=== PATIENT | female | born 1945 | race Caucasian/White ===

== ENCOUNTER → 2017-11-28 19:00 | Outpatient (CLI) | payer MEDICARE, OTHER, SELFPAY ==
--- NOTE | 2017-11-28 19:04 | DI.MRI.S_ITS ---
PROCEDURE: MR CERVICAL SPINE WO CON INDICATIONS: NECK PAIN TECHNIQUE: Noncontrast sagittal T1 spin echo and T2 fast spin echo, sagittal STIR, foraminal oblique sagittal T2 fast spin echo, and axial gradient echo or T2 fast spin echo through the cervical spine. COMPARISON: [facility], MR, C-SPINE WITHOUT CONTRAST, 10/11/2010, 15:04. [facility], MR, C-SPINE WITHOUT CONTRAST, 07/27/2014, 8:52. [facility], CT, C-SPINE WITHOUT CONTRAST, 11/02/2013, 23:19. FINDINGS: Image quality: Excellent. Alignment and Curvature: There is normal bony alignment. Bone Marrow: Marrow demonstrates normal overall signal. Spinal Cord: Visualized spinal cord has normal size and signal. No cerebellar tonsillar herniation. Paraspinous Soft Tissues: No paravertebral masses. Prevertebral soft tissues are normal in thickness. C2-C3: The disc height is relatively well-preserved. A mild degree of generalized disc osteophyte complex is seen. Mild bilateral neural foraminal narrowing is seen. No significant central canal narrowing is seen. When comparison is made with the prior examination, these findings are similar. C3-C4: The disc height is relatively well-preserved. A mild degree of generalized disc osteophyte complex is seen. There is at least moderate right-sided facet hypertrophy seen. Mild left-sided facet hypertrophy is seen. Mild bilateral neural foraminal narrowing is seen. When comparison is made with the prior examination, these findings are similar. C4-C5: Moderate loss of disc height is seen. Loss of disc signal is seen. Uncovertebral joint hypertrophy is seen at this level. Moderate disc osteophyte complex is seen, with a central disc osteophyte protrusion, as on series 3 image 15. Moderate facet joint hypertrophy is seen. Mkkk-sy-cgwdmdzi bilateral neural foraminal narrowing is seen, right worse than left. Moderate central canal narrowing is seen, with associated mass effect upon the ventral spinal cord. These degenerative changes have progressed compared to 2015. C5-C6: At least moderate loss of disc height and disc signal are seen at moderate disc bulge is seen, which is eccentric to the left side. Uncovertebral joint hypertrophy is seen at this level. Mekx-ky-dbbrfbry facet hypertrophy is seen. Moderate to severe bilateral neural foraminal narrowing is seen, left worse than right. At least moderate central canal narrowing seen. There is associated mass effect upon the ventral spinal cord. When comparison is made with the prior examination, these findings are similar. C6-C7: At least moderate loss of disc height and disc signal are seen. Moderate generalized disc osteophyte complex is seen. There is a superimposed central disc osteophyte protrusion seen. There is moderate right-sided and moderate to severe left-sided neural foraminal narrowing seen. Moderate central canal narrowing is seen, with associated mass effect upon the ventral spinal cord. These degenerative changes are worse than and 2015. C7-T1: Level within normal limits. IMPRESSION: Multiple levels of cervical spine degenerative change are seen, which are most prominent inferiorly. The degenerative changes are overall progressed compared to 2015. Dictated by: Sherman Alarcon M.D. on 12/01/2017 at 9:49 Approved by: Sherman Alarcon M.D. on 12/01/2017 at 9:56
== END ==
PROVIDERS: Family Provider Physical Medicine & Rehabilitation; PCP Family Medicine; Visit Provider Family Medicine
DX: M54.2 Cervicalgia (principal); M47.892 Other spondylosis, cervical region
CPT/HCPCS: 72141

== ENCOUNTER → 2017-12-18 13:34 | Outpatient (CLI) | payer MEDICARE, OTHER, SELFPAY | PROVIDERS: Family Provider Physical Medicine & Rehabilitation; PCP Family Medicine; Visit Provider Family Medicine | DX: M81.0 Age-related osteoporosis without current pathological fracture (principal); Z78.0 Asymptomatic menopausal state | CPT/HCPCS: 77080 ==

== ENCOUNTER → 2017-12-24 08:27 | Outpatient (CLI) | payer MEDICARE, OTHER, SELFPAY ==
--- NOTE | 2017-12-24 | DI.MG.S_ITS ---
BILATERAL DIGITAL SCREENING MAMMOGRAM 3D/2D WITH CAD: 12/24/2017 CLINICAL: Routine screening. Comparison is made to exams dated: 12/20/2016 mammogram, 11/30/2015 mammogram, and 11/15/2014 mammogram - [facility]. There are scattered fibroglandular elements in both breasts. Current study was also evaluated with a Computer Aided Detection (CAD) system. There are benign vascular calcifications in both breasts. No significant masses, calcifications, or other findings are seen in either breast. There has been no significant interval change. IMPRESSION: BENIGN There is no mammographic evidence of malignancy. A 1 year screening mammogram is recommended. This exam was interpreted at Station ID: [id number]. NOTE: For mammograms, a report in lay terms will be sent to the patient. Approximately 15% of breast malignancies will not be visualized mammographically. In the management of a palpable breast mass, a negative mammogram must not discourage biopsy of a clinically suspicious lesion. Electronically Signed By: Jamison davies/socrates:12/24/2017 20:06:49 letter sent: Normal Exam ACR BI-RADS Category 2: Benign Finding(s) 3342F
== END ==
PROVIDERS: PCP Family Medicine; Visit Provider Family Medicine
DX: Z12.31 Encounter for screening mammogram for malignant neoplasm of breast (principal)
CPT/HCPCS: 77063; 77067

== ENCOUNTER → 2018-02-20 14:50 | Outpatient (CLI) | payer MEDICARE, OTHER, SELFPAY ==
--- NOTE | 2018-02-20 | DI.RAD.S_ITS ---
PROCEDURE: XR ANKLE LT MIN 3V INDICATIONS: BILAT ANKLE PAIN TECHNIQUE: 3 views of the ankle were acquired. COMPARISON: [facility], CR, XR ANKLE RT MIN 3V, 02/20/2018, 14:54. FINDINGS: Bones: No fractures or dislocations. Ankle mortise is normally aligned. No suspicious bony lesions. Mild to moderate osteoarthritic changes are noted throughout ankle joints, mid foot and hindfoot joints. Small plantar calcaneal enthesophyte is seen. Soft tissues: No tibiotalar joint effusion. Achilles tendon appears normal. IMPRESSION: Mild to moderate osteoarthritic changes small ankle, midfoot and hindfoot joints. Dictated by: Shin Kapoor M.D. on 02/20/2018 at 15:36 Approved by: Shin Kapoor M.D. on 02/20/2018 at 15:37
--- NOTE | 2018-02-20 | DI.RAD.S_ITS ---
PROCEDURE: XR ANKLE RT MIN 3V INDICATIONS: BILAT ANKLE PAIN TECHNIQUE: 3 views of the ankle were acquired. COMPARISON: [facility], , ANKLE 3 VIEWS RIGHT, 12/26/2015, 17:28. FINDINGS: Bones: No fractures or dislocations. Ankle mortise is normally aligned. No suspicious bony lesions. Osteoarthritic changes in tibiotalar joint and subtalar joint are seen. Moderate osteoarthritic changes from midfoot joints are also noted. Well-defined a plantar calcaneal enthesophyte is seen. Soft tissues: No tibiotalar joint effusion. Achilles tendon appears normal. 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 Dictated by: Shin Kapoor M.D. on 02/20/2018 at 15:34 Approved by: Shin Kapoor M.D. on 02/20/2018 at 15:36
== END ==
PROVIDERS: Family Provider Physical Medicine & Rehabilitation; PCP Family Medicine; Visit Provider Family Medicine
DX: M25.571 Pain in right ankle and joints of right foot (principal); M25.572 Pain in left ankle and joints of left foot; M19.072 Primary osteoarthritis, left ankle and foot; M19.071 Primary osteoarthritis, right ankle and foot
CPT/HCPCS: 73610

== ENCOUNTER → 2018-08-07 10:41 | Outpatient (CLI) | payer MEDICARE, OTHER, SELFPAY ==
--- NOTE | 2018-08-07 | DI.RAD.S_ITS ---
PROCEDURE: XR SHOULDER LT MIN 2V INDICATIONS: LEFT SHOULDER PAIN TECHNIQUE: 3 views of the shoulder were acquired. COMPARISON: [facility], , SHOULDER MINIMUM 2VIEW RIGHT, 11/10/2015, 12:31. FINDINGS: Bones: No fractures or dislocations. No suspicious bony lesions. Visualized ribs appear intact. Moderate acromioclavicular and glenohumeral joint degeneration. Soft tissues: No suspicious soft tissue calcifications. IMPRESSION: No fracture. Moderate left shoulder joint degeneration. Dictated by: Wilman Salazar M.D. on 08/07/2018 at 12:06 Approved by: Wilman Salazar M.D. on 08/07/2018 at 12:07
== END ==
PROVIDERS: PCP Family Medicine; Visit Provider Family Medicine
DX: M25.512 Pain in left shoulder (principal); M19.012 Primary osteoarthritis, left shoulder
CPT/HCPCS: 73030

== ENCOUNTER 2018-08-10 16:14 | Emergency (ER) | payer MEDICARE, OTHER, SELFPAY ==
[2018-08-10 16:15] VITALS: BP 144/80; PULSE 89; RESP 12; TEMP 36.6; O2SAT 96
--- NOTE | 2018-08-10 20:11 | ED.FALL ---
HPI - Fall General Chief Complaint: Fall Stated Complaint: FALL LOWER BACK PAIN Time Seen by Provider: 08/10/18 20:11 Source: patient Mode of arrival: ambulatory Limitations: no limitations History of Present Illness HPI Narrative: Patient is a 73-year-old female here for evaluation of lower back pain. She stated that she was sweeping off a cement pad when she took a step back and then fell backwards. First landing on her buttocks and then falling back and hitting her head. Did not lose consciousness. Is not on anticoagulation. Since then has had lower back pain. Has had a history of unsteadiness and dizziness and vertigo in the past. This is not new. This is not from the fall for which she is here for today. Related Data Home Medications Medication Instructions Recorded Confirmed lisinopril 30 mg PO QAM #0 04/01/16 08/10/18 amitriptyline 10 mg tablet 10 mg PO QPM 02/26/18 08/10/18 atorvastatin 40 mg tablet 40 mg PO QPM 02/26/18 08/10/18 conjugated estrogens 0.625 mg 1.25 mg PO QAM 02/26/18 08/10/18 tablet escitalopram 20 mg tablet 20 mg PO QAM 02/26/18 08/10/18 folic acid 1 mg tablet 1 mg PO DAILY 02/26/18 08/10/18 hydrochlorothiazide 25 mg tablet 25 mg PO QAM 02/26/18 08/10/18 ann red joint care 1 cap PO QAM 02/26/18 08/10/18 Respirinics DreamStation Auto CPAP #1 ea 06/26/18 08/10/18 calcium polycarbophil [Fiber-Tabs] 1 tab PO BID 08/10/18 08/10/18 cholecalciferol (vitamin D3) 4,000 unit PO BID 08/10/18 08/10/18 [Vitamin D3] cyanocobalamin (vitamin B-12) 1,000 mcg PO DAILY 08/10/18 08/10/18 [Vitamin B-12] lpmjongf-zth-OL-lycopen-lutein 1 tab PO DAILY 08/10/18 08/10/18 [Centrum Silver] omeprazole 40 mg PO BID 08/10/18 08/10/18 solifenacin [Vesicare] 10 mg PO QPM 08/10/18 08/10/18 terbinafine HCl 250 mg PO DAILY 08/10/18 08/10/18 Previous Rx's Medication Instructions Recorded nabumetone 500 mg tablet 500 mg PO BID #60 tab 05/07/18 meloxicam [Mobic] 7.5 mg PO DAILY PRN #30 tab 08/10/18 Allergies Allergy/AdvReac Type Severity Reaction Status Date / Time shellfish derived Allergy Severe scallop Verified 08/10/18 16:30 [SHELLFISH DERIVED] ANAPHYLAXIS piroxicam [PIROXICAM] Allergy Intermediate RASH Verified 08/10/18 16:30 rofecoxib [ROFECOXIB] Allergy Intermediate RASH Verified 08/10/18 16:30 bacitracin Allergy Mild rash Verified 08/10/18 16:30 [From NEOSPORIN ([id number])] neomycin Allergy Mild rash Verified 08/10/18 16:30 [From NEOSPORIN ([id number])] polymyxin B Allergy Mild rash Verified 08/10/18 16:30 [From NEOSPORIN ([id number])] Review of Systems Constitutional Reports frequent falls ENT Ears, Nose, Mouth, and Throat: Reports disequilibrium Cardiovascular Denies chest pain, Denies palpitations and Denies dyspnea Respiratory Denies dyspnea Gastrointestinal Gastrointestinal: Denies abdominal pain Musculoskeletal Reports back pain, Reports myalgias, Reports arthralgias and Denies tingling Integumentary/Breasts Denies rash Neurologic Denies behavioral changes, Denies confusion, Reports frequent falls, Denies tingling, Denies paresthesias and Reports disequilibrium Psychiatric Denies behavioral changes and Denies confusion Endocrine Denies palpitations Hematologic/Lymphatic Denies easy bleeding and Denies easy bruising Exam Initial Vital Signs Initial Vital Signs: Vital Signs Temperature 97.8 F 08/10/18 16:15 Pulse Rate 89 08/10/18 16:15 Respiratory Rate 12 08/10/18 16:15 Blood Pressure 144/80 H 08/10/18 16:15 Pulse Oximetry 96 08/10/18 16:15 Const General: cooperative, healthy appearing, comfortable, well developed, well groomed and No acute distress Orientation: alert, awake and oriented x3 HENMT Head: normal to inspection, normocephalic, atraumatic, No abrasion, No contusion, No hematoma, No laceration and No scalp tenderness Resp Effort & Inspection: normal respiratory effort Auscultation: clear to auscultation bilaterally Cardio Rate: regular rate Rhythm: regular rhythm Back/Spine/Pelvis Back: No CVA tenderness Cervical Spine: No cervical spinal tenderness Thoracic/Lumbar Spine: paraspinal tenderness, No thoraco-lumbar spasm, No thoracic spinal tenderness and lumbar spinal tenderness Skin Lesions: no lesions Rashes: no rashes Neuro General: alert, awake and oriented x3 Cognition: normal cognition Speech: speech normal Extrem General: normal to inspection and capillary refill normal Psych Appearance: grossly normal and well kempt [facility] Social History marital status: details: to Bill, lives in [place] household members: spouse lives independently: Yes caregiver/support person: No housing: house Smoking Status: Never smoker Scores GCS Buster coma scale eye opening: Spontaneous Buster coma scale verbal response: Orientated [place] coma scale motor response: Obey commands Buster coma scale total score: 15 Nexus Score for C-Spine Focal Neurologic deficit present: No Midline spinal tenderness present: No Altered level of conciousness present: No Intoxication present: No Distracting Injury Present: No Nexus Criteria for C-spine: 0 Course Orders Ordered: ED Orders 08/10/18 20:28 XR lumbar spine 2-3V Stat Vital Signs - 8 hr 08/10/18 20:16 08/10/18 21:30 08/10/18 22:02 Pulse Rate 84 70 69 Respiratory Rate 18 18 Blood Pressure 118/53 L Blood Pressure [Right Arm] 135/73 118/53 L Pulse Oximetry 95 94 95 MDM - Fall Lab Data Urine Dip Bedside Urine Glucose Negative Bedside Urine Bilirubin - Negative Bedside Urine Ketone - Negative Urine Specific Hana 1.025 Bedside Urine Occult Blood - Negative Bedside Urine pH 6.0 Bedside Urine Protein - Negative Bedside Urine Urobilinogen - Negative Bedside Urine Nitrite - Negative Bedside Urine Leukocytes - Negative Esterase Imaging Data Lumbar spine x-ray: Radiologist's impression: [address] [address] XRay Report Signed Patient: Pat Jackson LMR#: [id number] : 7Acct:[id number] Age/Sex: 73 / FDate of Service: 08/10/18 Loc: ED Accession Number: [id number] Procedure: XR lumbar spine 2-3V Ordering Provider: Lyle Souza D.O. PROCEDURE: XR LUMBAR SPINE 2-3V INDICATIONS: fall with pain TECHNIQUE: 3 views of the lumbar spine were acquired. COMPARISON: [facility], , L-SPINE 2-3 VIEWS, 09/28/2015, 16:28. FINDINGS: Bones: 5 [id number]-rzv-mumlwxb vertebrae are present. Chronic grade 1 anterolisthesis L4 on 5. Chronic vertebral body compression fracture of L1, stable in extent. Bridging osteophytosis present. New vertebral body fracture. No suspicious bony lesions. Soft tissues: Overlying bowel gas pattern is normal. No suspicious soft tissue calcifications. IMPRESSION: 1. No visible acute fractures. 2. Chronic L1 compression fracture. 3.. Chronic grade 1 anterolisthesis of L4 on 5. No new malalignment. Dictated by: Paty Zambrano M.D. on 08/10/2018 at 20:58 Approved by: Paty Zambrano M.D. on 08/10/2018 at 21:00 MDM Narrative Medical decision making narrative: Patient with known old compression fracture. No new compression fractures were seen. She is tender on the right side paraspinal region of the lumbar spine. Will hold on a head CT for now. Patient is unknown left shoulder. She does have Flexeril that was prescribed to her by her primary doctor. She is never been told that she should not take anti-inflammatories. Will send home with a prescription for Mobic. Will hold on further workup for now. Patient was given return precautions. She expressed understanding and agreement plan. Discharge Plan Departure Patient Disposition: Home Clinical Impression: Back pain Qualifiers: Back pain location: low back pain Chronicity: acute Back pain laterality: bilateral Sciatica presence: without sciatica Qualified Code(s): M54.5 - Low back pain Fall Qualifiers: Encounter type: initial encounter Qualified Code(s): W19.XXXA - Unspecified fall, initial encounter Discharge Date/Time: 08/10/18 22:03 Interventions: ED Discharge Assessment Last Done: 08/10/18 22:02 Instructions: Back Pain (Alternative Therapy), DI for Low Back Pain, Activity May Be Better then Rest for Low Back Pain Recovery Activity Restrictions/Additional Instructions: You can continue to take the Flexeril that was given to you by your primary doctor. Take the Mobic that you were given a prescription for today as directed. Return to the emergency department for any new or worsening symptoms Prescriptions: New meloxicam [Mobic] 7.5 mg tablet 7.5 mg PO DAILY PRN (Reason: back pain) Qty: 30 RF: 0 No Action lisinopril 30 MG tablet 30 mg PO QAM Qty: 0 RF: 0 cyanocobalamin (vitamin B-12) [Vitamin B-12] 1,000 mcg Tablet 1,000 mcg PO DAILY RF: 0 omeprazole 40 mg capsule,delayed release(DR/EC) 40 mg PO BID RF: 0 terbinafine HCl 250 mg tablet 250 mg PO DAILY RF: 0 calcium polycarbophil [Fiber-Tabs] 625 mg Tablet 1 tab PO BID RF: 0 Vesicare 10 mg tablet 10 mg PO QPM RF: 0 Centrum Silver 0.4-300-250 mg-mcg-mcg Tablet 1 tab PO DAILY RF: 0 cholecalciferol (vitamin D3) [Vitamin D3] 2,000 unit Capsule 4,000 unit PO BID RF: 0 conjugated estrogens [Premarin] 0.625 mg tablet 1.25 mg PO QAM RF: 0 hydrochlorothiazide 25 mg tablet 25 mg PO QAM RF: 0 escitalopram oxalate [Lexapro] 20 mg tablet 20 mg PO QAM RF: 0 folic acid 1 mg tablet 1 mg PO DAILY RF: 0 atorvastatin [Lipitor] 40 mg tablet 40 mg PO QPM RF: 0 amitriptyline 10 mg tablet 10 mg PO QPM RF: 0 ann red joint care 1 cap PO QAM RF: 0 nabumetone 500 mg tablet 500 mg PO BID Qty: 60 RF: 2 Respirinics DreamStation Auto CPAP Qty: 1 RF: 0 Referrals: Ana Paula Jean Baptiste MD [Primary Care Provider] -
[2018-08-10 20:16] VITALS: BP 135/73; PULSE 84; RESP 18; O2SAT 95
--- NOTE | 2018-08-10 20:28 | DI.RAD.S_ITS ---
PROCEDURE: XR LUMBAR SPINE 2-3V INDICATIONS: fall with pain TECHNIQUE: 3 views of the lumbar spine were acquired. COMPARISON: [facility], , L-SPINE 2-3 VIEWS, 09/28/2015, 16:28. FINDINGS: Bones: 5 ats-bqi-medcclv vertebrae are present. Chronic grade 1 anterolisthesis L4 on 5. Chronic vertebral body compression fracture of L1, stable in extent. Bridging osteophytosis present. New vertebral body fracture. No suspicious bony lesions. Soft tissues: Overlying bowel gas pattern is normal. No suspicious soft tissue calcifications. IMPRESSION: 1. No visible acute fractures. 2. Chronic L1 compression fracture. 3.. Chronic grade 1 anterolisthesis of L4 on 5. No new malalignment. Dictated by: Paty Zambrano M.D. on 08/10/2018 at 20:58 Approved by: Paty Zambrano M.D. on 08/10/2018 at 21:00
[2018-08-10 21:30] VITALS: BP 118/53; PULSE 70; O2SAT 94
[2018-08-10 22:02] VITALS: BP 118/53; PULSE 69; RESP 18; O2SAT 95
== END 2018-08-10 22:03 | disposition home or self-care (01) ==
PROVIDERS: Emergency Provider Emergency Medicine; PCP Family Medicine
DX: M54.5 Low back pain (principal); W19.XXXA Unspecified fall, initial encounter
CPT/HCPCS: 72100; 81003; 99283; 99284

== ENCOUNTER 2018-10-27 17:32 | Observation (INO) | payer MEDICARE, OTHER, SELFPAY ==
[2018-10-27] VITALS (7 sets, daily range): BP systolic 124–166; BP diastolic 66–101; PULSE 72–90; RESP 17–18; TEMP 36.4–36.8; O2SAT 93–97; BMI 39.2
[2018-10-27] MEDS: PANTOPRAZOLE 40 MG VIAL 80 MG IV (19:00)
[2018-10-27 19:10] LABS: Add Manual Diff / Slide Review NO; Basophils Absolute Auto 0 /uL (0-100); Basophils Percent Auto 0.5 % (0-2); Eosinophils Absolute Auto 100 /uL (0-450); Eosinophils Percent Auto 1.1 % (2-4); Hematocrit 39.4 % (36-46); Hemoglobin 13.2 g/dL (12.0-16.0); Lymphocytes Absolute Auto 2700 /uL (1100-4500); Lymphocytes Percent Auto 33.4 % (25-40); Mean Corpuscular HGB Conc 33.4 % (30-36); Mean Corpuscular Hemoglobin 31.4 PG (26-34); Mean Corpuscular Volume 93.8 fL (80-100); Monocytes Absolute Auto 700 /uL (0-900); Monocytes Percent Auto 9.1 % (3-14); Neutrophils Absolute Auto 4600 /uL (1500-7000); Neutrophils Percent Auto 55.9 % (50-75); Platelet Count 223 X10^3/uL (150-400); Red Cell Distribution Width 13.1 % (11.6-14.8); White Blood Cell Count 8.2 X10^3/uL (4.5-11.0)
[2018-10-27 19:22] LABS: Alanine Aminotransferase 28 IU/L (9-52); Albumin Globulin Ratio 1.1 (1.0-2.8); Alkaline Phosphatase 124 U/L (38-126); Aspartate Aminotransferase 38 IU/L (14-36); BUN Creatinine Ratio 22.2 (6-22); Bilirubin Total 0.5 mg/dL (0.2-1.3); Blood Urea Nitrogen 20 mg/dL (7-17); Calcium 9.3 mg/dL (8.4-10.2); Carbon Dioxide 29 mmol/L (22-32); Chloride 102 mmol/L (98-107); Estimated Glomerular Filt Rate > 60.0 mL/min (>60); Globulin 3.5 g/dL (1.7-4.1); Glucose 101 mg/dL (80-110); HEMOLYSIS < 15 (0-50); INR 0.9 (0.9-1.3); Potassium 3.9 mmol/L (3.4-5.1); Prothrombin Time 10.8 SECONDS (10.1-12.7); Sodium 138 mmol/L (137-145); Total Protein 7.5 g/dL (6.3-8.2)
[2018-10-27 19:25] LABS: PTT Partial Thromboplastin Tim 26 SECONDS (26.4-36.2)
--- NOTE | 2018-10-27 19:25 | PC.NURSE ---
Pt reports waking at 0200 with severe abdominal cramping upon having a bowel movement the patient noticed dark bloody colored stool and when she wiped it was bright red, pt reports at that time feeling dizzy. This continued intermittently throughout the night. 192 patient denied dizziness and reports a pain of 5, pt resting in room with .
--- NOTE | 2018-10-27 19:44 | ED.GIBLEED ---
HPI - GI Bleed General Chief complaint: GI Bleed Stated complaint: RECTAL BLEEDING Time Seen by Provider: 10/27/18 17:59 Source: patient and family Mode of arrival: ambulatory Limitations: no limitations History of Present Illness HPI Narrative: 73-year-old female nonsmoker with history of hypertension and hyperlipidemia presents with a chief complaint lower abdominal cramping with radiation to her back and the passage of dark and tarry stool earlier. She states since then she has had some small dark clots. She denies any history of the same. She is not dizzy nor weak or lightheaded. She denies any history of significant NSAID use, bleeding ulcers or gastritis. She denies any history of alcohol or known esophageal varices. MD complaint: melena Onset (ago): hour(s) Pain Consistency: intermittent Severity: moderate Relieving factors: none Exacerbating factors: none Associated symptoms: abdominal pain Treatments Prior to Arrival: none Related Data Home Medications Medication Instructions Recorded Confirmed lisinopril 30 mg PO QAM #0 04/01/16 10/27/18 amitriptyline 10 mg tablet 10 mg PO QPM 02/26/18 10/27/18 atorvastatin 40 mg tablet 40 mg PO QPM 02/26/18 10/27/18 conjugated estrogens 0.625 mg 1.25 mg PO QAM 02/26/18 10/27/18 tablet escitalopram 20 mg tablet 20 mg PO QAM 02/26/18 10/27/18 folic acid 1 mg tablet 1 mg PO DAILY 02/26/18 10/27/18 hydrochlorothiazide 25 mg tablet 25 mg PO QAM 02/26/18 10/27/18 ann red joint care 1 cap PO QAM 02/26/18 10/27/18 Respirinics DreamStation Auto CPAP #1 ea 06/26/18 10/27/18 calcium polycarbophil [Fiber-Tabs] 1 tab PO BID 08/10/18 10/27/18 cholecalciferol (vitamin D3) 4,000 unit PO BID 08/10/18 10/27/18 [Vitamin D3] cyanocobalamin (vitamin B-12) 1,000 mcg PO DAILY 08/10/18 10/27/18 [Vitamin B-12] [id number]-[id number]-lycopen-lutein 1 tab PO DAILY 08/10/18 10/27/18 [Centrum Silver] omeprazole 40 mg PO BID 08/10/18 10/27/18 solifenacin [Vesicare] 10 mg PO QPM 08/10/18 10/27/18 terbinafine HCl 250 mg PO DAILY 08/10/18 10/27/18 Previous Rx's Medication Instructions Recorded nabumetone 500 mg tablet 500 mg PO BID #60 tab 05/07/18 Allergies Allergy/AdvReac Type Severity Reaction Status Date / Time shellfish derived Allergy Severe scallop Verified 10/27/18 18:28 [SHELLFISH DERIVED] ANAPHYLAXIS piroxicam [PIROXICAM] Allergy Intermediate RASH Verified 10/27/18 18:28 rofecoxib [ROFECOXIB] Allergy Intermediate RASH Verified 10/27/18 18:28 bacitracin Allergy Mild rash Verified 10/27/18 18:28 [From NEOSPORIN ([id number])] neomycin Allergy Mild rash Verified 10/27/18 18:28 [From NEOSPORIN ([id number])] polymyxin B Allergy Mild rash Verified 10/27/18 18:28 [From NEOSPORIN ([id number])] Review of Systems Constitutional Denies chills, Denies fever(s), Denies lethargy and Denies weakness Eyes Denies change in vision, Denies eye discharge, Denies irritation and Denies loss of vision ENT Ears, Nose, Mouth, and Throat: Denies change in voice, Denies neck pain and Denies sore throat Cardiovascular Denies chest pain, Denies irregular heart rhythm, Denies lightheadedness, Denies palpitations, Denies dyspnea, Denies dyspnea on exertion and Denies orthopnea Respiratory Denies cough, Denies dyspnea, Denies dyspnea on exertion and Denies wheezing Gastrointestinal Gastrointestinal: Denies abdominal pain, Reports melena, Reports hematochezia, Denies change in bowel habits, Denies diarrhea, Denies nausea and Denies vomiting Genitourinary Denies hematuria, Denies flank pain, Denies urinary incontinence and Denies urinary urgency Musculoskeletal Denies neck pain Integumentary/Breasts Denies pruritus, Denies erythema, Denies rash and Denies wounds Neurologic Denies confusion, Denies loss of vision and Denies weakness Psychiatric Denies anxiety, Denies confusion, Denies depression, Denies homicidal ideation and Denies suicidal ideation Endocrine Denies palpitations Hematologic/Lymphatic Denies easy bruising Allergic/Immunologic Denies wheezing [facility] Medical History Obstructive sleep apnea of adult (Chronic ~2006) Insomnia, unspecified (Chronic ~2006) Excessive daytime sleepiness (Inactive ~2006) Snoring (Inactive ~1984) History of hysterectomy (Acute) Allergic rhinitis (Chronic) Anxiety (Chronic) Chronic rhinosinusitis (Chronic) Depression (Chronic) GERD (gastroesophageal reflux disease) (Chronic) Hyperlipidemia (Chronic) Hypertension (Chronic) 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 sides of body (Chronic) Surgical History History of bladder suspension procedure (Acute) History of colonoscopy (Acute) History of hand surgery (Acute) History of surgery on left wrist (Acute) Social History marital status: details: julienne Mirza, lives in [place] household members: spouse lives independently: Yes caregiver/support person: No housing: house Smoking Status: Never smoker Social History marital status: details: julienne Mirza lives in [place] household members: spouse lives independently: Yes caregiver/support person: No housing: house Smoking Status: Never smoker Exam Narrative Exam Narrative: GENERAL: 73-year-old female appears stated age, obviously a bit uncomfortable HEAD: Atraumatic. Normocephalic. No temporal or scalp tenderness. EYES: Pupils equal round and reactive. Extraocular motions intact. No scleral icterus. No injection or drainage. ENT: Nose without bleeding, purulent drainage or septal hematoma. Throat without erythema, tonsillar hypertrophy or exudate. Uvula midline. Airway patent. NECK: Trachea midline. No JVD or lymphadenopathy. Supple, nontender, no meningeal signs. CARDIOVASCULAR: Regular rate and rhythm without murmurs, gallops, or rubs. RESPIRATORY: Clear to auscultation. Breath sounds equal bilaterally. No wheezes, rales, or rhonchi. GASTROINTESTINAL: Abdomen soft, non-tender, nondistended. RECTAL: few dark clots, not currently melena EXTREMITIES: No clubbing, cyanosis, or edema. No joint tenderness, effusion, or edema noted. BACK: Nontender without deformity or crepitance. No flank tenderness. NEURO: AOx3. SKIN: No rash or erythema. Initial Vital Signs Initial Vital Signs: Vital Signs Temperature 97.6 F 10/27/18 17:41 Pulse Rate 90 10/27/18 17:41 Respiratory Rate 18 10/27/18 17:41 Blood Pressure 155/95 H 10/27/18 17:41 Pulse Oximetry 96 10/27/18 17:41 Course Orders Ordered: ED Orders 10/27/18 18:30 Complete Blood Count AUTO DIFF Stat Comprehensive Metabolic Panel Stat Partial Thromboplastin Time Stat Prothrombin Time INR Stat Type and Screen Stat 10/27/18 21:50 Consult to Discharge Planning Routine 10/27/18 21:51 Consult to Physician Routine 10/27/18 21:53 Consult to Dietitian, Adult Routine 10/27/18 22:16 Education, smoking cessation ONGOING 10/27/18 22:17 Consult to Respiratory Therapy Evaluate & Treat 10/28/18 Basic Metabolic Panel Routine Complete Blood Count AUTO DIFF Routine Amitriptyline HCl (Elavil) 10 mg PO QPM [facility] Atorvastatin Calcium (Lipitor) 40 mg PO QPM [facility]1983 Escitalopram Oxalate (Lexapro) 20 mg PO DAILY [facility]1983 Pantoprazole Sodium 80 mg/ (Sodium Chloride) 100 mls @ 10 mls/hr IV NOW ONE Stop: 10/28/18 19:48 Sodium Chloride (Normal Saline 0.9%) 1,000 mls @ 100 mls/hr IV CONT CHE Last Admin: 10/27/18 23:02 Dose: 100 mls/hr Lisinopril (Zestril) 30 mg PO DAILY [facility]1983 Morphine Sulfate (Morphine) 2 mg IV Q4HR PRN PRN Reason: Pain, Moderate (4-6) Morphine Sulfate (Morphine) 4 mg IV Q4HR PRN PRN Reason: Pain, Severe (7-10) Naloxone HCl (Narcan) 0.2 mg IV Q2MIN PRN PRN Reason: Opiate Reversal Ondansetron HCl (Zofran) 4 mg IV Q8HR PRN PRN Reason: Nausea And Vomiting Solifenacin (Vesicare) 10 mg PO QPM [facility] Discontinued Medications Hydrochlorothiazide (Hydrochlorothiazide) 25 mg PO DAILY [facility] Ondansetron HCl (Zofran) 4 mg IV NOW ONE Stop: 10/27/18 18:09 Last Admin: 10/27/18 22:34 Dose: Not Given Pantoprazole Sodium (Protonix) 80 mg IV NOW ONE Stop: 10/27/18 18:09 Last Admin: 10/27/18 19:00 Dose: 80 mg Consultations Consultation #1: call to Dr. Schwartz to discuss admission. Happy to consult, requests admit to hospitalist with official consult as needed. Time: 19:44 Vital Signs - 8 hr 10/27/18 18:00 10/27/18 19:13 10/27/18 20:00 Temperature Pulse Rate 73 72 78 Respiratory Rate Blood Pressure Blood Pressure [Right Arm] 124/66 129/69 155/101 H Pulse Oximetry 97 96 96 10/27/18 20:34 10/27/18 21:00 10/27/18 23:25 Temperature 98.3 F 97.9 F Pulse Rate 73 73 Respiratory Rate 17 18 Blood Pressure 153/75 H 166/84 H 150/85 H Blood Pressure [Right Arm] Pulse Oximetry 95 93 10/28/18 00:21 Temperature Pulse Rate Respiratory Rate Blood Pressure Blood Pressure [Right Arm] Pulse Oximetry 93 MDM - GI Bleed Lab Data Result diagrams: 10/27/18 18:30 10/27/18 18:30 Lab Results 10/27/18 10/27/18 10/27/18 Range/Units 18:30 18:30 18:30 WBC 8.2 (4.5-11.0) X10^3/uL RBC 4.20 (4.0-5.2) X10^6/uL Hgb 13.2 (12.0-16.0) g/dL Hct 39.4 (36-46) % MCV 93.8 (80-100) fL MCH 31.4 (26-34) PG MCHC 33.4 (30-36) % RDW 13.1 (11.6-14.8) % Plt Count 223 (150-400) X10^3/uL Neut % (Auto) 55.9 (50-75) % Lymph % (Auto) 33.4 (25-40) % [place] % (Auto) 9.1 (3-14) % Eos % (Auto) 1.1 L (2-4) % Baso % (Auto) 0.5 (0-2) % Neut # (Auto) 4600 (9347-7884) /uL Lymph # (Auto) 2700 (3713-4622) /uL [place] # (Auto) 700 (0-900) /uL Eos # (Auto) 100 (0-450) /uL Baso # (Auto) 0 (0-100) /uL PT 10.8 (10.1-12.7) SECONDS INR 0.9 (0.9-1.3) APTT 26 L (26.4-36.2) SECONDS Sodium 138 (137-145) mmol/L Potassium 3.9 (3.4-5.1) mmol/L Chloride 102 (98-107) mmol/L Carbon Dioxide 29 (22-32) mmol/L BUN 20 H (7-17) mg/dL Creatinine 0.90 (0.52-1.04) mg/dL Estimated GFR > 60.0 (>60) mL/min BUN/Creatinine Ratio 22.2 H (6-22) Glucose 101 (80-110) mg/dL Calcium 9.3 (8.4-10.2) mg/dL Total Bilirubin 0.5 (0.2-1.3) mg/dL AST 38 H (14-36) IU/L ALT 28 (9-52) IU/L Alkaline Phosphatase 124 (38-126) U/L Total Protein 7.5 (6.3-8.2) g/dL Albumin 4.0 (3.5-5.0) g/dL Globulin 3.5 (1.7-4.1) g/dL Albumin/Globulin Ratio 1.1 (1.0-2.8) Blood Type Antibody Screen 10/27/18 Range/Units 18:30 WBC (4.5-11.0) X10^3/uL RBC (4.0-5.2) X10^6/uL Hgb (12.0-16.0) g/dL Hct (36-46) % MCV (80-100) fL MCH (26-34) PG MCHC (30-36) % RDW (11.6-14.8) % Plt Count (150-400) X10^3/uL Neut % (Auto) (50-75) % Lymph % (Auto) (25-40) % [place] % (Auto) (3-14) % Eos % (Auto) (2-4) % Baso % (Auto) (0-2) % Neut # (Auto) (3565-7397) /uL Lymph # (Auto) (1808-2389) /uL [place] # (Auto) (0-900) /uL Eos # (Auto) (0-450) /uL Baso # (Auto) (0-100) /uL PT (10.1-12.7) SECONDS INR (0.9-1.3) APTT (26.4-36.2) SECONDS Sodium (137-145) mmol/L Potassium (3.4-5.1) mmol/L Chloride (98-107) mmol/L Carbon Dioxide (22-32) mmol/L BUN (7-17) mg/dL Creatinine (0.52-1.04) mg/dL Estimated GFR (>60) mL/min BUN/Creatinine Ratio (6-22) Glucose (80-110) mg/dL Calcium (8.4-10.2) mg/dL Total Bilirubin (0.2-1.3) mg/dL AST (14-36) IU/L ALT (9-52) IU/L Alkaline Phosphatase (38-126) U/L Total Protein (6.3-8.2) g/dL Albumin (3.5-5.0) g/dL Globulin (1.7-4.1) g/dL Albumin/Globulin Ratio (1.0-2.8) Blood Type O Positive Antibody Screen Negative [facility] Narrative Medical decision making narrative: Patient with lower abdominal discomfort reports dark and tarry stools earlier in the day and now more dark red with clots. No melena on exam but report is certainly consistent with potential of upper GI bleed. Discharge Plan Departure Patient Disposition: Admitted As Inpatient Clinical Impression: GI bleed Discharge Date/Time: 10/27/18 20:35 Interventions: ED Discharge Assessment Last Done: 10/27/18 20:34 Admit Date/Time: 10/27/18 19:56 Admit Provider: Sami Crisostomo
--- NOTE | 2018-10-27 22:06 | P.HP_ITS ---
History of Present Illness Date Patient Seen: 10/27/18 Time Patient Seen: 21:16 Chief complaint: RECTAL BLEEDING Narrative: Ms. Pat Jackson is a 73-year-old female patient with history si gnificant for hypertension, hyperlipidemia, diverticulosis, GERD and osteoarthritis taking nabumetone who presents to the ER with complaints of abdominal pain and rectal bleeding. Patient states she woke last night with abdominal pain that she describes as a severe. Her pain has been constant prim kenneth located in the lower abdomen and crampy in character. She describes a passing dark color blood from the rectum with possibly small clots and when wiping will have bright red blood. She has had no associated nausea or vomiting but does report orthostatic dizziness that quickly resolves. She has had no prior history of bleeding but does have a history GERD treated with omeprazole and diverticulosis diagnosed approximately 10 years ago. Her last colonoscopy approximately 5 years ago. The patient does have a history of 3 herniated cervical discs and 3 herniated lumbar discs and reports bilateral lower extremity neuropathy. She has been taking nabumetone 500 mg twice daily. Patient otherwise has no complaints fevers or chills, nasal congestion or sore throat. She denies chest pain or palpitations has no shortness of breath cough or wheezing. She has generalized abdominal pain worse though in the lower abdomen. She has been plastic flatus and bloody stool. She has previously had issues of constipation or diarrhea. She has chronic bladder problems and has had 2 bladder suspensions and is currently taking VESIcare. She has bilateral hip bilateral knee osteoarthritis and describes frequent muscle cramping. She describes no history of hematological problems and no complaints of under lindo bleeding or bruising. Upon arrival in the ER the patient was found to be afebrile with a temperature 97.6?, blood pressure 155/95, heart rate of 90, respiratory rate of 18 and satur ation 96% on room air. Laboratory analysis was obtained which finds a white count 8.2, hemoglobin of 13.2 with hematocrit of 39.4 and platelets of 223. Her chemistries show normal electrolytes with a BUN of 20 and creatinine is 0.9 with an EGFR greater than 60 and a blood sugar of 101. Liver functions reveal a total bilirubin of 0.5, AST of 38, ALT 28 and alkaline phosphatase of 124. Coags are within normal range with a PT of 10.8 and an INR 0.9 and PTT of 26. Dr. Schwartz was contacted by the ER provider who discussed the case and he is happy to consult. The patient is admitted for GI bleeding. Patient History Medical History Obstructive sleep apnea of adult (Chronic ~2006) Insomnia, unspecified (Chronic ~2006) Excessive daytime sleepiness (Inactive ~2006) Snoring (Inactive ~1984) History of hysterectomy (Acute) Allergic rhinitis (Chronic) Anxiety (Chronic) Chronic rhinosinusitis (Chronic) Depression (Chronic) GERD (gastroesophageal reflux disease) (Chronic) Hyperlipidemia (Chronic) Hypertension (Chronic) 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 sides of body (Chronic) Surgical History History of bladder suspension procedure (Acute) History of colonoscopy (Acute) History of hand surgery (Acute) History of surgery on left wrist (Acute) Social History marital status: details: julienne Mirza, lives in [place] household members: spouse lives independently: Yes caregiver/support person: No housing: house Smoking Status: Never smoker Family & Social History Social History: household members spouse lives independently Yes caregiver/support person No Safety & Behavioral: Feels Safe in Current Yes Environment Been Physically Hurt or No Threatened By a Person Tobacco & Substance use: Smoking Status Never smoker alcohol intake frequency 0-2 drinks per day Substance Use Type does not use Comment: The patient lives in a single family home with her to whom she has been for 40 years. Her father at a young age of 57 related to [place] and stroke secondary receiving no medical care. Her mother in her 90s of old age. She has 3 brothers 1 of whom had brain aneurysm another with diabetes and developed blood clot and the 3rd had pancreatic cancer. She has 3 sisters whom she describes in good health. Smoking: The patient has never smoked however her whole family smoked and she had significant secondhand smoke exposure. Alcohol: Patient consumes alcohol rarely on special occasions. Substance use: Patient denies recreation for Mohs surgical site, herbal or cannabis products. Advanced directives: In direct discussion with the patient and her the patient wishes to be FULL CODE. She designates her Bill be her surrogate decision maker. Meds Home Medications Medication Instructions Recorded Confirmed Type lisinopril 30 mg PO QAM #0 04/01/16 10/27/18 History amitriptyline 10 mg tablet 10 mg PO QPM 02/26/18 10/27/18 History atorvastatin 40 mg tablet 40 mg PO QPM 02/26/18 10/27/18 History conjugated estrogens 0.625 mg 1.25 mg PO QAM 02/26/18 10/27/18 History tablet escitalopram 20 mg tablet 20 mg PO QAM 02/26/18 10/27/18 History folic acid 1 mg tablet 1 mg PO DAILY 02/26/18 10/27/18 History hydrochlorothiazide 25 mg tablet 25 mg PO QAM 02/26/18 10/27/18 History ann red joint care 1 cap PO QAM 02/26/18 10/27/18 History nabumetone 500 mg tablet 500 mg PO BID #60 tab 05/07/18 10/27/18 Rx Respirinics DreamStation Auto CPAP #1 ea 06/26/18 10/27/18 History calcium polycarbophil [Fiber-Tabs] 1 tab PO BID 08/10/18 10/27/18 History cholecalciferol (vitamin D3) 4,000 unit PO BID 08/10/18 10/27/18 History [Vitamin D3] cyanocobalamin (vitamin B-12) 1,000 mcg PO DAILY 08/10/18 10/27/18 History [Vitamin B-12] asfelbeh-sep-HC-lycopen-lutein 1 tab PO DAILY 08/10/18 10/27/18 History [Centrum Silver] omeprazole 40 mg PO BID 08/10/18 10/27/18 History solifenacin [Vesicare] 10 mg PO QPM 08/10/18 10/27/18 History terbinafine HCl 250 mg PO DAILY 08/10/18 10/27/18 History Allergies Allergy/AdvReac Type Severity Reaction Status Date / Time shellfish derived Allergy Severe scallop Verified 10/27/18 18:28 [SHELLFISH DERIVED] ANAPHYLAXIS piroxicam [PIROXICAM] Allergy Intermediate RASH Verified 10/27/18 18:28 rofecoxib [ROFECOXIB] Allergy Intermediate RASH Verified 10/27/18 18:28 bacitracin Allergy Mild rash Verified 06/04/19 18:28 [From NEOSPORIN ([id number])] neomycin Allergy Mild rash Verified 10/27/18 18:28 [From NEOSPORIN ([id number])] polymyxin B Allergy Mild rash Verified 10/27/18 18:28 [From NEOSPORIN ([id number])] Review of Systems Review of Systems All systems reviewed & are unremarkable except as noted in HPI and below Exam Vital Signs (past 8 hours): - 10/27/18 17:41 10/27/18 18:00 10/27/18 19:13 Temperature 97.6 F Pulse Rate 90 73 72 Respiratory Rate 18 Blood Pressure 155/95 H Blood Pressure [Right Arm] 124/66 129/69 Pulse Oximetry 96 97 96 10/27/18 20:00 10/27/18 20:34 10/27/18 21:00 Temperature 98.3 F Pulse Rate 78 73 Respiratory Rate 17 Blood Pressure 153/75 H 166/84 H Blood Pressure [Right Arm] 155/101 H Pulse Oximetry 96 95 Oxygen Delivery Method Room Air Narrative Exam Narrative: GENERAL APPEARANCE: well developed, obese female with a BMI of 39.2, In no acute distress. HEAD: Normocephalic, atraumatic, no scalp lesions. EYES: Glasses, pupils equal, round, reactive to light and accommodation, sclera non-icteric, extraocular movement intact without nystagmus. EARS: normal external structures, no ear pain NOSE: sinuses non tender to percussion, no rhinorrhea ORAL CAVITY: mucosa moist without lesions or exudate, full upper and lower dentures in place, tongue in midline. THROAT: normal, no erythema, no exudate, pharynx normal, uvula midline. NECK/THYROID: neck supple, no jugular venous distention, no carotid bruit, no thyromegaly, trachea midline. LYMPH NODES: no cervical or supraclavicular lymphadenopathy. SKIN: warm and dry, no suspicious lesions, no rashes, good turgor. HEART: regular rate and rhythm, S1-S2 without murmur, no rubs or gallops, brisk capillary refill, 1+ dorsalis pedis pulses, trace to 1+ bilateral pedal edema LUNGS: clear to auscultation bilaterally, no coarseness crackles or wheezing, no cough present CHEST: Symmetrical movement, no accessory muscle use, no pain to AP and lateral compression. ABDOMEN: Soft, distended, tympanic to percussion,, mild epigastric discomfort palpation, generalized abdominal tenderness greatest bilateral lower quadrants, negative Zhang sign, no peritoneal signs, no organomegaly, no flank tenderness, active bowel tones. BACK: No palpable deformities or muscle spasms, no pain on palpation. EXTREMITIES: moves all extremities, strength is 5/5 and symmetrical, muscle cramping with strength testing. NEUROLOGIC: AAO x4, no focal neurologic deficits, cranial nerves II-XII grossly intact , motor strength normal upper and lower extremities, patient reports decreased sensation bilateral feet, hearing grossly normal to speech. PSYCH: alert, cognitive function intact, stable mood with congruent affect Objective Labs Result Diagrams: 10/27/18 18:30 10/27/18 18:30 Labs: Laboratory Results - last 24 hr 10/27/18 10/27/18 10/27/18 18:30 18:30 18:30 WBC 8.2 RBC 4.20 Hgb 13.2 Hct 39.4 MCV 93.8 MCH 31.4 MCHC 33.4 RDW 13.1 Plt Count 223 Neut % (Auto) 55.9 Lymph % (Auto) 33.4 [place] % (Auto) 9.1 Eos % (Auto) 1.1 L Baso % (Auto) 0.5 Neut # (Auto) 4600 Lymph # (Auto) 2700 [place] # (Auto) 700 Eos # (Auto) 100 Baso # (Auto) 0 PT 10.8 INR 0.9 APTT 26 L Sodium 138 Potassium 3.9 Chloride 102 Carbon Dioxide 29 BUN 20 H Creatinine 0.90 Estimated GFR > 60.0 BUN/Creatinine Ratio 22.2 H Glucose 101 Calcium 9.3 Total Bilirubin 0.5 AST 38 H ALT 28 Alkaline Phosphatase 124 Total Protein 7.5 Albumin 4.0 Globulin 3.5 Albumin/Globulin Ratio 1.1 Blood Type Antibody Screen 10/27/18 18:30 WBC RBC Hgb Hct MCV MCH MCHC RDW Plt Count Neut % (Auto) Lymph % (Auto) [place] % (Auto) Eos % (Auto) Baso % (Auto) Neut # (Auto) Lymph # (Auto) [place] # (Auto) Eos # (Auto) Baso # (Auto) PT INR APTT Sodium Potassium Chloride Carbon Dioxide BUN Creatinine Estimated GFR BUN/Creatinine Ratio Glucose Calcium Total Bilirubin AST ALT Alkaline Phosphatase Total Protein Albumin Globulin Albumin/Globulin Ratio Blood Type O Positive Antibody Screen Negative Assessment & Plan Assessment & Plan narrative: Patient admitted to the hospital with acute abdominal pain secondary to GI bleeding and remains hemodynamically stable. 1. Acute abdominal pain, present on admission. -acute onset abdominal pain described as severe and crampy onset early this morning and has been constant and unrelenting. Worst over the lower abdomen. -patient with GI bleeding see problem 2. Prior history of diverticulosis without recent flare, last colonoscopy 5 years ago. -does not appear infective with patient afebrile and a normal white count, quality of pain crampy waxing and waning without radiation and no peritoneal signs. 2. Acute rectal bleeding, present on admission -patient with crampy abdominal pain and passing dark blood per rectum starting early this morning. -patient reports bright red blood when wiping, no complaints of nausea or hematemesis. History of taking the nabumetone for osteoarthritis. -no recent labs for comparison however H&H is 13.2 in 39.4 with adequate platelets of 223. No coagulopathy present. Total bilirubin is 0.5 slightly elevated AST at 38 normal ALT and alkaline phosphatase. -thank you to Dr. Schwartz for consulting. -Protonix 80 mg IV daily. -patient is NPO pending surgical evaluation and possible endoscopic procedure. -normal saline at 100 mL per hour -will monitor bleeding and recheck CBC. Type and screen drawn in the ER. 3. Chronic Hypertension, present on admission. -blood pressure on admission is 155/95, patient earlier complaining of orthostatic dizziness. -will continue patient's home medication of lisinopril 30 mg daily and hold her hydrochlorothiazide. 4. Hyperlipidemia, presumed stable. -continue patient's home medication of atorvastatin 40 mg 5. Osteoarthritis, stable -have discontinued nabumetone -morphine 2-4 mg as needed for pain, will evaluate response and adjust pain control as necessary. 6. Obstructive sleep apnea, presumed stable. -respiratory therapy to consult -patient uses home CPAP however question possible safety related to GI bleed potential for nausea and vomiting. Patient did received Zofran in the emergency department. -oxygen as needed to maintain saturation greater than 92%. 7. Contact depression with anxiety, stable -will continue patient's escitalopram 20 mg daily. The patient admitted to the hospital due to the severity of symptoms, risk of complications and adverse events. The patient is admitted observation status pending evaluation by surgery and monitoring of bleeding. Expected length of stay less than 2 midnights.
[2018-10-27] MEDS: SODIUM CHLORIDE 0.9% 1,000 ML 100 ML IV (23:02)
[2018-10-28] VITALS (19 sets, daily range): BP systolic 106–188; BP diastolic 54–101; PULSE 63–79; RESP 12–20; TEMP 36.4–36.8; O2SAT 92–98; BMI 39.1
--- NOTE | 2018-10-28 | PATH_ITS ---
[facility] Accession Number: [id number] . 01 Material submitted: . GASTRIC ANTRUM BIOPSY . 01 Clinical history: . RULE OUT H.PYLORI . 02 Diagnosis: Stomach, Antrum, Biopsy: Superficial fragments of gastric epithelium with no evidence of neoplasia, please see comment. No evidence of Helicobacter on H/E stain. Negative for intestinal metaplasia. Negative for dysplasia and maligancy. V/11/02/2018 . 02 Comment: Additional deeper levels were examined. Due to the small amount of material, it is possible the material present for examination is not entirely national sales representative. A Helicobacter immunostain was also attempted; however, there was insufficient material for the test. Endoscopic correlation is recommended. . 02 Electronically signed: . Eve Rothman MD, Pathologist NPI- [id number] . 01 Gross description: . GASTRIC ANTRUM BIOPSY: Received in formalin is 1 fragment(s) of yi, soft tissue measuring 0.3 x 0.3 x 0.1 cm submitted entirely in 1 cassette(s) /CKI /CKI . 02 Pathologist provided ICD-10: R10.9 . 02 CPT . 362901 Performed at: 01 [facility] [address], [place], [place] [id number] MD Des Walker MD Phone: [phone] Performed at: 02 [facility] [place] [address] [place], [place] [id number] MD Eve Rothman MD Phone: [phone]
--- NOTE | 2018-10-28 00:46 | PC.NURSE ---
Shift note: Received pt from evening shift. Assessment notable for abdominal cramping that comes and goes that feels like I need to go to the bathroom. Abdomen is soft and non-tender. Pt reports that she uses a cane and walker at home and has frequent falls as well. Educated pt on safety precautions and to use call light when she needs to get out of bed for any reason. Pt acknowledges understanding and demonstrated use of call light. Pt is a high fall risk d/t history of falls and bilateral lower extremity numbness and weakness. Safety checks performed, bed alarm is on.
[2018-10-28 05:40] LABS: Add Manual Diff / Slide Review NO; Basophils Absolute Auto 0 /uL (0-100); Basophils Percent Auto 0.8 % (0-2); Eosinophils Absolute Auto 100 /uL (0-450); Eosinophils Percent Auto 1.8 % (2-4); Hematocrit 36.1 % (36-46); Hemoglobin 12.2 g/dL (12.0-16.0); Lymphocytes Absolute Auto 2400 /uL (1100-4500); Lymphocytes Percent Auto 41.8 % (25-40); Mean Corpuscular HGB Conc 33.8 % (30-36); Mean Corpuscular Hemoglobin 31.5 PG (26-34); Mean Corpuscular Volume 93.4 fL (80-100); Monocytes Absolute Auto 600 /uL (0-900); Monocytes Percent Auto 9.5 % (3-14); Neutrophils Absolute Auto 2700 /uL (1500-7000); Neutrophils Percent Auto 46.1 % (50-75); Platelet Count 182 X10^3/uL (150-400); Red Blood Cell Count 3.86 X10^6/uL (4.0-5.2); White Blood Cell Count 5.8 X10^3/uL (4.5-11.0)
[2018-10-28 05:51] LABS: BUN Creatinine Ratio 22.9 (6-22); Blood Urea Nitrogen 16 mg/dL (7-17); Calcium 8.5 mg/dL (8.4-10.2); Carbon Dioxide 30 mmol/L (22-32); Chloride 104 mmol/L (98-107); Estimated Glomerular Filt Rate > 60.0 mL/min (>60); Glucose 97 mg/dL (80-110); HEMOLYSIS < 15 (0-50); Potassium 3.8 mmol/L (3.4-5.1); Sodium 138 mmol/L (137-145)
[2018-10-28] MEDS: MORPHINE 2 MG/ML INJ IV (06:26)
[2018-10-28] MEDS: SODIUM CHLORIDE 0.9% 1,000 ML 100 ML IV (08:06)
--- NOTE | 2018-10-28 09:40 | PM.CN ---
History of Present Illness Date Patient Seen: 10/28/18 Time Patient Seen: 09:40 Chief complaint: RECTAL BLEEDING Reason for consult: GI bleeding Narrative: Patient with no significant history of taking anticoagulants or nsaids. Had an onset 24 hours ago of melena and also some red rectal bleeding. She came to the emergency room with a hemoglobin of 13. Today it is dropped to 12. She has had no further bleeding since coming into the hospital. She denies abdominal pain. [facility] Medical History Obstructive sleep apnea of adult (Chronic ~2006) Insomnia, unspecified (Chronic ~2006) Excessive daytime sleepiness (Inactive ~2006) Snoring (Inactive ~1984) History of hysterectomy (Acute) Allergic rhinitis (Chronic) Anxiety (Chronic) Chronic rhinosinusitis (Chronic) Depression (Chronic) GERD (gastroesophageal reflux disease) (Chronic) Hyperlipidemia (Chronic) Hypertension (Chronic) 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 sides of body (Chronic) Surgical History History of bladder suspension procedure (Acute) History of colonoscopy (Acute) History of hand surgery (Acute) History of surgery on left wrist (Acute) Social History marital status: details: to Hermes, lives in [place] household members: spouse lives independently: Yes caregiver/support person: No housing: house Smoking Status: Never smoker Social History marital status: details: to Hermes, lives in [place] household members: spouse lives independently: Yes caregiver/support person: No housing: house Smoking Status: Never smoker Meds Home Medications Medication Instructions Recorded Confirmed Type lisinopril 30 mg PO QAM #0 04/01/16 10/27/18 History amitriptyline 10 mg tablet 10 mg PO QPM 02/26/18 10/27/18 History atorvastatin 40 mg tablet 40 mg PO QPM 02/26/18 10/27/18 History conjugated estrogens 0.625 mg 1.25 mg PO QAM 02/26/18 10/27/18 History tablet escitalopram 20 mg tablet 20 mg PO QAM 02/26/18 10/27/18 History folic acid 1 mg tablet 1 mg PO DAILY 02/26/18 10/27/18 History hydrochlorothiazide 25 mg tablet 25 mg PO QAM 02/26/18 10/27/18 History ann red joint care 1 cap PO QAM 02/26/18 10/27/18 History nabumetone 500 mg tablet 500 mg PO BID #60 tab 05/07/18 10/27/18 Rx Respirinics DreamStation Auto CPAP #1 ea 06/26/18 10/27/18 History calcium polycarbophil [Fiber-Tabs] 1 tab PO BID 08/10/18 10/27/18 History cholecalciferol (vitamin D3) 4,000 unit PO BID 08/10/18 10/27/18 History [Vitamin D3] cyanocobalamin (vitamin B-12) 1,000 mcg PO DAILY 08/10/18 10/27/18 History [Vitamin B-12] vevoekzg-iqo-DO-lycopen-lutein 1 tab PO DAILY 08/10/18 10/27/18 History [Centrum Silver] omeprazole 40 mg PO BID 08/10/18 10/27/18 History solifenacin [Vesicare] 10 mg PO QPM 08/10/18 10/27/18 History terbinafine HCl 250 mg PO DAILY 08/10/18 10/27/18 History Allergies Allergy/AdvReac Type Severity Reaction Status Date / Time shellfish derived Allergy Severe scallop Verified 10/27/18 18:28 [SHELLFISH DERIVED] ANAPHYLAXIS piroxicam [PIROXICAM] Allergy Intermediate RASH Verified 10/27/18 18:28 rofecoxib [ROFECOXIB] Allergy Intermediate RASH Verified 10/27/18 18:28 bacitracin Allergy Mild rash Verified 10/27/18 18:28 [From NEOSPORIN ([id number])] neomycin Allergy Mild rash Verified 10/27/18 18:28 [From NEOSPORIN ([id number])] polymyxin B Allergy Mild rash Verified 10/27/18 18:28 [From NEOSPORIN ([id number])] Exam Vital Signs (past 8 hours): - 10/28/18 05:00 10/28/18 08:18 Temperature 98.3 F 97.5 F L Pulse Rate 75 65 Respiratory Rate 18 16 Blood Pressure 138/54 L 139/87 Pulse Oximetry 94 94 Oxygen Delivery Method Room Air Narrative Exam Narrative: Abdomen is soft and nontender she is alert and oriented denying abdominal pain. Rectal exam will be done again at time of expected colonoscopy. Rectal exam done in the emergency department showed no tumor but did show guaiac-positive stool. Objective Labs Result Diagrams: 10/28/18 05:29 10/28/18 05:29 Labs: Laboratory Results - last 24 hr 10/27/18 10/27/18 10/27/18 18:30 18:30 18:30 WBC 8.2 RBC 4.20 Hgb 13.2 Hct 39.4 MCV 93.8 MCH 31.4 MCHC 33.4 RDW 13.1 Plt Count 223 Neut % (Auto) 55.9 Lymph % (Auto) 33.4 [place] % (Auto) 9.1 Eos % (Auto) 1.1 L Baso % (Auto) 0.5 Neut # (Auto) 4600 Lymph # (Auto) 2700 [place] # (Auto) 700 Eos # (Auto) 100 Baso # (Auto) 0 PT 10.8 INR 0.9 APTT 26 L Sodium 138 Potassium 3.9 Chloride 102 Carbon Dioxide 29 BUN 20 H Creatinine 0.90 Estimated GFR > 60.0 BUN/Creatinine Ratio 22.2 H Glucose 101 Calcium 9.3 Total Bilirubin 0.5 AST 38 H ALT 28 Alkaline Phosphatase 124 Total Protein 7.5 Albumin 4.0 Globulin 3.5 Albumin/Globulin Ratio 1.1 Blood Type Antibody Screen 10/27/18 10/28/18 10/28/18 18:30 05:29 05:29 WBC 5.8 RBC 3.86 L Hgb 12.2 Hct 36.1 MCV 93.4 MCH 31.5 MCHC 33.8 RDW 13.0 Plt Count 182 Neut % (Auto) 46.1 L Lymph % (Auto) 41.8 H [place] % (Auto) 9.5 Eos % (Auto) 1.8 L Baso % (Auto) 0.8 Neut # (Auto) 2700 Lymph # (Auto) 2400 [place] # (Auto) 600 Eos # (Auto) 100 Baso # (Auto) 0 PT INR APTT Sodium 138 Potassium 3.8 Chloride 104 Carbon Dioxide 30 BUN 16 Creatinine 0.70 Estimated GFR > 60.0 BUN/Creatinine Ratio 22.9 H Glucose 97 Calcium 8.5 Total Bilirubin AST ALT Alkaline Phosphatase Total Protein Albumin Globulin Albumin/Globulin Ratio Blood Type O Positive Antibody Screen Negative Assessment & Plan Assessment & Plan narrative: Patient with mild GI bleeding possibly colonic possibly upper GI bleeding has no risk factors. Last colonoscopy was 5 years ago. No polyps were reported but she did have a history of diverticulosis noted. Today we will do an EGD because she is not prepped and if those findings are negative I will order a bowel prep and do a colonoscopy tomorrow. Patient stable.
--- NOTE | 2018-10-28 09:44 | P.CONS_ITS ---
History of Present Illness Date Patient Seen: 10/28/18 Time Patient Seen: 09:40 Chief complaint: RECTAL BLEEDING Reason for consult: GI bleeding Narrative: Patient with no significant history of taking anticoagulants or nsaids. Had an onset 24 hours ago of melena and also some red rectal bleeding. She came to the emergency room with a hemoglobin of 13. Today it is dropped to 12. She has had no further bleeding since coming into the hospital. She denies abdominal pain. [facility] Medical History Obstructive sleep apnea of adult (Chronic ~2006) Insomnia, unspecified (Chronic ~2006) Excessive daytime sleepiness (Inactive ~2006) Snoring (Inactive ~1984) History of hysterectomy (Acute) Allergic rhinitis (Chronic) Anxiety (Chronic) Chronic rhinosinusitis (Chronic) Depression (Chronic) GERD (gastroesophageal reflux disease) (Chronic) Hyperlipidemia (Chronic) Hypertension (Chronic) 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 sides of body (Chronic) Surgical History History of bladder suspension procedure (Acute) History of colonoscopy (Acute) History of hand surgery (Acute) History of surgery on left wrist (Acute) Social History marital status: details: to Hermes, lives in [place] household members: spouse lives independently: Yes caregiver/support person: No housing: house Smoking Status: Never smoker Social History marital status: details: to [place]es, lives in [place] household members: spouse lives independently: Yes caregiver/support person: No housing: house Smoking Status: Never smoker Meds Home Medications Medication Instructions Recorded Confirmed Type lisinopril 30 mg PO QAM #0 04/01/16 10/27/18 History amitriptyline 10 mg tablet 10 mg PO QPM 02/26/18 10/27/18 History atorvastatin 40 mg tablet 40 mg PO QPM 02/26/18 10/27/18 History conjugated estrogens 0.625 mg 1.25 mg PO QAM 02/26/18 10/27/18 History tablet escitalopram 20 mg tablet 20 mg PO QAM 02/26/18 10/27/18 History folic acid 1 mg tablet 1 mg PO DAILY 02/26/18 10/27/18 History hydrochlorothiazide 25 mg tablet 25 mg PO QAM 02/26/18 10/27/18 History ann red joint care 1 cap PO QAM 02/26/18 10/27/18 History nabumetone 500 mg tablet 500 mg PO BID #60 tab 05/07/18 10/27/18 Rx Respirinics DreamStation Auto CPAP #1 ea 06/26/18 10/27/18 History calcium polycarbophil [Fiber-Tabs] 1 tab PO BID 08/10/18 10/27/18 History cholecalciferol (vitamin D3) 4,000 unit PO BID 08/10/18 10/27/18 History [Vitamin D3] cyanocobalamin (vitamin B-12) 1,000 mcg PO DAILY 08/10/18 10/27/18 History [Vitamin B-12] qituirxm-vvm-IG-lycopen-lutein 1 tab PO DAILY 08/10/18 10/27/18 History [Centrum Silver] omeprazole 40 mg PO BID 08/10/18 10/27/18 History solifenacin [Vesicare] 10 mg PO QPM 08/10/18 10/27/18 History terbinafine HCl 250 mg PO DAILY 08/10/18 10/27/18 History Allergies Allergy/AdvReac Type Severity Reaction Status Date / Time shellfish derived Allergy Severe scallop Verified 10/27/18 18:28 [SHELLFISH DERIVED] ANAPHYLAXIS piroxicam [PIROXICAM] Allergy Intermediate RASH Verified 10/27/18 18:28 rofecoxib [ROFECOXIB] Allergy Intermediate RASH Verified 10/27/18 18:28 bacitracin Allergy Mild rash Verified 10/27/18 18:28 [From NEOSPORIN ([id number])] neomycin Allergy Mild rash Verified 10/27/18 18:28 [From NEOSPORIN ([id number])] polymyxin B Allergy Mild rash Verified 10/27/18 18:28 [From NEOSPORIN ([id number])] Exam Vital Signs (past 8 hours): - 10/28/18 05:00 10/28/18 08:18 Temperature 98.3 F 97.5 F L Pulse Rate 75 65 Respiratory Rate 18 16 Blood Pressure 138/54 L 139/87 Pulse Oximetry 94 94 Oxygen Delivery Method Room Air Narrative Exam Narrative: Abdomen is soft and nontender she is alert and oriented denying abdominal pain. Rectal exam will be done again at time of expected colonoscopy. Rectal exam done in the emergency department showed no tumor but did show guaiac-positive stool. Objective Labs Result Diagrams: 10/28/18 05:29 10/28/18 05:29 Labs: Laboratory Results - last 24 hr 10/27/18 10/27/18 10/27/18 18:30 18:30 18:30 WBC 8.2 RBC 4.20 Hgb 13.2 Hct 39.4 MCV 93.8 MCH 31.4 MCHC 33.4 RDW 13.1 Plt Count 223 Neut % (Auto) 55.9 Lymph % (Auto) 33.4 [place] % (Auto) 9.1 Eos % (Auto) 1.1 L Baso % (Auto) 0.5 Neut # (Auto) 4600 Lymph # (Auto) 2700 [place] # (Auto) 700 Eos # (Auto) 100 Baso # (Auto) 0 PT 10.8 INR 0.9 APTT 26 L Sodium 138 Potassium 3.9 Chloride 102 Carbon Dioxide 29 BUN 20 H Creatinine 0.90 Estimated GFR > 60.0 BUN/Creatinine Ratio 22.2 H Glucose 101 Calcium 9.3 Total Bilirubin 0.5 AST 38 H ALT 28 Alkaline Phosphatase 124 Total Protein 7.5 Albumin 4.0 Globulin 3.5 Albumin/Globulin Ratio 1.1 Blood Type Antibody Screen 10/27/18 10/28/18 10/28/18 18:30 05:29 05:29 WBC 5.8 RBC 3.86 L Hgb 12.2 Hct 36.1 MCV 93.4 MCH 31.5 MCHC 33.8 RDW 13.0 Plt Count 182 Neut % (Auto) 46.1 L Lymph % (Auto) 41.8 H [place] % (Auto) 9.5 Eos % (Auto) 1.8 L Baso % (Auto) 0.8 Neut # (Auto) 2700 Lymph # (Auto) 2400 [place] # (Auto) 600 Eos # (Auto) 100 Baso # (Auto) 0 PT INR APTT Sodium 138 Potassium 3.8 Chloride 104 Carbon Dioxide 30 BUN 16 Creatinine 0.70 Estimated GFR > 60.0 BUN/Creatinine Ratio 22.9 H Glucose 97 Calcium 8.5 Total Bilirubin AST ALT Alkaline Phosphatase Total Protein Albumin Globulin Albumin/Globulin Ratio Blood Type O Positive Antibody Screen Negative Assessment & Plan Assessment & Plan narrative: Patient with mild GI bleeding possibly colonic possibly upper GI bleeding has no risk factors. Last colonoscopy was 5 years ago. No polyps were reported but she did have a history of diverticulosis not ed. Today we will do an EGD because she is not prepped and if those findings are negative I will order a bowel prep and do a colonoscopy tomorrow. Patient stable.
[2018-10-28] MEDS: PANTOPRAZOLE 80 MG in SODIUM CHLORIDE 0.9% 100 ML 10 ML IV (09:57)
[2018-10-28] MEDS: LISINOPRIL 10 MG TABLET 30 MG PO (10:16)
[2018-10-28] MEDS: SODIUM CHLORIDE 0.9% 1,000 ML 84 ML IV ×2 (15:28→22:56)
[2018-10-28] MEDS: MIDAZOLAM 5 MG/5 ML VIAL IV (15:50)
--- NOTE | 2018-10-28 15:53 | PM.OP.ENDO ---
Operative Date/Time/Diagnoses Date of procedure: 10/28/18 Time of procedure: 15:53 Pre-op diagnosis: GASTROINTESTINAL BLEEDING Post-op diagnosis: same Procedure & Clinicians Study performed: EGD WITH BIOPSY Same procedure as scheduled: Yes Indications: PATIENT WITH GASTROINTESTINAL BLEEDING Surgeon: Luis A Schwartz Procedure Notes SCOAP/Timeout: WAS DONE Procedure in detail: THE PATIENT WAS PROPERLY IDENTIFIED DURING SURGICAL PAUSE GIVEN TOPICAL PHARYNGEAL CETACAINE SPRAY GIVEN A TOTAL OF 3 MG OF VERSED THROUGHOUT THE PROCEDURE THE FLEXIBLE FIBEROPTIC GASTROSCOPE INSERTED TRANSORALLY FROM THE HYPOPHARYNX INTO THE 2ND PORTION DUODENUM THE ESOPHAGUS IS NORMAL IT WAS PHOTOGRAPHED THE STOMACH IS NORMAL AND WAS PHOTOGRAPHED 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 THE PYLORIC CHANNEL 1ST AND 2ND PORTION OF DUODENUM WERE NORMAL. ANTRAL BIOPSY WAS DONE FOR H PYLORI. RETROFLEX SING THE SCOPE PRIOR TO RETRIEVAL FROM THE STOMACH REVEALED HIGH-NORMAL GASTRIC SIDE OF THE EG JUNCTION WITH NO SIGN OF A AMBIKA-RODRIGUEZ TEAR. THERE WAS NO EVIDENCE OF ANY UPPER GI BLEEDING EITHER ACTIVE OR HISTORICALLY Scope withdrawal time: 3 Sedation minutes: 5 Findings: hiatal hernia Specimen(s): other (ANTRAL BIOPSY FOR H PYLORI) Complications: none Recommendations: Other recommendation (COLONOSCOPY TOMORROW) Disposition: PACU
[2018-10-28] MEDS: SOLIFENACIN 5 MG TABLET 10 MG PO (17:30)
[2018-10-28] MEDS: ATORVASTATIN 20 MG TABLET 40 MG PO (17:30)
[2018-10-28] MEDS: AMITRIPTYLINE 10 MG TABLET PO (17:30)
--- NOTE | 2018-10-28 17:35 | PC.NURSE ---
Addendum entered by Candace Spencer R.N. 10/28/18 20:38: Patient had formed bowel movement, attached to BM, a one inch maroon stringy clot. No active bleeding to rectal area. Original Note: Christel shift note: Patient return from EGD procedure, awake, alert, and pleasant. On clear liquid diet, resumed IVF and protonix upon arrival. VSS and afebrile. at bedside providing supportive care. Call light within reach.
--- NOTE | 2018-10-28 18:12 | PM.PN.1 ---
Subjective Date Patient Seen: 10/28/18 Time Patient Seen: 18:12 Interval history: Patient admitted last evening for bright red blood per rectum. She had lower abdominal cramping and pain as well. Hemoglobin hematocrit have been stable. She has not had a bowel movement since her last episode last night that prompted her to go to the emergency department. She has not had any further rectal bleeding. She is no longer having the abdominal pain or cramping. She has not had anything to eat. She had upper endoscopy this afternoon that was normal. She is scheduled for colonoscopy tomorrow. She had some coffee and we can have clear liquids before she begins her prep for the colonoscopy in a.m. Otherwise she is feeling well without any other complaints. She has not eaten any different food or excessive amounts of corn or popcorn etc. She has not been taking large doses of anti-inflammatory but she does take a daily Relafen. Twelve point review of systems is negative other than above. Exam Vital Signs (past 8 hours): - 10/28/18 10:16 10/28/18 12:00 10/28/18 15:59 Temperature 97.7 F 97.7 F Pulse Rate 63 64 76 Respiratory Rate 16 18 Blood Pressure 168/84 H 158/74 H 159/74 H Pulse Oximetry 95 94 10/28/18 16:04 10/28/18 16:09 10/28/18 16:14 Temperature Pulse Rate 77 71 73 Respiratory Rate 16 16 12 Blood Pressure 152/77 H 146/74 H 144/76 H Pulse Oximetry 94 95 95 10/28/18 16:23 10/28/18 16:45 10/28/18 17:15 Temperature 97.8 F 97.8 F 97.6 F Pulse Rate 79 74 78 Respiratory Rate 20 20 18 Blood Pressure 106/74 159/73 H 159/77 H Pulse Oximetry 92 96 94 10/28/18 17:45 10/28/18 17:54 Temperature Pulse Rate 69 Respiratory Rate Blood Pressure 178/78 H Pulse Oximetry 98 Oxygen Delivery Method Room Air Oxygen Flow Rate 0 Narrative Exam Narrative: Patient is alert and oriented x3. She is bright and smiling and interactive. HEENT is unremarkable, mucous membranes moist and pink Neck: Supple without adenopathy or thyromegaly Chest: Clear to auscultation without wheezes rhonchi or crackles Cor: Regular rate and rhythm with distant S1 and S2 Abdomen: Positive bowel sounds, soft, nontender, nondistended Extremities: No edema, pulses intact Objective Labs Result Diagrams: 10/28/18 05:29 10/28/18 05:29 Labs: Laboratory Results - last 24 hr 10/27/18 10/27/18 10/27/18 18:30 18:30 18:30 WBC 8.2 RBC 4.20 Hgb 13.2 Hct 39.4 MCV 93.8 MCH 31.4 MCHC 33.4 RDW 13.1 Plt Count 223 Neut % (Auto) 55.9 Lymph % (Auto) 33.4 [place] % (Auto) 9.1 Eos % (Auto) 1.1 L Baso % (Auto) 0.5 Neut # (Auto) 4600 Lymph # (Auto) 2700 [place] # (Auto) 700 Eos # (Auto) 100 Baso # (Auto) 0 PT 10.8 INR 0.9 APTT 26 L Sodium 138 Potassium 3.9 Chloride 102 Carbon Dioxide 29 BUN 20 H Creatinine 0.90 Estimated GFR > 60.0 BUN/Creatinine Ratio 22.2 H Glucose 101 Calcium 9.3 Total Bilirubin 0.5 AST 38 H ALT 28 Alkaline Phosphatase 124 Total Protein 7.5 Albumin 4.0 Globulin 3.5 Albumin/Globulin Ratio 1.1 Blood Type Antibody Screen 10/27/18 10/28/18 10/28/18 18:30 05:29 05:29 WBC 5.8 RBC 3.86 L Hgb 12.2 Hct 36.1 MCV 93.4 MCH 31.5 MCHC 33.8 RDW 13.0 Plt Count 182 Neut % (Auto) 46.1 L Lymph % (Auto) 41.8 H [place] % (Auto) 9.5 Eos % (Auto) 1.8 L Baso % (Auto) 0.8 Neut # (Auto) 2700 Lymph # (Auto) 2400 [place] # (Auto) 600 Eos # (Auto) 100 Baso # (Auto) 0 PT INR APTT Sodium 138 Potassium 3.8 Chloride 104 Carbon Dioxide 30 BUN 16 Creatinine 0.70 Estimated GFR > 60.0 BUN/Creatinine Ratio 22.9 H Glucose 97 Calcium 8.5 Total Bilirubin AST ALT Alkaline Phosphatase Total Protein Albumin Globulin Albumin/Globulin Ratio Blood Type O Positive Antibody Screen Negative Assessment & Plan Assessment & Plan narrative: 73-year-old female well known to me with a history of hypertension, hyperlipidemia, GERD and really her most significant medical problem is severe degenerative joint disease affecting almost her entire skeletal system. Admitted for bright red blood per rectum thought to be likely lower GI in nature. She is hemodynamically stable without anemia. Plan for colonoscopy tomorrow. Will recheck labs in a.m.. Will continue on omeprazole. Assessment 2. Hypertension with elevated blood pressure. Suspect because she did miss some of her medications. We will continue outpatient medications hydrochlorothiazide and lisinopril. We will continue to monitor. Assessment 3. Elevated liver function tests on abdomen. Unclear etiology Plan will reassess in a.m.. Assessment 4. History of depression stable Plan: Continue outpatient medications Assessment 5. DJD currently stable Plan: Hold Relafen Quality VTE Deep Vein Thrombosis/Pulmonary Embolism Present on Admission: No
[2018-10-28] MEDS: PEG3350/SOD SULF,BICARB,CL/KCL 4,000 ML SOLUTION 4000 ML PO (18:14)
[2018-10-29] VITALS (16 sets, daily range): BP systolic 117–154; BP diastolic 67–100; PULSE 66–82; RESP 12–20; TEMP 36.2–36.6; O2SAT 92–100
--- NOTE | 2018-10-29 | PATH_ITS ---
[facility] Accession Number: [id number] . 01 Material submitted: . PART A: colon - COLON POLYP AT 60CM PART B: colon - COLITIS BIOPSY AT 40CM PART C: colon - COLITIS BIOPSY AT 30CM . 02 Diagnosis: A. Colon, Polyp at 60 cm, Biopsy: Tubular adenoma. Additional levels were examined. . B. Colon, 40 cm, Biopsy: Colonic mucosa with ischemia-type changes. Please see comment. Negative for granulomas, dysplasia and malignancy. . C. Colon, 30 cm, Biopsy: Colonic mucosa with no significant diagnostic abnormality. Negative for active, chronic, and microscopic colitis. Negative for dysplasia and malignancy. . . [facility]/11/03/2018 . 02 Comment: Part B: The differential diagnosis of ischemia-type changes includes true vascular ischemia, infection (enterohemorrhagic E. coli, C. difficile, etc.), and ischemia due to trauma/prolapse. . 02 Electronically signed: . Eve Rothman MD, Pathologist NPI- [id number] . 01 Gross description: . Part A: COLON POLYP AT 60CM: Received in formalin is 1 fragment(s) of yi, soft tissue measuring 0.6 x 0.4 x 0.2 cm submitted entirely in 1 cassette(s) Part B: COLITIS BIOPSY AT 40CM: Received in formalin are multiple fragment(s) of yi, soft tissue measuring 0.9 x 0.5 x 0.2 cm in aggregate submitted entirely in 1 cassette(s) Part C: COLITIS BIOPSY AT 30CM: Received in formalin is 1 fragment(s) of yi, soft tissue measuring 0.9 x 0.4 x 0.1 cm submitted entirely in 1 cassette(s) /CKI /CKI . 02 Pathologist provided ICD-10: D12.6, K55.9 . 02 CPT . 966067, [id number], [id number] Performed at: 01 [facility] [address] [id number] MD Des Walker MD Phone: [phone] Performed at: 02 [facility] [address] [place] [id number] MD Eve Rothman MD Phone: [phone]
[2018-10-29 06:52] LABS: Add Manual Diff / Slide Review NO; Basophils Absolute Auto 0 /uL (0-100); Basophils Percent Auto 0.5 % (0-2); Eosinophils Absolute Auto 100 /uL (0-450); Eosinophils Percent Auto 1.8 % (2-4); Hematocrit 35.9 % (36-46); Lymphocytes Absolute Auto 1700 /uL (1100-4500); Lymphocytes Percent Auto 35.5 % (25-40); Mean Corpuscular HGB Conc 33.6 % (30-36); Mean Corpuscular Hemoglobin 31.5 PG (26-34); Mean Corpuscular Volume 93.8 fL (80-100); Monocytes Absolute Auto 400 /uL (0-900); Monocytes Percent Auto 9.1 % (3-14); Neutrophils Absolute Auto 2500 /uL (1500-7000); Neutrophils Percent Auto 53.1 % (50-75); Platelet Count 178 X10^3/uL (150-400); Red Blood Cell Count 3.82 X10^6/uL (4.0-5.2); Red Cell Distribution Width 13.1 % (11.6-14.8); White Blood Cell Count 4.8 X10^3/uL (4.5-11.0)
[2018-10-29 07:02] LABS: Alanine Aminotransferase 37 IU/L (9-52); Albumin 3.3 g/dL (3.5-5.0); Albumin Globulin Ratio 1.1 (1.0-2.8); Alkaline Phosphatase 97 U/L (38-126); Aspartate Aminotransferase 49 IU/L (14-36); BUN Creatinine Ratio 14.3 (6-22); Bilirubin Total 0.4 mg/dL (0.2-1.3); Blood Urea Nitrogen 10 mg/dL (7-17); Calcium 8.3 mg/dL (8.4-10.2); Carbon Dioxide 30 mmol/L (22-32); Chloride 105 mmol/L (98-107); Estimated Glomerular Filt Rate > 60.0 mL/min (>60); Globulin 2.9 g/dL (1.7-4.1); Glucose 86 mg/dL (80-110); HEMOLYSIS < 15 (0-50); Potassium 3.5 mmol/L (3.4-5.1); Sodium 139 mmol/L (137-145); Total Protein 6.2 g/dL (6.3-8.2)
[2018-10-29] MEDS: LISINOPRIL 10 MG TABLET 30 MG PO (09:12)
[2018-10-29] MEDS: PANTOPRAZOLE 40 MG TABLET PO ×2 (09:13→20:17)
--- NOTE | 2018-10-29 13:31 | PM.PN.1 ---
Subjective Date Patient Seen: 10/29/18 Time Patient Seen: 13:32 Interval history: Patient is doing well. No problems last night . No abdominal pain. No further bleeding. No other concerns cscope scheduled for 4pm today h/h stable Exam Vital Signs (past 8 hours): - 10/29/18 06:00 10/29/18 07:00 10/29/18 07:50 Temperature 97.4 F L 97.6 F Pulse Rate 66 77 Respiratory Rate 18 17 Blood Pressure 149/94 H 147/89 H Pulse Oximetry 94 97 92 10/29/18 09:12 10/29/18 11:00 Temperature 97.5 F L Pulse Rate 72 Respiratory Rate 16 Blood Pressure 147/83 H 154/89 H Pulse Oximetry 96 Oxygen Delivery Method Room Air Oxygen Flow Rate 0 Narrative Exam Narrative: Alert and oriented x3 Color is good Neck is supple without adenopathy or masses Chest: Clear to auscultation without wheezes rhonchi or crackles Cor: Regular rate and rhythm without murmur Abdomen: Positive bowel sounds x4. Some tenderness with deep palpation of the abdomen right lower quadrant but no guarding no rebound. Obese no hepatosplenomegaly Extremities: Trace edema, nonpitting, pulses intact, unchanged bony arthropathy Objective Labs Result Diagrams: 10/29/18 06:20 10/29/18 06:20 Labs: Laboratory Results - last 24 hr 10/29/18 10/29/18 06:20 06:20 WBC 4.8 RBC 3.82 L Hgb 12.0 Hct 35.9 L MCV 93.8 MCH 31.5 MCHC 33.6 RDW 13.1 Plt Count 178 Neut % (Auto) 53.1 Lymph % (Auto) 35.5 [place] % (Auto) 9.1 Eos % (Auto) 1.8 L Baso % (Auto) 0.5 Neut # (Auto) 2500 Lymph # (Auto) 1700 [place] # (Auto) 400 Eos # (Auto) 100 Baso # (Auto) 0 Sodium 139 Potassium 3.5 Chloride 105 Carbon Dioxide 30 BUN 10 Creatinine 0.70 Estimated GFR > 60.0 BUN/Creatinine Ratio 14.3 Glucose 86 Calcium 8.3 L Total Bilirubin 0.4 AST 49 H ALT 37 Alkaline Phosphatase 97 Total Protein 6.2 L Albumin 3.3 L Globulin 2.9 Albumin/Globulin Ratio 1.1 Assessment & Plan Assessment & Plan narrative: 73-year-old female with probable lower GI bleed. Stable hemodynamically and stable crit with scheduled colonoscopy later today. Most likely diagnosis would be diverticular bleed. We will see what the colonoscopy shows. Anticipate if no further bleeding or acute problems that she could go home after the colonoscopy and recovery from that and follow up with me on Friday. Appointment is made for 11:00 a.m.. She will go home on her outpatient medications except we will hold the Relafen. Assessment 2. Hypertension with slight elevation partially related to missed doses of her antihypertensives. Plan: Home on outpatient medications and monitor blood pressure. Will re-evaluate on Friday. Other chronic medical problems are stable. EGD was normal. Quality VTE Deep Vein Thrombosis/Pulmonary Embolism Present on Admission: No
--- NOTE | 2018-10-29 13:37 | DIET.PN ---
RD consult diverticulitis Assessment: pt diverticulitis c GIB, 06/ am stool contained blood clot. Pt tolerating clear liquid diet. Pt denies recent stress or offending food to cause inflammation, no n/v/d/b or wt loss prior to admit. Usual diet: b- pb and jelly on wonder bread c coffee; L- sandwiches, leftovers, occ skips; D- chicken, fresh fish (son is clark), meatloaf c pasta, rice, cooked veg, 4 [place]ark salad; Sn- banana, fruit, chips, lemonade. Diagnosis: Inadequate protein energy intake r/t diverticulitis aeb no food intake for past 2 d, clear liquid diet ordered until inflammation resolves. Intervention: RD encouraged slow intake of clear foods, recc Ensure Clear BID c breakfast/lunch to increase kcal, PRO, vits and minerals. Plan: Continue clear diet until blood and inflammation resolve, advance to low-residue diet as tolerated, further advancement to high fiber/high fluid diet once home. RD will educate pt on these diets c handouts prior to discharge.
--- NOTE | 2018-10-29 13:39 | P.PN_ITS ---
Subjective Date Patient Seen: 10/29/18 Time Patient Seen: 13:32 Interval history: Patient is doing well. No problems last night . No abdominal pain. No further bleeding. No other concerns cscope scheduled for 4pm today h/h stable Exam Vital Signs (past 8 hours): - 10/29/18 06:00 10/29/18 07:00 10/29/18 07:50 Temperature 97.4 F L 97.6 F Pulse Rate 66 77 Respiratory Rate 18 17 Blood Pressure 149/94 H 147/89 H Pulse Oximetry 94 97 92 10/29/18 09:12 10/29/18 11:00 Temperature 97.5 F L Pulse Rate 72 Respiratory Rate 16 Blood Pressure 147/83 H 154/89 H Pulse Oximetry 96 Oxygen Delivery Method Room Air Oxygen Flow Rate 0 Narrative Exam Narrative: Alert and oriented x3 Color is good Neck is supple without adenopathy or masses Chest: Clear to auscultation without wheezes rhonchi or crackles Cor: Regular rate and rhythm without murmur Abdomen: Positive bowel sounds x4. Some tenderness with deep palpation of the abdomen right lower quadrant but no guarding no rebound. Obese no hepatosplenomegaly Extremities: Trace edema, nonpitting, pulses intact, unchanged bony arthropathy Objective Labs Result Diagrams: 10/29/18 06:20 10/29/18 06:20 Labs: Laboratory Results - last 24 hr 10/29/18 10/29/18 06:20 06:20 WBC 4.8 RBC 3.82 L Hgb 12.0 Hct 35.9 L MCV 93.8 MCH 31.5 MCHC 33.6 RDW 13.1 Plt Count 178 Neut % (Auto) 53.1 Lymph % (Auto) 35.5 [place] % (Auto) 9.1 Eos % (Auto) 1.8 L Baso % (Auto) 0.5 Neut # (Auto) 2500 Lymph # (Auto) 1700 [place] # (Auto) 400 Eos # (Auto) 100 Baso # (Auto) 0 Sodium 139 Potassium 3.5 Chloride 105 Carbon Dioxide 30 BUN 10 Creatinine 0.70 Estimated GFR > 60.0 BUN/Creatinine Ratio 14.3 Glucose 86 Calcium 8.3 L Total Bilirubin 0.4 AST 49 H ALT 37 Alkaline Phosphatase 97 Total Protein 6.2 L Albumin 3.3 L Globulin 2.9 Albumin/Globulin Ratio 1.1 Assessment & Plan Assessment & Plan narrative: 73-year-old female with probable lower GI bleed. Stable hemodynamically and stable crit with scheduled colonoscopy later today. Most likely diagnosis would be diverticular bleed. We will see what the colonoscopy shows. Anticipate if no further bleeding or acute problems that she could go home after the colonoscopy and recovery from that and follow up with me on Friday. Appointment is made for 11:00 a.m.. She will go home on her outpatient medications except we will hold the Relafen. Assessment 2. Hypertension with slight elevation partially related to missed doses of her antihypertensives. Plan: Home on outpatient medications and monitor blood pressure. Will re- evaluate on Friday. Other chronic medical problems are stable. EGD was normal. Quality VTE Deep Vein Thrombosis/Pulmonary Embolism Present on Admission: No
[2018-10-29] MEDS: SODIUM CHLORIDE 0.9% 1,000 ML 84 ML IV (16:06)
--- NOTE | 2018-10-29 16:16 | SUR.HOLD ---
pt down to opd from floor at 1605, blood pressure cuff applied, iv patent , endo nurses ready to take patient to endo room
--- NOTE | 2018-10-29 16:24 | PC.NURSE ---
Christel shift note: Patient transferred to OR via gurney for Colonoscopy procedure, awake, alert, and pleasant.
--- NOTE | 2018-10-29 16:32 | CM.DANOTE ---
Discharge Planning/Care Management DCP: assessment: case received, EMR reviewed and discussed POC in Team Rounds yesterday and again today. Went to check in with pt now but she is in colonoscopy procedure. Pt is a 73 year old female who admitted night of 10/27 to care of hospitalist team. This was corrected on 10/28 as pt's PCP is Dr. Jean Baptiste and she took over the case yesterday. Surgeon Dr. Newman consulted. Pt had EGD yesterday and then colonoscopy was set up for [address] Jean Baptiste notes that if pt is no longer showing s/s GI bleed she may d/c after the colonoscopy recovery and follow up in clinic with her on Friday. CM Discharge Assessment Start: 10/29/18 16:31 Freq: Status: Active Protocol: Document 10/29/18 16:31 ITV (Rec: 10/29/18 16:32 ITV [id number]) Discharge Planning Assessment Advance Directives? No History Provided By Patient Medical Record Household Members spouse Is patient alert and oriented? Yes
[2018-10-29] MEDS: MIDAZOLAM 5 MG/5 ML VIAL IV (16:36)
[2018-10-29] MEDS: fentaNYL 250 MCG/5 ML INJ IV (16:37)
--- NOTE | 2018-10-29 16:49 | PM.OP.ENDO ---
Operative Date/Time/Diagnoses Date of procedure: 10/29/18 Time of procedure: 16:49 Pre-op diagnosis: Gastrointestinal bleeding Post-op diagnosis: other (Severe colitis descending colon from 30-40 cm, diverticulosis sigmoid colon, 5 mm polyp at 60 cm) Procedure & Clinicians Study performed: Total colonoscopy to the cecum polypectomy at 60 cm numerous biopsies between 30 and 40 cm Same procedure as scheduled: Yes Surgeon: Luis A Schwartz Procedure Notes SCOAP/Timeout: Was done Procedure in detail: Patient was properly identified during surgical pause given a total thigh of 5 mg of Versed and 200 mg of fentanyl throughout the procedure and was well tolerated. The flexible fiberoptic colonoscope inserted transanally to the cecum patient does have significant sigmoid diverticulosis making endoscopy difficult. From 30-40 cm there is severe colitis hemorrhagic in nature with very friable mucosa which even with the suction being applied started bleeding. Multiple biopsies were done between 30 and 40 cm to try to identify the histology of this colitis inflammatory bowel disease. At 60 cm there was a 5 mm polyp which was I believe of no consequence and I removed it with the cold forceps. No other pathology was encountered to the cecum. Procedure was well tolerated. Scope withdrawal time: 12 Sedation minutes: 30 Findings: colitis and polyp Specimen(s): other Impression: Severe colitis between 30 and 40 cm in the left colon small 5 mm polyp at 60 cm of no consequence diverticulosis sigmoid colon Plan for aftercare: Pending biopsies Disposition: PACU
[2018-10-29] MEDS: AMITRIPTYLINE 10 MG TABLET PO (17:42)
[2018-10-29] MEDS: ATORVASTATIN 20 MG TABLET 40 MG PO (17:42)
[2018-10-29] MEDS: SOLIFENACIN 5 MG TABLET 10 MG PO (17:42)
[2018-10-29] MEDS: MESALAMINE 800 MG TABLET.DR 1600 MG PO (20:17)
[2018-10-29] MEDS: CHOLECALCIFEROL (VITAMIN D3) 1,000 UNIT TABLET 4000 UNIT PO (20:17)
[2018-10-29] MEDS: CALCIUM POLYCARBOPHIL 625 MG TABLET PO (20:18)
--- NOTE | 2018-10-30 00:12 | PC.NURSE ---
Addendum entered by Lin Rebollar R.N. 10/30/18 06:29: Slept most of night. Continues to deny any pain. Original Note: 2330 Patient is alert and oriented. Breath sounds CTA with RA sat of 94%. HRR. BP elevated at 148/70 but patient states she trends higher. Denies nausea. BT present and abdomen is soft. Denies pain. Independent with mobility; denies use of assistive device in room. Has urinary urgency and dribbling so wearing a pull up. Refusing SCD's despite information re: DVT prevention; reminded to ankle was. Fall risk score is moderate; patient steady on feet. Spouse rooming in.
[2018-10-30] MEDS: SODIUM CHLORIDE 0.9% 1,000 ML 84 ML IV (01:16)
[2018-10-30 06:21] VITALS: BP 155/82; PULSE 78; RESP 19; TEMP 36.3; O2SAT 94
[2018-10-30 08:00] VITALS: BP 161/92; PULSE 72; RESP 16; TEMP 36.8; O2SAT 97; O2SAT 99
[2018-10-30] MEDS: LISINOPRIL 10 MG TABLET 30 MG PO (09:11)
[2018-10-30] MEDS: FOLIC ACID 1 MG TABLET PO (09:11)
[2018-10-30] MEDS: MESALAMINE 800 MG TABLET.DR 1600 MG PO (09:11)
[2018-10-30] MEDS: hydroCHLOROthiazide 25 MG TABLET PO (09:11)
[2018-10-30] MEDS: PANTOPRAZOLE 40 MG TABLET PO (09:11)
[2018-10-30] MEDS: TERBINAFINE HCL 250 MG TABLET PO (09:12)
[2018-10-30] MEDS: ESCITALOPRAM 10 MG TABLET 20 MG PO (09:12)
[2018-10-30] MEDS: ESTROGENS, CONJUGATED 0.625 MG TABLET 1.25 MG PO (09:12)
[2018-10-30] MEDS: CALCIUM POLYCARBOPHIL 625 MG TABLET PO (09:12)
[2018-10-30] MEDS: MULTIVITAMIN 1 TABLET 1 TAB PO (09:12)
[2018-10-30] MEDS: CYANOCOBALAMIN (VITAMIN B-12) 500 MCG TABLET 1000 MCG PO (09:12)
[2018-10-30] MEDS: CHOLECALCIFEROL (VITAMIN D3) 1,000 UNIT TABLET 4000 UNIT PO (09:13)
--- NOTE | 2018-10-30 10:20 | P.DS_ITS ---
History of Present Illness Date Patient Seen: 10/30/18 Time Patient Seen: 10:14 Chief complaint: RECTAL BLEEDING Narrative: 73-year-old white female patient admitted with melena and hematoche markos with fairly stable hemoglobin 13 dropped 12. No abdominal pain no history of similar events Discharge Providers Date of admission: 10/27/18 19:56 Discharge Date: 10/30/18 Primary care physician: Ana Paula Jean Baptiste MD Consults: 10/27/18 21:50 Consult to Discharge Planning Routine Comment: 10/27/18 21:51 Consult to Physician Routine Comment: Consulting Provider: Luis A Schwartz Reason for consultation: GIB Has provider been notified: Yes 10/27/18 21:53 Consult to Dietitian, Adult Routine Comment: Reason For Exam: GIB, diverticulosis 10/27/18 22:17 Consult to Respiratory Therapy Evaluate & Treat Comment: Patient with ELADIO and CPAP, GI bleed Physician Instructions: Evaluate and treat 10/28/18 15:26 Consult to Respiratory Therapy Evaluate & Treat Comment: Physician Instructions: Evaluate and treat Discharge provider: Luis A Schwartz MD Summary Discharge Diagnosis: unidentified colitis possibly ulcerative colitis possibly Crohn's of the left colon. Hospital Course: Patient is brought to the hospital on the Medical Service I was consulted to see the patient and with a history of melena did an EGD the day of admission. EGD was normal outside of a inconsequential hiatal hernia. She was then prepped and had a colonoscopy last evening. Findings there are consistent with a severe segmental colitis from 30-40 cm in the descending colon. This was biopsied extensively. Patient also has diverticulosis without signs of diverticulitis. Patient was started on Asacol last night and she has tolerated that well she has actually had a normal bowel movement which is heme-negative. Status at Discharge Cognitive/behavioral status at discharge: oriented Functional status at discharge: independent ambulation Overall status at discharge: patient is back to baseline Exam Vital Signs (past 8 hours): - 10/30/18 06:21 10/30/18 08:00 Temperature 97.4 F L 98.2 F Pulse Rate 78 72 Respiratory Rate 19 16 Blood Pressure 155/82 H 161/92 H Pulse Oximetry 94 99 Oxygen Delivery Method Room Air Oxygen Flow Rate 0 Narrative Exam Narrative: Patient is alert and oriented stable vital signs. Has no compl aints. Abdomen soft nontender. Remaining physicals unremarkable and unchanged. Objective Labs Result Diagrams: 10/29/18 06:20 10/29/18 06:20 Discharge Plan Discharge Plan Patient Disposition: Home Discharge Med Rec/Prescriptions Prescriptions: New mesalamine [Asacol HD] 800 mg Tablet,Delayed Release (Dr/Ec) 1,600 mg PO TID 30 Days Qty: 180 RF: 0 Continued lisinopril 30 MG tablet 30 mg PO QAM Qty: 0 RF: 0 cyanocobalamin (vitamin B-12) [Vitamin B-12] 1,000 mcg Tablet 1,000 mcg PO DAILY RF: 0 omeprazole 40 mg capsule,delayed release(DR/EC) 40 mg PO BID RF: 0 terbinafine HCl 250 mg tablet 250 mg PO DAILY RF: 0 calcium polycarbophil [Fiber-Tabs] 625 mg Tablet 1 tab PO BID RF: 0 solifenacin 10 mg tablet 10 mg PO QPM RF: 0 Centrum Silver 0.4-300-250 mg-mcg-mcg Tablet 1 tab PO DAILY RF: 0 cholecalciferol (vitamin D3) [Vitamin D3] 2,000 unit Capsule 4,000 unit PO BID RF: 0 conjugated estrogens [Premarin] 0.625 mg tablet 1.25 mg PO QAM RF: 0 hydrochlorothiazide 25 mg tablet 25 mg PO QAM RF: 0 escitalopram oxalate [Lexapro] 20 mg tablet 20 mg PO QAM RF: 0 folic acid 1 mg tablet 1 mg PO DAILY RF: 0 atorvastatin [Lipitor] 40 mg tablet 40 mg PO QPM RF: 0 amitriptyline 10 mg tablet 10 mg PO QPM RF: 0 ann red joint care 1 cap PO QAM RF: 0 nabumetone 500 mg tablet 500 mg PO BID Qty: 60 RF: 2 Respirinics DreamStation Auto CPAP Qty: 1 RF: 0 Follow up/Referrals: Ana Palua Jean Baptiste MD [Primary Care Provider] - (Please call to schedule a follow up appt with Dr Jean Baptiste) Provider Discharge Instructions Diet comment: low fiber Visit Report/Discharge Packet Instructions: Low-Fiber/Low-Residue Diet, DI for Ulcerative Colitis Visit Report Forms: Stroke Signs & Symptoms Discharge Data Primary Care Provider: Ana Paula Jean Baptiste Attending Provider: Ana Paula Jean Baptiste Admit Date/Time: 10/27/18 19:56 Discharges patient from system. Discharge Date/Time: 10/30/18 10:46 Quality VTE Deep Vein Thrombosis/Pulmonary Embolism Present on Admission: No
--- NOTE | 2018-10-30 10:43 | PC.NURSE ---
PATIENT DISCHARGED W/ ALL BELONGINGS AND PAPERWORK, INCLUDING HANDWRITTEN SCRIPT WITH SPOUSE TO DRIVE HER HOME. ESCORTED BY WC WITH BARIATRIC NURSE. PATIENT HAD SM LOOSE BROWNISH/ORANGE BM THIS AM, GUAIAC NEGATIVE. DENIES ABD PAIN, NAUSEA OR CRAMPING. SHE ALREADY HAS AN APPT SET UP WITH DR. CAMPOS FOR TU.
--- NOTE | 2018-11-13 11:13 | PC.NURSE ---
Late entry: Pantoprazole infusion stopped 10/28/18 at 1948 Sodium chloride infusion stopped 10/30/18 at 1025
== END 2018-10-30 10:46 | disposition home or self-care (01) ==
LOC: ED 19:51 → AC 20:01
PROVIDERS: Surgery; Admitting Provider Nurse Practitioner Adult Health; Emergency Provider Emergency Medicine; PCP Family Medicine; Visit Provider Family Medicine
PROC: 0DJ08ZZ Inspection of Upper Intestinal Tract, Via Natural or Artificial Opening Endoscopic (ICD-10-PCS; CPT 43235; principal; 2018-10-28 15:30)
PROC: 0DJD8ZZ Inspection of Lower Intestinal Tract, Via Natural or Artificial Opening Endoscopic (ICD-10-PCS; CPT 45378; principal; 2018-10-29 16:00)
DX: K52.9 Noninfective gastroenteritis and colitis, unspecified (principal); K62.5 Hemorrhage of anus and rectum; G47.33 Obstructive sleep apnea (adult) (pediatric); F41.9 Anxiety disorder, unspecified; K21.9 Gastro-esophageal reflux disease without esophagitis; E78.5 Hyperlipidemia, unspecified; I10 Essential (primary) hypertension; K44.9 Diaphragmatic hernia without obstruction or gangrene; K57.30 Diverticulosis of large intestine without perforation or abscess without bleeding; E66.9 Obesity, unspecified; Z68.39 Body mass index [BMI] 39.0-39.9, adult
CPT/HCPCS: 43239; 45380; 36415; 36591; 80048; 80053; 85025; 85610; 85730; 86850; 86900; 86901; 88305; 93041; 96361; 96365; 96366; 96375; 99152; 99153; 99284; G0378; C9113; J2250; J2270; J3010

== ENCOUNTER → 2019-01-27 09:23 | Outpatient (CLI) | payer MEDICARE, OTHER, SELFPAY ==
[2018-10-27 22:38] VITALS: BMI 39.2
--- NOTE | 2019-01-27 | DI.MG.S_ITS ---
BILATERAL DIGITAL SCREENING MAMMOGRAM 3D/2D WITH CAD: 01/27/2019 CLINICAL: Routine screening. Comparison is made to exams dated: 12/24/2017 mammogram, 12/20/2016 mammogram, 11/30/2015 mammogram, and 11/15/2014 mammogram - [facility]. There are scattered fibroglandular elements in both breasts. Current study was also evaluated with a Computer Aided Detection (CAD) system. There are benign vascular calcifications in both breasts. No significant masses, calcifications, or other findings are seen in either breast. There has been no significant interval change. IMPRESSION: There is no mammographic evidence of malignancy. A 1 year screening mammogram is recommended. This exam was interpreted at Station ID: [id number]. NOTE: For mammograms, a report in lay terms will be sent to the patient. Approximately 15% of breast malignancies will not be visualized mammographically. In the management of a palpable breast mass, a negative mammogram must not discourage biopsy of a clinically suspicious lesion. Electronically Signed By: Hector squires/socrates:01/27/2019 20:38:34 letter sent: Normal Exam ACR BI-RADS Category 2: Benign Finding(s) 3342F
== END ==
PROVIDERS: PCP Family Medicine; Visit Provider Family Medicine
DX: Z12.31 Encounter for screening mammogram for malignant neoplasm of breast (principal)
CPT/HCPCS: 77063; 77067

== ENCOUNTER 2019-04-14 17:13 | Emergency (ER) | payer MEDICARE, OTHER, SELFPAY ==
[2018-10-27 22:38] VITALS: BMI 39.2
[2019-04-14 17:31] VITALS: BP 153/87; PULSE 82; RESP 16; TEMP 36.4; O2SAT 94; BMI 38.0
--- NOTE | 2019-04-14 17:35 | DI.RAD.S_ITS ---
PROCEDURE: XR SHOULDER LT MIN 2V INDICATIONS: tripped and fell, landed on left shoulder TECHNIQUE: 3 views of the shoulder were acquired. COMPARISON: [facility], CR, XR SHOULDER LT MIN 2V, 08/07/2018, 10:51. FINDINGS: Bones: No fractures or dislocations. No suspicious bony lesions. Visualized ribs appear intact. Severe AC joint degeneration. There is also glenohumeral degenerative joint disease. Soft tissues: No suspicious soft tissue calcifications. IMPRESSION: No fracture Degenerative changes as above Dictated by: Wilman Salazar M.D. on 04/14/2019 at 18:06 Approved by: Wilman Salazar M.D. on 04/14/2019 at 18:07
--- NOTE | 2019-04-14 18:05 | ED.UPPEXIN ---
HPI - Extremity Injury (Upper) <Olive CondeQIAN - Last Filed: 04/14/19 19:16> General Chief Complaint: Extremity Injury, Upper Stated Complaint: fall, left arm is hard to move Time Seen by Provider: 04/14/19 17:44 Mode of arrival: Ambulatory History of Present Illness HPI narrative: 73-year-old female with a history of neuropathy presents emergency department today complaining of left shoulder pain after fall. She states she was pulling a waking in and tripped and fell on her left shoulder and left knee. She states she has a dull aching 8/10 pain in her left shoulder that is worse with movement and better with rest. She denies hitting her head. She denies any syncope, chest pain, shortness of breath, back pain, knee pain, hip pain, nausea, vomiting, diarrhea, or other concerns. Related Data Home Medications Medication Instructions Recorded Confirmed lisinopril 30 mg PO QAM #0 04/01/16 10/27/18 amitriptyline 10 mg tablet 10 mg PO QPM 02/26/18 10/27/18 atorvastatin 40 mg tablet 40 mg PO QPM 02/26/18 10/27/18 conjugated estrogens 0.625 mg 1.25 mg PO QAM 02/26/18 10/27/18 tablet escitalopram oxalate 20 mg tablet 20 mg PO QAM 02/26/18 10/27/18 folic acid 1 mg tablet 1 mg PO DAILY 02/26/18 10/27/18 hydrochlorothiazide 25 mg tablet 25 mg PO QAM 02/26/18 10/27/18 ann red joint care 1 cap PO QAM 02/26/18 10/27/18 Respirinics DreamStation Auto CPAP #1 ea 06/26/18 10/27/18 Centrum Silver 1 tab PO DAILY 08/10/18 10/27/18 calcium polycarbophil [Fiber-Tabs] 1 tab PO BID 08/10/18 10/27/18 cholecalciferol (vitamin D3) 4,000 unit PO BID 08/10/18 10/27/18 [Vitamin D3] cyanocobalamin (vitamin B-12) 1,000 mcg PO DAILY 08/10/18 10/27/18 [Vitamin B-12] omeprazole 40 mg PO BID 08/10/18 10/27/18 solifenacin 10 mg PO QPM 08/10/18 10/27/18 terbinafine HCl 250 mg PO DAILY 08/10/18 10/27/18 Previous Rx's Medication Instructions Recorded nabumetone 500 mg tablet 500 mg PO BID #60 tab 05/07/18 Allergies Allergy/AdvReac Type Severity Reaction Status Date / Time shellfish derived Allergy Severe scallop Verified 10/27/18 18:28 [SHELLFISH DERIVED] ANAPHYLAXIS piroxicam [PIROXICAM] Allergy Intermediate RASH Verified 10/27/18 18:28 rofecoxib [ROFECOXIB] Allergy Intermediate RASH Verified 10/27/18 18:28 bacitracin Allergy Mild rash Verified 10/27/18 18:28 [From NEOSPORIN ([id number])] neomycin Allergy Mild rash Verified 10/27/18 18:28 [From NEOSPORIN ([id number])] polymyxin B Allergy Mild rash Verified 10/27/18 18:28 [From NEOSPORIN ([id number])] Review of Systems <QIAN Rodrigues - Last Filed: 04/14/19 19:16> Review of Systems Narrative: REVIEW OF SYSTEMS: GENERAL: Denies fever or chills. HENT: No head trauma. EYES: No double vision or vision loss. CARDIOVASCULAR: No chest pain or syncope. RESPIRATORY: No shortness of breath or cough. GASTROINTESTINAL: No nausea, vomiting, diarrhea, or constipation. GENITOURINARY: No flank pain or dysuria. MUSCULOSKELETAL: Complains of left shoulder pain, see HPI. INTEGUMENTARY: No rash, lesions, or pruritus. NEURO: No numbness, tingling. No syncope. PSYCH: No behavior or mood changes. 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) Snoring (Inactive ~1984) Surgical History History of bladder suspension procedure (Acute) History of colonoscopy (Acute) History of hand surgery (Acute) History of hysterectomy (Acute) History of surgery on left wrist (Acute) Social History marital status: details: to Bill, lives in [place] household members: spouse lives independently: Yes caregiver/support person: No housing: house Smoking Status: Never smoker alcohol intake frequency: 0-2 drinks per day Substance Use Type: does not use Exam <QIAN Rodrigues - Last Filed: 04/14/19 19:16> Initial Vital Signs Initial Vital Signs: Vital Signs Temperature 97.5 F L 04/14/19 17:31 Pulse Rate 82 04/14/19 17:31 Respiratory Rate 16 04/14/19 17:31 Blood Pressure 153/87 H 04/14/19 17:31 Pulse Oximetry 94 04/14/19 17:31 PHYSICAL EXAMINATION: GENERAL: Well groomed, alert, and cooperative. Answers questions promptly and appropriately. Vital signs noted. HENT: Normocephalic, atraumatic. EYES: PERRLA, EOMIs, symmetrical, sclera white, no periorbital swelling. CARDIOVASCULAR: S1 and S2 sounds normal. Regular rate and rhythm, no murmurs, clicks, or bruits. No pedal edema. RESPIRATORY: Normal respiratory rate, trachea midline, airway patent. No stridor, nasal flaring or accessory muscle use. Lungs are clear in all ace. MUSCULOSKELETAL: Lateral left shoulder pain with palpation, decreased extension, abduction, and internal rotation due to pain. No erythema or ecchymosis. Normal gait and coordination. Equal tone and mass bilaterally. No spinal tenderness or deformities. EXTREMITIES: CMS intact. No pedal edema. SKIN: Warm, dry, soft, appropriate color for ethnicity. No lesions, rashes, or wounds. NEURO: Alert and Oriented X 3. No sensory deficits. PSYCH: Appropriate affect and mood. <Edgar Porras DO - Last Filed: 04/14/19 23:33> Initial Vital Signs Initial Vital Signs: Vital Signs Temperature 97.5 F L 04/14/19 17:31 Pulse Rate 82 04/14/19 17:31 Respiratory Rate 16 04/14/19 17:31 Blood Pressure 153/87 H 04/14/19 17:31 Pulse Oximetry 94 04/14/19 17:31 Course <OliveQIAN Michadu - Last Filed: 04/14/19 19:16> Orders Ordered: ED Orders 04/14/19 17:35 XR shoulder LT min 2V Stat Consultations Consultation #1: Patient staffed with Dr. Porras. Vital Signs Vital signs: Vital Signs - 8 hr 04/14/19 17:31 04/14/19 19:10 Temperature 97.5 F L Pulse Rate 82 75 Respiratory Rate 16 Blood Pressure 153/87 H 161/81 H Pulse Oximetry 94 98 <Edgar Porras DO - Last Filed: 04/14/19 23:33> Orders Ordered: ED Orders 04/14/19 17:35 XR shoulder LT min 2V Stat Vital Signs Vital signs: Vital Signs - 8 hr 04/14/19 17:31 04/14/19 19:10 Temperature 97.5 F L Pulse Rate 82 75 Respiratory Rate 16 Blood Pressure 153/87 H 161/81 H Pulse Oximetry 94 98 MDM - Extremity Injury (Upper) <QIAN Rodrigues - Last Filed: 04/14/19 19:16> Medical Records Attestation: I reviewed the patient's medical records. Lab Data Attestation: I reviewed the patient's lab results. Imaging Data Shoulder XR: Radiologist's impression: [address] [address] XRay Report Signed Patient: Pat Jackson LMR#: [id number] : 7Acct:[id number] Age/Sex: 73 / FDate of Service: 04/14/19 Loc: ED Accession Number: [id number] Procedure: XR shoulder LT min 2V Ordering Provider: Lyle Souza D.O. PROCEDURE: XR SHOULDER LT MIN 2V INDICATIONS: tripped and fell, landed on left shoulder TECHNIQUE: 3 views of the shoulder were acquired. COMPARISON: [facility], CR, XR SHOULDER LT MIN 2V, 08/07/2018, 10:51. FINDINGS: Bones: No fractures or dislocations. No suspicious bony lesions. Visualized ribs appear intact. Severe AC joint degeneration. There is also glenohumeral degenerative joint disease. Soft tissues: No suspicious soft tissue calcifications. IMPRESSION: No fracture Degenerative changes as above Dictated by: Wilman Salazar M.D. on 04/14/2019 at 18:06 Approved by: Wilman Salazar M.D. on 04/14/2019 at 18:07 [facility] Narrative Medical decision making narrative: This is a 73-year-old female presenting to the emergency department complaining of left shoulder pain after mechanical fall. X-rays negative for any fractures. However due to pain, mechanism of injury, and decreased range of motion differential includes shoulder sprain, rotator cuff care tear, and contusion. A high suspicion for rotator cuff tear due to exam and decreased range of motion. CMS intact, no concern for perfusion issues. Low suspicion for syncope, cardiac etiology, or other causes of fall as patient clearly describes a mechanical fall and she has a history of mechanical falls due to neuropathy. Patient was encouraged to follow up with primary care provider in the next few weeks for re-evaluation and further testing if needed. ED/Return precautions given for new or worsening symptoms. Discharge Plan Departure Patient Disposition: Home Clinical Impression: Acute shoulder pain Qualifiers: Laterality: left Qualified Code(s): M25.512 - Pain in left shoulder Discharge Date/Time: 04/14/19 19:11 Instructions: DI for Shoulder Sprain Activity Restrictions/Additional Instructions: Thank you for entrusting me with your care today. As discussed, your x-rays negative for any fractures. I suggest following up with your primary care provider in the next few weeks for re-evaluation if your shoulder continues to cause pain. You may take Tylenol as needed for pain. Return emergency department for new or worsening symptoms. Prescriptions: No Action lisinopril 30 MG tablet 30 mg PO QAM Qty: 0 RF: 0 cyanocobalamin (vitamin B-12) [Vitamin B-12] 1,000 mcg Tablet 1,000 mcg PO DAILY RF: 0 omeprazole 40 mg capsule,delayed release(DR/EC) 40 mg PO BID RF: 0 terbinafine HCl 250 mg tablet 250 mg PO DAILY RF: 0 calcium polycarbophil [Fiber-Tabs] 625 mg Tablet 1 tab PO BID RF: 0 solifenacin 10 mg tablet 10 mg PO QPM RF: 0 Centrum Silver 0.4-300-250 mg-mcg-mcg Tablet 1 tab PO DAILY RF: 0 cholecalciferol (vitamin D3) [Vitamin D3] 2,000 unit Capsule 4,000 unit PO BID RF: 0 conjugated estrogens [Premarin] 0.625 mg tablet 1.25 mg PO QAM RF: 0 hydrochlorothiazide 25 mg tablet 25 mg PO QAM RF: 0 escitalopram oxalate [Lexapro] 20 mg tablet 20 mg PO QAM RF: 0 folic acid 1 mg tablet 1 mg PO DAILY RF: 0 atorvastatin [Lipitor] 40 mg tablet 40 mg PO QPM RF: 0 amitriptyline 10 mg tablet 10 mg PO QPM RF: 0 ann red joint care 1 cap PO QAM RF: 0 nabumetone 500 mg tablet 500 mg PO BID Qty: 60 RF: 2 (DME) Respirinics DreamStation Auto CPAP Qty: 1 RF: 0 Referrals: Ana Paula Jean Baptiste MD [Primary Care Provider] -
[2019-04-14 19:10] VITALS: BP 161/81; PULSE 75; O2SAT 98
== END 2019-04-14 19:11 | disposition home or self-care (01) ==
PROVIDERS: Emergency Provider Nurse Practitioner; PCP Family Medicine
DX: M25.512 Pain in left shoulder (principal); M25.562 Pain in left knee; W01.0XXA Fall on same level from slipping, tripping and stumbling without subsequent striking against object, initial encounter
CPT/HCPCS: 73030; 99282; 99283

== ENCOUNTER → 2019-04-21 15:13 | Outpatient (CLI) | payer MEDICARE, OTHER, SELFPAY ==
[2018-10-27 22:38] VITALS: BMI 39.2
--- NOTE | 2019-04-21 | DI.RAD.S_ITS ---
PROCEDURE: XR SHOULDER LT MIN 2V INDICATIONS: LEFT SHOULDER PAIN TECHNIQUE: 3 views of the shoulder were acquired. COMPARISON: [facility], CR, XR SHOULDER LT MIN 2V, 04/14/2019, 17:34. [facility], CR, XR SHOULDER LT MIN 2V, 08/07/2018, 10:51. FINDINGS: Bones: No fractures or dislocations. No suspicious bony lesions. Visualized ribs appear intact. Soft tissues: No suspicious soft tissue calcifications. IMPRESSION: Moderate degenerative a.c. joint osteoarthritis, mild glenohumeral joint osteophytic change. There is relative superior subluxation of the humeral head near the undersurface of the acromion to the degree that a supraspinatus rotator cuff tear may be present in this patient. Dictated by: Kranthi Pollard M.D. on 04/21/2019 at 16:25 Approved by: Kranthi Pollard M.D. on 04/21/2019 at 16:25
== END ==
PROVIDERS: PCP Family Medicine; Visit Provider Family Medicine
DX: M25.512 Pain in left shoulder (principal); M19.012 Primary osteoarthritis, left shoulder
CPT/HCPCS: 73030

== ENCOUNTER → 2019-05-03 08:01 | Outpatient (CLI) | payer MEDICARE, OTHER, SELFPAY ==
[2018-10-27 22:38] VITALS: BMI 39.2
--- NOTE | 2019-05-03 | DI.MRI.S_ITS ---
PROCEDURE: MR SHOULDER LT WO CON INDICATIONS: Other synovitis and tenosynovitis TECHNIQUE: Noncontrast oblique coronal T2 fast spin echo with fat saturation, oblique sagittal T1 spin echo and T2 fast spin echo with fat saturation, axial T1 spin echo and T2 fast spin echo with fat saturation through the shoulder. COMPARISON: [facility], MR, SHOULDER WITHOUT CONTRAST, 06/07/2015, 10:33. FINDINGS: Image quality: Excellent. Rotator cuff: There is full-thickness rupture of the distal supraspinatus at its insertion on the humeral head with 3.2 cm medial retraction of torn tendon fibers to the level of the acromion. Tendinosis and moderate grade articular and bursal surface partial-thickness tear involving the distal infraspinatus is also seen. Tendinosis and low to moderate grade partial-thickness tear involving superior tendon fibers of the subscapularis is seen. Sagittal images demonstrate mild to moderate supraspinatus and infraspinatus muscle atrophy. Bones and bursae: No bone marrow contusions or fractures. Moderate acromioclavicular joint osteoarthritic changes are seen. Mild to moderate glenohumeral joint osteoarthritis is also seen. Capsule and soft tissues: In the absence of intra-articular contrast, there is suggestion of superior anterior labral tear at 12 to 1:00 position. The glenohumeral ligaments appear intact. Tendinosis and low to moderate grade partial-thickness tear involving proximal intra-articular portion of long head of biceps tendon is seen.. The rotator interval appears normal, without fibrosis. The coracohumeral ligament is normal in thickness. IMPRESSION: 1. Full-thickness rupture of distal supraspinatus at its insertion on humeral head with 2.2 cm medial retraction of torn tendon fibers to the level of acromion. Mild to moderate supraspinatus and infraspinatus muscle atrophy. 2. Tendinosis and moderate grade articular and bursal surface partial-thickness tear involving distal infraspinatus. Tendinosis and low to moderate grade partial-thickness tear involving superior to the fibers of distal subscapularis. 3. Tendinosis and low to moderate grade partial-thickness tear involving proximal intra-articular portion of long head of biceps tendon. 4. Moderate acromioclavicular joint and glenohumeral joint osteoarthritis. 5. Suggestion of focal superior anterior labral tear at 12 to 1:00 position. Dictated by: Shin Kapoor M.D. on 05/03/2019 at 10:08 Approved by: Shin Kapoor M.D. on 05/03/2019 at 10:12
== END ==
PROVIDERS: PCP Family Medicine; Visit Provider Family Medicine
DX: M65.812 Other synovitis and tenosynovitis, left shoulder (principal); M75.122 Complete rotator cuff tear or rupture of left shoulder, not specified as traumatic; S46.112A Strain of muscle, fascia and tendon of long head of biceps, left arm, initial encounter; M19.012 Primary osteoarthritis, left shoulder
CPT/HCPCS: 73221

== ENCOUNTER → 2019-05-12 10:53 | Outpatient (CLI) | payer MEDICARE, OTHER, SELFPAY ==
[2018-10-27 22:38] VITALS: BMI 39.2
--- NOTE | 2019-05-12 10:57 | DI.RAD.S_ITS ---
PROCEDURE: XR BONE SURVEY INDICATIONS: mgus TECHNIQUE: Multiple views obtained of various bony structures as described below. COMPARISON: [facility], CR, XR LUMBAR SPINE 2-3V, 08/10/2018, 20:29. FINDINGS: Skull (lateral): No suspicious bony lesions. No fractures. Thoracic spine (AP, lateral): No suspicious bony lesions. No acute vertebral body compression fractures. Lumbar spine (AP, lateral): Mild L1 compression fracture. Prominent Schmorl's node involving the inferior endplate of L1. Multilevel degenerative endplate sclerosis and spurring. Diffuse facet arthropathy. Grade 1 anterolisthesis of L4 on L5 and grade 1 retrolisthesis of L1 on L2. Mild levocurvature. Pelvis (AP): No suspicious bony lesions. No fractures. Overlying soft tissues appear unremarkable. Right and left humeri (AP): No suspicious bony lesions. No fractures. Overlying soft tissues appear unremarkable. Bilateral shoulder joint degeneration. Right and left femurs (AP): No suspicious bony lesions. No fractures. Overlying soft tissues appear unremarkable. IMPRESSION: No definite suspicious lytic lesion identified Degenerative changes as above Dictated by: Wilman Salazar M.D. on 05/12/2019 at 12:47 Approved by: Wilman Salazar M.D. on 05/12/2019 at 12:51
[2019-05-12 11:25] LABS: Add Manual Diff / Slide Review NO; Basophils Absolute Auto 0 /uL (0-100); Basophils Percent Auto 0.6 % (0-2); Eosinophils Absolute Auto 100 /uL (0-450); Lymphocytes Absolute Auto 2200 /uL (1100-4500); Lymphocytes Percent Auto 30.4 % (25-40); Mean Corpuscular HGB Conc 34.2 % (30-36); Mean Corpuscular Hemoglobin 32.2 PG (26-34); Mean Corpuscular Volume 94.2 fL (80-100); Monocytes Absolute Auto 700 /uL (0-900); Monocytes Percent Auto 9.7 % (3-14); Neutrophils Absolute Auto 4100 /uL (1500-7000); Neutrophils Percent Auto 57.3 % (50-75); Platelet Count 195 X10^3/uL (150-400); Red Blood Cell Count 4.03 X10^6/uL (4.0-5.2); Red Cell Distribution Width 13.1 % (11.6-14.8); White Blood Cell Count 7.1 X10^3/uL (4.5-11.0)
[2019-05-12 12:09] LABS: Alanine Aminotransferase 30 IU/L (<35); Albumin Globulin Ratio 1.2 (1.0-2.8); Alkaline Phosphatase 133 U/L (38-126); Aspartate Aminotransferase 43 IU/L (14-36); Bilirubin Total 0.5 mg/dL (0.2-1.3); Blood Urea Nitrogen 16 mg/dL (7-17); Carbon Dioxide 30 mmol/L (22-32); Chloride 102 mmol/L (98-107); Estimated Glomerular Filt Rate > 60.0 mL/min (>60); Globulin 3.4 g/dL (1.7-4.1); Glucose 112 mg/dL (80-110); HEMOLYSIS < 15 (0-50); Potassium 4.2 mmol/L (3.4-5.1); Sodium 139 mmol/L (137-145); Total Protein 7.4 g/dL (6.3-8.2)
[2019-05-14 14:20] LABS: Free Kappa/ Lambda Ratio 0.95 (0.26-1.65); Free Lambda 29.6 mg/L (5.7-26.3)
[2019-05-15 15:24] LABS: Albumin 3.6 g/dL (3.8-4.8); Alpha 1 Globulin 0.4 g/dL (0.2-0.3); Alpha 2 Globulin 0.8 g/dL (0.5-0.9); Beta 1 Globulin 0.5 g/dL (0.4-0.6); Gamma Globulin 1.1 g/dL (0.8-1.7)
[2019-05-16 01:04] LABS: Albumin 100 %; Protein/ Creatinine Ratio 87 mg/g creat (21-161); Total Urine Protein 7 mg/dL (5-24); Urine Creatinine, Random 81 mg/dL (20-275); Urine Protein Interpretation Normal pattern.
== END ==
PROVIDERS: PCP Family Medicine
DX: D47.2 Monoclonal gammopathy (principal); M48.56XA Collapsed vertebra, not elsewhere classified, lumbar region, initial encounter for fracture; M51.46 Schmorl's nodes, lumbar region; M47.816 Spondylosis without myelopathy or radiculopathy, lumbar region; M43.16 Spondylolisthesis, lumbar region; M19.011 Primary osteoarthritis, right shoulder; M19.012 Primary osteoarthritis, left shoulder
CPT/HCPCS: 36415; 77075; 80053; 82784; 83883; 84155; 84156; 84165; 84166; 85025; 86334

== ENCOUNTER 2019-10-10 19:26 | Emergency (ER) | payer MEDICARE, OTHER, SELFPAY ==
[2018-10-27 22:38] VITALS: BMI 39.2
[2019-10-10 19:36] VITALS: BP 166/94; PULSE 91; RESP 22; TEMP 37; O2SAT 96
--- NOTE | 2019-10-10 19:43 | DI.RAD.S_ITS ---
PROCEDURE: XR WRIST RT MIN 3V INDICATIONS: fell on side walk, c/o right hand/wrist pain TECHNIQUE: 4 views of the wrist were acquired. COMPARISON: [facility], , WRIST MINIMUM 3 VIEWS RIGHT, 08/27/2006, 16:21. FINDINGS: Bones: No acute fractures or dislocations. There is moderate degeneration of the interphalangeal joints as well as the 1st carpometacarpal and triscaphe articulations. There is also mild to moderate degeneration at the radiocarpal joint. Scaphoid view: The scaphoid appears intact. Soft tissues: There is a corticated ossicle consistent with an old ulnar styloid fracture redemonstrated. Adjacent coarse soft tissue calcifications are nonspecific and likely represent dystrophic calcifications. IMPRESSION: 1. No acute fracture or dislocation. 2. Extensive osteoarthritic changes of the wrist and hand as described. Dictated by: Des Rodríguez M.D. on 10/10/2019 at 20:19 Approved by: Des Rodríguez M.D. on 10/10/2019 at 20:24
--- NOTE | 2019-10-10 19:43 | DI.CT.S_ITS ---
PROCEDURE: CT CERVICAL SPINE WO CON INDICATIONS: fell on face, chest on side walk TECHNIQUE: Noncontrast 3 mm thick sections acquired from the skull base to the T4 level. Sagittal and coronal reformats were then constructed. For radiation dose reduction, the following was used: automated exposure control, adjustment of mA and/or kV according to patient size. COMPARISON: [facility], CT, C-SPINE WITHOUT CONTRAST, 11/02/2013, 23:19. FINDINGS: Image quality: Excellent. Bones: No fractures or subluxation. There is straightening of the cervical lordosis. Multilevel degenerative disc disease demonstrated throughout the cervical spine including moderate to severe degeneration at C5-C6 and C6-C7. Moderate multilevel facet arthropathy also demonstrated throughout the cervical spine. Visualized superior ribs are intact. There is mild mucosal thickening within the visualized left maxillary and sphenoid sinuses. There is also associated calcification within the left maxillary sinus suggesting sequelae of chronic sinusitis. Soft tissues: Prevertebral soft tissues are normal in thickness. No paravertebral hematomas. No apical pneumothoraces. IMPRESSION: 1. No acute fracture or subluxation. 2. Moderate multilevel degenerative changes demonstrated throughout the cervical spine as described. Dictated by: Des Rodríguez M.D. on 10/10/2019 at 20:14 Approved by: Des Rodríguez M.D. on 10/10/2019 at 20:18
--- NOTE | 2019-10-10 19:43 | DI.CT.S_ITS ---
PROCEDURE: CT HEAD/BRAIN WO CON INDICATIONS: fell on face, chest on side walk TECHNIQUE: Noncontrast 4.5 mm thick angled axial sections acquired from the foramen magnum to the vertex, with coronal and sagittal reformats. For radiation dose reduction, the following was used: automated exposure control, adjustment of mA and/or kV according to patient size. COMPARISON: None. FINDINGS: Image quality: Excellent. CSF spaces: Basal cisterns are patent. No extra-axial fluid collections. The ventricles are symmetric in size and shape. There is mild cerebral volume loss, with resultant ventricular and sulcal prominence. Brain: No intracranial hemorrhage, mass, or mass effect. There are subcortical, periventricular and deep white matter hypodensities consistent with mild chronic small vessel ischemic changes. There is intracranial internal carotid artery atherosclerosis. Skull and face: Calvarium and visualized facial bones appear intact, without suspicious lesions. Sinuses: Visualized sinuses and mastoids are clear. IMPRESSION: 1. No acute intracranial abnormality. 2. Mild chronic white matter small vessel ischemic changes and cerebral volume loss. Dictated by: Des Rodríguez M.D. on 10/10/2019 at 20:12 Approved by: Des Rodríguez M.D. on 10/10/2019 at 20:14
--- NOTE | 2019-10-10 19:43 | DI.RAD.S_ITS ---
PROCEDURE: XR SHOULDER LT MIN 2V INDICATIONS: fell on face, chest on side walk. c/o left shoulder pain TECHNIQUE: 3 views of the shoulder were acquired. COMPARISON: [facility], CR, XR SHOULDER LT MIN 2V, 04/21/2019, 15:25. FINDINGS: Bones: No fractures or dislocations. 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 No suspicious bony lesions. Visualized ribs appear intact. Soft tissues: No suspicious soft tissue calcifications. IMPRESSION: 1. No fracture or dislocation. 2. 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 Dictated by: Des Rodríguez M.D. on 10/10/2019 at 20:18 Approved by: Des Rodríguez M.D. on 10/10/2019 at 20:19
--- NOTE | 2019-10-10 20:16 | PC.NURSE ---
small abrasion to face, suspected from glasses. Glasses lenses scraped up from fall.
--- NOTE | 2019-10-10 20:32 | PC.NURSE ---
patient complains of left arm, hand and shoulder pain. ROM normal for patient, sensation normal for patient, radial pulse and cap refill normal for patinet. No visible deformities or abrasions noted.
[2019-10-10] MEDS: ACETAMINOPHEN 325 MG TABLET 650 MG PO (20:45)
[2019-10-10] MEDS: IBUPROFEN 400 MG TABLET PO (21:10)
[2019-10-10] MEDS: TET,DIPH,PERTUSS(ACELL),VAC/PF 0.5 ML SYRINGE IM (21:10)
[2019-10-10] MEDS: HYDROCODONE/ACET 5/325 PREPACK 1 BOTTLE MISC (21:10)
--- NOTE | 2019-10-10 21:10 | ED.FALL ---
HPI - Fall <Medhat QIAN Kauffman - Last Filed: 10/10/19 22:59> General Chief Complaint: Fall Stated Complaint: Fell on sidewalk, landed on face Time Seen by Provider: 10/10/19 19:33 Source: patient and family Mode of arrival: Ambulatory Limitations: no limitations History of Present Illness HPI Narrative: This is a pleasant 74-year-old female, nonsmoker, who has history of left shoulder rotator cough tear, osteoarthritis, and GERD presents to ED with her significant other with chief complain of injuries from fall. Patient currently takes 1 baby aspirin daily. Patient states after her foot foot slid out of a shoe and had a hard mechanical fall with face down on cement sidewalk before arriving to ED. patient reports most of impact was taken on her face while she was wearing glasses which has damage and small abrasion to nasal bridge. Patient denies losing consciousness, vomiting, vision change, weakness to extremities. Patient denies chest pain, breathing difficulty, dizziness prior to the fall. Patient reports it to cope breath away she landed on her chest which is improving at this time. Patient reports severe posterior left shoulder pain. She is currently waiting for surgery on left shoulder which has been rescheduled due to Covid 19 and rates her pain as 9/10. Patient also reports right hand and wrist pain and light abrasion on right knee. Related Data Home Medications Medication Instructions Recorded Confirmed lisinopril 30 mg PO QAM #0 04/01/16 05/12/19 amitriptyline 10 mg tablet 10 mg PO QPM 02/26/18 05/12/19 atorvastatin 40 mg tablet 40 mg PO QPM 02/26/18 05/12/19 conjugated estrogens 0.625 mg 0.625 mg PO QAM 02/26/18 05/12/19 tablet escitalopram oxalate 20 mg tablet 20 mg PO QAM 02/26/18 05/12/19 folic acid 1 mg tablet 1 mg PO DAILY 02/26/18 05/12/19 hydrochlorothiazide 25 mg tablet 25 mg PO QAM 02/26/18 05/12/19 ann red joint care 1 cap PO QAM 02/26/18 05/12/19 Respirinics DreamStation Auto CPAP #1 ea 06/26/18 10/27/18 Centrum Silver 1 tab PO DAILY 08/10/18 05/12/19 calcium polycarbophil [Fiber-Tabs] 1 tab PO BID 08/10/18 05/12/19 cholecalciferol (vitamin D3) 4,000 unit PO BID 08/10/18 05/12/19 [Vitamin D3] cyanocobalamin (vitamin B-12) 1,000 mcg PO DAILY 08/10/18 05/12/19 [Vitamin B-12] omeprazole 40 mg PO BID 08/10/18 05/12/19 solifenacin 10 mg PO QPM 08/10/18 05/12/19 aspirin 81 mg PO DAILY 05/12/19 05/12/19 biotin 1 mg DAILY 05/12/19 05/12/19 Previous Rx's Medication Instructions Recorded nabumetone 500 mg tablet 500 mg PO BID #60 tab 05/07/18 lidocaine 1 patch TOP DAILY #30 each 10/10/19 Allergies Allergy/AdvReac Type Severity Reaction Status Date / Time shellfish derived Allergy Severe scallop Verified 10/27/18 18:28 [SHELLFISH DERIVED] ANAPHYLAXIS piroxicam [PIROXICAM] Allergy Intermediate RASH Verified 10/27/18 18:28 rofecoxib [ROFECOXIB] Allergy Intermediate RASH Verified 10/27/18 18:28 bacitracin Allergy Mild rash Verified 10/27/18 18:28 [From NEOSPORIN ([id number])] neomycin Allergy Mild rash Verified 10/27/18 18:28 [From NEOSPORIN ([id number])] polymyxin B Allergy Mild rash Verified 10/27/18 18:28 [From NEOSPORIN ([id number])] Review of Systems <Medhat Kauffman [employer] - Last Filed: 10/10/19 22:59> Review of Systems Narrative: General: Denies fever, chills, fatigue, malaise, sweats. HEENT: Denies sinus pain, ear pain, sore throat, difficulty swallowing, dizziness. Respiratory: Denies dyspnea, cough, wheezing, hemoptysis, sputum. Cardiovascular: Denies chest pain, (+) resolving chest wall tenderness, palpitations, orthopnea, edema. Gastrointestinal: Denies nausea, vomiting, abdominal pain, diarrhea, constipation, melena. : Denies dysuria, frequency, incontinence, hematuria, urinary retention. Musculoskeletal: See HPI Skin: See HPI Neurologic: Denies weakness, headache, numbness, change in speech, confusion, seizures, incoordination. Psychiatric: No concerning psychosocial issues. 12-point review of systems is negative except for those stated above. Patient History <QIAN Biswas - Last Filed: 10/10/19 22:59> Medical History Allergic rhinitis (Chronic) Anxiety (Chronic) Chronic rhinosinusitis (Chronic) Depression (Chronic) Excessive daytime sleepiness (Inactive ~2006) GERD (gastroesophageal reflux disease) (Chronic) Hyperlipidemia (Chronic) Hypertension (Chronic) Insomnia, unspecified (Chronic ~2006) Obstructive sleep apnea of adult (Chronic ~2006) 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 sides of body (Chronic) Snoring (Inactive ~1984) Surgical History History of bladder suspension procedure (Acute) History of colonoscopy (Acute) History of hand surgery (Acute) History of hysterectomy (Acute) History of surgery on left wrist (Acute) Social History marital status: details: julienne Mirza, lives in [place] household members: spouse lives independently: Yes caregiver/support person: No housing: house Smoking Status: Never smoker Smoking Status: Never smoker alcohol intake frequency: 0-2 drinks per day Substance Use Type: does not use Exam <QIAN Biswas - Last Filed: 10/10/19 22:59> Narrative Exam Narrative: General appearance: well developed, well nourished, in no acute distress. Head: normocephalic, atraumatic, no scalp lesions, non-tender without step-offs. ENT: No otorrhea or rhinorrhea. Hearing grossly intact. Nose without bleeding, mild swelling to nasal bridge with small abrasion. No purulent discharge, septal hematoma or deviation. Mucous membrane moist, no mucosal lesion. Throat without erythema, tonsillar hypertrophy or exudate. Uvula in midline, airway patent. Neck/Thyroid: neck supple, full range of motion, no visible masses or meningeal signs or step-offs appreciated. No JVD, non-tender without lymphadenopathy. Skin: Light superficial abrasion and ecchymosis to right knee. No suspicious rashes, lesions over other visible areas. Warm and dry and appropriate color for ethnicity. Heart: no clubbing, no cyanosis, no edema. S1 and S2 normal. RRR w/o murmurs, clicks, or bruits. No significant tenderness to palpate on anterior chest. Lungs: Breathing even and unlabored. No stridor. No accessory muscles used. Able to speak in full sentences. Chest: normal shape and expansion. Abdomen: non-obese, non-distended. Neurologic: alert and oriented. Cognitive exam, TRANSCRIPTER and PNS grossly intact on informal exam. Psych: good eye contact, normal affect. Initial Vital Signs Initial Vital Signs: Vital Signs Temperature 98.6 F 10/10/19 19:36 Pulse Rate 91 H 10/10/19 19:36 Respiratory Rate 22 10/10/19 19:36 Blood Pressure 166/94 H 10/10/19 19:36 Pulse Oximetry 96 10/10/19 19:36 Extrem Right upper extremity: shoulder/upper arm Details: normal to inspection and normal ROM; no tenderness and no swelling, elbow/forearm Details: normal to inspection and normal ROM; no tenderness and no swelling, wrist Details: normal to inspection, tenderness, normal ROM, normal vascular exam and radial pulse present; no swelling, no lacerations, no ecchymosis and no crepitus and hand Details: normal to inspection, normal capillary refill, neuromotor exam normal, neurosensory exam normal, tendon exam normal, tenderness (Generalize proximal and meta carpal) and normal ROM of fingers; no abrasions and no lacerations Left upper extremity: shoulder/upper arm Details: inspection abnormal, tenderness Location: of the A-C joint and of the scapula, axillary nerve sensory function normal and abnormal ROM Details: pain with active ROM and pain with passive ROM; no swelling, no abrasions, no lacerations and no ecchymosis, elbow/forearm Details: normal to inspection and normal ROM; no tenderness and no swelling, wrist Details: normal to inspection, normal ROM, normal vascular exam and radial pulse present; no tenderness, no swelling, no lacerations and no ecchymosis and hand Details: normal to inspection, normal capillary refill, neuromotor exam normal, neurosensory exam normal and tendon exam normal; no tenderness Right lower extremity: knee Details: tenderness, normal ROM and abrasion (Superficial patellar region) Left lower extremity: knee Details: normal to inspection, tenderness, normal ROM and knee ligament exam normal <Edgar Porras DO - Last Filed: 10/11/19 00:10> Initial Vital Signs Initial Vital Signs: Vital Signs Temperature 98.6 F 10/10/19 19:36 Pulse Rate 91 H 10/10/19 19:36 Respiratory Rate 22 10/10/19 19:36 Blood Pressure 166/94 H 10/10/19 19:36 Pulse Oximetry 96 10/10/19 19:36 Scores <QIAN Biswas - Last Filed: 10/10/19 22:59> GCS [place] coma scale eye opening: Spontaneous [place] coma scale verbal response: Orientated [place] coma scale motor response: Obey commands [place] coma scale total score: 15 Course <QIAN Biswas - Last Filed: 10/10/19 22:59> Orders Ordered: ED Orders 10/10/19 19:43 CT cervical spine wo con Stat CT head/brain wo con Stat XR shoulder LT min 2V Stat XR wrist RT min 3V Stat Discontinued Medications Acetaminophen (Tylenol) 650 mg PO NOW ONE Stop: 10/10/19 19:46 Last Admin: 10/10/19 20:45 Dose: 650 mg Documented by: SAUL Hydrocodone Bitart/Acetaminophen (Vicodin 5/325 Prepack) 1 bottle MISC SEEINSTR ONE Stop: 10/10/19 20:52 Last Admin: 10/10/19 21:10 Dose: 1 bottle Documented by: SAUL Diphtheria/Tetanus/Acell Pertussis (Adacel) 0.5 ml IM .ONCE ONE Stop: 10/10/19 20:52 Last Admin: 10/10/19 21:10 Dose: 0.5 ml Documented by: SAUL Ibuprofen (Advil) 400 mg PO NOW ONE Stop: 10/10/19 20:52 Last Admin: 10/10/19 21:10 Dose: 400 mg Documented by: SAUL Lidocaine (Lidoderm) 1 each TOP DAILY CHE Last Admin: 10/10/19 21:23 Dose: 1 each Documented by: SAUL Lidocaine (Lidoderm) 1 each TOP NOW ONE Stop: 10/10/19 21:21 Vital Signs Vital signs: Vital Signs - 8 hr 10/10/19 19:36 10/10/19 21:31 Temperature 98.6 F Pulse Rate 91 H 91 H Respiratory Rate 22 16 Blood Pressure 166/94 H 142/82 H Pulse Oximetry 96 99 <Edgar Porras DO - Last Filed: 10/11/19 00:10> Orders Ordered: ED Orders 10/10/19 19:43 CT cervical spine wo con Stat CT head/brain wo con Stat XR shoulder LT min 2V Stat XR wrist RT min 3V Stat Discontinued Medications Acetaminophen (Tylenol) 650 mg PO NOW ONE Stop: 10/10/19 19:46 Last Admin: 10/10/19 20:45 Dose: 650 mg Documented by: SAUL Hydrocodone Bitart/Acetaminophen (Vicodin 5/325 Prepack) 1 bottle MISC SEEINSTR ONE Stop: 10/10/19 20:52 Last Admin: 10/10/19 21:10 Dose: 1 bottle Documented by: SAUL Diphtheria/Tetanus/Acell Pertussis (Adacel) 0.5 ml IM .ONCE ONE Stop: 10/10/19 20:52 Last Admin: 10/10/19 21:10 Dose: 0.5 ml Documented by: SAUL Ibuprofen (Advil) 400 mg PO NOW ONE Stop: 10/10/19 20:52 Last Admin: 10/10/19 21:10 Dose: 400 mg Documented by: SAUL Lidocaine (Lidoderm) 1 each TOP DAILY CHE Last Admin: 10/10/19 21:23 Dose: 1 each Documented by: SAUL Lidocaine (Lidoderm) 1 each TOP NOW ONE Stop: 10/10/19 21:21 Vital Signs Vital signs: Vital Signs - 8 hr 10/10/19 19:36 10/10/19 21:31 Temperature 98.6 F Pulse Rate 91 H 91 H Respiratory Rate 22 16 Blood Pressure 166/94 H 142/82 H Pulse Oximetry 96 99 MDM - Fall <QIAN Biswas - Last Filed: 10/10/19 22:59> Differential Diagnosis Differential diagnosis: Likely concussion without loss of consciousness and other (Nasal fracture, C-spine fracture, contusion, abrasion, shoulder strain, shoulder dislocation/fracture) Medical Records Attestation: I reviewed the patient's medical records. Imaging Data CT scan - head: Radiologist's Impression: [address] [address] [address] Scan Report Signed Patient: Pat Jackson LMR#: [id number] : 7Acct:[id number] Age/Sex: 74 / FDate of Service: 10/10/19 Loc: ED Accession Number: [id number] Procedure: CT head/brain wo con Ordering Provider: Medhat Kauffman PROCEDURE: CT HEAD/BRAIN WO CON INDICATIONS: fell on face, chest on side walk TECHNIQUE: Noncontrast 4.5 mm thick angled axial sections acquired from the foramen magnum to the vertex, with coronal and sagittal reformats. For radiation dose reduction, the following was used: automated exposure control, adjustment of mA and/or kV according to patient size. COMPARISON: None. FINDINGS: Image quality: Excellent. CSF spaces: Basal cisterns are patent. No extra-axial fluid collections. The ventricles are symmetric in size and shape. There is mild cerebral volume loss, with resultant ventricular and sulcal prominence. Brain: No intracranial hemorrhage, mass, or mass effect. There are subcortical, periventricular and deep white matter hypodensities consistent with mild chronic small vessel ischemic changes. There is intracranial internal carotid artery atherosclerosis. Skull and face: Calvarium and visualized facial bones appear intact, without suspicious lesions. Sinuses: Visualized sinuses and mastoids are clear. IMPRESSION: 1. No acute intracranial abnormality. 2. Mild chronic white matter small vessel ischemic changes and cerebral volume loss. Dictated by: Des Rodríguez M.D. on 10/10/2019 at 20:12 Approved by: Des Rodríguez M.D. on 10/10/2019 at 20:14 CT-C spine: Radiologist's Impression: [address] [address] [address] Scan Report Signed Patient: Pat Jackson LMR#: [id number] : 7Acct:[id number] Age/Sex: 74 / FDate of Service: 10/10/19 Loc: ED Accession Number: [id number] Procedure: CT cervical spine wo con Ordering Provider: Medhat Kauffman PROCEDURE: CT CERVICAL SPINE WO CON INDICATIONS: fell on face, chest on side walk TECHNIQUE: Noncontrast 3 mm thick sections acquired from the skull base to the T4 level. Sagittal and coronal reformats were then constructed. For radiation dose reduction, the following was used: automated exposure control, adjustment of mA and/or kV according to patient size. COMPARISON: [facility], CT, C-SPINE WITHOUT CONTRAST, 11/02/2013, 23:19. FINDINGS: Image quality: Excellent. Bones: No fractures or subluxation. There is straightening of the cervical lordosis. Multilevel degenerative disc disease demonstrated throughout the cervical spine including moderate to severe degeneration at C5-C6 and C6-C7. Moderate multilevel facet arthropathy also demonstrated throughout the cervical spine. Visualized superior ribs are intact. There is mild mucosal thickening within the visualized left maxillary and sphenoid sinuses. There is also associated calcification within the left maxillary sinus suggesting sequelae of chronic sinusitis. Soft tissues: Prevertebral soft tissues are normal in thickness. No paravertebral hematomas. No apical pneumothoraces. IMPRESSION: 1. No acute fracture or subluxation. 2. Moderate multilevel degenerative changes demonstrated throughout the cervical spine as described. Dictated by: Des Rodríguez M.D. on 10/10/2019 at 20:14 Approved by: Des Rodríguez M.D. on 10/10/2019 at 20:18 XR-Shoulder LT: Radiologist's Impression: [place] [address] XRay Report Signed Patient: Pat Jackson LMR#: [id number] : 7Acct:[id number] Age/Sex: 74 / FDate of Service: 10/10/19 Loc: ED Accession Number: [id number] Procedure: XR shoulder LT min 2V Ordering Provider: Medhat Kauffman PROCEDURE: XR SHOULDER LT MIN 2V INDICATIONS: fell on face, chest on side walk. c/o left shoulder pain TECHNIQUE: 3 views of the shoulder were acquired. COMPARISON: [facility], CR, XR SHOULDER LT MIN 2V, 04/21/2019, 15:25. FINDINGS: Bones: No fractures or dislocations. 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 No suspicious bony lesions. Visualized ribs appear intact. Soft tissues: No suspicious soft tissue calcifications. IMPRESSION: 1. No fracture or dislocation. 2. 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 Dictated by: Des Rodríguez M.D. on 10/10/2019 at 20:18 Approved by: Des Rodríguez M.D. on 10/10/2019 at 20:19 XR-Wrist LT: Radiologist's Impression: Pat Jackson 74 F [address] [address] XRay Report Signed Patient: Pat Jackson LMR#: [id number] : 7Acct:[id number] Age/Sex: 74 / FDate of Service: 10/10/19 Loc: ED Accession Number: [id number] Procedure: XR wrist RT min 3V Ordering Provider: Medhat Kauffman PROCEDURE: XR WRIST RT MIN 3V INDICATIONS: fell on side walk, c/o right hand/wrist pain TECHNIQUE: 4 views of the wrist were acquired. COMPARISON: [facility], WRIST MINIMUM 3 VIEWS RIGHT, 08/27/2006, 16:21. FINDINGS: Bones: No acute fractures or dislocations. There is moderate degeneration of the interphalangeal joints as well as the 1st carpometacarpal and triscaphe articulations. There is also mild to moderate degeneration at the radiocarpal joint. Scaphoid view: The scaphoid appears intact. Soft tissues: There is a corticated ossicle consistent with an old ulnar styloid fracture redemonstrated. Adjacent coarse soft tissue calcifications are nonspecific and likely represent dystrophic calcifications. IMPRESSION: 1. No acute fracture or dislocation. 2. Extensive osteoarthritic changes of the wrist and hand as described. Dictated by: Des Rodríguez M.D. on 10/10/2019 at 20:19 Approved by: Des Rodríguez M.D. on 10/10/2019 at 20:24 MDM Narrative Medical decision making narrative: This is 74-year-old female presents to ED with mechanical fall and landed on her face with glasses on with left shoulder pain and Right wrist and hand pain. She also reports bilateral knee mild pain. CT of head and C-spine was obtained with daily aspirin intake. This test were negative for acute findings this such as intracranial hemorrhage, with intact facial bones. No acute fractures or subluxation but moderate multilevel degenerative changes was seen in C spines. No acute findings in left shoulder x-ray but moderate to severe degeneration of the left AC joints was appreciated. No fractures or dislocation was visualized in x-ray of right hand and wrist. Tdap has been updated today. Patient's pain has been treated with Tylenol, [place], ibuprofen, lidocaine patch. Patient advised to use cool pack next 2-3 days on affected site for pain and swelling. When patient was reassessed on chest wall tenderness, patient states her pain has been resolved and deferred chest x-ray. Return precautions were discussed with the patient and spouse and they both verbalized understanding in agreement with the treatment plan. Discharge Plan Departure Patient Disposition: Home Clinical Impression: Abrasion Closed head injury Qualifiers: Encounter type: initial encounter Qualified Code(s): S09.90XA - Unspecified injury of head, initial encounter Contusion of face Qualifiers: Encounter type: initial encounter Qualified Code(s): S00.83XA - Contusion of other part of head, initial encounter Injury of shoulder, left Qualifiers: Encounter type: initial encounter Qualified Code(s): S49.92XA - Unspecified injury of left shoulder and upper arm, initial encounter Discharge Date/Time: 10/10/19 21:32 Instructions: Shoulder Sprain, DI for Contusion, DI for Closed Head Injury, DI for Abrasion Activity Restrictions/Additional Instructions: You have been diagnosed with [closed head injury, left shoulder injury, contusion and abrasion from falling. CT of your head and neck without acute findings. Facial bones appears to be intact. No dislocation or fracture on left shoulder, right wrist and hand. There is moderate to severe joint degeneration in left shoulder which sure waiting to have surgery soon. You have abrasion on your nasal bridge without fracture.]. What to do: *Take your medications as directed. Please take [id number] Tylenol and or Motrin as needed for discomfort. Tylenol up to 4000 mg in 24 hour. Ibuprofen 400-600 mg up to 3 times a day as needed for inflammation and pain. Please take it with food to decrease GI symptoms. You are going home with [place] prepack for severe pain. This is narcotic pain medications and it can cause drowsiness so please take precautions. Do not drive, drink alcohol, operate heavy equipments while your on this medication. Also can cause constipation. You have provided lidocaine patch for shoulder pain which stays on for 12 hours and off for 12 hours. Since you have allergies to bacitracin, your wound has been cleaned and antibiotic ointment has not been applied at this time. Please monitor for signs of infection such as increasing redness, swelling, warmth, purulent discharge. Please use cool pack for next 2-3 days for 4 times a day for 30 minutes for swelling inflammation. Lidocaine patch has been transmitted to [facility] in [place]. *Follow up with your primary care provider in 2-3 days, call for an appointment. Let them know you were seen in the ED and that we asked you to be seen in follow up. *Return to ED if you have any new, worsening, or concerning symptoms, such as [chest pain, breathing difficulty, unable to tolerate fluids, fever, or any acute concerns]. Prescriptions: New lidocaine 5 % adhesive patch,medicated 1 patch TOP DAILY Qty: 30 RF: 0 No Action lisinopril 30 MG tablet 30 mg PO QAM Qty: 0 RF: 0 cyanocobalamin (vitamin B-12) [Vitamin B-12] 1,000 mcg Tablet 1,000 mcg PO DAILY RF: 0 omeprazole 40 mg capsule,delayed release(DR/EC) 40 mg PO BID RF: 0 calcium polycarbophil [Fiber-Tabs] 625 mg Tablet 1 tab PO BID RF: 0 solifenacin 10 mg tablet 10 mg PO QPM RF: 0 Centrum Silver 0.4-300-250 mg-mcg-mcg Tablet 1 tab PO DAILY RF: 0 cholecalciferol (vitamin D3) [Vitamin D3] 2,000 unit Capsule 4,000 unit PO BID RF: 0 aspirin 81 mg Tablet,Delayed Release (Dr/Ec) 81 mg PO DAILY RF: 0 biotin 1 mg Tablet 1 mg DAILY RF: 0 conjugated estrogens [Premarin] 0.625 mg tablet 0.625 mg PO QAM RF: 0 hydrochlorothiazide 25 mg tablet 25 mg PO QAM RF: 0 escitalopram oxalate [Lexapro] 20 mg tablet 20 mg PO QAM RF: 0 folic acid 1 mg tablet 1 mg PO DAILY RF: 0 atorvastatin [Lipitor] 40 mg tablet 40 mg PO QPM RF: 0 amitriptyline 10 mg tablet 10 mg PO QPM RF: 0 ann red joint care 1 cap PO QAM RF: 0 nabumetone 500 mg tablet 500 mg PO BID Qty: 60 RF: 2 (DME) Respirinics DreamStation Auto CPAP Qty: 1 RF: 0 Referrals: Ana Paula Jean Baptiste MD [Primary Care Provider] - <Edgar Porras DO - Last Filed: 10/11/19 00:10> Cosign ED Attending Marileeature Attestation: I was immediately available in the department for consultation. This documentation has been reviewed and I agree with assessment and plan. Supervised by Edgar Porras DO
[2019-10-10] MEDS: LIDOCAINE PATCH 1 EACH ADH..PATCH TOP (21:23)
[2019-10-10 21:31] VITALS: BP 142/82; PULSE 91; RESP 16; O2SAT 99
== END 2019-10-10 21:32 | disposition home or self-care (01) ==
PROVIDERS: Emergency Provider Nurse Practitioner Family; PCP Family Medicine
DX: S09.90XA Unspecified injury of head, initial encounter (principal); S00.83XA Contusion of other part of head, initial encounter; S00.31XA Abrasion of nose, initial encounter; S49.92XA Unspecified injury of left shoulder and upper arm, initial encounter; M25.512 Pain in left shoulder; M79.641 Pain in right hand; M25.531 Pain in right wrist; M25.562 Pain in left knee; M25.561 Pain in right knee; Z23 Encounter for immunization; W18.30XA Fall on same level, unspecified, initial encounter
CPT/HCPCS: 70450; 72125; 73030; 73110; 90471; 99283; 99284; 90715

== ENCOUNTER → 2019-11-01 13:12 | Outpatient (CLI) | payer MEDICARE, OTHER, SELFPAY ==
[2018-10-27 22:38] VITALS: BMI 39.2
--- NOTE | 2019-11-01 | DI.RAD.S_ITS ---
PROCEDURE: XR WRIST RT MIN 3V INDICATIONS: RIGHT WRIST PAIN TECHNIQUE: 4 views of the wrist were acquired. COMPARISON: [facility], CR, XR WRIST RT MIN 3V, 10/10/2019, 20:00. FINDINGS: Bones: Chronic ulnar styloid process fracture. No acute fractures or dislocations. No suspicious bony lesions. Moderate first CMC and triscaphe joint arthritis. Scaphoid view: Scaphoid is intact. Soft tissues: No suspicious soft tissue calcifications. IMPRESSION: 1. No acute fracture. No acute osseous lesion. If symptoms and/or clinical suspicion for pathology persists, further assessment with repeat radiographs (7-10 days) or advanced imaging (e.g. CT, MRI or bone scan) may be helpful. 2. Chronic ulnar styloid process fracture. 3. Osteoarthritis. Dictated by: Clemencia Newell MD, PhD on 11/01/2019 at 16:52 Approved by: Clemencia Newell MD, PhD on 11/01/2019 at 16:54
== END ==
PROVIDERS: PCP Family Medicine; Referring Provider Family Medicine; Visit Provider Family Medicine
DX: M25.531 Pain in right wrist (principal); S52.611S Displaced fracture of right ulna styloid process, sequela; M18.11 Unilateral primary osteoarthritis of first carpometacarpal joint, right hand; M19.031 Primary osteoarthritis, right wrist
CPT/HCPCS: 73110

== ENCOUNTER → 2019-12-31 12:49 | Outpatient (CLI) | payer MEDICARE, OTHER, SELFPAY ==
[2018-10-27 22:38] VITALS: BMI 39.2
--- NOTE | 2019-12-31 12:50 | DI.MRI.S_ITS ---
PROCEDURE: MRFOOT LT WO CON INDICATIONS: PAIN IN LEFT FOOT TECHNIQUE: Noncontrast sagittal T1 spin echo and T2 fast spin echo with fat saturation, long-axis T1 spin echo and T2 fast spin echo with fat saturation, short-axis T1 spin echo and T2 fast spin echo with fat saturation through the forefoot. COMPARISON: [facility], CR, XR ANKLE LT MIN 3V, 02/20/2018, 14:55. FINDINGS: Image quality: Excellent. Bones and joints: Osteoarthritic changes are noted throughout visualized midfoot and forefoot joints with joint space narrowing, subchondral sclerosis and cyst formation and small marginal osteophyte formations more prominent involving 2nd through 4th TMT joints. Moderate to severe osteoarthritic changes involving talonavicular joint is also seen with joint space narrowing, dorsal margin osteophyte formation and marrow edema. No acute fracture or dislocation. No suspicious intraosseous lesion. No evidence of metatarsal bone stress fractures. Soft tissues: The visualized plantar foot muscles demonstrate normal signal and bulk. Visualized flexor and extensor tendons appear intact, without tenosynovitis. The distal insertions of the peroneus brevis and longus tendons appear intact. The principal Lisfranc ligament appears intact. No soft tissue ganglion cysts or bursal fluid collections. Sagittal images demonstrate no evidence for plantar plate tears. IMPRESSION: 1. 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 Mild to moderate osteoarthritic changes involving forefoot joints and tarsal metatarsal joints. No fracture or dislocation. No suspicious bony lesion. 2. Forefoot tendons and ligaments are grossly intact. No gross soft tissue abnormality. Dictated by: Shin Kapoor M.D. on 12/31/2019 at 15:06 Approved by: Shin Kapoor M.D. on 12/31/2019 at 16:29
== END ==
PROVIDERS: PCP Family Medicine; Referring Provider Family Medicine; Visit Provider Family Medicine
DX: M79.672 Pain in left foot (principal); M19.072 Primary osteoarthritis, left ankle and foot
CPT/HCPCS: 73718

== ENCOUNTER → 2020-01-12 11:58 | Outpatient (CLI) | payer MEDICARE, OTHER, SELFPAY ==
[2018-10-27 22:38] VITALS: BMI 39.2
[2020-01-12 12:54] LABS: Add Manual Diff / Slide Review NO; Basophils Absolute Auto 0 /uL (0-100); Basophils Percent Auto 0.6 % (0-2); Eosinophils Absolute Auto 100 /uL (0-450); Eosinophils Percent Auto 1.4 % (2-4); Hematocrit 39.6 % (36-46); Hemoglobin 13.1 g/dL (12.0-16.0); Lymphocytes Absolute Auto 2400 /uL (1100-4500); Lymphocytes Percent Auto 40.6 % (25-40); Mean Corpuscular HGB Conc 33.2 % (30-36); Mean Corpuscular Hemoglobin 31.2 PG (26-34); Monocytes Absolute Auto 500 /uL (0-900); Monocytes Percent Auto 8.5 % (3-14); Neutrophils Absolute Auto 2900 /uL (1500-7000); Neutrophils Percent Auto 48.9 % (50-75); Platelet Count 177 X10^3/uL (150-400); Red Blood Cell Count 4.21 X10^6/uL (4.0-5.2); Red Cell Distribution Width 13.1 % (11.6-14.8); White Blood Cell Count 5.9 X10^3/uL (4.5-11.0)
[2020-01-12 13:32] LABS: BUN Creatinine Ratio 24.7 (6-22); Blood Urea Nitrogen 18 mg/dL (7-17); Calcium 9.1 mg/dL (8.4-10.2); Carbon Dioxide 29 mmol/L (22-32); Chloride 102 mmol/L (98-107); Estimated Glomerular Filt Rate > 60.0 mL/min (>60); Glucose 139 mg/dL (80-110); HEMOLYSIS < 15 (0-50); Potassium 4.2 mmol/L (3.4-5.1); Sodium 136 mmol/L (137-145)
== END ==
PROVIDERS: PCP Family Medicine; Referring Provider Family Medicine; Visit Provider Orthopaedic Surgery
DX: Z01.818 Encounter for other preprocedural examination (principal); Z01.812 Encounter for preprocedural laboratory examination
CPT/HCPCS: 36415; 80048; 85025; 93005; 93010

== ENCOUNTER → 2020-01-22 11:43 | Outpatient (CLI) | payer MEDICARE, OTHER, SELFPAY ==
[2018-10-27 22:38] VITALS: BMI 39.2
[2020-01-23 09:19] LABS: COVID19 Sendout Not Detected (Not Detect)
== END ==
PROVIDERS: PCP Family Medicine; Visit Provider Physician Assistant
DX: Z11.59 Encounter for screening for other viral diseases (principal)
CPT/HCPCS: 87635

== ENCOUNTER 2020-01-25 06:56 | Inpatient (IN) | payer MEDICARE, OTHER, SELFPAY ==
[2018-10-27 22:38] VITALS: BMI 39.2
[2020-01-19 08:42] VITALS: BMI 39.2
[2020-01-25] VITALS (16 sets, daily range): BP systolic 98–162; BP diastolic 61–86; PULSE 71–108; RESP 12–20; TEMP 36.1–37.3; O2SAT 90–97; BMI 39.2
--- NOTE | 2020-01-25 07:58 | DI.RAD.S_ITS ---
PROCEDURE: XR SHOULDER LT 1V INDICATIONS: post op total shoulder TECHNIQUE: Single frontal view of the shoulder were acquired. COMPARISON: [facility], CR, XR SHOULDER LT MIN 2V, 10/10/2019, 19:56. [facility], CR, XR SHOULDER LT MIN 2V, 04/21/2019, 15:25. FINDINGS: Bones: No fractures or dislocations. No suspicious bony lesions. Visualized ribs appear intact. Soft tissues: No suspicious soft tissue calcifications. IMPRESSION: Left total shoulder arthroplasty with a surgical drain overlying the operative bed. Normal alignment established. Dictated by: Kranthi Pollard M.D. on 01/25/2020 at 13:19 Approved by: Kranthi Pollard M.D. on 01/25/2020 at 13:20
[2020-01-25] MEDS: ACETAMINOPHEN 325 MG TABLET 975 MG PO ×3 (08:05→20:57)
[2020-01-25] MEDS: PREGABALIN 75 MG CAPSULE PO (08:06)
--- NOTE | 2020-01-25 09:26 | PM.PREOP ---
Pre-operative Note COVID-19 COVID-19 status: Negative Result date/Date tested (Pos, Neg/Pending): 01/22/20 Interval Note History & Physical reviewed/Exam performed by Physician: Yes Changes to H&P: No
--- NOTE | 2020-01-25 09:28 | PM.OP.1 ---
Operative Date/Time/Diagnoses Date of procedure: 01/25/20 Time of procedure: 11:36 Pre-op diagnosis: Left shoulder rotator cuff tear arthropathy Post-op diagnosis: same Procedure & Clinicians Procedure: Left reverse total shoulder replacement Same procedure as scheduled: Yes Indications: The patient is had chronic left shoulder pain unresponsive to nonoperative therapies. Radiographic studies have revealed changes consistent with a massive rotator cuff tear and arthritis. They have elected to proceed with reverse total shoulder replacement after discussion of the risks benefits and alternatives. Risks discussed included but were not limited to: Failure to improve, instability, infection, nerve damage, deep venous thrombosis, pulmonary embolism, stroke, coma, myocardial infarction and . Surgeon: Daryn Sawyer Brood Hatchery Manager: Luz Marina Mcmahon'Brien Click Yes if Unassisted: No Anesthesia Type: General, Peripheral nerve block and Local Operative Notes Findings: Massive, irreparable rotator cuff tear including the upper 2/3 of the subscapularis, supraspinatus and infraspinatus. Closure Type: primary Specimen(s): none sent Prosthetic devices, grafts, tissues, transplants, or devices: Implants used in this procedure were manufactured by the [employer] and included an RSP prosthetic with a 30 mm glenoid baseplate with 4 locking bolts, a 32 mm neutral glenoid head with a locking screw, a 10 mm diameter standard humeral stem, and a 32 mm standard humeral socket. Applied: implant(s) Estimated Blood Loss (mL): 150 Blood products transfused: none Procedure in detail: The patient was seen in the preoperative area where they identified the left shoulder as the operative site and this was marked with my initials. They received preoperative antibiotics and underwent the induction of an interscalene block. They were taken to the operating room and placed on the operating room table in a supine position with the underwent the induction of a general anesthetic. There were then repositioned in the ?beach chair? position using a dedicated positioner. All pressure points were well padded. The knees were slightly bent to prevent tension on the sciatic nerves. The left arm was prepared from the fingertips to the base of the neck with ChloraPrep in the usual fashion and draped through sterile drapes. An approximately 15 cm incision was created starting at the clavicle just above the coracoid and going to the deltoid insertion. The deltopectoral interval was used to access the shoulder taking the vein to the medial side. The vein was protected throughout the case. The upper 1 cm of the pectoralis major was released. The biceps tendon was identified and used as a guide to releasing the remaining subscapularis. The biceps itself was tenodesed over the pectoralis tendon using a suture. The shoulder was dislocated and a proximal humeral osteotomy performed using an extramedullary guide. A proximal humeral protector was then placed. Retractors were placed access the glenoid. A 360 degree release was performed of the remaining subscapularis with care being taken to protect the axillary nerve. The soft tissues were removed circumferentially around the glenoid. The guide was used to drill the guide hole in the center of the inferior glenoid. The tap was placed and used as a guide for the reamer. The tap was then removed and the glenoid base plate inserted. The peripheral locking screws were then placed through the appropriate guide. A trial glenoid head was applied. We then turned our attention to the humerus. The proximal humeral protector was removed. Cylindrical reamers were used to size the canal. Broaching was then performed beginning with a small broach and working up until a line to line fit with the reamer was obtained. The guide for the proximal metaphyseal reamer was then applied and the metaphysis was reamed appropriately. The trial metaphyseal portion of the body was then applied to the broach. Trial reductions were performed and the size of the glenoid head and the cup were optimized. Stability was checked in maximal internal and external rotation and range of motion was checked to allow access to the top of the head, internal rotation to an excess of 50? in the ?scarecrow position? and the ability to reach the groin. The appropriate final prosthetic components were then opened. The glenoid head was impacted into position and checked for rotational and axial stability before placing the set screw. The humeral prosthetic was then impacted into position. The humeral cup was placed. The joint was relocated and irrigated. We again placed the arm through a range of motion. In abduction there was some impingement between a hypertrophied greater tuberosity and the lateral aspect of the acromion. The greater tuberosity was trimmed down with a rongeur to prevent this. A deep drain was placed. The deltopectoral interval was reapproximated with 0 Vicryl. Subcutaneous layer was closed with interrupted 3-0 Vicryl and skin with a running 3 0 V lock suture. Subcutaneous tissues were then infiltrated with 0.5% Marcaine for postoperative pain control. An Aquacel Ag dressing was applied and the patient's arm was placed in a sling. The patient was then transferred to the recovery room in good condition having tolerated the procedure well. Complications: none Post-operative Condition: stable Disposition: PACU Plan for aftercare: The patient will be allowed to do pendulum exercises for the next 6 weeks but otherwise will remain in a sling. They were then will be advanced through a strengthening protocol and allowed to resume activities as tolerated.
[2020-01-25] MEDS: CEFAZOLIN 2 GM/100 ML FROZ.PIGGY IV (09:44)
[2020-01-25] MEDS: TRANEXAMIC ACID 1,000 MG VIAL 1000 MG IV ×2 (10:16→11:16)
--- NOTE | 2020-01-25 10:29 | SUR.OPER ---
Beach chair with Ankurn/Belen shoulder positioner. Lower body on padded OR bed. Head in foam padded head cradle, secured with straps. Non-operative arm secured <90 degrees abduction. Pillow under knees. Safety belt at thigh. Cloth tape over blanket over lower legs. Gel pad under heels.
[2020-01-25] MEDS: BUPIVACAINE 0.25% W/ EPI 30 ML VIAL INJ (10:39)
--- NOTE | 2020-01-25 11:55 | SUR.PHASEI ---
Pt received to PACU at 1143. Airway patent, self maintained. Report received from circulating RN and Dr Flores. Pt denies pain, nausea, chest pain, or SOB.
--- NOTE | 2020-01-25 12:26 | SUR.PHASEI ---
Transferred to [facility]. Received in room by MAXINE Krause. Bedside hand off performed. All belongings with pt including dentures, glasses, CPAP, and clothing.
[2020-01-25] MEDS: LACTATED RINGERS 1,000 ML 125 ML IV (12:43)
--- NOTE | 2020-01-25 12:49 | PC.NURSE ---
Addendum entered by Nelida Spencer R.N. 01/25/20 14:51: UP OOB to BR with 1PA FWW, output 300 ml. 60 ml output, Hemovac. Weaned to RA, sat > 94%. Original Note: Day shift note: Patient admitted to room 207 S/P Left total shoulder arthroplasty, scheduled by Dr. CARDENAS. Received on O2 at 2L via NC, sats 95% awake. Alert, oriented, and pleasant. VSS and afebrile. SCDs and IVF initiated upon arrival. Oriented to room, environment, and plan of care. (Bill) at bedside providing supportive care. Call light within reach.
--- NOTE | 2020-01-25 14:42 | PT.IIE ---
Current Diagnoses Primary osteoarthritis, left shoulder (01/25/20) Complete rotator cuff tear or rupture of left shoulder, not specified as traumatic (01/25/20) Surgery Performed Operation Date: 01/25/20 09:15 Actual Procedures p Total Shoulder Arthroplasty - Reverse(Left) - Daryn Sawyer MD Surgical History (Last Updated 01/19/20 @ 09:17 by Sulema Chew RN) History of bladder suspension procedure (Acute) History of colonoscopy (Acute) History of hand surgery (Acute) History of hysterectomy (Acute) History of surgery on left wrist (Acute) Hx of repair of right rotator cuff (Acute) Medical History (Last Updated 01/19/20 @ 09:25 by Sulema Chew RN) Allergic rhinitis (Chronic) Anxiety (Chronic) Bilateral foot pain (Chronic) Chronic pain syndrome (Chronic) Chronic rhinosinusitis (Chronic) Closed L1 vertebral fracture (Inactive) Contusion of left hip (Inactive) Degenerative disc disease, cervical (Chronic) Degenerative disc disease, lumbar (Chronic) 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 joint disease, ankle, foot, toe (Chronic) Depression (Chronic) Diverticulosis (Acute) Excessive daytime sleepiness (Inactive ~2006) Flu (Inactive) GERD (gastroesophageal reflux disease) (Chronic) GI bleed (Inactive) Hyperlipidemia (Chronic) Hypertension (Chronic) Insomnia, unspecified (Chronic ~2006) MGUS (monoclonal gammopathy of unknown significance) (Chronic) Obesity (BMI 30-39.9) (Chronic) Obstructive sleep apnea of adult (Chronic ~2006) 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 sides of body (Chronic) Rectal bleeding (Inactive) Snoring (Inactive ~1984) Physical Therapy Inpatient Evaluation/Re-Eval M1 PT/OT-IP Prior Functional Status Start: 01/25/20 16:12 Freq: NEEDED Status: Active Protocol: Document 01/25/20 14:42 AB (Rec: 01/25/20 16:33 AB [id number]) Medical Review Prior Functional Status Medical History Reviewed Yes Communication able to make needs known Mobility and Gait pt stated that she is independent with all mobilities and ambulation without AD indoors but uses her hurrycane for outdoor mobility and also has an electric scooter that she uses for long distances; pt stated that she has h/o falls due to bilateral hips and back problems Social History Household Members spouse Living Arrangements House Number of Floors (Floors) One Floor Number of Stairs To Enter/Railing? ramp to enter Home Environment High Toilet,Tub/Shower,Ramp Home Equipment Straight Cane,Hand Held Shower ,Grab Bars In Shower Employment Status Retired M2 PT-IP Current Condition Start: 01/25/20 16:12 Freq: NEEDED Status: Active Protocol: Document 01/25/20 14:42 AB (Rec: 01/25/20 16:33 AB [id number]) Physical Therapy Current Condition Current Condition Evaluation Date 01/25/20 Treatment Diagnosis L reverse TSA; difficulty in walking Onset Date 01/25/20 Precautions Shoulder Precautions Sling,PROM,Internal Rotation to Body,No External Rotation, No Abduction,Forward Flexion to 90 degrees,Pendulums Weight Bearing Status Weight Bearing Status Non-Weight Bearing Allowed Weight Bearing Amount (enter % NWB LUE or #) (%) M3 PT-IP Subjective Start: 01/25/20 16:12 Freq: NEEDED Status: Active Protocol: Document 01/25/20 14:42 AB (Rec: 01/25/20 16:33 AB [id number]) Subjective Physical Therapy Visit Type Type Initial Evaluation Visit Start Time 14:42 Visit Stop Time 15:35 Total Visit Minutes 53 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 Physical Therapy Visit Comments Patient Comments pt is agreeable to do PT Therapy Pain Assessment Pain Present Pain Present Denied Pain M4 PT-IP Mobility and Gait Start: 01/25/20 16:12 Freq: NEEDED Status: Active Protocol: Document 01/25/20 14:42 AB (Rec: 01/25/20 16:33 [id number]) PT-Bed Mobility Assessment Supine to Sit Supine to Sit Maximum Assistance,1 Person Assistance PT-Transfer Assessment Sit to and From Stand Sit to and from Stand Minimal Assistance,1 Person Assistance,Use of Upper Extremities Equipment Transfer Assistive Device Gait Belt,Tripod Cane/Hurry Cane Orthotic/Prosthetic Devices or Brace: Yes Transfers Transfer Destination Chair Transfer Technique ambulated using cane Transfer Ability Level of Assist Minimal Assistance,1 Person Assistance,Use of Upper Extremities Comments Mobility Comments educated pt and spouse regarding shoulder precautions . pt still does not have sensation back on LUE. pendulum activity hold off for now due to pt not having any motor control and sensation back on LUE. pt completed supine to sit max A. spouse stated that he usually assists pt with getting out of the bed. spouse assisted pt with supine to sit. pt was able to sit on EOB SBA. assisted with sling adjustment and educated spouse on how to jazmín/doff sling. also educated pt on elbow/hand exercises. completed sit to stand and spouse assist pt again. spouse stated that she usually assists pt with sit to stand. instructed pt to sit back down. educated on sit to stand techniques and was able to complete CGA to min A. pt ambulated in room ~ 20 ft using hurrycane min A. sat back on bed. pt agreed to sit up on chair. and completed sit to stand again and using cane to get up and completed CGA. transferred to chair using cane CGA to min A and cues. pt presents with unsteady antalgic gait and pt stated that this if normal for her and has h/o falls due to back and hip pain. positioned pt on chair. call light and table placed within reach. Gait Assessment Gait Gait Assistance Required: Minimum Assistance Distance (Feet) 40 Able to Maintain Weight Bearing Status Yes During Gait Assistive Devices Assistive Device Gait Belt,Tripod Cane/Hurry Cane Orthotic/Prosthetic Devices or Brace: Yes Gait Deviations General Gait Pattern Antalgic,Decreased Stride Length,Decreased Feet Clearance,Step-to Gait Factors Limiting Gait Function Factors Limiting Gait Function Decreased Activity Tolerance, Decreased Sensation,Decreased Strength,Limited Range of Motion,Poor Balance,Poor Safety Awareness Comments Gait Comments pt presents with unsteady antalgic gait PT-Balance Assessment Sitting Balance and Reactions Static Sitting Balance Ability Good Dynamic Sitting Balance Ability Good Standing Balance and Reactions Static Standing Balance Ability Fair Dynamic Standing Balance Ability Fair Device Used cane M5 PT-IP Objective Assessments Start: 01/25/20 16:12 Freq: NEEDED Status: Active Protocol: Document 01/25/20 14:42 AB (Rec: 01/25/20 16:33 AB [id number]) Orientation Orientation/Cognition Level of Alertness Alert Orientation Name Language Function Ability No Deficits Noted Safety Awareness Decreased Safety Awareness Memory Description No Deficits Noted Gross Range of Motion Lower Extremity ROM Assessment Within Functional Limits Strength Lower Extremity Strength Assessment Within Functional Limits Coordination Assessment Gross Coordination Gross Coordination WNL Sensation Assessment Sensation Gross Sensation Left UE Impaired Light Touch Absent Proprioception (Position) Absent Sensation Description Numbness Comments Sensation Comments pt still does not have sensation and motor control on LUE M6 PT-IP Treatment Start: 01/25/20 16:12 Freq: NEEDED Status: Active Protocol: Document 01/25/20 14:42 AB (Rec: 01/25/20 16:33 AB [id number]) Physical Therapy Treatment Education Education Provided Precautions,Weight Bearing Status,Post-Op Packet,Safety Brace Education [place],Patient, Caregiver M7 PT-IP Assessment and Plan Start: 01/25/20 16:12 Freq: NEEDED Status: Active Protocol: Document 01/25/20 14:42 AB (Rec: 01/25/20 16:33 AB [id number]) PT Summary Assessment and Plan Potential Rehabilitation Potential Good Status of Condition at Evaluation Evolving Summary Impairments Pain,ROM,Strength,Balance, Coordination,Sensation,Tone, Cognition,Bed Mobility, Transfers,Gait,Activity Tolerance Assessment Summary pt requiring CGA to min A with mobility and plans to go home with spouse to assist her. will conduct caregiver training next tx session for sling management, bed mobility , transfers and ambulation. will continue to assess progress. Goals Bed Mobility Goal Minimal Assistance Transfer Goal Contact Guard Assistance,Cane Gait Goal Contact Guard Assistance,Cane Gait Distance 100 Days to Meet Goals 5 Frequency of Treatment Frequency Of Treatment Twice a Day Treatment Plan Physical Therapy Treatment Plan Bed Mobility Training,Transfer Training,Gait Training, Therapeutic Exercise,Balance Retraining,Post Op Education, Discharge Planning,Hot or Cold Pack,Neuromuscular Re-ed, Coordination Retraining,Manual Therapy Other Recommendations and Next Treatment caregiver training, pendulum Focus Recommendations To Nursing Amount of Assist Needed 1 Person Assist Discharge Recommendations PT Discharge Recommendations Home with Assistance, Outpatient PT Transportation Needs at Discharge Private Vehicle
[2020-01-25] MEDS: SOLIFENACIN 5 MG TABLET 10 MG PO (18:55)
[2020-01-25] MEDS: AMITRIPTYLINE 10 MG TABLET PO (18:57)
[2020-01-25] MEDS: ATORVASTATIN 20 MG TABLET 40 MG PO (19:30)
--- NOTE | 2020-01-25 19:32 | PC.NURSE ---
pt is alert and oriented x3- up to BR to void using cane and SBA. Left arm in sling with drsg cdi, HV in place. ice applied rad pulse + cont with tingling while wiggling fingers, denies pain, using IS. in rm.
[2020-01-25] MEDS: ASPIRIN EC 81 MG TABLET PO (20:58)
[2020-01-25] MEDS: PANTOPRAZOLE 40 MG TABLET PO (20:58)
[2020-01-25] MEDS: DOCUSATE 100 MG CAPSULE PO (20:58)
[2020-01-26 05:04] VITALS: BP 149/74; PULSE 91; RESP 15; TEMP 36.4; O2SAT 93
[2020-01-26 05:57] LABS: Hematocrit 33.6 % (36-46); Hemoglobin 11.3 g/dL (12.0-16.0); Mean Corpuscular HGB Conc 33.5 % (30-36); Mean Corpuscular Hemoglobin 31.3 PG (26-34); Mean Corpuscular Volume 93.5 fL (80-100); Platelet Count 159 X10^3/uL (150-400); White Blood Cell Count 10.1 X10^3/uL (4.5-11.0)
--- NOTE | 2020-01-26 06:36 | PM.DS.1 ---
History of Present Illness History of Present Illness Date Patient Seen: 01/26/20 Time Patient Seen: 06:36 Chief complaint: INPT Narrative: The history and physical are contained in the chart in a previously completed note. Please refer to that note for this information. Discharge Providers Provider Date of admission: 01/25/20 06:56 Discharge Date: 01/26/20 Primary care physician: Ana Paula Jean Baptiste MD Consults: 01/25/20 12:15 Consult to Discharge Planning Routine Comment: Consult to Physical Therapy Evaluate & Treat Comment: Pendulums only. Physician Instructions: Evaluate and Treat Discharge provider: Daryn Sawyer MD Summary Hospital Course Discharge Diagnosis: 1. Left shoulder rotator cuff tear arthropathy 2. Post hemorrhagic anemia Hospital Course: the patient was admitted to the hospital and taken directly to the operating room on January 25, 2020 where she underwent a left reverse total shoulder replacement without difficulty. On postoperative day 1 she was stable with satisfactory pain control. Her interscalene block appeared to be partially in place still. She had been able to get up and moved to the bathroom it was felt she would likely be ready for discharge later in the morning. Status at Discharge Cognitive/behavioral status at discharge: oriented Functional status at discharge: independent ambulation Overall status at discharge: patient is progressing back to baseline Time Spent with Patient Time spent: Less than 30 minutes Exam Vital Signs (past 8 hours): - 01/25/20 23:30 01/26/20 05:04 Temperature 99.1 F 97.5 F L Pulse Rate 103 H 91 H Respiratory Rate 14 15 Blood Pressure 116/86 149/74 H Pulse Oximetry 92 93 Oxygen Delivery Method Nasal Cannula,CPAP Oxygen Flow Rate 0 Narrative Exam Narrative: Left shoulder wound is dressed with no significant drainage on the bandage. Light touch is intact in the radial, ulnar and median nerve distributions but absent in the muscular cutaneous and axillary nerve distribution. She can abduct her thumb but cannot abduct her fingers or extend her thumb. She cannot fire her biceps and deltoid yet. Objective Labs Result Diagrams: 01/26/20 05:40 Labs: Laboratory Results - last 24 hr 01/26/20 05:40 WBC 10.1 RBC 3.60 L Hgb 11.3 L Hct 33.6 L MCV 93.5 MCH 31.3 MCHC 33.5 RDW 13.0 Plt Count 159 Discharge Assessment & Plan Assessment and Plan Assessment: The patient's is stable postoperative day 1 status post left total shoulder replacement although it is apparent her interscalene block is still partially in place. Pain control has been satisfactory. She has a mild, anticipated, post hemorrhagic anemia. Plan of Treatment: We will have her see physical therapy to learn pendulum exercises today. She will be discharged later in the day. She has been counseled that when the block wears off there may be an increase in discomfort and how to deal with that with oral pain medications. She has discharge follow up at my office in 2 weeks. Discharge prescription for oxycodone is on the chart. She has also been counseled on the use of low-dose aspirin for DVT prophylaxis. Discharge Plan Discharge Plan Patient Disposition: Home Discharge orders & Medications Prescriptions: New acetaminophen 325 mg Tablet 975 mg PO TID 30 Days Qty: 270 RF: 0 aspirin 81 mg Tablet,Delayed Release (Dr/Ec) 81 mg PO BID 42 Days Qty: 84 RF: 0 oxycodone 5 mg Tablet 5 mg PO Q4H PRN (Reason: Pain, Moderate (4-6)) Qty: 40 RF: 0 Continued lisinopril 30 MG tablet 30 mg PO QAM Qty: 0 RF: 0 lidocaine 5 % adhesive patch,medicated 1 patch TOP DAILY PRN (Reason: Pain) RF: 0 cyanocobalamin (vitamin B-12) [Vitamin B-12] 1,000 mcg Tablet 1,000 mcg PO DAILY RF: 0 omeprazole 40 mg capsule,delayed release(DR/EC) 40 mg PO BID RF: 0 calcium polycarbophil [Fiber-Tabs] 625 mg Tablet 1 tab PO BID RF: 0 solifenacin 10 mg tablet 10 mg PO QPM RF: 0 Centrum Silver 0.4-300-250 mg-mcg-mcg Tablet 1 tab PO DAILY RF: 0 cholecalciferol (vitamin D3) [Vitamin D3] 2,000 unit Capsule 4,000 unit PO BID RF: 0 biotin 1 mg Tablet 1 mg PO DAILY RF: 0 celecoxib [Celebrex] 200 mg Capsule 200 mg PO DAILY RF: 0 conjugated estrogens [Premarin] 0.625 mg tablet 0.625 mg PO QAM RF: 0 hydrochlorothiazide 25 mg tablet 25 mg PO QAM RF: 0 escitalopram oxalate [Lexapro] 20 mg tablet 20 mg PO QAM RF: 0 folic acid 1 mg tablet 1 mg PO DAILY RF: 0 atorvastatin [Lipitor] 40 mg tablet 40 mg PO QPM RF: 0 amitriptyline 10 mg tablet 10 mg PO QPM RF: 0 (DME) Respirinics [employer] CPAP kit Qty: 1 RF: 0 Discontinued aspirin 81 mg Tablet,Delayed Release (Dr/Ec) 81 mg PO DAILY RF: 0 Follow up/Referrals: Daryn Sawyer MD [Physician] - 2 Weeks Ana Paula Jean Baptiste MD [Primary Care Provider] - Discharge Health Status Multidrug resistant organism: No MDRO Diet/Activity/Treatments Diet: Diet as Tolerated and Regular Activity: Continue in your sling unless doing pendulum exercise. You may move your hand in front of your torso below shoulder level. Cold/Heat Therapy: Apply ice to the left shoulder for 15 minutes every hour as needed for pain control. Skin/Wound/Dressing Care Report to your healthcare provider any signs of infection, such as:: chills, fever, night sweats, increased pain, unusual drainage and unusual redness Dressing: Leave the dressing intact until follow-up. You may shower with the dressing in place. If the central strip of the dressing becomes saturated with either water or blood, please call the office to have it evaluated. Visit Report/Discharge Packet Instructions: DI for Prescription Opioid Use, DI for Shoulder Replacement Stand Alone Forms: Surgery Discharge Visit Report Forms: Patient Portal/API, Stroke Signs & Symptoms Discharge Data Primary Care Provider: Ana Paula Jean Baptiste
[2020-01-26 07:53] VITALS: BP 136/64; PULSE 95; RESP 15; TEMP 37.1; O2SAT 95
[2020-01-26] MEDS: CYANOCOBALAMIN (VITAMIN B-12) 500 MCG TABLET 1000 MCG PO (09:16)
[2020-01-26] MEDS: hydroCHLOROthiazide 25 MG TABLET PO (09:16)
[2020-01-26] MEDS: ASPIRIN EC 81 MG TABLET PO (09:16)
[2020-01-26] MEDS: ESCITALOPRAM 10 MG TABLET 20 MG PO (09:16)
[2020-01-26] MEDS: lisinopriL 10 MG TABLET 30 MG PO (09:16)
[2020-01-26] MEDS: ACETAMINOPHEN 325 MG TABLET 975 MG PO (09:16)
[2020-01-26] MEDS: CELECOXIB 200 MG CAPSULE PO (09:16)
[2020-01-26] MEDS: ESTROGENS, CONJUGATED 0.625 MG TABLET PO (09:16)
[2020-01-26] MEDS: DOCUSATE 100 MG CAPSULE PO (09:16)
[2020-01-26] MEDS: FOLIC ACID 1 MG TABLET PO (09:16)
[2020-01-26] MEDS: PANTOPRAZOLE 40 MG TABLET PO (09:17)
--- NOTE | 2020-01-26 09:43 | PT.IPTN ---
Current Diagnoses Primary osteoarthritis, left shoulder (01/25/20) Complete rotator cuff tear or rupture of left shoulder, not specified as traumatic (01/25/20) Surgery Performed Operation Date: 01/25/20 09:15 Actual Procedures p Total Shoulder Arthroplasty - Reverse(Left) - Daryn Sawyer MD Physical Therapy Treatment Note M2 PT-IP Current Condition Start: 01/25/20 16:12 Freq: NEEDED Status: Discharge Protocol: Document 01/25/20 14:42 AB (Rec: 01/25/20 16:33 AB [id number]) Physical Therapy Current Condition Current Condition Evaluation Date 01/25/20 Treatment Diagnosis L reverse TSA; difficulty in walking Onset Date 01/25/20 Precautions Shoulder Precautions Sling,PROM,Internal Rotation to Body,No External Rotation, No Abduction,Forward Flexion to 90 degrees,Pendulums Weight Bearing Status Weight Bearing Status Non-Weight Bearing Allowed Weight Bearing Amount (enter % NWB LUE or #) (%) M3 PT-IP Subjective Start: 01/25/20 16:12 Freq: NEEDED Status: Discharge Protocol: Document 01/26/20 09:09 SP (Rec: 01/26/20 13:50 SP [id number]) Subjective Physical Therapy Visit Type Type Treatment Note Visit Start Time 09:09 Visit Stop Time 09:43 Total Visit Minutes 34 Notes attended and provided physical assist during throughout tx. Number of LUMP INSPECTOR Visits 1 Physical Therapy Visit Comments Patient Comments pt agreeable to working with PT. Therapy Pain Assessment Pain When Pain Assessed At Rest Pain Present Pain Present Pain Reported Location L shoulder Intensity 1 Scale Used 1/10 at rest, 2/10 with mobility Description Aching Pain Behaviors Facial Grimacing Pain Management Techniques Re-positioning,Timing of Activity with Medications M4 PT-IP Mobility and Gait Start: 01/25/20 16:12 Freq: NEEDED Status: Discharge Protocol: Document 01/26/20 09:09 SP (Rec: 01/26/20 13:50 SP [id number]) PT-Bed Mobility Assessment Supine to Sit Supine to Sit Minimal Assistance,1 Person Assistance Sit to Supine Sit to Supine Standby Assistance Scooting Scooting to Edge of Bed Standby Assistance PT-Transfer Assessment Sit to and From Stand Sit to and from Stand Standby Assistance,1 Person Assistance,Use of Upper Extremities Equipment Transfer Assistive Device Gait Belt,Tripod Cane/Hurry Cane Orthotic/Prosthetic Devices or Brace: Yes Transfers Transfer Destination Bed,Chair Transfer Technique ambulated using hurry cane Transfer Ability Level of Assist Standby Assistance,Contact Guard Assistance,1 Person Assistance,Use of Upper Extremities Comments Mobility Comments Pt was seated in chair when arrived. in room and complete caregiver training with physical assist required for mobility. Instruction in doff/done LUE sling completed by and patient supporting LUE with RUE, good demonstration after shown. Instruction in self LUE hand/ finger/ wrist exercises AROM, AAROM elbow flex/ ext while positioned over laps elbow at side, seated and stand PROM pendulum LUE by with good cuing from for patient to relax to allow no active movement and very small passive flex/ext/ CW/CCW circles, patient unable to perform herself. Sit to stand CGA with RUE on chair arm, stable. Pt ambulated further distance in hallway approx 130 ft with no rest breaks using hurry cane and CGA- close sBA by with good cuing for slower pacing to allow for hurry cane fully placement on floor with LLE, deviation and LLE unsteady noted on L while turning corner to R with self recovery. Pt sat at EOB when returned to room close sBA with cuing for backing up fully with hurry cane then reaching back for slow descent sitting on EOB, not putting off to side then pivoting round with no UE support to sit, no LOB noted but education for decreased risk for falls with verbal agreement by patient and . Sitting>supine SBA and lateral scoot to center in bed, supine>sitting Min A using husbands hand to pull from using RUE, L side of bed w/ HOB flat to assimulate home side gets off of. LUMP INSPECTOR suggested switching sides for self RUE support with agreement but the plan will be sleeping in recliner for now. LUMP INSPECTOR discussed not using the lift chair has to allow for BLE strength sit <>stand important (find a good height level and perform using RUE) with agreement. Sit>stand SBA with cuing for pushing from bed then contact hurry cane, CGA around end of bed to chair , SPT SBA with good placment of cane and slow descent usign RUE on chair arm to sit. Pt was sitting up in chair with call light and all needs in reach with in room when left. LUMP INSPECTOR recommended being around when ever standing mobiltiy for safety and decreased risk for falls due to noted cuing for hand, hurry cane placement during transfers and gait safety stability with both in verbal agreement. Pt is ok to return home with to assist her when medically stable. Gait Assessment Gait Gait Assistance Required: Standby Assistance,Contact Guard Assist,1 Person Assist Distance (Feet) 130 Able to Maintain Weight Bearing Status Yes During Gait Assistive Devices Assistive Device Gait Belt,Tripod Cane/Hurry Cane Orthotic/Prosthetic Devices or Brace: Yes Gait Deviations General Gait Pattern Antalgic,Decreased Stride Length,Decreased Feet Clearance,Wide Based Gait Factors Limiting Gait Function Factors Limiting Gait Function Decreased Activity Tolerance, Decreased Sensation,Decreased Strength,Limited Range of Motion,Poor Balance,Poor Safety Awareness Comments Gait Comments pt presents with unsteady antalgic gait Stair Climbing Assessment Comments Stair Climbing Comments no stairs, has ramp at home, no need to assess. PT-Balance Assessment Sitting Balance and Reactions Static Sitting Balance Ability Good Dynamic Sitting Balance Ability Good Standing Balance and Reactions Static Standing Balance Ability Fair Dynamic Standing Balance Ability Fair Device Used hurry cane M5 PT-IP Objective Assessments Start: 01/25/20 16:12 Freq: NEEDED Status: Discharge Protocol: Document 01/25/20 14:42 AB (Rec: 01/25/20 16:33 AB [id number]) Orientation Orientation/Cognition Level of Alertness Alert Orientation Name Language Function Ability No Deficits Noted Safety Awareness Decreased Safety Awareness Memory Description No Deficits Noted Gross Range of Motion Lower Extremity ROM Assessment Within Functional Limits Strength Lower Extremity Strength Assessment Within Functional Limits Coordination Assessment Gross Coordination Gross Coordination WNL Sensation Assessment Sensation Gross Sensation Left UE Impaired Light Touch Absent Proprioception (Position) Absent Sensation Description Numbness Comments Sensation Comments pt still does not have sensation and motor control on LUE M6 PT-IP Treatment Start: 01/25/20 16:12 Freq: NEEDED Status: Discharge Protocol: Document 01/26/20 09:09 SP (Rec: 01/26/20 13:50 SP [id number]) Physical Therapy Treatment Exercises Exercises Shoulder Pendulums,Elbow Flexion/Extension,Wrist ROM, Hand ROM Education Education Provided Precautions,Weight Bearing Status,Post-Op Packet,Safety Brace Education Donning,[place] Border,Patient, Caregiver Other Treatments Other Treatment Performed L AROM MTP and wrist flex/ext, PROM LUE usign RUE elbow flex /ext, Pendulums seated/ standing by very small range while maintaining precautions. Good recall 3/3 precautions. M7 PT-IP Assessment and Plan Start: 01/25/20 16:12 Freq: NEEDED Status: Discharge Protocol: Document 01/26/20 09:09 SP (Rec: 01/26/20 13:50 SP [id number]) PT Summary Assessment and Plan Potential Rehabilitation Potential Good Status of Condition at Evaluation Evolving Summary Impairments Pain,ROM,Strength,Balance, Coordination,Sensation,Tone, Cognition,Bed Mobility, Transfers,Gait,Activity Tolerance Assessment Summary Pt has good sensation in L hand and forearm with ability to perform AROM today. pt requiring SBA-CGA with mobility and plans to go home with spouse to assist her. completed caregiver training with including sling management, bed mobility, transfers and ambulation using hurry cane with cuing from for consistant cane placement with LLE and safety hand and cane positioning during transfers to decrease risk of falls. Pt is ok to return home with to assist her. Goals Bed Mobility Goal Minimal Assistance Transfer Goal Contact Guard Assistance,Cane Gait Goal Contact Guard Assistance,Cane Gait Distance 100 Days to Meet Goals 5 Frequency of Treatment Frequency Of Treatment Twice a Day Treatment Plan Physical Therapy Treatment Plan Bed Mobility Training,Transfer Training,Gait Training, Therapeutic Exercise,Balance Retraining,Post Op Education, Discharge Planning,Hot or Cold Pack,Neuromuscular Re-ed, Coordination Retraining,Manual Therapy Other Recommendations and Next Treatment gait, safety techniques during Focus transfers, balance activities . Recommendations To Nursing Amount of Assist Needed 1 Person Assist Discharge Recommendations PT Discharge Recommendations Home with Assistance, Outpatient PT Transportation Needs at Discharge Private Vehicle
== END 2020-01-26 11:10 | disposition home or self-care (01) | DRG 483 ==
PROVIDERS: Admitting Provider Orthopaedic Surgery; PCP Family Medicine; Referring Provider Orthopaedic Surgery; Visit Provider Orthopaedic Surgery
PROC: 0RRK00Z Replacement of Left Shoulder Joint with Reverse Ball and Socket Synthetic Substitute, Open Approach (ICD-10-PCS; CPT 23472; principal; 2020-01-25 09:15)
DX: M75.122 Complete rotator cuff tear or rupture of left shoulder, not specified as traumatic (principal); M19.012 Primary osteoarthritis, left shoulder; G47.33 Obstructive sleep apnea (adult) (pediatric); I10 Essential (primary) hypertension; E78.5 Hyperlipidemia, unspecified; K21.9 Gastro-esophageal reflux disease without esophagitis; G62.9 Polyneuropathy, unspecified; F32.9 Major depressive disorder, single episode, unspecified; Z11.59 Encounter for screening for other viral diseases
CPT/HCPCS: 36415; 73020; 85027; 87635; 94760; 97116; 97162; 97530; C1776; J0330; J0690; J1100; J2405; J2704

== ENCOUNTER 2020-03-17 17:01 | Emergency (ER) | payer MEDICARE, OTHER, SELFPAY ==
[2020-01-25 12:35] VITALS: BMI 39.2
--- NOTE | 2020-03-17 17:11 | DI.RAD.S_ITS ---
PROCEDURE: XR SHOULDER LT MIN 2V INDICATIONS: recent shoulder surgery, felt a tear after putting on shirt TECHNIQUE: 2 views of the shoulder were acquired. COMPARISON: [facility], [facility], XR SHOULDER LT MIN 2V, 10/10/2019, 19:56. [facility], [facility], XR SHOULDER LT MIN 2V, 04/21/2019, 15:25. FINDINGS: Bones: Prior total left shoulder arthroplasty alignment is normal. Moderate AC joint osteoarthritis noted. Soft tissues: No suspicious soft tissue calcifications. IMPRESSION: No evidence of device loosening or disruption at the left total shoulder arthroplasty. Moderate chronic degenerative osteoarthritis at the AC joint. Dictated by: Kranthi Pollard M.D. on 03/17/2020 at 18:16 Approved by: Kranthi Pollard M.D. on 03/17/2020 at 18:17
[2020-03-17 17:13] VITALS: BP 155/85; PULSE 62; RESP 18; TEMP 36.6; O2SAT 95; BMI 41.1
--- NOTE | 2020-03-17 18:22 | ED.EXTPRO ---
HPI - Extremity Problem General Chief complaint: Extremity Problem,Nontraumatic Stated complaint: left shoulder pain after ripping sensation Time Seen by Provider: 03/17/20 18:13 Source: patient and family Mode of arrival: Family Vehicle Limitations: no limitations History of Present Illness HPI Narrative: Patient brought in by . Complains of left shoulder pain. Recent left shoulder surgery January 25, [address] Sawyer locally here. Has been doing well. Has felt some discomfort in the left shoulder in the past 4 days. Tonight she was getting her shirt on in her usual fashion, arm dangling down words to insert her left arm into the shoulder sleeve of the shirt. [place] a ripping sensation into the left anterior superior left shoulder. No numbness tingling or weakness. No numbness tingling or weakness of the hands. Keeps arm resting on the chest. Related Data Home Medications Medication Instructions Recorded Confirmed lisinopril 30 mg PO QAM #0 04/01/16 01/25/20 amitriptyline 10 mg tablet 10 mg PO QPM 02/26/18 01/25/20 atorvastatin 40 mg tablet 40 mg PO QPM 02/26/18 01/25/20 conjugated estrogens 0.625 mg 0.625 mg PO QAM 02/26/18 01/25/20 tablet escitalopram oxalate 20 mg tablet 20 mg PO QAM 02/26/18 01/25/20 folic acid 1 mg tablet 1 mg PO DAILY 02/26/18 01/25/20 hydrochlorothiazide 25 mg tablet 25 mg PO QAM 02/26/18 01/25/20 Respirinics DreamStation Auto CPAP #1 ea 06/26/18 01/25/20 Centrum Silver 1 tab PO DAILY 08/10/18 01/25/20 calcium polycarbophil [Fiber-Tabs] 1 tab PO BID 08/10/18 01/25/20 cholecalciferol (vitamin D3) 4,000 unit PO BID 08/10/18 01/25/20 [Vitamin D3] cyanocobalamin (vitamin B-12) 1,000 mcg PO DAILY 08/10/18 01/25/20 [Vitamin B-12] omeprazole 40 mg PO BID 08/10/18 01/25/20 solifenacin 10 mg PO QPM 08/10/18 01/25/20 biotin 1 mg PO DAILY 05/12/19 01/25/20 celecoxib [Celebrex] 200 mg PO DAILY 11/10/19 01/25/20 lidocaine 1 patch TOP DAILY PRN 01/19/20 01/25/20 Previous Rx's Medication Instructions Recorded oxycodone 5 mg PO Q4H PRN #40 tab 01/26/20 hydrocodone-acetaminophen [[place]] 1 tab PO Q8H PRN #14 tab 03/17/20 Allergies Allergy/AdvReac Type Severity Reaction Status Date / Time piroxicam [PIROXICAM] Allergy Severe RASH Verified 03/17/20 17:20 shellfish derived Allergy Severe scallops Verified 03/17/20 17:20 [SHELLFISH DERIVED] only ANAPHYLAXIS rofecoxib [ROFECOXIB] Allergy Intermediate RASH Verified 03/17/20 17:20 bacitracin Allergy Mild rash Verified 03/17/20 17:20 [From NEOSPORIN ([id number])] neomycin Allergy Mild rash Verified 03/17/20 17:20 [From NEOSPORIN ([id number])] polymyxin B Allergy Mild rash Verified 03/17/20 17:20 [From NEOSPORIN ([id number])] Review of Systems Review of Systems Narrative: GENERAL: Denies chills, fatigue, malaise, fever, sweats. HEENT: Denies sinus pain, ear pain, sore throat, difficulty swallowing RESPIRATORY: Denies dyspnea, cough CARDIOVASCULAR: Denies chest pain, palpitations, edema, GASTROINTESTINAL: Denies nausea, vomiting, abdominal pain, diarrhea, constipation, melena. : Denies dysuria, frequency, hematuria MUSCULOSKELETAL: Complains of left shoulder joint pain SKIN: Denies rash, skin lesions NEUROLOGIC: Denies weakness, headache, numbness, change in speech, confusion PSYCHIATRIC: No SI or HI or hallucinations ROS Unobtainable: All systems reviewed & are unremarkable except as noted in HPI and below Patient History Medical History Allergic rhinitis (Chronic) Anxiety (Chronic) Bilateral foot pain (Chronic) Chronic pain syndrome (Chronic) Chronic rhinosinusitis (Chronic) Closed L1 vertebral fracture (Inactive) Contusion of left hip (Inactive) Degenerative disc disease, cervical (Chronic) Degenerative disc disease, lumbar (Chronic) 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 joint disease, ankle, foot, toe (Chronic) Depression (Chronic) Diverticulosis (Acute) Excessive daytime sleepiness (Inactive ~2006) Flu (Inactive) GERD (gastroesophageal reflux disease) (Chronic) GI bleed (Inactive) Hyperlipidemia (Chronic) Hypertension (Chronic) Insomnia, unspecified (Chronic ~2006) MGUS (monoclonal gammopathy of unknown significance) (Chronic) Obesity (BMI 30-39.9) (Chronic) Obstructive sleep apnea of adult (Chronic ~2006) 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 sides of body (Chronic) Rectal bleeding (Inactive) Snoring (Inactive ~1984) Surgical History History of bladder suspension procedure (Acute) History of colonoscopy (Acute) History of hand surgery (Acute) History of hysterectomy (Acute) History of surgery on left wrist (Acute) Hx of repair of right rotator cuff (Acute) Social History marital status: details: julienne Mirza, lives in [place] household members: spouse lives independently: Yes caregiver/support person: No housing: house Smoking Status: Never smoker alcohol intake: current Smoking Status: Never smoker alcohol intake frequency: holidays/special occasions only Substance Use Type: does not use Exam Narrative Exam Narrative: GENERAL: patient appears stated age. Well-nourished, well-developed patient, in no distress, not toxic not dyspneic HEAD: Normocephalic. EYES: Pupils equal round and reactive. No scleral icterus. No injection no discharge ENT: Mucous membranes moist. No drooling no tongue elevation no trismus no malocclusion NECK: Trachea midline. Non tender CARDIOVASCULAR: Regular rate and rhythm without murmurs, gallops, or rubs. RESPIRATORY: Clear to auscultation. Breath sounds equal bilaterally. No wheezes, rales, or rhonchi. GASTROINTESTINAL: Abdomen soft, non-tender, nondistended. EXTREMITIES: Examination of left upper extremity. Keeps arm close to the chest. Nontender wrist elbow. Strong winding operator in radial pulse with light touch intact to fingers and thumb and deltoid area. No gross deformity of the left shoulder. Unable to do range of motion of left shoulder due to pain. No bruising seen. BACK: Nontender without deformity or crepitance. No flank tenderness. NEURO: AOx4. SKIN: Warm and dry PSYCH: Not anxious, is cooperative Initial Vital Signs Initial Vital Signs: Vital Signs Temperature 97.8 F 03/17/20 17:13 Pulse Rate 62 03/17/20 17:13 Respiratory Rate 18 03/17/20 17:13 Blood Pressure 155/85 H 03/17/20 17:13 Pulse Oximetry 95 03/17/20 17:13 Course Course Course Narrative: Pain controlled in the department. Patient has home sling with her. Orders Ordered: ED Orders 03/17/20 17:11 XR shoulder LT min 2V Stat Discontinued Medications Hydromorphone HCl (Dilaudid) 1 mg IM NOW ONE Stop: 03/17/20 18:22 Last Admin: 03/17/20 18:29 Dose: 1 mg Documented by: LEWIS Ondansetron HCl (Zofran Odt) 4 mg SL NOW ONE Stop: 03/17/20 18:22 Last Admin: 03/17/20 18:29 Dose: 4 mg Documented by: LEWIS Reevaluation(s) Reevaluation #1: Pain improving. Blood pressure noted. Likely related to pain level on arrival. Is improving. Consultations Consultation #1: Spoke with Orthopedics, Dr. Warren, placed in sling and follow up on Friday with Dr. Sawyer Time: 18:57 Vital Signs Vital signs: Vital Signs - 8 hr 03/17/20 17:13 03/17/20 19:15 Temperature 97.8 F Pulse Rate 62 70 Respiratory Rate 18 15 Blood Pressure 155/85 H 148/72 H Pulse Oximetry 95 99 MDM - Extremity (Nontraumatic) Imaging Data X-ray left shoulder: Radiologist's Impression: [address] [address] XRay Report Signed Patient: Pat Jackson LMR#: [id number] : 7Acct:[id number] Age/Sex: 74 / FDate of Service: 03/17/20 Loc: ED Accession Number: [id number] Procedure: XR shoulder LT min 2V Ordering Provider: Davida Pitt D.O. PROCEDURE: XR SHOULDER LT MIN 2V INDICATIONS: recent shoulder surgery, felt a tear after putting on shirt TECHNIQUE: 2 views of the shoulder were acquired. COMPARISON: [facility], CR, XR SHOULDER LT MIN 2V, 10/10/2019, 19:56. [facility], CR, XR SHOULDER LT MIN 2V, 04/21/2019, 15:25. FINDINGS: Bones: Prior total left shoulder arthroplasty alignment is normal. Moderate AC joint osteoarthritis noted. Soft tissues: No suspicious soft tissue calcifications. IMPRESSION: No evidence of device loosening or disruption at the left total shoulder arthroplasty. Moderate chronic degenerative osteoarthritis at the AC joint. Dictated by: Kranthi Pollrad M.D. on 03/17/2020 at 18:16 Approved by: Kranthi Pollard M.D. on 03/17/2020 at 18:17 MDM Narrative Medical decision making narrative: Appropriate for discharge home. Has follow-up on Friday. Pain is controlled. Discharge Plan Departure Patient Disposition: Home Clinical Impression: Left shoulder strain Qualifiers: Encounter type: initial encounter Qualified Code(s): S46.912A - Strain of unspecified muscle, fascia and tendon at shoulder and upper arm level, left arm, initial encounter Discharge Date/Time: 03/17/20 19:16 Instructions: DI for Shoulder Pain Activity Restrictions/Additional Instructions: No operating machinery or driving. Call Dr. Sawyer office on Friday morning for office recheck next week. Wear sling for comfort. Return if worsening questions concerns Prescriptions: New hydrocodone-acetaminophen [[place]] 7.5-325 mg tablet 1 tab PO Q8H PRN (Reason: pain) Qty: 14 RF: 0 No Action lisinopril 30 MG tablet 30 mg PO QAM Qty: 0 RF: 0 lidocaine 5 % adhesive patch,medicated 1 patch TOP DAILY PRN (Reason: Pain) RF: 0 oxycodone 5 mg Tablet 5 mg PO Q4H PRN (Reason: Pain, Moderate (4-6)) Qty: 40 RF: 0 cyanocobalamin (vitamin B-12) [Vitamin B-12] 1,000 mcg Tablet 1,000 mcg PO DAILY RF: 0 omeprazole 40 mg capsule,delayed release(DR/EC) 40 mg PO BID RF: 0 calcium polycarbophil [Fiber-Tabs] 625 mg Tablet 1 tab PO BID RF: 0 solifenacin 10 mg tablet 10 mg PO QPM RF: 0 Centrum Silver 0.4-300-250 mg-mcg-mcg Tablet 1 tab PO DAILY RF: 0 cholecalciferol (vitamin D3) [Vitamin D3] 2,000 unit Capsule 4,000 unit PO BID RF: 0 biotin 1 mg Tablet 1 mg PO DAILY RF: 0 celecoxib [Celebrex] 200 mg Capsule 200 mg PO DAILY RF: 0 conjugated estrogens [Premarin] 0.625 mg tablet 0.625 mg PO QAM RF: 0 hydrochlorothiazide 25 mg tablet 25 mg PO QAM RF: 0 escitalopram oxalate [Lexapro] 20 mg tablet 20 mg PO QAM RF: 0 folic acid 1 mg tablet 1 mg PO DAILY RF: 0 atorvastatin [Lipitor] 40 mg tablet 40 mg PO QPM RF: 0 amitriptyline 10 mg tablet 10 mg PO QPM RF: 0 (DME) Respirinics DreamStation Auto CPAP kit Qty: 1 RF: 0 Referrals: Daryn Sawyer MD [Physician] - Ana Paula Jean Baptiste MD [Primary Care Provider] -
[2020-03-17] MEDS: ONDANSETRON 4 MG ODT SL (18:29)
[2020-03-17] MEDS: HYDROMORPHONE 1 MG INJ IM (18:29)
[2020-03-17 19:15] VITALS: BP 148/72; PULSE 70; RESP 15; O2SAT 99
== END 2020-03-17 19:16 | disposition home or self-care (01) ==
PROVIDERS: Emergency Provider Emergency Medicine; PCP Family Medicine
DX: S46.912A Strain of unspecified muscle, fascia and tendon at shoulder and upper arm level, left arm, initial encounter (principal)
CPT/HCPCS: 73030; 96372; 99283; 99284; J1170

== ENCOUNTER → 2020-07-12 11:08 | Outpatient (CLI) | payer MEDICARE, OTHER, SELFPAY ==
[2020-01-25 12:35] VITALS: BMI 39.2
[2020-07-12 13:26] LABS: COVID19 -Nasal RAPID Negative (Negative)
== END ==
PROVIDERS: PCP Family Medicine; Referring Provider Physician Assistant; Visit Provider Physician Assistant
DX: Z20.822 Contact with and (suspected) exposure to COVID-19 (principal)
CPT/HCPCS: 87635; C9803

== ENCOUNTER → 2020-07-14 10:34 | Outpatient (CLI) | payer MEDICARE, OTHER, SELFPAY ==
[2020-01-25 12:35] VITALS: BMI 39.2
--- NOTE | 2020-07-17 13:48 | DI.NM.S_ITS ---
DATE OF SERVICE: PROCEDURE: Pharmacological perfusion study. DATE OF STUDY: 07/14/2020. INDICATIONS: Shortness of breath with underlying hypertension and hyperlipidemia. RADIOPHARMACEUTICAL: 27.4 millicurie technetium-99m Myoview IV was injected at stress and 25.1 millicurie technetium-99m Myoview IV was injected at rest. CARDIAC STRESS: The patient underwent IV Lexiscan perfusion study under the supervision of an attending staff as per standard protocol. She walked for 3 minutes at 1 mile/hour speed at 0 degree grade as well. Baseline rhythm was sinus. During stress, no convincing ischemic changes. There were some PVCs and PACs without any sustained ventricular tachycardia or AFib. No chest pain or dyspnea. The patient remained hemodynamically stable. RAW DATA: There was breast shadow seen. Prone images were obtained left arm at the side. GATED STUDY: Resting LV ejection fraction 73 and stress LV ejection fraction 82% without any obvious wall motion abnormalities. Resting end-diastolic volume 108 mL. TID ratio 0.73, which is within normal limits. Lung/heart ratio 0.39 which is within normal limits. MYOCARDIAL PERFUSION SCAN: Stress supine, resting supine and stress prone images were compared to each other. Stress supine images revealed a small size, minimally decreased perfusion of basal inferior lateral wall, which appears to be improved during prone images. During prone images, there was mildly decreased perfusion of distal inferior lateral and distal anteroseptal wall, which was normalized in stress supine and resting supine images. The patient's weight is 241 pounds. Overall, no convincing ischemia infarction pattern seen. CONCLUSION: I will call this study likely a normal myocardial perfusion study with evidence of tissue attenuation artifact and some shifting tissue attenuation artifact seen as stated above. Preserved left ventricular function. No obvious ischemic EKG changes. As far as perfusion scan is concerned, this is a low-risk myocardial perfusion scan. Pat Jackson - KIRAN/sayra/ethel doc#: [id number]/job#: [id number] dd: 07/17/2020 12:58:00 dt: 07/17/2020 13:09:00 DICTATING MD/COPIES TO: Carlos Ray MD COPIES MNE: DENNY;
== END ==
PROVIDERS: PCP Family Medicine; Referring Provider Family Medicine; Visit Provider Family Medicine
DX: R06.09 Other forms of dyspnea (principal); R06.02 Shortness of breath; I10 Essential (primary) hypertension; E78.5 Hyperlipidemia, unspecified
CPT/HCPCS: 78452; 93017; A9502; J2785

== ENCOUNTER → 2020-09-04 12:27 | Outpatient (CLI) | payer MEDICARE, OTHER, SELFPAY ==
[2020-01-25 12:35] VITALS: BMI 39.2
--- NOTE | 2020-09-04 | DI.RAD.S_ITS ---
PROCEDURE: XR LUMBAR SPINE 2-3V INDICATIONS: LOW BACK PAIN TECHNIQUE: 3 views of the lumbar spine were acquired. COMPARISON: [facility], CR, XR LUMBAR SPINE 2-3V, 08/10/2018, 20:29. FINDINGS: Bones: No fracture. Multilevel degenerative endplate sclerosis and spurring. Diffuse facet arthropathy. Grade 1 anterolisthesis of L4 on L5 which appears unchanged. Moderate narrowing of the lumbar disc spaces throughout, which is grossly unchanged. There is levocurvature as before. Soft tissues: Scattered vascular calcifications. IMPRESSION: Unchanged levocurvature and diffuse lumbar spondylosis as above since 08/10/18 Dictated by: Wilman Salazar M.D. on 09/04/2020 at 14:08 Approved by: Wilman Salazar M.D. on 09/04/2020 at 14:09
== END ==
PROVIDERS: PCP Family Medicine; Referring Provider Family Medicine; Visit Provider Family Medicine
DX: M54.5 Low back pain (principal); M47.816 Spondylosis without myelopathy or radiculopathy, lumbar region
CPT/HCPCS: 72100

== ENCOUNTER 2020-09-16 14:47 | Emergency (ER) | payer MEDICARE, OTHER, SELFPAY ==
[2020-01-25 12:35] VITALS: BMI 39.2
[2020-09-16] VITALS (10 sets, daily range): BP systolic 130–151; BP diastolic 63–90; PULSE 67–85; RESP 14–16; TEMP 36.4; O2SAT 92–94; BMI 39.4
--- NOTE | 2020-09-16 15:05 | DI.RAD.S_ITS ---
PROCEDURE: XR HIP W PEL IF DONE RT 2V INDICATIONS: right hip/groin pain TECHNIQUE: AP pelvis with lateral view(s) of the right hip(s). COMPARISON: [facility], , [id number] W PEL IF PERFORMED, 11/07/2015, 22:25. FINDINGS: Bones: No fractures or dislocations. Pelvic ring appears intact. No suspicious bony lesions. Moderately severe bilateral hip degenerative change. Soft tissues: The visualized bowel gas pattern is normal. No suspicious soft tissue calcifications. IMPRESSION: Moderately severe bilateral hip degenerative change. No evidence acute bony abnormality of the pelvis and right hip. If clinical suspicion and/or symptoms persist, further assessment with repeat plain films, or advanced imaging (e.g., CT, MRI, or bone scan) may be helpful for further assessment. Dictated by: Real Merchant M.D. on 09/16/2020 at 16:18 Approved by: Real Merchant M.D. on 09/16/2020 at 16:19
--- NOTE | 2020-09-16 17:58 | ED_ITS ---
HPI - Extremity Injury (Lower) General Chief Complaint: Extremity Injury, Lower Stated Complaint: right side hip and groin pain Time Seen by Provider: 09/16/20 17:29 Source: patient Mode of arrival: Ambulatory History of Present Illness HPI Narrative: 75-year-old woman with 3 weeks of increasing low back/right hip groin and buttock pain. Three weeks ago she stumbled with a step fell landing on her buttock and right hip. She has seen her primary care physician, Dr. Jean Baptiste and lumbar x-rays were done excluding a new compression fracture. She has known degenerative joint and degenerative disc disease in her back. She was initially treated with 5 days of steroids and 3 days of Vicodin and had some minor relief with that. Over the last 24 hours she has gotten significantly worse she is not using any analgesics at all including nonsteroidals or Tylenol. She did try Flexeril and found that that was not effective in controlling any of her pain. She does not complain of perineal numbness change to bowel or bladder habits, fevers, cough, chills, abdominal pain, flank pain. She does note that she had an extended period of numbness down the entire lateral aspect of the right foot thigh earlier today that has resolved but the decreased sensation in the L1 right side distribution continues and the sense that her legs simply is a going to hold her up also continues. Related Data Home Medications Medication Instructions Recorded Confirmed lisinopril 30 mg PO QAM #0 04/01/16 01/25/20 amitriptyline 10 mg tablet 10 mg PO QPM 02/26/18 01/25/20 atorvastatin 40 mg tablet 40 mg PO QPM 02/26/18 01/25/20 conjugated estrogens 0.625 mg 0.625 mg PO QAM 02/26/18 01/25/20 tablet escitalopram oxalate 20 mg tablet 20 mg PO QAM 02/26/18 01/25/20 folic acid 1 mg tablet 1 mg PO DAILY 02/26/18 01/25/20 hydrochlorothiazide 25 mg tablet 25 mg PO QAM 02/26/18 01/25/20 Respirinics DreamStation Auto CPAP #1 ea 06/26/18 01/25/20 Centrum Silver 1 tab PO DAILY 08/10/18 01/25/20 calcium polycarbophil [Fiber-Tabs] 1 tab PO BID 08/10/18 01/25/20 cholecalciferol (vitamin D3) 4,000 unit PO BID 08/10/18 01/25/20 [Vitamin D3] cyanocobalamin (vitamin B-12) 1,000 mcg PO DAILY 08/10/18 01/25/20 [Vitamin B-12] omeprazole 40 mg PO BID 08/10/18 01/25/20 solifenacin 10 mg PO QPM 08/10/18 01/25/20 biotin 1 mg PO DAILY 05/12/19 01/25/20 celecoxib [Celebrex] 200 mg PO DAILY 11/10/19 01/25/20 lidocaine 1 patch TOP DAILY PRN 01/19/20 01/25/20 Previous Rx's Medication Instructions Recorded oxycodone 5 mg PO Q4H PRN #40 tab 01/26/20 hydrocodone-acetaminophen [[place]] 1 tab PO Q8H PRN #14 tab 03/17/20 dexamethasone [Decadron] 10 mg PO DAILY #5 tab 09/16/20 hydrocodone-acetaminophen 1 tab PO Q6H PRN #14 tab 09/16/20 Allergies Allergy/AdvReac Type Severity Reaction Status Date / Time piroxicam [PIROXICAM] Allergy Severe RASH Verified 09/16/20 14:58 shellfish derived Allergy Severe scallops Verified 09/16/20 14:58 [SHELLFISH DERIVED] only ANAPHYLAXIS rofecoxib [ROFECOXIB] Allergy Intermediate RASH Verified 09/16/20 14:58 bacitracin Allergy Mild rash Verified 09/16/20 14:58 [From NEOSPORIN ([id number])] neomycin Allergy Mild rash Verified 09/16/20 14:58 [From NEOSPORIN ([id number])] polymyxin B Allergy Mild rash Verified 09/16/20 14:58 [From NEOSPORIN ([id number])] Review of Systems Review of Systems Narrative: Remainder of complete review of systems is otherwise unremarkable except for that included in the HPI. 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 joint disease, ankle, foot, toe Depression Diverticulosis Excessive daytime sleepiness (~2006) Flu GERD (gastroesophageal reflux disease) GI bleed Hyperlipidemia Hypertension Insomnia, psychophysiological (~2006) MGUS (monoclonal gammopathy of unknown significance) Obesity (BMI 30-39.9) Obstructive sleep apnea of adult (~2006) 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 sides of body Rectal bleeding Snoring (~1984) Surgical History History of bladder suspension procedure History of colonoscopy History of hand surgery History of hysterectomy History of surgery on left wrist Hx of repair of right rotator cuff Social History marital status: details: to [place]es, lives in [place] household members: spouse lives independently: Yes caregiver/support person: No housing: house Smoking Status: Never smoker alcohol intake: current Smoking Status: Never smoker alcohol intake frequency: holidays/special occasions only Substance Use Type: does not use Exam Narrative Exam Narrative: General: Alert appropriate in no acute distress Respiratory: Able to speak in full sentences, no obvious respiratory distress Skin: No obvious rashes, warm and dry. No rashes or changes to suggest an involving zoster to explain the change in pain Neurologic: Decreased sensation right L1 distribution. No other obvious asymmetries or abnormalities are appreciated. Spine: No tenderness along midline lumbar spine. She does have some paraspinous spasm on the right side. With passive range of motion she has some movement at the right hip she is unable to flex or externally rotate her right hip by herself, it is unclear if this is entirely Neurologic or pain related Psych: appropriate insight and affect, cooperative Initial Vital Signs Initial Vital Signs: Vital Signs Temperature 97.6 F 09/16/20 14:53 Pulse Rate 85 09/16/20 14:53 Respiratory Rate 16 09/16/20 14:53 Blood Pressure 151/90 H 09/16/20 14:53 Pulse Oximetry 94 09/16/20 14:53 Course Orders Ordered: ED Orders 09/16/20 15:05 XR hip w pel if done RT 2V Stat Discontinued Medications Hydrocodone Bitart/Acetaminophen (Hydrocodone/Acet 10/325 Tablet) 1 tab PO NOW ONE Stop: 09/16/20 18:15 Last Admin: 09/16/20 18:51 Dose: 1 tab Documented by: Dexamethasone (Dexamethasone 4 Mg Tablet) 8 mg PO NOW ONE Stop: 09/16/20 18:15 Last Admin: 09/16/20 18:36 Dose: 8 mg Documented by: Ketorolac Tromethamine (Ketorolac 60 Mg/2 Ml Vial) 30 mg IM NOW ONE Stop: 09/16/20 18:15 Last Admin: 09/16/20 18:36 Dose: 30 mg Documented by: Vital Signs Vital signs: Vital Signs - 8 hr 09/16/20 14:53 09/16/20 17:43 09/16/20 18:00 Temperature 97.6 F Pulse Rate 85 72 78 Respiratory Rate 16 Blood Pressure 151/90 H Pulse Oximetry 94 94 92 09/16/20 18:30 Temperature Pulse Rate 75 Respiratory Rate Blood Pressure Pulse Oximetry 94 MDM - Extremity Injury (Lower) Lab Data Labs: Urine Dip Bedside Urine Glucose Negative Bedside Urine Bilirubin - Negative Bedside Urine Ketone - Negative Urine Specific [place] 1.030 Bedside Urine Occult Blood +/- Bedside Urine pH 6 Bedside Urine Protein +/- 15 Bedside Urine Urobilinogen - Negative Bedside Urine Nitrite + Positive Bedside Urine Leukocytes + 70 Esterase Imaging Data XR hip: Radiologist's Impression: FINDINGS: Bones: No fractures or dislocations. Pelvic ring appears intact. No suspicious bony lesions. Moderately severe bilateral hip degenerative change. Soft tissues: The visualized bowel gas pattern is normal. No suspicious soft tissue calcifications. IMPRESSION: Moderately severe bilateral hip degenerative change. No evidence acute bony abnormality of the pelvis and right hip. If clinical suspicion and/or symptoms persist, further assessment with repeat plain films, or advanced imaging (e.g., CT, MRI, or bone scan) may be helpful for further assessment. Dictated by: Real Merchant M.D. on 09/16/2020 at 16:18 XR lumbar spine 09/04: Radiologist's Impression: FINDINGS: Bones: No fracture. Multilevel degenerative endplate sclerosis and spurring. Diffuse facet arthropathy. Grade 1 anterolisthesis of L4 on L5 which appears unchanged. Moderate narrowing of the lumbar disc spaces throughout, which is grossly unchanged. There is levocurvature as before. Soft tissues: Scattered vascular calcifications. IMPRESSION: Unchanged levocurvature and diffuse lumbar spondylosis as above since 08/10/18 Dictated by: Wilman Salazar M.D. on 09/04/2020 at 14:08 MDM Narrative Medical decision making narrative: 75-year-old woman with 3 weeks of right back and hip pain progressively worse in the last 24 hours now with new numbness and weakness in an L1 distribution without any evidence of new compression fracture or bony hip pathology. She has not been using any nonsteroidals or Tylenol and did find that she had some relief with a single Vicodin and IM Toradol here in the emergency department. She has no signs of cauda equina syndrome or epidural abscess. The progressive neurologic findings are concerning however MRI is absolutely not available until Friday a very earliest. As she has not tried any pain relief for steroids with this flare will try that over the weekend. She is instructed to return with worsening weakness or numbness. Brief call to Dr. Crabtree, on-call for Dr. Jean Baptiste. Asked him to follow-up with this lady on Friday morning if she still having the neurologic symptoms will need to expedite MRI of lumbar spine. She is safe for home discharge Discharge Plan Departure Patient Disposition: Home Clinical Impression: Acute low back pain with radicular symptoms, duration less than 6 weeks, Degenerative disc disease, lumbar Instructions: DI for Lumbar Radiculopathy Activity Restrictions/Additional Instructions: Thank you for coming in today With the progressive weakness and numbness in that right hip and thigh, you may need an MRI sooner rather than later. If you notice that your having difficulties with starting your urine stream or can not feel your perineum (all the skin around your urethra vagina and anus) or you find that you can not have a bowel movement you do need to return to the emergency department In the meantime, I have given you a shot of Toradol and Vicodin in the emergency department for pain control tonight . Using 400 mg of ibuprofen (2 [id number] pills) and 1 Tylenol every 6 hours can be very helpful in controlling pain. For severe pain using 2 ibuprofen and 1 Vicodin can be helpful. If you choose to use ice, it will likely be the most helpful if you put it on your low back. 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 Jean Baptiste on Friday to let her know that your symptoms are worse and now include numbness and weakness if those still persist by [place]. I wish you the best Prescriptions: New hydrocodone-acetaminophen 5-325 mg tablet 1 tab PO Q6H PRN (Reason: pain) Qty: 14 RF: 0 dexamethasone [Decadron] 4 mg tablet 10 mg PO DAILY Qty: 5 RF: 0 No Action lisinopril 30 MG tablet 30 mg PO QAM Qty: 0 RF: 0 lidocaine 5 % adhesive patch,medicated 1 patch TOP DAILY PRN (Reason: Pain) RF: 0 oxycodone 5 mg Tablet 5 mg PO Q4H PRN (Reason: Pain, Moderate (4-6)) Qty: 40 RF: 0 cyanocobalamin (vitamin B-12) [Vitamin B-12] 1,000 mcg Tablet 1,000 mcg PO DAILY RF: 0 omeprazole 40 mg capsule,delayed release(DR/EC) 40 mg PO BID RF: 0 calcium polycarbophil [Fiber-Tabs] 625 mg Tablet 1 tab PO BID RF: 0 solifenacin 10 mg tablet 10 mg PO QPM RF: 0 Centrum Silver 0.4-300-250 mg-mcg-mcg Tablet 1 tab PO DAILY RF: 0 cholecalciferol (vitamin D3) [Vitamin D3] 2,000 unit Capsule 4,000 unit PO BID RF: 0 biotin 1 mg Tablet 1 mg PO DAILY RF: 0 celecoxib [Celebrex] 200 mg Capsule 200 mg PO DAILY RF: 0 hydrocodone-acetaminophen [[place]] 7.5-325 mg tablet 1 tab PO Q8H PRN (Reason: pain) Qty: 14 RF: 0 conjugated estrogens [Premarin] 0.625 mg tablet 0.625 mg PO QAM RF: 0 hydrochlorothiazide 25 mg tablet 25 mg PO QAM RF: 0 escitalopram oxalate [Lexapro] 20 mg tablet 20 mg PO QAM RF: 0 folic acid 1 mg tablet 1 mg PO DAILY RF: 0 atorvastatin [Lipitor] 40 mg tablet 40 mg PO QPM RF: 0 amitriptyline 10 mg tablet 10 mg PO QPM RF: 0 (DME) Respirinics DreamStation Auto CPAP kit Qty: 1 RF: 0 Referrals: Ana Paula Jean Baptiste MD [Primary Care Provider] -
[2020-09-16] MEDS: dexAMETHasone 4 MG TABLET 8 MG PO (18:36)
[2020-09-16] MEDS: KETOROLAC 60 MG/2 ML VIAL 30 MG IM (18:36)
[2020-09-16] MEDS: HYDROCODONE/ACET 10/325 TABLET 1 TAB PO (18:51)
== END 2020-09-16 21:21 | disposition home or self-care (01) ==
PROVIDERS: Emergency Provider Emergency Medicine; PCP Family Medicine
DX: M54.16 Radiculopathy, lumbar region (principal); M51.36 Other intervertebral disc degeneration, lumbar region
CPT/HCPCS: 73502; 81003; 96372; 99283; 99284; J1885

== ENCOUNTER → 2020-09-21 19:25 | Outpatient (CLI) | payer MEDICARE, OTHER, SELFPAY ==
[2020-01-25 12:35] VITALS: BMI 39.2
--- NOTE | 2020-09-21 | DI.MRI.S_ITS ---
PROCEDURE: MR LUMBAR SPINE WO CON INDICATIONS: sacrococcygeal disorders, not elsewhere classified TECHNIQUE: Noncontrast sagittal T1 spin echo and T2 fast echo, sagittal STIR, axial T1 and T2 fast spin echo through the lumbar spine. In cases with scoliosis, additional coronal T2 fast spin echo may be performed. COMPARISON: [facility], , L-SPINE WITHOUT CONTRAST, 12/19/2016, 8:42. FINDINGS: Image quality: Excellent. Alignment and Curvature: Trace degenerative anterolisthesis of L4 on L5. There is otherwise normal bony alignment. Bone Marrow: Marrow is of normal overall signal. No acute vertebral body compression fractures. Old moderate L1 compression fracture. Spinal Cord: Conus medullaris terminates at the L1 level. Visualized cord demonstrates normal signal and size. Paraspinous Soft Tissues: No paravertebral masses. T12-L1: Unchanged. Disc bulge. Facet and ligament hypertrophy. No canal stenosis or foraminal stenosis. L1-L2: Unchanged. Disc bulge. Facet and ligament hypertrophy. Mild canal stenosis. Mild bilateral foraminal stenosis. L2-L3: Interval progression. Large diffuse disc bulge indenting on the thecal sac. Prominent bilateral facet and ligament hypertrophy. Moderate to severe canal stenosis. Progression of foraminal stenosis, mild to moderate bilaterally with mild flattening deformity on the exiting L2 nerve roots. L3-L4: Slight interval progression. Disc bulge. Facet and ligament hypertrophy. Moderate canal stenosis. Mild right foraminal narrowing. Mild to moderate left foraminal narrowing with flattening deformity on the exiting left L3 nerve root. L4-L5: Disc bulge. Facet hypertrophy. Mild canal stenosis. Unchanged left foraminal annulus tear. Mild right and moderate left foraminal stenosis. L5-S1: No canal stenosis or foraminal stenosis. IMPRESSION: 1. Interval progression at L2-L3 and L3-L4. At L2-L3, there is moderate to severe canal stenosis. At L3-L4, there is moderate canal stenosis. 2. Mild canal stenosis at L1-L2 and L4-L5. 3. Multilevel foraminal narrowing as described above. Dictated by: Real Merchant M.D. on 09/22/2020 at 8:05 Approved by: Real Merchant M.D. on 09/22/2020 at 8:14
== END ==
PROVIDERS: PCP Family Medicine; Referring Provider Family Medicine; Visit Provider Family Medicine
DX: M53.3 Sacrococcygeal disorders, not elsewhere classified (principal); M48.061 Spinal stenosis, lumbar region without neurogenic 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
CPT/HCPCS: 72148

== ENCOUNTER → 2020-10-06 13:42 | Outpatient (CLI) | payer MEDICARE, OTHER, SELFPAY ==
[2020-01-25 12:35] VITALS: BMI 39.2
--- NOTE | 2020-10-06 | DI.RAD.S_ITS ---
PROCEDURE: XR FOOT LT MIN 3V INDICATIONS: Crushing injury TECHNIQUE: 3 views of the foot were acquired. COMPARISON: [facility], , FOOT 3V LEFT, 12/26/2015, 17:28. [facility], , FOOT 3V LEFT, 11/02/2013, 23:34. FINDINGS: Bones: No acute fractures or dislocations. No suspicious bony lesions. Old trauma to the 5th proximal phalanx is again noted. Soft tissues: No tibiotalar joint effusion. Achilles tendon appears normal. IMPRESSION: No new trauma found. Old trauma to the 5th proximal phalanx with present in 2015. If unusual symptoms persist delayed follow-up imaging by plain film may be warranted to detect a previously in fracture if present. Dictated by: Kranthi Pollard M.D. on 10/06/2020 at 15:20 Approved by: Kranthi Pollard M.D. on 10/06/2020 at 15:24
== END ==
PROVIDERS: PCP Family Medicine; Referring Provider Family Medicine; Visit Provider Family Medicine
DX: S97.122A Crushing injury of left lesser toe(s), initial encounter (principal); W23.0XXA Caught, crushed, jammed, or pinched between moving objects, initial encounter
CPT/HCPCS: 73630

== ENCOUNTER 2020-12-14 13:03 | Observation (INO) | payer MEDICARE, OTHER, SELFPAY ==
[2020-01-25 12:35] VITALS: BMI 39.2
[2020-12-14] VITALS (15 sets, daily range): BP systolic 166–204; BP diastolic 77–92; PULSE 80–89; RESP 14–43; TEMP 36.4; O2SAT 94–98; BMI 39.9
[2020-12-14 14:03] LABS: Add Manual Diff / Slide Review NO; Basophils Absolute Auto 0 /uL (0-100); Basophils Percent Auto 0.4 % (0-2); Eosinophils Absolute Auto 100 /uL (0-450); Eosinophils Percent Auto 0.5 % (2-4); Hematocrit 40.8 % (36-46); Hemoglobin 13.6 g/dL (12.0-16.0); Lymphocytes Absolute Auto 2300 /uL (1100-4500); Mean Corpuscular HGB Conc 33.4 % (30-36); Mean Corpuscular Volume 92.8 fL (80-100); Monocytes Absolute Auto 700 /uL (0-900); Monocytes Percent Auto 7.4 % (3-14); Neutrophils Absolute Auto 6900 /uL (1500-7000); Neutrophils Percent Auto 68.7 % (50-75); Platelet Count 216 X10^3/uL (150-400); Red Cell Distribution Width 13.6 % (11.6-14.8)
[2020-12-14 14:13] LABS: Alanine Aminotransferase 34 IU/L (<35); Albumin 4.1 g/dL (3.5-5.0); Albumin Globulin Ratio 1.2 (1.0-2.8); Alkaline Phosphatase 141 U/L (38-126); Aspartate Aminotransferase 50 IU/L (14-36); BUN Creatinine Ratio 23.9 (6-22); Bilirubin Total 0.5 mg/dL (0.2-1.3); Blood Urea Nitrogen 16 mg/dL (7-17); Calcium 9.4 mg/dL (8.4-10.2); Carbon Dioxide 24 mmol/L (22-32); Chloride 105 mmol/L (98-107); Estimated Glomerular Filt Rate > 60.0 mL/min (>60); Globulin 3.3 g/dL (1.7-4.1); Glucose 106 mg/dL (80-110); HEMOLYSIS < 15 (0-50); Lipase 32 U/L (23-300); Potassium 4.5 mmol/L (3.4-5.1); Sodium 136 mmol/L (137-145); Total Protein 7.4 g/dL (6.3-8.2)
--- NOTE | 2020-12-14 16:02 | PC.NURSE ---
pt used restroom and had lizabeth blood in toilet and on brief.
--- NOTE | 2020-12-14 16:19 | ED_ITS ---
HPI - Abdominal Pain General Chief Complaint: Abdominal Pain Stated Complaint: Stomach Pain, Lower. Bloody Stool Time Seen by Provider: 12/14/20 16:19 Source: patient Mode of arrival: Ambulatory Limitations: no limitations History of Present Illness HPI narrative: 75-year-old woman with history of hypertension, hyperlipidemia presents with acute lower abdominal stomach pain radiating across the entire abdomen just below the umbilicus and radiating through to her back. Was so bad last night that she was unable to get to sleep and this morning she had a near syncopal episode secondary to pain. She noticed some loose stool this morning and then some lizabeth blood mixed in with the loose stool. She does not complain of any upper abdominal symptoms. She reports no fevers, cough, palpitations, headaches. Related Data Home Medications Medication Instructions Recorded Confirmed lisinopril 30 mg tablet 30 mg PO QAM #0 04/01/16 12/13/20 amitriptyline 10 mg tablet 10 mg PO QPM 02/26/18 12/13/20 atorvastatin 40 mg tablet (Lipitor) 40 mg PO QPM 02/26/18 12/13/20 conjugated estrogens 0.625 mg 0.625 mg PO QAM 02/26/18 12/13/20 tablet (Premarin) escitalopram oxalate 20 mg tablet 20 mg PO QAM 02/26/18 12/13/20 (Lexapro) folic acid 1 mg tablet 1 mg PO DAILY 02/26/18 12/13/20 hydrochlorothiazide 25 mg tablet 25 mg PO QAM 02/26/18 12/13/20 Respirinics [employer] Auto CPAP #1 ea 06/26/18 12/13/20 calcium polycarbophil 625 mg 1 tab PO BID 08/10/18 12/13/20 tablet (Fiber-Tabs) cholecalciferol (vitamin D3) 50 4,000 unit PO BID 08/10/18 12/13/20 mcg (2,000 unit) capsule (Vitamin D3) cyanocobalamin (vitamin B-12) 1,000 mcg PO DAILY 08/10/18 12/13/20 1,000 mcg tablet (Vitamin B-12) fauqrcyg-sdu-swbbf acid 0.4 1 tab PO DAILY 08/10/18 12/13/20 mg-lycopene 300 mcg-lutein 250 mcg tablet (Centrum Silver) omeprazole 40 mg capsule,delayed 40 mg PO BID 08/10/18 12/13/20 release solifenacin 10 mg tablet 10 mg PO QPM 08/10/18 12/13/20 biotin 1 mg tablet 1 mg PO DAILY 05/12/19 12/13/20 celecoxib 200 mg capsule (Celebrex) 200 mg PO DAILY 11/10/19 12/13/20 lidocaine 5 % topical patch 1 patch TOP DAILY PRN 01/19/20 12/13/20 Previous Rx's Medication Instructions Recorded oxycodone 5 mg tablet 5 mg PO Q4H PRN #40 tab 01/26/20 hydrocodone 7.5 mg-acetaminophen 1 tab PO Q8H PRN #14 tab 03/17/20 325 mg tablet ([place]) dexamethasone 4 mg tablet 10 mg PO DAILY #5 tab 09/16/20 (Decadron) hydrocodone 5 mg-acetaminophen 325 1 tab PO Q6H PRN #14 tab 09/16/20 mg tablet Allergies Allergy/AdvReac Type Severity Reaction Status Date / Time piroxicam [PIROXICAM] Allergy Severe RASH Verified 12/14/20 13:18 shellfish derived Allergy Severe scallops Verified 12/14/20 13:18 [SHELLFISH DERIVED] only ANAPHYLAXIS rofecoxib [ROFECOXIB] Allergy Intermediate RASH Verified 12/14/20 13:18 bacitracin Allergy Mild rash Verified 12/14/20 13:18 [From NEOSPORIN ([id number])] neomycin Allergy Mild rash Verified 12/14/20 13:18 [From NEOSPORIN ([id number])] polymyxin B Allergy Mild rash Verified 12/14/20 13:18 [From NEOSPORIN ([id number])] Review of Systems Review of Systems Narrative: Remainder of complete review of systems is otherwise unremarkable except for that included in the HPI. Patient History Medical History (Updated 12/14/20 @ 19:51 by Elissa Kulkarni MD) Allergic rhinitis Anxiety Bilateral foot pain Chronic pain syndrome Chronic rhinosinusitis Closed L1 vertebral fracture Contusion of left hip Degenerative disc disease, cervical Degenerative disc disease, lumbar Degenerative joint disease (DJD) of hip Degenerative joint disease, ankle, foot, toe Depression Diverticulosis Excessive daytime sleepiness (~2006) Facet arthropathy, lumbar Flu GERD (gastroesophageal reflux disease) GI bleed Hyperlipidemia Hypertension Insomnia, psychophysiological (~2006) Lumbar radiculopathy MGUS (monoclonal gammopathy of unknown significance) Obesity (BMI 30-39.9) Obstructive sleep apnea of adult (~2006) 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 sides of body Rectal bleeding Snoring (~1984) Surgical History History of bladder suspension procedure History of colonoscopy History of hand surgery History of hysterectomy History of surgery on left wrist Hx of repair of right rotator cuff Social History marital status: details: to [place], lives in [place] household members: spouse lives independently: Yes caregiver/support person: No housing: house Smoking Status: Never smoker alcohol intake: current Smoking Status: Never smoker alcohol intake frequency: holidays/special occasions only Substance Use Type: does not use Exam Narrative Exam Narrative: General: Healthy appearing, in moderate distress. Able to give a complete and coherent history. Well-nourished well-developed HEENT: Moist mucous membranes, normal sclera with reactive pupils, Neck: No JVD, supple Respiratory: Lungs are clear to auscultation, no wheezing no rales no rhonchi. Full and symmetrical air movement Cardiac: Regular rate and rhythm no murmurs no bruits Abdomen: Diffusely tender without rebound or guarding. No flank pain. Good bowel tones. Skin: Warm and dry, no rashes Neurologic: Grossly neurologically intact with no obvious asymmetries or abnormalities Extremities: No trauma, well perfused Psych: Cooperative, appropriate insight and affect Initial Vital Signs Initial Vital Signs: Vital Signs Temperature 97.5 F L 12/14/20 13:15 Pulse Rate 85 12/14/20 13:15 Respiratory Rate 15 12/14/20 13:15 Blood Pressure 198/89 H 12/14/20 13:15 Pulse Oximetry 98 12/14/20 13:15 Course Orders Ordered: ED Orders 12/14/20 13:20 EKG-12 Lead Stat 12/14/20 13:30 Complete Blood Count AUTO DIFF Stat Comprehensive Metabolic Panel Stat Lipase Stat 12/14/20 16:55 CT abdomen pelvis w con Stat GI Panel (Film Array) Stat 12/14/20 18:50 Urine Culture Stat Urine Microscopic Stat Hydromorphone HCl (Hydromorphone 0.5 Mg Inj) 0.5 mg IV Q15MIN PRN PRN Reason: Pain, Last Admin: 12/14/20 17:26 Dose: 0.5 mg Documented by: KEITH Discontinued Medications Sodium Chloride (Normal Saline 0.9%) 1,000 mls @ 1,000 mls/hr IV BOLUS ONE Stop: 12/14/20 17:59 Last Infusion: 12/14/20 18:35 Dose: 0 mls/hr Documented by: Admin: 12/14/20 17:25 Dose: 1,000 mls/hr Documented by: KEITH Ondansetron HCl (Ondansetron 4 Mg/2 Ml Inj) 4 mg IV NOW ONE Stop: 12/14/20 17:01 Last Admin: 12/14/20 17:26 Dose: 4 mg Documented by: KEITH Vital Signs Vital signs: Vital Signs - 8 hr 12/14/20 13:15 12/14/20 16:43 12/14/20 17:00 Temperature 97.5 F L Pulse Rate 85 89 84 Respiratory Rate 15 18 18 Blood Pressure 198/89 H Pulse Oximetry 98 96 95 12/14/20 17:01 12/14/20 17:29 12/14/20 17:30 Temperature Pulse Rate 82 86 84 Respiratory Rate 24 Blood Pressure 204/92 H 188/86 H 176/77 H Pulse Oximetry 95 97 97 12/14/20 18:00 12/14/20 18:30 12/14/20 18:31 Temperature Pulse Rate 80 84 84 Respiratory Rate 14 33 H 43 H Blood Pressure 191/88 H 183/81 H Pulse Oximetry 94 MDM - Abdominal Pain Lab Data Result diagrams: 12/14/20 13:30 12/14/20 13:30 Labs: Lab Results 12/14/20 12/14/20 12/14/20 Range/Units 13:30 13:30 18:50 WBC 10.0 (4.5-11.0) X10^3/uL RBC 4.40 (4.0-5.2) X10^6/uL Hgb 13.6 (12.0-16.0) g/dL Hct 40.8 (36-46) % MCV 92.8 (80-100) fL MCH 31.0 (26-34) PG MCHC 33.4 (30-36) % RDW 13.6 (11.6-14.8) % Plt Count 216 (150-400) X10^3/uL Neut % (Auto) 68.7 (50-75) % Lymph % (Auto) 23.0 L (25-40) % [place] % (Auto) 7.4 (3-14) % Eos % (Auto) 0.5 L (2-4) % Baso % (Auto) 0.4 (0-2) % Neut # (Auto) 6900 (0687-6672) /uL Lymph # (Auto) 2300 (7323-4473) /uL [place] # (Auto) 700 (0-900) /uL Eos # (Auto) 100 (0-450) /uL Baso # (Auto) 0 (0-100) /uL Sodium 136 L (137-145) mmol/L Potassium 4.5 (3.4-5.1) mmol/L Chloride 105 (98-107) mmol/L Carbon Dioxide 24 (22-32) mmol/L BUN 16 (7-17) mg/dL Creatinine 0.67 (0.52-1.04) mg/dL Estimated GFR > 60.0 (>60) mL/min BUN/Creatinine Ratio 23.9 H (6-22) Glucose 106 (80-110) mg/dL Calcium 9.4 (8.4-10.2) mg/dL Total Bilirubin 0.5 (0.2-1.3) mg/dL AST 50 H (14-36) IU/L ALT 34 (<35) IU/L Alkaline Phosphatase 141 H (38-126) U/L Total Protein 7.4 (6.3-8.2) g/dL Albumin 4.1 (3.5-5.0) g/dL Globulin 3.3 (1.7-4.1) g/dL Albumin/Globulin Ratio 1.2 (1.0-2.8) Lipase 32 (23-300) U/L Urine RBC None seen (0-5/HPF) Urine WBC 5-10/hpf H (0-5/HPF) Ur Squamous Epith Cells 5-10 /hpf H (0-5/HPF) Urine Bacteria None seen (None) Ur Culture Indicated? Culture not indicate Point of care testing: Urine Dip Bedside Urine Glucose Negative Bedside Urine Bilirubin - Negative Bedside Urine Ketone - Negative Urine Specific [place] 1.005 Bedside Urine Occult Blood ++ Bedside Urine pH 6.5 Bedside Urine Protein - Negative Bedside Urine Urobilinogen - Negative Bedside Urine Nitrite - Negative Bedside Urine Leukocytes - Negative Esterase Imaging Data CT scan - abdomen/pelvis: Radiologist's Impression: FINDINGS: Image quality: Excellent. Lung bases: Unremarkable. Heart: No significant findings. ABDOMEN: Liver: Diffuse hypoattenuation of the liver is most likely secondary to fatty infiltration. Gallbladder: A single calcified gallstone is seen. Biliary ducts: Unremarkable. Pancreas: Unremarkable. Spleen: Nonspecific coarse calcification is seen in the spleen. Adrenal Glands: Unremarkable. Kidneys and Ureters: Unremarkable. Stomach and Bowel: A long segment of bowel wall thickening is seen involving the descending and sigmoid colon with mild pericolonic fat stranding a probable fluid-filled diverticulum is seen at the sigmoid colon versus less likely contained perforation. No pneumoperitoneum. Peritoneum: Trace reactive fluid is seen adjacent to the colon. No significant pelvic ascites No free air. Ventral Wall: No hernias. Abdominal Nodes: No retroperitoneal or mesenteric adenopathy by size criteria. Vessels: Aorta and inferior vena cava are normal in size. Moderate aortic atherosclerotic calcifications. PELVIS: Pelvic Organs: Unremarkable. Bladder: Unremarkable. Pelvic Nodes: No enlarged lymph nodes. Miscellaneous: No hernias are seen. Bones: Degenerative changes are seen in the pubic symphysis, right hip, and throughout the spine. Chronic L1 compression fracture is seen. There is mild grade 1 anterolisthesis of L4 on L5. A chronic left lateral rib fracture is noted. IMPRESSION: 1. Long segment of moderate bowel wall thickening is seen involving the descending and sigmoid colon with mild pericolonic fat stranding, suspicious for a nonspecific colitis. No pneumoperitoneum or signs of bowel obstruction. 2. Cholelithiasis. 3. Diffuse hepatic steatosis. Dictated by: Edmundo Haskins M.D. on 12/14/2020 at 16:39 ECG Data Interpretation: Sinus rhythm rate of 74 Normal intervals, normal axis No acute ST-T wave changes MDM Narrative Medical decision making narrative: 75-year-old woman with acute onset abdominal pain. She was on antibiotics fairly recently for a bladder infection. She had significant very smelly diarrhea 3-4 days ago the pain has increased at this point she is having minimal diarrhea but is noticing lizabeth blood. She does have a history of diverticular bleeding as well as hemorrhoidal bleeding. At this point she is not orthostatic and the blood happens only with cramping and is minimal. She is not significantly anemic. Reviewed options with her and at this point will recommend hospitalization for observation with a diagnosis of colitis. Will obtain stool to see if this does glove turner and former automatic to be Clostridium difficile and will need to be watched over the course of the evening to make sure that there is no continued active GI bleeding. Primary care doctors Dr. Joe ibarra will contact Dr. villarreal for her this evening to arrange for observation admission Discharge Plan Departure Patient Disposition: Admitted as Observation Clinical Impression: Colitis
--- NOTE | 2020-12-14 16:55 | DI.CT.S_ITS ---
PROCEDURE: CT ABDOMEN PELVIS W CON INDICATIONS: abdominal pain, worsening with bloody diarrhea TECHNIQUE: After the administration of intravenous contrast, axial sections acquired from the lung bases to the pubic symphysis. Coronal and sagittal reformats were performed. For radiation dose reduction, the following was used: automated exposure control, adjustment of mA and/or kV according to patient size. COMPARISON: [facility], CR, XR LUMBAR SPINE 2-3V, 08/10/2018, 20:29. FINDINGS: Image quality: Excellent. Lung bases: Unremarkable. Heart: No significant findings. ABDOMEN: Liver: Diffuse hypoattenuation of the liver is most likely secondary to fatty infiltration. Gallbladder: A single calcified gallstone is seen. Biliary ducts: Unremarkable. Pancreas: Unremarkable. Spleen: Nonspecific coarse calcification is seen in the spleen. Adrenal Glands: Unremarkable. Kidneys and Ureters: Unremarkable. Stomach and Bowel: A long segment of bowel wall thickening is seen involving the descending and sigmoid colon with mild pericolonic fat stranding a probable fluid-filled diverticulum is seen at the sigmoid colon versus less likely contained perforation. No pneumoperitoneum. Peritoneum: Trace reactive fluid is seen adjacent to the colon. No significant pelvic ascites No free air. Ventral Wall: No hernias. Abdominal Nodes: No retroperitoneal or mesenteric adenopathy by size criteria. Vessels: Aorta and inferior vena cava are normal in size. Moderate aortic atherosclerotic calcifications. PELVIS: Pelvic Organs: Unremarkable. Bladder: Unremarkable. Pelvic Nodes: No enlarged lymph nodes. Miscellaneous: No hernias are seen. Bones: Degenerative changes are seen in the pubic symphysis, right hip, and throughout the spine. Chronic L1 compression fracture is seen. There is mild grade 1 anterolisthesis of L4 on L5. A chronic left lateral rib fracture is noted. IMPRESSION: 1. Long segment of moderate bowel wall thickening is seen involving the descending and sigmoid colon with mild pericolonic fat stranding, suspicious for a nonspecific colitis. No pneumoperitoneum or signs of bowel obstruction. 2. Cholelithiasis. 3. Diffuse hepatic steatosis. Dictated by: Edmundo Haskins M.D. on 12/14/2020 at 16:39 Approved by: Edmundo Haskins M.D. on 12/14/2020 at 16:49
[2020-12-14] MEDS: SODIUM CHLORIDE 0.9% 1,000 ML 1000 ML IV (17:25)
[2020-12-14] MEDS: ONDANSETRON 4 MG/2 ML INJ IV (17:26)
[2020-12-14] MEDS: HYDROMORPHONE 0.5 MG INJ IV ×2 (17:26→21:08)
[2020-12-14 19:11] LABS: Bacteria Urine None Seen; RBC Urine None Seen (0-5/HPF); Squamous Epithelial Cell Urine 5-10 /HPF (0-5/HPF); WBC Urine 5-10/HPF (0-5/HPF)
[2020-12-14] MEDS: SODIUM CHLORIDE 0.9% 1,000 ML 125 ML IV (21:10)
[2020-12-14 21:28] LABS: COVID19 - ADMIT (NP swab/PCR) Negative (Negative)
--- NOTE | 2020-12-14 23:45 | PC.NURSE ---
Report received from ED. Care assumed 2054. Pt to from gurney to bed with 1 person assist. A&Ox4. C/o LLQ pain 11/02, received IVP Dilaudid, reports pain much improved. VSS.
[2020-12-15] VITALS (7 sets, daily range): BP systolic 110–149; BP diastolic 60–77; PULSE 72–87; RESP 16–19; TEMP 36.2–36.9; O2SAT 93–96
[2020-12-15] MEDS: ONDANSETRON 4 MG/2 ML INJ IV (01:23)
[2020-12-15] MEDS: HYDROMORPHONE 0.5 MG INJ IV ×2 (01:24→05:25)
[2020-12-15 02:41] LABS: Campylobacter Not Detected (Not Detect); Clostridium difficile toxin AB Not Detected (Not Detect); Enteroaggregative E.coli Not Detected (Not Detect); Enteropathogenic E.coli Detected (Not Detect); Enterotoxigenic E.coli It/st Not Detected (Not Detect); Plesiomonsa shigelloides Not Detected (Not Detect); Salmonella Not Detected (Not Detect); Shiga-like toxin-prod E.coli Not Detected (Not Detect); Vibrio Not Detected (Not Detect); Vibrio cholerae Not Detected (Not Detect); Yersinia enterocolitica Not Detected (Not Detect)
[2020-12-15 02:42] LABS: Adenovirus F 40/41 Not Detected (Not Detect); Astrovirus Not Detected (Not Detect); Cryptosporidium Not Detected (Not Detect); Cyclospora cayetanensis Not Detected (Not Detect); Entamoeba histolytica Not Detected (Not Detect); Giardia lamblia Not Detected (Not Detect); Norovirus GI/GII Not Detected (Not Detect); Rotavirus A Not Detected (Not Detect); Sapovirus Not Detected (Not Detect); Shigella/Enteroinvasive E.coli Not Detected (Not Detect)
--- NOTE | 2020-12-15 03:06 | PC.NURSE ---
At approx 0100, patient voided in BR w/ aide assisting and put out approx 50 mL stool that was mostly [id number]-[id number]-lizabeth blood with mucus. Sample collected and sent to lab. Pt reported feeling as if she just farted it all out as opposed to feeling a bowel movement. Pt reported associated abdominal cramping radiating to lower back. Denied dizziness or nausea, cap refill >2, AOx4, in no apparent cardiovascular or respiratory distress. Will continue to monitor. Pain controlled with IV dilaudid 0.5 mg, remains on IVF.
[2020-12-15] MEDS: SODIUM CHLORIDE 0.9% 1,000 ML 125 ML IV (05:30)
--- NOTE | 2020-12-15 07:33 | PM.HP.1 ---
History of Present Illness History of Present Illness Date Patient Seen: 12/15/20 Time Patient Seen: 07:33 Chief complaint: Stomach Pain, Lower. Bloody Stool Narrative: 75-year-old female patient of Dr. Gabriel presents with acute lower abdominal pain radiating across the entire abdomen x3 days. Unable to sleep last night secondary to pain, near syncopal episode. Pain is sharp and stabbing. Stools have turned from diarrhea to lizabeth blood during that time. No nausea or vomiting. No reflux or cough. Afebrile. Recent E coli UTI diagnosed 10 days prior to presentation, treated with Bactrim DS x7 days, completed course 3 days prior to admission. History of pancolonic diverticulosis noted on last colonoscopy in 2012 as well as external hemorrhoids. Vital signs upon admission to the ED included a temperature of 97.5?, pulse 85, respirations 15, blood pressure 198/89, O2 saturation 98% on room air. Workup significant for an elevated BUN at 23.9, alk-phos 141, and hematuria. CT abdomen significant for nonspecific colitis, left-sided. Stool culture showed enteropathogenic E coli. Received IV Dilaudid and Zofran as well as a 1 L fluid bolus prior to beiung transferred to the floor. Has had an uneventful night. Tolerating general diet this morning for breakfast and denies nausea or vomiting. Has not yet had a bowel movement. Abdominal pain much better. Patient History Medical History (Updated 12/14/20 @ 19:51 by Elissa Kulkarni MD) Allergic rhinitis Anxiety Bilateral foot pain Chronic pain syndrome Chronic rhinosinusitis Closed L1 vertebral fracture Contusion of left hip Degenerative disc disease, cervical Degenerative disc disease, lumbar Degenerative joint disease (DJD) of hip Degenerative joint disease, ankle, foot, toe Depression Diverticulosis Excessive daytime sleepiness (~2006) Facet arthropathy, lumbar Flu GERD (gastroesophageal reflux disease) GI bleed Hyperlipidemia Hypertension Insomnia, psychophysiological (~2006) Lumbar radiculopathy MGUS (monoclonal gammopathy of unknown significance) Obesity (BMI 30-39.9) Obstructive sleep apnea of adult (~2006) 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 sides of body Rectal bleeding Snoring (~1984) Surgical History History of bladder suspension procedure History of colonoscopy History of hand surgery History of hysterectomy History of surgery on left wrist Hx of repair of right rotator cuff Family & Social History Social History: household members spouse Prior Living Arrangements House lives independently Yes caregiver/support person No Safety & Behavioral: Feels Safe in Current Yes Environment Been Physically Hurt or No Threatened By a Person Suicidal Ideation Description None Suicide Plan Description No Plan Tobacco & Substance use: Smoking Status Never smoker alcohol intake current alcohol intake frequency holiday/special occasion Substance Use Type does not use Meds Home Medications and Allergies Home Medications Medication Instructions Recorded Confirmed Type lisinopril 30 mg tablet 30 mg PO QAM #0 04/01/16 12/14/20 History amitriptyline 10 mg tablet 10 mg PO QPM 02/26/18 12/14/20 History atorvastatin 40 mg tablet (Lipitor) 40 mg PO QPM 02/26/18 12/14/20 History conjugated estrogens 0.625 mg 0.625 mg PO QAM 02/26/18 12/14/20 History tablet (Premarin) escitalopram oxalate 20 mg tablet 20 mg PO QAM 02/26/18 12/14/20 History (Lexapro) folic acid 1 mg tablet 1 mg PO DAILY 02/26/18 12/14/20 History hydrochlorothiazide 25 mg tablet 25 mg PO QAM 02/26/18 12/14/20 History Respirinics [employer] Auto CPAP #1 ea 06/26/18 12/14/20 History calcium polycarbophil 625 mg 1 tab PO BID 08/10/18 12/14/20 History tablet (Fiber-Tabs) cholecalciferol (vitamin D3) 50 4,000 unit PO BID 08/10/18 12/14/20 History mcg (2,000 unit) capsule (Vitamin D3) cyanocobalamin (vitamin B-12) 1,000 mcg PO DAILY 08/10/18 12/14/20 History 1,000 mcg tablet (Vitamin B-12) ibeheylo-dmk-cyklz acid 0.4 1 tab PO DAILY 08/10/18 12/14/20 History mg-lycopene 300 mcg-lutein 250 mcg tablet (Centrum Silver) omeprazole 40 mg capsule,delayed 40 mg PO BID 08/10/18 12/14/20 History release solifenacin 10 mg tablet 10 mg PO QPM 08/10/18 12/14/20 History biotin 1 mg tablet 1 mg PO DAILY 05/12/19 12/14/20 History celecoxib 200 mg capsule (Celebrex) 200 mg PO DAILY 11/10/19 12/14/20 History hydrocodone 5 mg-acetaminophen 325 1 tab PO Q6H PRN #14 tab 09/16/20 12/14/20 Rx mg tablet Allergies Allergy/AdvReac Type Severity Reaction Status Date / Time piroxicam [PIROXICAM] Allergy Severe RASH Verified 12/14/20 13:18 shellfish derived Allergy Severe scallops Verified 12/14/20 13:18 [SHELLFISH DERIVED] only ANAPHYLAXIS rofecoxib [ROFECOXIB] Allergy Intermediate RASH Verified 12/14/20 13:18 bacitracin Allergy Mild rash Verified 12/14/20 13:18 [From NEOSPORIN ([id number])] neomycin Allergy Mild rash Verified 12/14/20 13:18 [From NEOSPORIN ([id number])] polymyxin B Allergy Mild rash Verified 12/14/20 13:18 [From NEOSPORIN ([id number])] Review of Systems Review of Systems Narrative: See HPI. Exam Vital Signs (past 8 hours): - 12/15/20 00:00 12/15/20 05:34 Temperature 97.9 F 97.2 F L Pulse Rate 85 83 Respiratory Rate 18 18 Blood Pressure 146/76 H 115/77 Pulse Oximetry 93 96 Oxygen Delivery Method CPAP Oxygen Flow Rate 0 Narrative Exam Narrative: GENERAL: Alert and oriented, appearing stated age and in no acute distress. HEENT: Head normocephalic/atraumatic. Oal mucosa moist, no lesions. Neck soft and supple, no lymphadenopathy. LUNGS: Clear to ausculation bilaterally, no wheezes, rhonchi or rales. CV: Normal S1 and S2 with regular rate and rhythm, no audible murmurs, rubs or gallops. ABDOMEN: Soft, mildly-tender in bilateral lower quadrants, non-distended, no organomegaly. Positive bowel sounds. EXTREMITIES: No clubbing, cyanosis, or edema. NEURO: Cranial nerves II through XII grossly intact, no focal deficits. PSYCH: Alert and oriented x 3. SKIN: No concerning lesions. Objective Labs Result Diagrams: 12/15/20 08:23 12/15/20 08:23 Labs: Laboratory Results - last 24 hr 07/12/14/20 12/14/20 13:30 13:30 18:50 WBC 10.0 RBC 4.40 Hgb 13.6 Hct 40.8 MCV 92.8 MCH 31.0 MCHC 33.4 RDW 13.6 Plt Count 216 Neut % (Auto) 68.7 Lymph % (Auto) 23.0 L [place] % (Auto) 7.4 Eos % (Auto) 0.5 L Baso % (Auto) 0.4 Neut # (Auto) 6900 Lymph # (Auto) 2300 [place] # (Auto) 700 Eos # (Auto) 100 Baso # (Auto) 0 Sodium 136 L Potassium 4.5 Chloride 105 Carbon Dioxide 24 BUN 16 Creatinine 0.67 Estimated GFR > 60.0 BUN/Creatinine Ratio 23.9 H Glucose 106 Calcium 9.4 Total Bilirubin 0.5 AST 50 H ALT 34 Alkaline Phosphatase 141 H Total Protein 7.4 Albumin 4.1 Globulin 3.3 Albumin/Globulin Ratio 1.2 Lipase 32 Urine RBC None seen Urine WBC 5-10/hpf H Ur Squamous Epith Cells 5-10 /hpf H Urine Bacteria None seen Ur Culture Indicated? Culture not indicate Stl C. cayetanensis PCR Stool Rotavirus (PCR) Stool Adenovirus (PCR) Stool Astrovirus (PCR) Stool Cryptosporidium PCR Stl E.coli Shiga Tox PCR St Sh/Enteroin Ecoli PCR Stool E coli O157 PCR Stl Enterotoxigenic E PCR Stool EPEC (PCR) Stl E. histolytica PCR Stool Giardia Lamblia PCR Stool Sapovirus (PCR) Stl P. shigelloides PCR St Y.enterocolitica PCR Stool Vibrio (PCR) Stl Vibrio cholerae PCR Stl Enteroaggr Ecoli PCR Stl Norovirus GI/GII PCR Campylobacter (PCR) C. difficile Tox (PCR) SARS-CoV-2 (PCR) Salmonella (PCR) 12/14/20 12/15/20 20:25 01:02 WBC RBC Hgb Hct MCV MCH MCHC RDW Plt Count Neut % (Auto) Lymph % (Auto) [place] % (Auto) Eos % (Auto) Baso % (Auto) Neut # (Auto) Lymph # (Auto) [place] # (Auto) Eos # (Auto) Baso # (Auto) Sodium Potassium Chloride Carbon Dioxide BUN Creatinine Estimated GFR BUN/Creatinine Ratio Glucose Calcium Total Bilirubin AST ALT Alkaline Phosphatase Total Protein Albumin Globulin Albumin/Globulin Ratio Lipase Urine RBC Urine WBC Ur Squamous Epith Cells Urine Bacteria Ur Culture Indicated? Stl C. cayetanensis PCR Not detected Stool Rotavirus (PCR) Not detected Stool Adenovirus (PCR) Not detected Stool Astrovirus (PCR) Not detected Stool Cryptosporidium PCR Not detected Stl E.coli Shiga Tox PCR Not detected St Sh/Enteroin Ecoli PCR Not detected Stool E coli O157 PCR Not Reportable Stl Enterotoxigenic E PCR Not detected Stool EPEC (PCR) Detected H Stl E. histolytica PCR Not detected Stool Giardia Lamblia PCR Not detected Stool Sapovirus (PCR) Not detected Stl P. shigelloides PCR Not detected St Y.enterocolitica PCR Not detected Stool Vibrio (PCR) Not detected Stl Vibrio cholerae PCR Not detected Stl Enteroaggr Ecoli PCR Not detected Stl Norovirus GI/GII PCR Not detected Campylobacter (PCR) Not detected C. difficile Tox (PCR) Not detected SARS-CoV-2 (PCR) Negative Salmonella (PCR) Not detected Assessment & Plan Assessment & Plan narrative: 1. Enteropathogenic E coli colitis Plan: Azithromycin 1 gm p.o. x1. Will support with IV fluids while advancing diet. Will follow stools closely to ensure that her bleeding starts to slow down. Will trend CBC and BUN. CT scan did not show diverticulitis but patient does have pancolonic diverticulosis and with her bleeding and colitis, she is at risk for having a diverticular bleed. No current blood loss anemia, will watch closely. If her bleeding does not slow down, will switch to clear liquids and Cipro/ Flagyl prophylactically. 2. Weakness, acute , secondary to colitis Plan: PT. 3. Hyperlipidemia, chronic Plan: Continue atorvastatin 40 mg p.o. q.h.s. 4. GERD, chronic Plan: Continue omeprazole 40 mg p.o. b.i.d. 5. Hypertension chronic Plan: Continue home lisinopril 30 mg p.o. q.a.m. and hydrochlorothiazide 25 mg PO qam. 6. Chronic pain syndrome Plan: Continue home hydrocodone and Celebrex. 7. Lumbosacral radiculopathy, chronic Plan: Continue home Amitriptyline. 8. Depression / anxiety, chronic Plan: Continue home escitalopram 9. Overactive bladder, chronic Plan: Continue solifenacin 10 mg p.o. q.p.m. Code: Full DVT prophylaxis: SCDs COVID: Negative Disposition: Anticipate discharge to home tomorrow.
[2020-12-15] MEDS: DEXTROSE 5%-0.45% NS 1,000 ML 150 ML IV (08:06)
[2020-12-15 08:36] LABS: Add Manual Diff / Slide Review NO; Basophils Absolute Auto 100 /uL (0-100); Basophils Percent Auto 0.8 % (0-2); Eosinophils Absolute Auto 100 /uL (0-450); Eosinophils Percent Auto 1.1 % (2-4); Hematocrit 36.3 % (36-46); Hemoglobin 12.1 g/dL (12.0-16.0); Lymphocytes Absolute Auto 2100 /uL (1100-4500); Lymphocytes Percent Auto 25.5 % (25-40); Mean Corpuscular HGB Conc 33.3 % (30-36); Mean Corpuscular Volume 93.1 fL (80-100); Monocytes Absolute Auto 800 /uL (0-900); Neutrophils Absolute Auto 5400 /uL (1500-7000); Neutrophils Percent Auto 63.6 % (50-75); Platelet Count 186 X10^3/uL (150-400); Red Cell Distribution Width 13.6 % (11.6-14.8); White Blood Cell Count 8.4 X10^3/uL (4.5-11.0)
[2020-12-15] MEDS: MULTIVITAMIN 1 TABLET 1 TAB PO (08:52)
[2020-12-15] MEDS: CELECOXIB 200 MG CAPSULE PO (08:53)
[2020-12-15] MEDS: ESCITALOPRAM 10 MG TABLET 20 MG PO (08:53)
[2020-12-15] MEDS: CYANOCOBALAMIN (VITAMIN B-12) 500 MCG TABLET 1000 MCG PO (08:53)
[2020-12-15] MEDS: FOLIC ACID 1 MG TABLET PO (08:53)
[2020-12-15] MEDS: hydroCHLOROthiazide 25 MG TABLET PO (08:53)
[2020-12-15] MEDS: CHOLECALCIFEROL (VITAMIN D3) 1,000 UNIT TABLET 4000 UNIT PO ×2 (08:53→20:21)
[2020-12-15] MEDS: PANTOPRAZOLE DR 40 MG TABLET PO ×2 (08:53→21:30)
[2020-12-15] MEDS: lisinopriL 10 MG TABLET 30 MG PO (08:54)
[2020-12-15 08:57] LABS: Alanine Aminotransferase 25 IU/L (<35); Albumin 3.3 g/dL (3.5-5.0); Albumin Globulin Ratio 1.1 (1.0-2.8); Alkaline Phosphatase 102 U/L (38-126); Aspartate Aminotransferase 38 IU/L (14-36); Bilirubin Total 0.5 mg/dL (0.2-1.3); Blood Urea Nitrogen 11 mg/dL (7-17); Calcium 8.3 mg/dL (8.4-10.2); Carbon Dioxide 25 mmol/L (22-32); Chloride 106 mmol/L (98-107); Estimated Glomerular Filt Rate > 60.0 mL/min (>60); Globulin 2.9 g/dL (1.7-4.1); Glucose 110 mg/dL (80-110); HEMOLYSIS < 15 (0-50); Potassium 4.1 mmol/L (3.4-5.1); Sodium 135 mmol/L (137-145); Total Protein 6.2 g/dL (6.3-8.2)
[2020-12-15] MEDS: AZITHROMYCIN 250 MG TABLET 1000 MG PO (09:00)
--- NOTE | 2020-12-15 14:20 | PT.IIE ---
Medical History (Last Updated 12/13/20 @ 12:04 by David Flores DO) Allergic rhinitis Anxiety Bilateral foot pain Chronic pain syndrome Chronic rhinosinusitis Closed L1 vertebral fracture Contusion of left hip Degenerative disc disease, cervical Degenerative disc disease, lumbar Degenerative joint disease (DJD) of hip Degenerative joint disease, ankle, foot, toe Depression Diverticulosis Excessive daytime sleepiness (~2006) Facet arthropathy, lumbar Flu GERD (gastroesophageal reflux disease) GI bleed Hyperlipidemia Hypertension Insomnia, psychophysiological (~2006) Lumbar radiculopathy MGUS (monoclonal gammopathy of unknown significance) Obesity (BMI 30-39.9) Obstructive sleep apnea of adult (~2006) 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 sides of body Rectal bleeding Snoring (~1984) Physical Therapy Inpatient Evaluation/Re-Eval M1 PT/OT-IP Prior Functional Status Start: 12/15/20 14:51 Freq: NEEDED Status: Active Protocol: Document 12/15/20 14:20 AB (Rec: 12/15/20 15:03 AB [id number]) Medical Review Prior Functional Status Medical History Reviewed Yes Communication able to make needs known Mobility and Gait pt stated that she is independent with all mobilities and ambulation using her hurrycane indoors, uses a 4WW outdoor short distances but uses an electric scooter for long distance outdoor mobility; pt stated that he has had falls at home Social History Household Members spouse Living Arrangements House Number of Floors (Floors) One Floor Number of Stairs To Enter/Railing? ramp to enter Home Environment High Toilet,Tub/Shower Doors Home Equipment Four Wheel Walker,Power Wheelchair/Scooter,Tub Transfer Bench,Hand Held Shower,Grab Bars In Shower Additional Social History Comment has a hurrycane M2 PT-IP Current Condition Start: 12/15/20 14:51 Freq: NEEDED Status: Active Protocol: Document 12/15/20 14:20 AB (Rec: 12/15/20 15:03 AB [id number]) Physical Therapy Current Condition Current Condition Evaluation Date 12/15/20 Treatment Diagnosis colitis; difficulty in walking Onset Date 12/14/20 Precautions Other Precautions falls M3 PT-IP Subjective Start: 12/15/20 14:51 Freq: NEEDED Status: Active Protocol: Document 12/15/20 14:20 AB (Rec: 12/15/20 15:03 AB [id number]) Subjective Physical Therapy Visit Type Type Initial Evaluation Visit Start Time 14:20 Visit Stop Time 14:40 Total Visit Minutes 20 Number of DEPARTMENT OPERATIONS MANAGER Visits 0 Physical Therapy Visit Comments Patient Comments pt is agreeable to do PT Therapy Pain Assessment Pain When Pain Assessed At Rest Pain Present Pain Present Pain Reported Location Abdomen Intensity 2 Scale Used Numeric (0 - 10) M4 PT-IP Mobility and Gait Start: 12/15/20 14:51 Freq: NEEDED Status: Active Protocol: Document 12/15/20 14:20 AB (Rec: 12/15/20 15:03 AB [id number]) PT-Bed Mobility Assessment Supine to Sit Supine to Sit Standby Assistance Sit to Supine Sit to Supine Standby Assistance PT-Transfer Assessment Sit to and From Stand Sit to and from Stand Standby Assistance Equipment Transfer Assistive Device Gait Belt,Tripod Cane/Hurry Cane Orthotic/Prosthetic Devices or Brace: No Transfers Transfer Destination Toilet Transfer Technique ambulated Transfer Ability Level of Assist Contact Guard Assistance,1 Person Assistance,Use of Upper Extremities Comments Mobility Comments pt sitting on chair and agreed to do PT. completed sit to stand SBA and step transfer to bed using hurrycane SBA. completed bed mobility sit<> supine SBA. pt ambulated using hurrycane ~250 ft CGA (+ ) LOB x 2 CGA to min for recovery. pt presents with unsteady antalgic gait with wide CLAU and LLE increase external rotation. pt ambulated back to her room. requested to use the toilet and ambulated to the toilet CGA using hurrycane. call light positioned next to pt and instructed to call for assistance and agreed. informed NAC and is aware. Gait Assessment Gait Gait Assistance Required: Contact Guard Assist Distance (Feet) 250 Able to Maintain Weight Bearing Status Yes During Gait Assistive Devices Assistive Device Gait Belt,Tripod Cane/Hurry Cane Orthotic/Prosthetic Devices or Brace: No Gait Deviations General Gait Pattern Antalgic,Decreased Feet Clearance,Step-to Gait,Wide Based Gait Factors Limiting Gait Function Factors Limiting Gait Function Decreased Activity Tolerance, Decreased Strength,Pain,Poor Balance,Poor Safety Awareness Comments Gait Comments pls refer to mobility section for details PT-Balance Assessment Sitting Balance and Reactions Static Sitting Balance Ability Good Dynamic Sitting Balance Ability Good Standing Balance and Reactions Static Standing Balance Ability Fair Dynamic Standing Balance Ability Fair Device Used hurrycane M5 PT-IP Objective Assessments Start: 12/15/20 14:51 Freq: NEEDED Status: Active Protocol: Document 12/15/20 14:20 AB (Rec: 12/15/20 15:03 AB [id number]) Orientation Orientation/Cognition Level of Alertness Alert Orientation Name,Age,Birthday,Month,Date, Year,Day of Week,Place, Situation Language Function Ability No Deficits Noted Safety Awareness Understands Safety Issues Memory Description No Deficits Noted Gross Range of Motion Lower Extremity ROM Assessment Within Functional Limits Strength Lower Extremity Strength Assessment Within Functional Limits Muscle Tone Muscle Tone WNL Yes M6 PT-IP Treatment Start: 12/15/20 14:51 Freq: NEEDED Status: Active Protocol: Document 12/15/20 14:20 AB (Rec: 12/15/20 15:03 AB [id number]) Physical Therapy Treatment Education Education Provided Safety M7 PT-IP Assessment and Plan Start: 12/15/20 14:51 Freq: NEEDED Status: Active Protocol: Document 12/15/20 14:20 AB (Rec: 12/15/20 15:03 AB [id number]) PT Summary Assessment and Plan Potential Rehabilitation Potential Good Status of Condition at Evaluation Stable Summary Impairments Pain,ROM,Strength,Balance, Coordination,Sensation,Bed Mobility,Transfers,Gait, Activity Tolerance Assessment Summary pt requiring CGA with ambulation using a hurrycane. pt has her spouse to assist her at home. will continue PT to improve mobility, standing balance and tolerance. Goals Bed Mobility Goal Independent Transfer Goal Independent,Cane Gait Goal Independent,Cane Gait Distance 150 Days to Meet Goals 5 Frequency of Treatment Frequency Of Treatment Once a Day Treatment Plan Physical Therapy Treatment Plan Bed Mobility Training,Transfer Training,Gait Training, Therapeutic Exercise,Balance Retraining,Discharge Planning, Hot or Cold Pack,Neuromuscular Re-ed,Coordination Retraining Precautions Other Precautions falls Recommendations To Nursing Amount of Assist Needed 1 Person Assist Discharge Recommendations PT Discharge Recommendations Home with Assistance Transportation Needs at Discharge Private Vehicle
--- NOTE | 2020-12-15 15:07 | CM.DANOTE ---
Addendum entered by Edel Bueno LPN 12/15/20 15:17: PT eval by Rina is noted now. She confirms pt's overall living situation and DME (motorized scooter and hurrycane) and notes that she is well supported by her . Original Note: Discharge Planning/Care Management DCP: assessment: case received and discussed in Team Rounds. EMR reviewed but H&P still in draft. Care team members report that Dr. Iverson saw pt earlier today and will be returning later this afternoon to see pt and with expectation of a d/c home. Pt resides with her spouse in [place]. Pt is a 75 year old female who admitted last night to care of Dr. Crabtree Pcp: Ana Paula Jean Baptiste. Payer: Medicare and [facility] Admissions status: OBS: confirmed by UR MAXINE Nunes. P: will check in with pt tomorrow morning if still here to see about any d/c needs but at this point the documentation available thus far does not indicate needs. CM Discharge Assessment Start: 12/15/20 15:06 Freq: Status: Active Protocol: Document 12/15/20 15:06 ITV (Rec: 12/15/20 15:07 ITV [id number]) Discharge Planning Assessment Advance Directives? No History Provided By Patient,Medical Record Prior Living Arrangements House Household Members spouse Is patient alert and oriented? Yes Discharge Plan Home
[2020-12-15] MEDS: OXYBUTYNIN 5 MG ER TAB 10 MG PO (20:23)
[2020-12-15] MEDS: AMITRIPTYLINE 10 MG TABLET PO (20:23)
[2020-12-15] MEDS: ATORVASTATIN 20 MG TABLET 40 MG PO (20:24)
--- NOTE | 2020-12-15 22:45 | PC.NURSE ---
A&OX4 able to make needs known. calls appropruiately for assistance. SBA with FWW to BR, voids adequate amounts of clear urine, LBM 12/15/20 formed stool with maroon slough secondary to colitis EPEC + per PCR. pt c/o abdominal cramping and bloating early in the shift however that was resolved after the last BM. Pt will need PT evaluation prior to discharge tomorrow.
[2020-12-16 01:30] VITALS: BP 145/70; PULSE 76; RESP 20; TEMP 35.8; O2SAT 95
[2020-12-16 03:25] VITALS: O2SAT 95
[2020-12-16 05:45] VITALS: BP 151/83; PULSE 82; RESP 18; TEMP 36.4; O2SAT 94
[2020-12-16 06:35] LABS: Add Manual Diff / Slide Review NO; Basophils Absolute Auto 0 /uL (0-100); Basophils Percent Auto 0.3 % (0-2); Eosinophils Absolute Auto 100 /uL (0-450); Eosinophils Percent Auto 0.9 % (2-4); Hematocrit 36.2 % (36-46); Hemoglobin 12.1 g/dL (12.0-16.0); Lymphocytes Absolute Auto 2500 /uL (1100-4500); Lymphocytes Percent Auto 25.3 % (25-40); Mean Corpuscular HGB Conc 33.4 % (30-36); Mean Corpuscular Volume 92.9 fL (80-100); Monocytes Absolute Auto 900 /uL (0-900); Monocytes Percent Auto 8.9 % (3-14); Neutrophils Absolute Auto 6500 /uL (1500-7000); Neutrophils Percent Auto 64.6 % (50-75); Platelet Count 185 X10^3/uL (150-400); Red Cell Distribution Width 13.5 % (11.6-14.8); White Blood Cell Count 10.1 X10^3/uL (4.5-11.0)
[2020-12-16 06:47] LABS: Alanine Aminotransferase 24 IU/L (<35); Albumin 3.3 g/dL (3.5-5.0); Albumin Globulin Ratio 1.1 (1.0-2.8); Alkaline Phosphatase 106 U/L (38-126); Aspartate Aminotransferase 33 IU/L (14-36); BUN Creatinine Ratio 17.2 (6-22); Bilirubin Total 0.4 mg/dL (0.2-1.3); Blood Urea Nitrogen 10 mg/dL (7-17); Calcium 8.9 mg/dL (8.4-10.2); Carbon Dioxide 29 mmol/L (22-32); Chloride 105 mmol/L (98-107); Estimated Glomerular Filt Rate > 60.0 mL/min (>60); Globulin 3.1 g/dL (1.7-4.1); Glucose 108 mg/dL (80-110); HEMOLYSIS < 15 (0-50); Potassium 4.1 mmol/L (3.4-5.1); Sodium 137 mmol/L (137-145); Total Protein 6.4 g/dL (6.3-8.2)
[2020-12-16 07:38] VITALS: BP 151/81; PULSE 79; RESP 16; TEMP 36.1; O2SAT 94
[2020-12-16] MEDS: ESCITALOPRAM 10 MG TABLET 20 MG PO (08:36)
[2020-12-16] MEDS: PANTOPRAZOLE DR 40 MG TABLET PO (08:36)
[2020-12-16] MEDS: CHOLECALCIFEROL (VITAMIN D3) 1,000 UNIT TABLET 4000 UNIT PO (08:36)
[2020-12-16] MEDS: hydroCHLOROthiazide 25 MG TABLET PO (08:36)
[2020-12-16] MEDS: FOLIC ACID 1 MG TABLET PO (08:36)
[2020-12-16] MEDS: CELECOXIB 200 MG CAPSULE PO (08:36)
[2020-12-16] MEDS: lisinopriL 10 MG TABLET 30 MG PO (08:36)
[2020-12-16] MEDS: MULTIVITAMIN 1 TABLET 1 TAB PO (08:36)
[2020-12-16] MEDS: ESTROGENS, CONJUGATED 0.625 MG TABLET PO (08:36)
[2020-12-16] MEDS: CYANOCOBALAMIN (VITAMIN B-12) 500 MCG TABLET 1000 MCG PO (08:36)
--- NOTE | 2020-12-16 08:53 | CM.DPC ---
Addendum entered by Edel Bueno LPN 12/16/20 13:24: Spoke now with Dr. Iverson. She reports she just met with pt and her and pt is ready for d/c home today. Followup with PCP: Dr. Jean Baptiste. Pt waiting now for final d/c information from RN caring today for pt and then will head for home in company of . Addendum entered by Edel Bueno LPN 12/16/20 08:56: Admission status remains OBS: per UR RN team. Original Note: DCP: continued: Dr. Iverson's H&P completed last night 2200 and is reviewed and POC now is clear. DC home is anticipated today if pt seems stable for same, per Dr. Iverson. She was cleared yesterday by PT for home setting with continued spouse support. Will follow prn.
[2020-12-16 11:20] VITALS: BP 147/72; PULSE 102; RESP 18; TEMP 36.7; O2SAT 93
--- NOTE | 2020-12-16 11:32 | PC.NURSE ---
Patients bowel tones are hypoactive, she is eating regular food without any nausea. Up with min assist, is in the room visiting. Abdomen is soft and non tender. Sitting up in chair.
--- NOTE | 2020-12-16 12:41 | P.DS_ITS ---
History of Present Illness History of Present Illness Date Patient Seen: 12/16/20 Time Patient Seen: 12:41 Chief complaint: Stomach Pain, Lower. Bloody Stool Narrative: 75-year-old female patient of Dr. Jean Baptiste'manuel presents with acute lower abdominal pain radiating across the entire abdomen x3 days. Unable to sleep last night secondary to pain, near syncopal episode. Pain is sharp and stabbing. Stools have turned from diarrhea to lizabeth blood during that time. No nausea or vomiting. No reflux or cough. Afebrile. Recent E coli UTI diagnosed 10 days prior to presentation, treated with Bactrim DS x7 days, completed course 3 days prior to admission. History of pancolonic diverticulosis noted on last colonoscopy in 2012 as well as external hemorrhoi ds. Vital signs upon admission to the ED included a temperature of 97.5?, pulse 85, respirations 15, blood pressure 198/89, O2 saturation 98% on room air. Workup significant for an elevated BUN at 23.9, alk-phos 141, and hematuria. CT abdomen significant for nonspecific colitis, left-sided. Stool culture showed enteropathogenic E coli. Received IV Dilaudid and Zofran as well as a 1 L fluid bolus prior to beiung transferred to the floor. Has had an uneventful night. Tolerating general diet this morning for breakfast and denies nausea or vomiting. Has not yet had a bowel movement. Abdominal pain much better. Discharge Providers Provider Date of admission: 12/14/20 20:05 Discharge Date: 12/16/20 Primary care physician: Ana Paula Jean Baptiste MD Consults: 12/15/20 07:43 Consult to Discharge Planning Routine Comment: 12/15/20 13:50 Consult to Physical Therapy Evaluate & Treat Comment: Physician Instructions: Evaluate and Treat Discharge provider: Honey Iverson MD Summary Hospital Course Discharge Diagnosis: 1. Enteropathogenic E coli colitis 2. Weakness, acute, secondary to colitis 3. Hyperlipidemia, chronic 4. GERD, chronic 5. Hypertension chronic 6. Chronic pain syndrome 7. Lumbosacral radiculopathy, chronic 8. Depression / anxiety, chronic 9. Overactive bladder, chronic Hospital Course: Patient had uneventful hospital course. On her 1st day, she did have some blood clots per rectum but nothing in the last 24 hours. She received azithromycin 1 g p.o. x1 upon admission. She has had no further bowel movements during the second half of her hospital stay. Abdominal pain has improved, now just in the left lower quadrant, mild. She has been tolerating full diet with no nausea or vomiting. Good appetite. Ambulating independently with walker. On day of discharge, she is afebrile with stable vital signs t hroughout. Plan will be to follow-up with Dr. Jean Baptiste in 1 week. She was advised to proceed cautiously with diet and if bloody stools recur, to immediately switch to a clear liquid diet and report symptoms to the call service. If she continues to have problems that do not resolve, she may need repeat surveillance CT Abd/pelvis with contrast to evaluate for acute diverticulitis and treatment with Cipro/ Flagyl if indicated. May need EGD/colonoscopy as well if symptoms do not resolve to evaluate for non-infection forms of colitis. At this point, workup is consistent with an infectious colitis and should self resolve. Time spent on Discharge and Coordination of post-hospital care: 35 minutes Exam Vital Signs (past 8 hours): - 12/16/20 05:45 12/16/20 07:38 Temperature 97.5 F L 97.0 F L Pulse Rate 82 79 Respiratory Rate 18 16 Blood Pressure 151/83 H 151/81 H Pulse Oximetry 94 94 Oxygen Delivery Method Room Air Oxygen Flow Rate 0 Narrative Exam Narrative: GENERAL: Alert and oriented, appearing stated age and in no acute distress. HEENT: Head normocephalic/atraumatic. LUNGS: Clear to ausculation bilaterally, no wheezes, rhonchi or rales. CV: Normal S1 and S2 with regular rate and rhythm, no audible murmurs, rubs or gallops. ABDOMEN: Soft, mildly tender in LLQ, non-distended, no organomegaly. Positive bowel sounds in all 4 quadrants. EXTREMITIES: No clubbing, cyanosis, or edema. NEURO: Cranial nerves II through XII grossly intact, no focal deficits. PSYCH: Alert and oriented x 3. SKIN: No concerning lesions. Objective Labs Result Diagrams: 12/16/20 05:50 12/16/20 05:50 Labs: Laboratory Results - last 24 hr 12/16/20 12/16/20 05:50 05:50 WBC 10.1 RBC 3.90 L Hgb 12.1 Hct 36.2 MCV 92.9 MCH 31.0 MCHC 33.4 RDW 13.5 Plt Count 185 Neut % (Auto) 64.6 Lymph % (Auto) 25.3 Swain % (Auto) 8.9 Eos % (Auto) 0.9 L Baso % (Auto) 0.3 Neut # (Auto) 6500 Lymph # (Auto) 2500 Swain # (Auto) 900 Eos # (Auto) 100 Baso # (Auto) 0 Sodium 137 Potassium 4.1 Chloride 105 Carbon Dioxide 29 BUN 10 Creatinine 0.58 Estimated GFR > 60.0 BUN/Creatinine Ratio 17.2 Glucose 108 Calcium 8.9 Total Bilirubin 0.4 AST 33 ALT 24 Alkaline Phosphatase 106 Total Protein 6.4 Albumin 3.3 L Globulin 3.1 Albumin/Globulin Ratio 1.1 [facility] Medical History (Updated 12/14/20 @ 19:51 by Elissa Kulkarni MD) Allergic rhinitis Anxiety Bilateral foot pain Chronic pain syndrome Chronic rhinosinusitis Closed L1 vertebral fracture Contusion of left hip Degenerative disc disease, cervical Degenerative disc disease, lumbar Degenerative joint disease (DJD) of hip Degenerative joint disease, ankle, foot, toe Depression Diverticulosis Excessive daytime sleepiness (~2006) Facet arthropathy, lumbar Flu GERD (gastroesophageal reflux disease) GI bleed Hyperlipidemia Hypertension Insomnia, psychophysiological (~2006) Lumbar radiculopathy MGUS (monoclonal gammopathy of unknown significance) Obesity (BMI 30-39.9) Obstructive sleep apnea of adult (~2006) 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 sides of body Rectal bleeding Snoring (~1984) Surgical History History of bladder suspension procedure History of colonoscopy History of hand surgery History of hysterectomy History of surgery on left wrist Hx of repair of right rotator cuff Social History marital status: details: to [place], lives in [place] household members: spouse lives independently: Yes caregiver/support person: No housing: house Smoking Status: Never smoker alcohol intake: current Discharge Plan Discharge Plan Patient Disposition: Home Discharge orders & Medications Prescriptions: Continued lisinopril 30 MG tablet 30 mg PO QAM Qty: 0 RF: 0 cyanocobalamin (vitamin B-12) [Vitamin B-12] 1,000 mcg Tablet 1,000 mcg PO DAILY RF: 0 omeprazole 40 mg capsule,delayed release(DR/EC) 40 mg PO BID RF: 0 calcium polycarbophil [Fiber-Tabs] 625 mg Tablet 1 tab PO BID RF: 0 solifenacin 10 mg tablet 10 mg PO QPM RF: 0 Centrum Silver 0.4-300-250 mg-mcg-mcg Tablet 1 tab PO DAILY RF: 0 cholecalciferol (vitamin D3) [Vitamin D3] 2,000 unit Capsule 4,000 unit PO BID RF: 0 biotin 1 mg Tablet 1 mg PO DAILY RF: 0 celecoxib [Celebrex] 200 mg Capsule 200 mg PO DAILY RF: 0 hydrocodone-acetaminophen 5-325 mg tablet 1 tab PO Q6H PRN (Reason: pain) Qty: 14 RF: 0 conjugated estrogens [Premarin] 0.625 mg tablet 0.625 mg PO QAM RF: 0 hydrochlorothiazide 25 mg tablet 25 mg PO QAM RF: 0 escitalopram oxalate [Lexapro] 20 mg tablet 20 mg PO QAM RF: 0 folic acid 1 mg tablet 1 mg PO DAILY RF: 0 atorvastatin [Lipitor] 40 mg tablet 40 mg PO QPM RF: 0 amitriptyline 10 mg tablet 10 mg PO QPM RF: 0 (DME) Respirinics [employer] Auto CPAP kit Qty: 1 RF: 0 Follow up/Referrals: Ana Paula Jean Baptiste MD [Primary Care Provider] - Diet/Activity/Treatments Diet: Diet as Tolerated Activity: As tolerated with walker. Skin/Wound/Dressing Care Report to your healthcare provider any signs of infection, such as:: chills, fev er, increased pain and unusual drainage Visit Report/Discharge Packet Instructions: Diverticulitis, DI for Colitis Discharge Data Primary Care Provider: Ana Paula Jean Baptiste Attending Provider: Salvador Crabtree
--- NOTE | 2020-12-16 16:19 | PT-IP ANOTE ---
pt d/c before able to see for PT tx
--- NOTE | 2020-12-29 16:57 | PC.NURSE ---
Late Entry; Dextrose infusion initiated 12/15 at 08:06 stopped by MD order at 13:50.
== END 2020-12-16 14:00 | disposition home or self-care (01) ==
LOC: ED 19:51 → AC 20:07
PROVIDERS: Student in an Organized Health Care Education/Training Program; Admitting Provider Family Medicine; Emergency Provider Emergency Medicine; PCP Family Medicine; Referring Provider Emergency Medicine; Visit Provider Family Medicine
DX: K52.89 Other specified noninfective gastroenteritis and colitis (principal); I10 Essential (primary) hypertension; E78.5 Hyperlipidemia, unspecified; R55 Syncope and collapse; B96.20 Unspecified Escherichia coli [E. coli] as the cause of diseases classified elsewhere; R53.1 Weakness; N32.81 Overactive bladder; K21.9 Gastro-esophageal reflux disease without esophagitis; G89.4 Chronic pain syndrome; M54.16 Radiculopathy, lumbar region; F32.9 Major depressive disorder, single episode, unspecified; F41.9 Anxiety disorder, unspecified; Z20.822 Contact with and (suspected) exposure to COVID-19
CPT/HCPCS: 36415; 36592; 74177; 80053; 81003; 81015; 83690; 85025; 87086; 87507; 87635; 93005; 93010; 96361; 96374; 96375; 96376; 97161; 99284; C9803; G0378; J1170; J2405; Q9967

== ENCOUNTER → 2021-01-01 08:11 | Outpatient (CLI) | payer MEDICARE, OTHER, SELFPAY ==
[2020-12-14 21:02] VITALS: BMI 39.9
[2021-01-01 12:13] LABS: COVID19 -Nasal RAPID Negative (Negative)
== END ==
PROVIDERS: PCP Family Medicine; Visit Provider Physical Medicine & Rehabilitation
DX: Z20.822 Contact with and (suspected) exposure to COVID-19 (principal)
CPT/HCPCS: 87635; C9803

== ENCOUNTER 2021-01-02 14:54 | Outpatient (CLI) | payer MEDICARE, OTHER, SELFPAY ==
[2020-12-14 21:02] VITALS: BMI 39.9
[2021-01-02] VITALS (8 sets, daily range): BP systolic 122–170; BP diastolic 56–81; PULSE 77–86; RESP 15–24; TEMP 36.2; O2SAT 93–98
--- NOTE | 2021-01-02 14:58 | DI.RAD.S_ITS ---
PROCEDURE: PAIN L/S FACET INJ/BLK 1ST PIPPA COMPARISON: None. INDICATIONS: SPONDYLOSIS FINDINGS: Fluoroscopic spot filming was performed to verify placement of spinal needles on both sides at the L3-L4 level and the L4-L5 level, as labeled on the films. Appropriate location of the needle tips was confirmed by injection of iodinated contrast. IMPRESSION: Intraprocedural examination within normal limits. Dictated by: Sherman Alarcon M.D. on 01/02/2021 at 15:29 Approved by: Sherman Alarcon M.D. on 01/02/2021 at 15:29
[2021-01-02] MEDS: MIDAZOLAM 5 MG/5 ML VIAL IV (15:40)
[2021-01-02] MEDS: fentaNYL 100 MCG/2 ML INJ 50 MCG IV (15:40)
[2021-01-02] MEDS: LIDOCAINE 1% 20 ML 10 ML INJ (15:44)
[2021-01-02] MEDS: IOPAMIDOL 15 ML VIAL 3 ML INJ (15:44)
[2021-01-02] MEDS: BETAMETHASONE 30 MG/5 ML MDV 6 MG INJ (15:45)
[2021-01-02] MEDS: BUPIVACAINE 0.5% (PF) VIAL 5 ML INJ (15:45)
--- NOTE | 2021-01-02 16:00 | P.PCN_ITS ---
Date/Time/Diagnoses Date of procedure: 01/02/21 Time of procedure: 16:00 Pre-procedure diagnosis: 1. FACET ARTHROPATHY 2. AXIAL LBP 3. MULTILEVEL DDD Post-procedure diagnosis: same Procedure Notes Procedure: 1. FLUORSCOPICALLY GUIDED CONTRAST CONTROLLED FACET JOINT INJECTIONS BILATERAL L3/4, L4/5 Indications: Pat is referred by Dr. Jean Baptiste for treatment of Axial LBP Physician: David Flores Total Fluoroscopy time (seconds): 11 Total sedation minutes: 14 Complications: none Procedure in detail & Post-procedure care: FINDINGS Multilevel Facet Arthropathy with Clinically significant axial LBP DESCRIPTION OF PROCEDURE Fluoroscopically guided, contrast-controlled bilateral L3/4, L4/5 facet joint injections. Following review of allergy and review of potential side effects and complications, including, but not necessarily limited to, infection, allergic reaction, local tissue breakdown, stroke, temporary or permanent nerve injury, paralysis, and possible , the patient indicated that the patient understood and agreed to proceed. An informed consent document was signed by the patient, witnessed by a nurse, and placed in the patient's chart. Additionally, other treatment options including medications, modalities, and physical therapy were reviewed with the patient. After review of previous anaesthesic history and IV conscious sedation the patient was deemed safe to proceed with today's procedure with IV conscious sedation as ASA class II designation. Safety time-out was performed to confirm patient ID, procedure to be performed and site of procedure. IV sedation was accomplished with a combination of 3mg of Versed and 50mcg of Fentanyl was administered by the RN after DO order, titrated to patient comfort during the course of the procedure while the patient remained responsive to all verbal commands. In the prone position, following sterile prep and drape of the lumbar region, the posterior aspect of the L3/4, L4/5 facet joints were identified fluoroscopically. The skin was anesthetized via a 25-gauge 1.5-inch needle with 1% lidocaine solution into the corresponding facet joints. At this point, a 22- gauge 3.5-inch spinal needle was atraumatically introduced and advanced under fluoroscopic guidance into the corresponding facet joints. Following negative aspiration, injections of approximately 0.2cc of Isovue 200 confirmed interart icular placement without vascular uptake. The identical procedure was then performed at the L3/4, L4/5 facet joints on the left. Radiological data, including multiple fluoroscopic views of the lumbosacral spine, reveal a spinal needle at the L3/4, L4/5 facet joints bilaterally. Subsequent views show flow of contrast material both superiorly and inferiorly within the joint space without vascular or intrathecal uptake. At this point, a total of 0.5cc including a mixture of 0.25cc Marcaine and 0.25cc betamethasone was injected without complication into each of the corresponding facet joints. The patient tolerated the procedure well without signs or symptoms of complications prior to transfer to the recovery area continued monitoring without incident. The patient was then transferred to the recovery area where they were observed for an appropriate period of time after the injection. The patient reported a VAS score of 7 prior to the procedure and a post-procedure VAS of 0. POST OP INSTRUCTIONS The patient was provided a Pain Log to continue to record their response to the target-specific procedure prior to follow-up visit with their referring p hysician. Additionally, specific post-injection care instructions and a contact number to our office were provided if concerns arise regarding possible complications associated with the procedure are suspected.
== END 2021-01-02 16:15 | disposition home or self-care (01) ==
LOC: RAD 14:58
PROVIDERS: PCP Family Medicine; Referring Provider Physical Medicine & Rehabilitation; Visit Provider Physical Medicine & Rehabilitation
DX: M47.816 Spondylosis without myelopathy or radiculopathy, lumbar region (principal); M51.36 Other intervertebral disc degeneration, lumbar region; M54.5 Low back pain
CPT/HCPCS: 64493; 64494; 99152; J0702; J2250; J3010

== ENCOUNTER → 2021-02-17 13:56 | Outpatient (CLI) | payer MEDICARE, OTHER, SELFPAY ==
[2020-12-14 21:02] VITALS: BMI 39.9
--- NOTE | 2021-02-17 | DI.MG.S_ITS ---
BILATERAL DIGITAL SCREENING MAMMOGRAM 3D/2D WITH CAD: 02/17/2021 CLINICAL: Routine screening. Comparison is made to exams dated: 01/27/2019 mammogram, 12/24/2017 mammogram, and 12/20/2016 mammogram - [facility]. There are scattered fibroglandular elements in both breasts. Current study was also evaluated with a Computer Aided Detection (CAD) system. There are benign vascular calcifications in both breasts. There is an oval low density focal asymmetry with an indistinct and circumscribed margin in the left breast at 6 o'clock posterior depth. No other significant masses, calcifications, or other findings are seen in either breast. IMPRESSION: INCOMPLETE: NEEDS ADDITIONAL IMAGING EVALUATION The oval low density focal asymmetry in the left breast is indeterminate. Mediolateral and spot compression views as well as additional views with possible ultrasound are recommended. This exam was interpreted at Station ID: [id number]. NOTE: For mammograms, a report in lay terms will be sent to the patient. Approximately 15% of breast malignancies will not be visualized mammographically. In the management of a palpable breast mass, a negative mammogram must not discourage biopsy of a clinically suspicious lesion. Electronically Signed By: Des jsoue/socrates:02/19/2021 07:48:23 letter sent: Additional Imaging Needed ACR BI-RADS Category 0: Incomplete [id number]
== END ==
PROVIDERS: PCP Family Medicine; Referring Provider Family Medicine; Visit Provider Family Medicine
DX: Z12.31 Encounter for screening mammogram for malignant neoplasm of breast (principal); N64.89 Other specified disorders of breast
CPT/HCPCS: 77063; 77067

== ENCOUNTER → 2021-03-07 09:21 | Outpatient (CLI) | payer MEDICARE, OTHER, SELFPAY ==
[2020-12-14 21:02] VITALS: BMI 39.9
--- NOTE | 2021-03-07 09:24 | DI.MG.S_ITS ---
UNILATERAL LEFT DIGITAL DIAGNOSTIC MAMMOGRAM 3D/2D WITH ADDITIONAL VIEWS: 03/07/2021 CLINICAL: Additional evaluation requested from prior study. Comparison is made to exams dated: 02/17/2021 mammogram, 01/27/2019 mammogram, and 12/24/2017 mammogram - [facility]. There are scattered fibroglandular elements in left breast. There is an oval equal density focal asymmetry with a circumscribed margin in the left breast at 6 o'clock posterior depth. No other significant masses or calcifications are seen in the breast. IMPRESSION: INCOMPLETE: NEEDS ADDITIONAL IMAGING EVALUATION The oval equal density focal asymmetry in the left breast most likely is a cyst and is indeterminate. An ultrasound is recommended. This exam was interpreted at Station ID: [id number]. NOTE: For mammograms, a report in lay terms will be sent to the patient. Approximately 15% of breast malignancies will not be visualized mammographically. In the management of a palpable breast mass, a negative mammogram must not discourage biopsy of a clinically suspicious lesion. Electronically Signed By: Ben Mahan M.D., jr/socrates:03/07/2021 10:14:39 ACR BI-RADS Category 0: Incomplete [id number]
--- NOTE | 2021-03-07 09:24 | DI.US.S_ITS ---
LIMITED ULTRASOUND OF LEFT BREAST: 03/07/2021 CLINICAL: Patient returns today to evaluate a focal asymmetry in the left breast. Comparison is made to exams dated: 03/07/2021 mammogram, 02/17/2021 mammogram, 01/27/2019 mammogram, and 12/24/2017 mammogram - [facility]. Color flow and real-time ultrasound of the left breast 5-6 o'clock region were performed. Camp scale images of the real-time examination were reviewed. There is a benign complicated cyst in the left breast at 6 o'clock posterior depth. IMPRESSION: BENIGN There is no sonographic evidence of malignancy. The complicated cyst in the left breast is benign. Return to annual mammogram screening schedule is recommended. This exam was interpreted at Station ID: [id number]. Electronically Signed By: Ben Mahan M.D., jr/socrates:03/07/2021 10:15:22 letter sent: Normal Exam Ultrasound BI-RADS: 2 Benign
== END ==
PROVIDERS: PCP Family Medicine; Referring Provider Family Medicine; Visit Provider Family Medicine
DX: R92.8 Other abnormal and inconclusive findings on diagnostic imaging of breast (principal); N64.89 Other specified disorders of breast
CPT/HCPCS: 76642; 77065; G0279

== ENCOUNTER → 2021-07-10 10:42 | Outpatient (CLI) | payer MEDICARE, OTHER, SELFPAY ==
[2021-07-04 11:37] VITALS: BMI 39.9
[2021-07-10 14:17] LABS: COVID19 -Nasal RAPID Negative (Negative)
== END ==
PROVIDERS: PCP Family Medicine; Visit Provider Physical Medicine & Rehabilitation
DX: Z20.822 Contact with and (suspected) exposure to COVID-19 (principal)
CPT/HCPCS: 87635; C9803

== ENCOUNTER 2021-07-12 10:05 | Outpatient (CLI) | payer MEDICARE, OTHER, SELFPAY ==
[2021-07-04 11:37] VITALS: BMI 39.9
[2021-07-12] VITALS (9 sets, daily range): BP systolic 129–182; BP diastolic 65–83; PULSE 75–87; RESP 12–23; TEMP 36.2; O2SAT 92–97
--- NOTE | 2021-07-12 10:08 | DI.RAD.S_ITS ---
PROCEDURE: PAIN L INTERLAMINAR/CAUDAL INJ INDICATIONS: SPONDYLOSIS COMPARISON: [facility], XA, PAIN L/S FACET INJ/BLK 1ST PIPPA, 01/02/2021, 15:46. FINDINGS: Fluoroscopic spot filming was performed to verify placement of a spinal needle at the L2-L3 level, as labeled on the films. Appropriate location of the needle tip was confirmed by injection of iodinated contrast. IMPRESSION: Intraprocedural examination within normal limits. Dictated by: Sherman Alarcon M.D. on 07/12/2021 at 11:05 Approved by: Sherman Alarcon M.D. on 07/12/2021 at 11:06
[2021-07-12] MEDS: fentaNYL 100 MCG/2 ML INJ 50 MCG IV (11:15)
[2021-07-12] MEDS: MIDAZOLAM 5 MG/5 ML VIAL IV (11:15)
[2021-07-12] MEDS: BETAMETHASONE 30 MG/5 ML MDV 6 MG INJ (11:19)
[2021-07-12] MEDS: BUPIVACAINE 0.25% (PF) VIAL 2 ML INJ (11:19)
[2021-07-12] MEDS: IOPAMIDOL 15 ML VIAL 3 ML INJ (11:19)
[2021-07-12] MEDS: DEXAMETHASONE 10 MG/ML VIAL 20 MG INJ (11:20)
--- NOTE | 2021-07-12 11:31 | P.PCN_ITS ---
Date/Time/Diagnoses Date of procedure: 07/12/21 Time of procedure: 11:31 Pre-procedure diagnosis: 1. HNP WITH RADICULAR FEATURES, 2. MULTILEVEL CENTRAL STENOSIS This procedure is found to meet the Governor's proclamation 20-24.2 regarding non urgent procedures. This patient meets multiple criteria for the procedure including continuing or worsening of significant or severe pain, combined with further deterioration of the patient's condition or overall health as well as delay in treatment would be expected to result in less positive ultimate medical outcome. Therefore the decision to perform the procedure in an outpatient hospital setting is found to be in accordance with guidelines of the proclamation. Post-procedure diagnosis: same Procedure Notes Procedure: 1. FLUOROSCOPICALLY GUIDED CONTRAST CONTROLLED INTERLAMINAR EPIDURAL STEROID INJECTION - L2/3 Indications: Pat is referred by Dr. Jean Baptiste for treatment of Bilateral Foraminal Stenosis L>R LE symptoms. Physician: David Flores Total Fluoroscopy time (seconds): 7 Total sedation minutes: 11 Complications: none Procedure in detail & Post-procedure care: FINDINGS Multilevel Central Spinal Stenosis with Nerve Root Compression DESCRIPTION OF PROCEDURE Fluoroscopically guided, contrast-controlled L2/3 translaminar epidural steroid injection. Following review of allergy and review of potential side effects and complications, including, but not necessarily limited to, infection, allergic reaction, local tissue breakdown, temporary as well as permanent nerve injury, paralysis, stroke and possible , the patient indicated that the patient understood and agreed to proceed. An informed consent document was signed by the patient, witnessed by a nurse, and placed in the patient's chart. Additionally, other treatment options including modalities, medications, and physical therapy were reviewed with the patient. After review of previous anaesthesic history and IV conscious sedation the patie nt was deemed safe to proceed with today?s procedure with IV conscious sedation as ASA class II designation. Safety time-out was performed to confirm patient ID, procedure to be performed and site of procedure. IV sedation was accomplished with a combination of 2mg Versed and 50mcg of Fentanyl administered by the RN after DO order, titrated to patient comfort during the course of the procedure while the patient remained responsive to all verbal commands. In the prone position, following sterile prep and drape of the lumbar region,the L2/3 translaminar space was identified fluoroscopically. The skin was anesthetized via a 25-gauge, 1.5-inch needle with 1% lidocaine solution. At this point, a 22-gauge short bevel spinal needle was atraumatically introduced and advanced under fluoroscopic guidance into the region of the L2/3 translaminar space. Depth was confirmed on lateral view. Radiological data, including multiple fluoroscopic views of the lumbar spine, reveal a spinal needle at the L2/3 translaminar space. Lateral views then show placement of the needle in the epidural space. Subsequent views show contrast material flowing superiorly and inferiorly in the epidural space. No vascular or intrathecal uptake is observed. At this point, using loss of resistance technique with saline and air, the epidural space was entered. This was confirmed following negative aspiration with injection of approximately 1.5 cc of Isovue 200, showing excellent epidural flow without vascular or intrathecal uptake. At this point, 1 cc of 1% lidocaine solution combined with 3cc or 20mg of dexamethasone and 6mg of betamethasone was injected without incident. The patient tolerated the procedure well without signs or symptoms of complications prior to transfer to the recovery area continued monitoring without incident. The patient was then transferred to the recovery area where they were observed for an appropriate period of time after the injection. The patient reported a VAS score of 6 prior to the procedure and a post-procedure VAS of 0. POST OP INSTRUCTIONS The patient was provided a Pain Log to continue to record their response to the target-specific procedure prior to follow-up visit with their referring physician. Additionally, specific post-injection care instructions and a contact number to our office were provided if concerns arise regarding possible complications associated with the procedure are suspected.
== END 2021-07-12 11:55 | disposition home or self-care (01) ==
PROVIDERS: PCP Family Medicine; Referring Provider Physical Medicine & Rehabilitation; Visit Provider Physical Medicine & Rehabilitation
DX: M51.16 Intervertebral disc disorders with radiculopathy, lumbar region (principal); M48.061 Spinal stenosis, lumbar region without neurogenic 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
CPT/HCPCS: 62323; 99152; J0702; J1100; J2250; J3010

== ENCOUNTER → 2021-07-16 10:22 | Outpatient (CLI) | payer MEDICARE, OTHER, SELFPAY ==
[2021-07-04 11:37] VITALS: BMI 39.9
--- NOTE | 2021-07-16 | DI.RAD.S_ITS ---
PROCEDURE: XR DEXA AXIAL SKELETON INDICATIONS: Age-related osteoporosis COMPARISON: None. FINDINGS: This blank DEXA report has been sent in error by the PACS system. The correct and complete report will be forthcoming in 1-2 days. Thank you for your patience and understanding. Dictated by: Clemencia Newell MD, PhD on 07/16/2021 at 15:38 Approved by: Clemencia Newell MD, PhD on 07/16/2021 at 15:38
== END ==
PROVIDERS: PCP Family Medicine; Referring Provider Family Medicine; Visit Provider Family Medicine
DX: M85.852 Other specified disorders of bone density and structure, left thigh (principal); Z78.0 Asymptomatic menopausal state
CPT/HCPCS: 77080

== ENCOUNTER 2021-08-25 15:25 | Emergency (ER) | payer MEDICARE, OTHER, SELFPAY ==
[2021-07-04 11:37] VITALS: BMI 39.9
[2021-08-25 15:34] VITALS: BP 166/82; PULSE 70; RESP 22; TEMP 37; O2SAT 95; BMI 39.5
--- NOTE | 2021-08-25 15:51 | DI.RAD.S_ITS ---
PROCEDURE: XR HIP W PEL IF DONE LT 2V INDICATIONS: anterior left hip pain, low back pain w/sciatica TECHNIQUE: Left views of the hip were acquired. COMPARISON: [facility], CR, XR HIP W PEL IF DONE RT 2V, 09/16/2020, 15:08. FINDINGS: Bones: No fractures or dislocations. No suspicious bony lesions. The visualized pelvic ring appears intact. Severe bilateral joint space narrowing and small marginal osteophytes present. Femoral head contour within normal limits. Degenerative changes noted lower lumbar spine. Soft tissues: No suspicious soft tissue calcifications or masses. IMPRESSION: 1. No fracture or dislocation. 2. Bilateral hip osteoarthritis Approved by: Rinku Tamez M.D. on 08/25/2021 at 15:55
--- NOTE | 2021-08-25 15:56 | ED.LOWEXIN ---
HPI - Extremity Injury (Lower) <Eve Boles, [facility] - Last Filed: 08/25/21 17:26> General Chief Complaint: Extremity Injury, Lower Stated Complaint: GLF left thigh injury Time Seen by Provider: 08/25/21 15:37 Source: patient and family Mode of arrival: Ambulatory History of Present Illness HPI Narrative: In his 76-year-old female with history of low back pain with sciatica who presents to the emergency department complaining of low bit pain with sciatica as well as new anterior left hip pain and pain with her left hip after slipping approximately 1 week ago and almost falling. Patient states that this flared up her low back pain and sciatica, and today she was attempting to stand from a sitting position and felt sciatica symptoms down her left leg, complains of the pain in her left hip. Worse with movement, denies any wound, or range of motion deficit. States it is painful in her back when she lifts her leg. She denies any weakness, new sensation changes, she states that her pain is just worse now than usual. She takes Celebrex, amitriptyline, and Lexapro. She states that she had lumbar injections from Dr. Duarte of a steroid approximately 1 month ago. She states she takes a baby aspirin daily. She denies any allergy to Toradol, tramadol, or Robaxin. She denies being in any physical therapy right now, states that she has not had any weakness in her legs or extremities, she denies any new sensation changes. She endorses that she sometimes has shooting pain from her left lateral hip down to her left knee. Related Data Home Medications Medication Instructions Recorded Confirmed lisinopril 30 mg tablet 30 mg PO QAM #0 04/01/16 06/28/21 amitriptyline 10 mg tablet 10 mg PO QPM 02/26/18 06/28/21 atorvastatin 40 mg tablet (Lipitor) 40 mg PO QPM 02/26/18 06/28/21 conjugated estrogens 0.625 mg 0.625 mg PO QAM 02/26/18 06/28/21 tablet (Premarin) escitalopram oxalate 20 mg tablet 20 mg PO QAM 02/26/18 06/28/21 (Lexapro) folic acid 1 mg tablet 1 mg PO DAILY 02/26/18 06/28/21 hydrochlorothiazide 25 mg tablet 25 mg PO QAM 02/26/18 06/28/21 calcium polycarbophil 625 mg 1 tab PO BID 08/10/18 06/28/21 tablet (Fiber-Tabs) cholecalciferol (vitamin D3) 50 4,000 unit PO BID 08/10/18 06/28/21 mcg (2,000 unit) capsule (Vitamin D3) cyanocobalamin (vitamin B-12) 1,000 mcg PO DAILY 08/10/18 06/28/21 1,000 mcg tablet (Vitamin B-12) [id number] acid 0.4 1 tab PO DAILY 08/10/18 06/28/21 mg-lycopene 300 mcg-lutein 250 mcg tablet (Centrum Silver) omeprazole 40 mg capsule,delayed 40 mg PO BID 08/10/18 06/28/21 release solifenacin 10 mg tablet 10 mg PO QPM 08/10/18 06/28/21 celecoxib 200 mg capsule (Celebrex) 200 mg PO DAILY 11/10/19 06/28/21 Respirinics DreamStation 2 Auto #1 ea 06/28/21 CPAP Previous Rx's Medication Instructions Recorded diclofenac sodium 1 % topical gel 4 g TOPICAL QID PRN #100 g 08/25/21 (Voltaren Arthritis Pain) lidocaine 5 % topical patch 2 patch TOPICAL DAILY PRN #15 ea 08/25/21 meloxicam 7.5 mg tablet (Mobic) 7.5 mg PO DAILY PRN #14 tab 08/25/21 methocarbamol 500 mg tablet 500 mg PO TID PRN #14 tab 08/25/21 tramadol 50 mg tablet 50 mg PO BID PRN #10 tab 08/25/21 Allergies Allergy/AdvReac Type Severity Reaction Status Date / Time piroxicam [PIROXICAM] Allergy Severe RASH Verified 08/25/21 15:37 shellfish derived Allergy Severe scallops Verified 08/25/21 15:37 [SHELLFISH DERIVED] only ANAPHYLAXIS rofecoxib [ROFECOXIB] Allergy Intermediate RASH Verified 08/25/21 15:37 bacitracin Allergy Mild rash Verified 08/25/21 15:37 [From NEOSPORIN ([id number])] neomycin Allergy Mild rash Verified 08/25/21 15:37 [From NEOSPORIN ([id number])] polymyxin B Allergy Mild rash Verified 08/25/21 15:37 [From NEOSPORIN ([id number])] Review of Systems <QIAN Willingham - Last Filed: 08/25/21 17:26> Review of Systems Narrative: General: denies fever, chills Head/Neck: denies headache, neck pain Eyes: denies visual changes, eye pain Cardio: denies chest pain, palpitations Respiratory: denies shortness of breath, cough GI: denies abdominal pain, nausea, vomiting, or diarrhea : denies dysuria, hematuria MSK: denies joint pain, muscle weakness, endorses low back pain, left hip pain, radiculopathy down her left leg occasionally, not currently Skin: denies rash, itching Neuro: denies numbness, tingling Patient History <QIAN Willingham - Last Filed: 08/25/21 17:26> Medical History Allergic rhinitis Anxiety Bilateral foot pain Chronic pain syndrome Chronic rhinosinusitis Closed L1 vertebral fracture Contusion of left hip Degenerative disc disease, cervical Degenerative disc disease, lumbar Degenerative joint disease (DJD) of hip Degenerative joint disease, ankle, foot, toe Depression Diverticulosis Excessive daytime sleepiness (~2006) Facet arthropathy, lumbar Flu GERD (gastroesophageal reflux disease) GI bleed 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 bursitis Hyperlipidemia Hypertension Insomnia, psychophysiological (~2006) Lumbar radiculopathy 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 writing associated with 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 MGUS (monoclonal gammopathy of unknown significance) Obesity (BMI 30-39.9) Obstructive sleep apnea of adult (~2006) 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 sides of body Rectal bleeding Snoring (~1984) Surgical History History of bladder suspension procedure History of colonoscopy History of hand surgery History of hysterectomy History of surgery on left wrist Hx of repair of right rotator cuff Social History marital status: details: to Bill, lives in [place] household members: spouse lives independently: Yes caregiver/support person: No housing: house Smoking Status: Never smoker alcohol intake: current Smoking Status: Never smoker alcohol intake frequency: holidays/special occasions only Substance Use Type: does not use Exam <QIAN Willingham - Last Filed: 08/25/21 17:26> Narrative Exam Narrative: Independently reviewed vitals signs and nursing notes. General: Awake, alert, nontoxic, no cardiorespiratory distress Head/Neck: Atraumatic, neck full range of motion Eyes: EOMI, conjunctiva normal Nose: nares patent, no rhinorrhea Mouth/Throat: moist mucus membranes, posterior pharynx normal, no oral lesions Cardio: Regular rate and rhythm, no peripheral edema Respiratory: respirations unlabored without wheezing, stridor, or rales. No retractions. GI: Abdomen soft, nontender MSK: Moves all extremities, neurovascularly intact, low back pain elicited with left leg raise, full range of motion intact left hip, no changes to gait or any new weakness, strength equal bilaterally upper and lower extremities, no sensation changes on my exam, cap refill less than 2 seconds left lower extremity, PT and DP pulses are 2+ without any discoloration, edema, or signs of trauma. Skin: Normal capillary refill, no rash Neuro: Normal speech and cognition, normal gait Initial Vital Signs Initial Vital Signs: Vital Signs Temperature 98.6 F 08/25/21 15:34 Pulse Rate 70 08/25/21 15:34 Respiratory Rate 22 08/25/21 15:34 Blood Pressure 166/82 H 08/25/21 15:34 Pulse Oximetry 95 08/25/21 15:34 <Breanne Burleson DO - Last Filed: 08/25/21 18:00> Initial Vital Signs Initial Vital Signs: Vital Signs Temperature 98.6 F 08/25/21 15:34 Pulse Rate 70 08/25/21 15:34 Respiratory Rate 22 08/25/21 15:34 Blood Pressure 166/82 H 08/25/21 15:34 Pulse Oximetry 95 08/25/21 15:34 Course <QIAN Willingham - Last Filed: 08/25/21 17:26> Orders Ordered: ED Orders 08/25/21 15:51 XR hip w pel if done LT 2V Stat Discontinued Medications Ketorolac Tromethamine (Ketorolac 30 Mg/Ml Vial) 15 mg IM NOW ONE Stop: 08/25/21 15:52 Last Admin: 08/25/21 16:11 Dose: 15 mg Documented by: JACKSON Lidocaine (Lidocaine Patch 1 Each Adh..Patch) 1 each TOP NOW ONE Stop: 08/25/21 15:49 Last Admin: 08/25/21 16:12 Dose: 1 each Documented by: JACKSON Methocarbamol (Methocarbamol 500 Mg Tablet) 500 mg PO NOW ONE Stop: 08/25/21 15:49 Last Admin: 08/25/21 16:12 Dose: 500 mg Documented by: JACKSON Tramadol HCl (Tramadol 50 Mg Tablet) 50 mg PO NOW ONE Stop: 08/25/21 15:49 Last Admin: 08/25/21 16:12 Dose: 50 mg Documented by: JACKSON Vital Signs Vital signs: Vital Signs - 8 hr 08/25/21 15:34 08/25/21 17:34 Temperature 98.6 F Pulse Rate 70 78 Respiratory Rate 22 18 Blood Pressure 166/82 H 170/76 H Pulse Oximetry 95 93 <Breanne Burleson DO - Last Filed: 08/25/21 18:00> Orders Ordered: ED Orders 08/25/21 15:51 XR hip w pel if done LT 2V Stat Discontinued Medications Ketorolac Tromethamine (Ketorolac 30 Mg/Ml Vial) 15 mg IM NOW ONE Stop: 08/25/21 15:52 Last Admin: 08/25/21 16:11 Dose: 15 mg Documented by: JACKSON Lidocaine (Lidocaine Patch 1 Each Adh..Patch) 1 each TOP NOW ONE Stop: 08/25/21 15:49 Last Admin: 08/25/21 16:12 Dose: 1 each Documented by: JACKSON Methocarbamol (Methocarbamol 500 Mg Tablet) 500 mg PO NOW ONE Stop: 08/25/21 15:49 Last Admin: 08/25/21 16:12 Dose: 500 mg Documented by: JACKSON Tramadol HCl (Tramadol 50 Mg Tablet) 50 mg PO NOW ONE Stop: 08/25/21 15:49 Last Admin: 08/25/21 16:12 Dose: 50 mg Documented by: JACKSON Vital Signs Vital signs: Vital Signs - 8 hr 08/25/21 15:34 08/25/21 17:34 Temperature 98.6 F Pulse Rate 70 78 Respiratory Rate 22 18 Blood Pressure 166/82 H 170/76 H Pulse Oximetry 95 93 MDM - Extremity Injury (Lower) <Eve Grzegorz Boles, [facility] - Last Filed: 08/25/21 17:26> Imaging Data hip xray w/pelvis: Radiologist's Impression: PROCEDURE:? XR HIP W PEL IF DONE LT 2V ? INDICATIONS:? anterior left hip pain, low back pain w/sciatica ? TECHNIQUE:? Left views of the hip were acquired.? ? COMPARISON:? [facility], CR, XR HIP W PEL IF DONE RT 2V, 09/16/2020, 15:08. ? FINDINGS:? ? Bones:? No fractures or dislocations.? No suspicious bony lesions.? The visualized pelvic ring appears intact.? Severe bilateral joint space narrowing and small marginal osteophytes present.? Femoral head contour within normal limits.? Degenerative changes noted lower lumbar spine. ? Soft tissues:? No suspicious soft tissue calcifications or masses.? ? IMPRESSION:? ? 1. No fracture or dislocation. ? 2. Bilateral hip osteoarthritis ? ? ? Approved by: Rinku Tamez M.D. on 08/25/2021 at 15:55? [facility] Narrative Medical decision making narrative: This is a 76-year-old female with history of lumbar radiculopathy, osteoarthritis of multiple sites, chronic pain syndrome, degenerative joint disease of hip, obesity who presents to the emergency department complaining of exacerbation of her low back pain with sciatica and now new anterior left hip pain which started today when she was standing from a sit position. Patient had steroid injection of her lumbar spine approximately [address] Flores. She states that she was just starting to get better but a week ago she almost fell causing a flare of her low back pain. She states that she was almost improved today when she went to stand up, and had acute spasm of her low back with radiculopathy down her left leg, and new anterior hip pain. X-ray today completed as her last hip x-ray was before her fall, x-ray today shows no fracture dislocation, it does show bilateral hip osteoarthritis with severe bilateral joint space narrowing and small marginal osteophytes present. Patient was given Toradol, methocarbamol, lidocaine patch, and tramadol in the emergency department, she states that she feels much better at this time. She was given a prescription for tramadol, methocarbamol, lidocaine patches, Voltaren gel, and Mobic. She takes Prilosec daily, she was encouraged to continue taking this while on these medications and to take them with food and water. She will follow-up with Dr. Jean Baptiste. A referral to physical therapy was attempted, unable to order a referralfrom the emergency department platform but information about [facility] physical therapy was attached to her discharge paperwork. Patient was encouraged to follow-up with Dr. Jean Baptiste, and to return to the emergency department for any new onset weakness, uncontrolled pain, sensation changes, or any other concern. Patient is appropriate and amenable to discharge home. Vital signs are stable on repeat examination is unremarkable. Patient has been informed of results. Patient has been given strict return to ER precautions for any new or worsening symptoms. Patient understands to follow up closely with outpatient providers as instructed. Patient understands plan and agrees to discharge home. All questions and concerns answered at this time. Discharge Plan Departure Patient Disposition: Home Clinical Impression: Low back pain radiating to left lower extremity Osteoarthritis of both hips Qualifiers: Osteoarthritis type: unspecified Qualified Code(s): M16.0 - Bilateral primary osteoarthritis of hip Instructions: Sciatica, Osteoarthritis, DI for Back Pain With Sciatica Activity Restrictions/Additional Instructions: *You have been diagnosed with osteoarthritis in both of your hips, low back pain with sciatica symptoms on your left leg. Please see Dr. Jean Baptiste for a referral to physical therapy as I am unable to do that from the emergency department unfortunately. You may call [facility] physical therapy in [facility] and make an appointment and see if that works for you however I think you might need a referral. I have attached their contact information below. Please use these medications I have prescribed for you to help you deal with this flare of your symptoms. Please follow-up with Dr. Jean Baptiste about what to do about this in the fpc. Please follow-up with Dr. Duarte as well. I have sent your medications to [email or web address] in [place]. Please take your other medications as prescribed, use heat, ice, light activity to help yourself at home. Thank you for trusting us with your care, I hope you start feeling better soon. *What to do: *Please continue to take your regular medications as directed. [x ] New medication prescriptions sent to your pharmacy: [Lynnette Pratt ] [ ] New medication written as a paper prescription [ ] No new medications given *Please follow up with your primary care provider in 2-3 days, call for an appointment. Let them know you were seen in the Emergency Department and that we asked that you be seen for follow-up. We will electronically transmit a record of today's note if your PCP is in our system *If you do not have a primary care provider please contact [phone] to establish care with one of the [facility] primary care providers. *Return to Emergency Department if you should have any new, worsening or concerning symptoms, such as [fever greater than 101F, chills, worsening pain, persistent vomiting or other bothersome symptoms] Prescriptions: New diclofenac sodium [Voltaren Arthritis Pain] 1 % gel 4 g topical QID PRN (Reason: pain) Qty: 100 0RF Rx Instructions: apply to single knee, ankle, foot; for foot includes sole/toes/top of foot lidocaine 5 % adhesive patch,medicated 2 patch topical DAILY PRN (Reason: pain) Qty: 15 0RF Rx Instructions: leave on most painful area for up to 12 hrs tramadol 50 mg tablet 50 mg PO BID PRN (Reason: pain) Qty: 10 0RF methocarbamol 500 mg tablet 500 mg PO TID PRN (Reason: muscle spasms) Qty: 14 0RF meloxicam [Mobic] 7.5 mg tablet 7.5 mg PO DAILY PRN (Reason: pain) Qty: 14 0RF No Action lisinopril 30 MG tablet 30 mg PO QAM Qty: 0 0RF cyanocobalamin (vitamin B-12) [Vitamin B-12] 1,000 mcg Tablet 1,000 mcg PO DAILY 0RF omeprazole 40 mg capsule,delayed release(DR/EC) 40 mg PO BID 0RF calcium polycarbophil [Fiber-Tabs] 625 mg Tablet 1 tab PO BID 0RF solifenacin 10 mg tablet 10 mg PO QPM 0RF Centrum Silver 0.4-300-250 mg-mcg-mcg Tablet 1 tab PO DAILY 0RF cholecalciferol (vitamin D3) [Vitamin D3] 2,000 unit Capsule 4,000 unit PO BID 0RF celecoxib [Celebrex] 200 mg Capsule 200 mg PO DAILY 0RF conjugated estrogens [Premarin] 0.625 mg tablet 0.625 mg PO QAM 0RF hydrochlorothiazide 25 mg tablet 25 mg PO QAM 0RF escitalopram oxalate [Lexapro] 20 mg tablet 20 mg PO QAM 0RF folic acid 1 mg tablet 1 mg PO DAILY 0RF atorvastatin [Lipitor] 40 mg tablet 40 mg PO QPM 0RF amitriptyline 10 mg tablet 10 mg PO QPM 0RF (DME) Respirinics DreamStation 2 Auto CPAP kit Qty: 1 0RF Dose Instruction: As directed Label Comments: Pressure: 7-14 cmH2O DME: [employer] Rx Instructions: As directed Referrals: [facility] [Outside] David Flores DO [Physician] - As soon as possible Ana Paula Jean Baptiste MD [Primary Care Provider] - <Breanne Burleson DO - Last Filed: 08/25/21 18:00> Cosign ED Attending Cosignature Attestation: I was immediately available in the department for consultation. Documentation has been reviewed.
[2021-08-25] MEDS: KETOROLAC 30 MG/ML VIAL 15 MG IM (16:11)
[2021-08-25] MEDS: TRAMADOL 50 MG TABLET PO (16:12)
[2021-08-25] MEDS: LIDOCAINE PATCH 1 EACH ADH..PATCH TOP (16:12)
[2021-08-25] MEDS: methocarbamoL 500 MG TABLET PO (16:12)
[2021-08-25 17:34] VITALS: BP 170/76; PULSE 78; RESP 18; O2SAT 93
== END 2021-08-25 17:35 | disposition home or self-care (01) ==
PROVIDERS: Emergency Provider Nurse Practitioner Critical Care Medicine; PCP Family Medicine
DX: M54.42 Lumbago with sciatica, left side (principal); M16.0 Bilateral primary osteoarthritis of hip
CPT/HCPCS: 73502; 96372; 99283; J1885

== ENCOUNTER → 2021-09-03 16:31 | Outpatient (CLI) | payer MEDICARE, OTHER, SELFPAY ==
[2021-07-04 11:37] VITALS: BMI 39.9
--- NOTE | 2021-09-03 16:32 | DI.MRI.S_ITS ---
PROCEDURE: MR FEMUR LT WO CON INDICATIONS: left distal hamstring tear TECHNIQUE: Noncontrast coronal and sagittal T1 spin echo and STIR; axial T1 spin echo and T2 fast spin echo with fat saturation through the left thigh. COMPARISON: [facility], CR, XR HIP W PEL IF DONE LT 2V, 08/25/2021, 15:52. FINDINGS: Image quality: Excellent. Bones: The visualized bone marrow demonstrates normal signal on all sequences. The overlying cortex appears intact. No fractures lines or intra-osseous lesions. Soft tissues: There is partial tear of the conjoint hamstring tendon near its insertion to ischial tuberosity with edema and fluid signal along the hamstring tendon extending to the musculotendinous junction. There is a small intramuscular hematoma adjacent to the conjoint tendon. There is mild edema in the gluteus maximum muscle, consistent with mild muscle strain. There is also edema at the musculotendinous junctions of the distal biceps femoris tendon and semitendinous tendon, compatible with strain. Mild subcutaneous edema in the posterior thigh. No subcutaneous soft tissue masses or hematomas are present. IMPRESSION: 1. Partial tear (grade 2) of the proximal conjoint hamstring tendon. 2. Strain of the distal biceps femoris and semitendinosus muscle-tendon junctions. 3. Mild strain of gluteus maximum muscle. Dictated by: Tom Sena M.D. on 09/04/2021 at 8:06 Approved by: Tom Sena M.D. on 09/04/2021 at 11:04
== END ==
PROVIDERS: PCP Family Medicine; Referring Provider Physical Medicine & Rehabilitation; Visit Provider Physical Medicine & Rehabilitation
DX: S76.312A Strain of muscle, fascia and tendon of the posterior muscle group at thigh level, left thigh, initial encounter (principal); M47.26 Other spondylosis with radiculopathy, lumbar region; D47.2 Monoclonal gammopathy; R26.81 Unsteadiness on feet; X58.XXXA Exposure to other specified factors, initial encounter
CPT/HCPCS: 73718; 99215

== ENCOUNTER → 2021-10-08 10:31 | Outpatient (CLI) | payer MEDICARE, OTHER, SELFPAY ==
[2021-07-04 11:37] VITALS: BMI 39.9
[2021-10-08 11:30] LABS: COVID19 -Nasal RAPID Negative (Negative)
== END ==
PROVIDERS: PCP Family Medicine; Visit Provider Physical Medicine & Rehabilitation
DX: Z20.822 Contact with and (suspected) exposure to COVID-19 (principal)
CPT/HCPCS: 87635; C9803

== ENCOUNTER 2021-10-09 14:50 | Outpatient (CLI) | payer MEDICARE, OTHER, SELFPAY ==
[2021-07-04 11:37] VITALS: BMI 39.9
[2021-10-09] VITALS (8 sets, daily range): BP systolic 147–192; BP diastolic 74–94; PULSE 67–84; RESP 13–23; O2SAT 93–97
--- NOTE | 2021-10-09 14:51 | DI.RAD.S_ITS ---
PROCEDURE: PAIN L/S TRANSFORAMINAL INJECT INDICATIONS: SPONDYLOSIS COMPARISON: [facility], XA, PAIN L INTERLAMINAR/CAUDAL INJ, 07/12/2021, 12:20. FINDINGS: Fluoroscopic spot filming was performed to verify placement of a spinal needle at the L2-L3 level, as labeled on the films. Appropriate location of the needle tip was confirmed by injection of iodinated contrast. IMPRESSION: Intraprocedural examination within normal limits. Dictated by: Sherman Alarcon M.D. on 10/09/2021 at 15:23 Approved by: Sherman Alarcon M.D. on 10/09/2021 at 15:23
[2021-10-09] MEDS: MIDAZOLAM 2 MG/2 ML VIAL IV (15:25)
[2021-10-09] MEDS: IOPAMIDOL 15 ML VIAL 3 ML INJ (15:28)
[2021-10-09] MEDS: BUPIVACAINE 0.25% (PF) VIAL 2 ML INJ (15:29)
[2021-10-09] MEDS: DEXAMETHASONE 10 MG/ML VIAL 20 MG INJ (15:29)
[2021-10-09] MEDS: BETAMETHASONE 30 MG/5 ML MDV 6 MG INJ (15:29)
--- NOTE | 2021-10-09 15:42 | P.PCN_ITS ---
Date/Time/Diagnoses Date of procedure: 10/09/21 Time of procedure: 15:43 Pre-procedure diagnosis: 1. FORAMINAL STENOSIS WITH LE SYMPTOMS Post-procedure diagnosis: same Procedure Notes Procedure: 1. FLUOROSCOPICALLY GUIDED CONTRAST CONTROLLED TRANSFORAMINAL EPIDURAL STEROID INJECTION - RIGHT L2/3 TFESI Indications: Pat is referred by Dr. Jean Baptiste for treatment of Foraminal Stenosis with right LE Symptoms Physician: David Flores Total Fluoroscopy time (seconds): 11 Total sedation minutes: 13 Complications: none Procedure in detail & Post-procedure care: FINDINGS Foraminal Nerve Root Compression secondary to disc disease and facet hypertrophy DESCRIPTION OF PROCEDURE Following review of allergy and review of potential side effects and complications, including, but not necessarily limited to, infection, allergic reaction, local tissue breakdown, stroke, temporary or permanent nerve injury, paralysis, and possible , the patient indicated that the patient understood and agreed to proceed. An informed consent document was signed by the patient, witnessed by a nurse, and placed in the patient's chart. Additionally, other treatment options including medications, modalities, and physical therapy were reviewed with the patient. After review of previous anaesthesic history and IV conscious sedation the patient was deemed safe to proceed with today?s procedure with IV conscious sedation as ASA class II designation. Safety time-out was performed to confirm patient ID, procedure to be performed and site of procedure. IV sedation was accomplished with a combination of 2mg of Versed was administered by the RN after DO order, titrated to patient comfort during the course of the procedure while the patient remained responsive to all verbal commands In the prone position following sterile prep and drape of the lumbar region, the right L2/3 posterior neuroforamen was identified fluoroscopically. The skin was anesthetized via a 25-gauge 1.5-inch needle with 1% lidocaine solution. At this point, a 25-gauge 3.5-inch spinal needle was atraumatically introduced and advanced under fluoroscopic guidance through the posterior right L2/3 neuroforamen to approximately the anterior aspect of the canal. Depth was confirmed on lateral view. Following negative aspiration, injection of approximately 1.5 cc of Isovue 200 under live fluoroscopy in the AP view c onfirmed excellent flow along the nerve root, into the epidural space without vascular or intrathecal uptake observed Radiological data, including multiple fluoroscopic views of the lumbosacral spi ne, reveal a spinal needle at the right L2/3 posterior neuroforamen. Subsequent views show flow of contrast material flowing superiorly and inferiorly along the nerve root confirming epidural flow. Subsequently, a test dose of 1.5 cc of 1% lidocaine solution was administered and patient was observed for two minutes for signs or symptoms of complications, including abdominal pain, shortness of breath, bilateral upper or lower extremity weakness, nausea and vomiting, prior to steroid injection. At this point, a total of 3cc or 20mg of dexamethasone and 6mg of betamethasone was injected without incident. The patient tolerated the procedure well without signs or symptoms of complications prior to transfer to the recovery area continued monitoring without incident. The patient was then transferred to the recovery area where they were observed for an appropriate time after the injection. The patient reported a VAS score of 7 prior to the procedure and a post-procedure VAS of 0. POST OP INSTRUCTIONS The patient was provided a Pain Log to continue to record their response to the target-specific procedure prior to follow-up visit with their referring physician. Additionally, specific post-injection care instructions and a contact number to our office were provided if concerns arise regarding possible complications associated with the procedure are suspected.
== END 2021-10-09 16:05 | disposition home or self-care (01) ==
LOC: RAD 14:51
PROVIDERS: PCP Family Medicine; Referring Provider Physical Medicine & Rehabilitation; Visit Provider Physical Medicine & Rehabilitation
DX: M48.061 Spinal stenosis, lumbar region without neurogenic 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 (principal); M51.16 Intervertebral disc disorders with radiculopathy, lumbar region
CPT/HCPCS: 64483; 99152; J0702; J1100; J2250

== ENCOUNTER 2021-12-09 07:59 | Emergency (ER) | payer MEDICARE, OTHER, SELFPAY ==
[2021-07-04 11:37] VITALS: BMI 39.9
--- NOTE | 2021-12-09 08:21 | DI.RAD.S_ITS ---
PROCEDURE: XR CHEST 1V INDICATIONS: Cough TECHNIQUE: One view of the chest was acquired. COMPARISON: [facility], , CHEST 2 VIEW, 07/02/2017, 9:25. FINDINGS: Surgical changes and devices: Left shoulder arthroplasty, partially imaged Lungs and pleura: Lungs are clear. No pleural effusions or pneumothorax. Mediastinum: Mediastinal contours appear normal. Heart size is normal. Atherosclerotic vascular calcification noted in the aortic arch. Bones and chest wall: No suspicious bony lesions. Overlying soft tissues appear unremarkable. IMPRESSION: No acute cardiopulmonary findings Approved by: Rinku Tamez M.D. on 12/09/2021 at 9:14
--- NOTE | 2021-12-09 08:23 | ED_ITS ---
HPI - URI/Sore Throat General Chief Complaint: Upper Respiratory Symptoms Stated Complaint: States viral infection- 2 wks Time Seen by Provider: 12/09/21 08:14 History of Present Illness HPI Narrative: Patient here with daughter. Patient has history of seasonal allergies. Did have a drive-through car visit with primary care this past , no tests or medications prescribed. Patient complains 2 weeks of cough runny nose sore throat fullness in the ears. Patient states current seasonal changes has made her allergies worse. Is on Fannie. Patient is supposed to be on nasal spray but is not taking it. Patient COVID vaccinated. Denies any sick contacts. Has been taking [id number] Robitussin. No dyspnea. Related Data Home Medications Medication Instructions Recorded Confirmed lisinopril 30 mg tablet 30 mg PO QAM ##0 04/01/16 06/28/21 amitriptyline 10 mg tablet 10 mg PO QPM 02/26/18 06/28/21 atorvastatin 40 mg tablet (Lipitor) 40 mg PO QPM 02/26/18 06/28/21 conjugated estrogens 0.625 mg 0.625 mg PO QAM 02/26/18 06/28/21 tablet (Premarin) escitalopram oxalate 20 mg tablet 20 mg PO QAM 02/26/18 06/28/21 (Lexapro) folic acid 1 mg tablet 1 mg PO DAILY 02/26/18 06/28/21 hydrochlorothiazide 25 mg tablet 25 mg PO QAM 02/26/18 06/28/21 calcium polycarbophil 625 mg 1 tab PO BID 08/10/18 06/28/21 tablet (Fiber-Tabs) cholecalciferol (vitamin D3) 50 4,000 unit PO BID 08/10/18 06/28/21 mcg (2,000 unit) capsule (Vitamin D3) cyanocobalamin (vitamin B-12) 1,000 mcg PO DAILY 08/10/18 06/28/21 1,000 mcg tablet (Vitamin B-12) gnshtlyf-lci-bxecu acid 0.4 1 tab PO DAILY 08/10/18 06/28/21 mg-lycopene 300 mcg-lutein 250 mcg tablet (Centrum Silver) omeprazole 40 mg capsule,delayed 40 mg PO BID 08/10/18 06/28/21 release solifenacin 10 mg tablet 10 mg PO QPM 08/10/18 06/28/21 celecoxib 200 mg capsule (Celebrex) 200 mg PO DAILY 11/10/19 06/28/21 Respirinics DreamStation 2 Auto #1 ea 06/28/21 CPAP clobetasol 0.05 % topical ointment g topical 09/03/21 Previous Rx's Medication Instructions Recorded diclofenac sodium 1 % topical gel 4 g topical QID PRN pain #100 grams 08/25/21 (Voltaren Arthritis Pain) lidocaine 5 % topical patch 2 patch topical DAILY PRN pain #15 08/25/21 ea tramadol 50 mg tablet 50 mg PO BID PRN pain #10 tabs 08/25/21 cyclobenzaprine 10 mg tablet 10 mg PO BID PRN muscle spasm #60 09/03/21 tabs diazepam 10 mg tablet (Valium) 10 mg PO .COMPLEX PRN 1-2 prior to 09/03/21 MRI and for possible steroid flare #10 tabs benzonatate 100 mg capsule 100 mg PO TID PRN cough #20 caps 12/09/21 fluticasone propionate 50 1 spray intranasal BID #16 grams 12/09/21 mcg/actuation nasal spray,suspension (Flonase Allergy Relief) amoxicillin 875 mg-potassium 1 tab PO BID 7 days #14 tabs 12/16/21 clavulanate 125 mg tablet cetirizine 10 mg tablet 10 mg PO DAILY allergy symptoms 12/16/21 #20 tabs codeine 10 mg-guaifenesin 100 mg/5 5 ml PO Q6H PRN cough #50 mL 12/16/21 mL oral liquid doxycycline hyclate 100 mg tablet 100 mg PO BID 7 days #14 tabs 12/16/21 oxycodone-acetaminophen 5 mg-325 1 tab PO Q8H PRN pain #14 tabs 12/16/21 mg tablet (Percocet) Allergies Allergy/AdvReac Type Severity Reaction Status Date / Time piroxicam [PIROXICAM] Allergy Severe RASH Verified 12/09/21 08:40 shellfish derived Allergy Severe scallops Verified 12/09/21 08:40 [SHELLFISH DERIVED] only ANAPHYLAXIS rofecoxib [ROFECOXIB] Allergy Intermediate RASH Verified 12/09/21 08:40 bacitracin Allergy Mild rash Verified 12/09/21 08:40 [From NEOSPORIN ([id number])] neomycin Allergy Mild rash Verified 12/09/21 08:40 [From NEOSPORIN ([id number])] polymyxin B Allergy Mild rash Verified 12/09/21 08:40 [From NEOSPORIN ([id number])] Review of Systems Review of Systems Narrative: GENERAL: Denies chills, fatigue, malaise, fever, sweats. HEENT: Positive for rhinorrhea and sinus pain, ear pain, sore throat RESPIRATORY: Denies dyspnea, positive for cough CARDIOVASCULAR: Denies chest pain, palpitations GASTROINTESTINAL: Denies nausea, vomiting, abdominal pain : Denies dysuria, frequency, hematuria MUSCULOSKELETAL: denies muscle or bony pain SKIN: Denies rash, skin lesions NEUROLOGIC: Denies weakness, numbness ROS Unobtainable: All systems reviewed & are unremarkable except as noted in HPI and below 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 joint disease, ankle, foot, toe Depression Diverticulosis Excessive daytime sleepiness (~2006) Facet arthropathy, lumbar Flu Gait instability GERD (gastroesophageal reflux disease) GI bleed 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 bursitis Hyperlipidemia Hypertension Insomnia, psychophysiological (~2006) Lumbar radiculopathy 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 MGUS (monoclonal gammopathy of unknown significance) Obesity (BMI 30-39.9) Obstructive sleep apnea of adult (~2006) 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 sides of body Rectal bleeding Snoring (~1984) Tear of left hamstring Surgical History History of bladder suspension procedure History of colonoscopy History of hand surgery History of hysterectomy History of surgery on left wrist Hx of repair of right rotator cuff Social History marital status: details: to Bill, lives in [place] household members: spouse lives independently: Yes caregiver/support person: No housing: house Smoking Status: Never smoker alcohol intake: current Smoking Status: Never smoker alcohol intake frequency: holidays/special occasions only Substance Use Type: does not use Exam Narrative Exam Narrative: GENERAL: in no distress, not toxic not dyspneic, has hoarse voice HEAD: Normocephalic. EYES: Pupils equal round No scleral icterus. ENT: Mucous membranes moist. Bilateral nasal mucosa edematous and erythematous with clear discharge. No pharyngeal erythema edema or exudates. No tongue elevation or drooling. Clear bilateral TM. No effusion. Canals are clear. NECK: Trachea midline. CARDIOVASCULAR: Regular rate and rhythm without murmurs RESPIRATORY: Clear to auscultation. Breath sounds equal bilaterally. No wheezes, rales, or rhonchi. Patient in no respiratory distress. Speaking full sentences GASTROINTESTINAL: Abdomen soft, non-tender EXTREMITIES: No gross deformities. BACK: No flank tenderness. NEURO: AOx4. SKIN: Warm and dry PSYCH: Not anxious, is cooperative Initial Vital Signs Initial Vital Signs: Vital Signs Temperature 98.6 F 12/09/21 08:24 Pulse Rate 87 12/09/21 08:24 Respiratory Rate 20 12/09/21 08:24 Blood Pressure 164/77 H 12/09/21 08:24 Pulse Oximetry 97 12/09/21 08:24 Oxygen Delivery Method 12/09/21 08:24 Course Course Course Narrative: No new issues during course of stay Orders Ordered: Discontinued Medications Benzonatate (Benzonatate 100 Mg Capsule) 100 mg PO NOW ONE Stop: 12/09/21 08:23 Last Admin: 12/09/21 08:45 Dose: 100 mg Documented By: VAL Oxymetazoline HCl (Oxymetazoline Nasal [place] 15 Ml) 2 sprays NASAL NOW ONE Stop: 12/09/21 08:23 Last Admin: 12/09/21 08:45 Dose: 2 sprays Documented By: VAL Reevaluation(s) Reevaluation #1: Patient feeling much better after Tessalon Perles as well as Afrin nasal spray. Nose and cough improved. They do not want wait for results of the viral swab. They will call for the results. X-ray imaging results are being read right now. They desired discharge home after results of x-ray Time: 09:34 Reevaluation #2: Patient and daughter desires discharge home. Viral swab has returned. It is negative for viral infection. X-ray however still not resulted. They desire discharge home Time: 10:12 Reevaluation #3: X-ray did results. I did review with patient before discharge Time: 10:20 Vital Signs Vital signs: Vital Signs - 8 hr 12/09/21 08:24 Temperature 98.6 F Pulse Rate 87 Respiratory Rate 20 Blood Pressure 164/77 H Pulse Oximetry 97 Oxygen Delivery Method Room Air MDM - URI/Sore Throat Differential Diagnosis Differential diagnosis: Likely upper respiratory infection, viral infection, bronchitis, influenza and other (Allergic rhinitis) Lab Data Labs: Lab Results 12/09/21 Range/Units 08:31 Chlamy pneumoniae PCR Not detected (Not Detect) Adenovirus (PCR) Not detected (Not Detect) B. pertussis DNA (PCR) Not detected (Not Detecte) B.parapertussis DNA PCR Not detected (Not Detecte) Coronavirus OC43 (PCR) Not detected (Not Detect) Coronavirus HKU1 (PCR) Not detected (Not Detect) Coronavirus 229E (PCR) Not detected (Not Detect) SARS-CoV-2 (PCR) Not detected (Not Detecte) Coronavirus NL63 (PCR) Not detected (Not Detect) Human Metapneumovir PCR Not detected (Not Detect) Influenza Type A (PCR) Not detected (Not Detect) Influenza Type B (PCR) Not detected (Not Detect) M. pneumoniae (PCR) Not detected (Not Detect) Parainfluenza 1 (PCR) Not detected (Not Detect) Parainfluenza 2 (PCR) Not detected (Not Detect) Parainfluenza 3 (PCR) Not detected (Not Detect) Parainfluenza 4 (PCR) Not detected (Not Detect) RSV (PCR) Not detected (Not Detect) Entero/Rhino (PCR) Not detected (Not Detect) Imaging Data Chest x-ray: Radiologist's Impression: [address] [address] XRay Report Signed Patient: Pat Jackson MR#: [id number] : 1945 Acct:[id number] Age/Sex: 76 / F Date of Service: 12/09/21 Loc: ED Accession Number: [id number] ?? Procedure: XR chest 1V Ordering Provider: Qamar George MD PROCEDURE:? XR CHEST 1V ? INDICATIONS:? Cough ? TECHNIQUE:? One view of the chest was acquired.? ? COMPARISON:? [facility], CR, CHEST 2 VIEW, 07/02/2017, 9:25. ? FINDINGS:? ? Surgical changes and devices:? Left shoulder arthroplasty, partially imaged ? Lungs and pleura:? Lungs are clear.? No pleural effusions or pneumothorax.? ? Mediastinum:? Mediastinal contours appear normal.? Heart size is normal.? Atherosclerotic vascular calcification noted in the aortic arch. ? Bones and chest wall:? No suspicious bony lesions.? Overlying soft tissues appear unremarkable.? ? IMPRESSION:? No acute cardiopulmonary findings ? ? ? Approved by: Rinku Tamez M.D. on 12/09/2021 at 9:14? MDM Narrative Medical decision making narrative: Appropriate for discharge home. Labs and imaging are reassuring as well as exam. Likely allergic rhinitis. Patient provided new medications to help with symptoms. Medications here has helped her cough and runny nose already. Return precautions reviewed with her. They desired discharge home. Discharge Plan Departure Patient Disposition: Home Clinical Impression: Allergic rhinitis, Acute upper respiratory infection Instructions: DI for Viral Upper Respiratory Infection -- Adult, DI for Allergic Rhinitis Activity Restrictions/Additional Instructions: Be sure to continue your allergy medications. Prescription for cough medication as well as Flonase has been provided for you. See family doctor in a week for re-evaluation. Return if worsening questions concerns or if any trouble breathing. Use Afrin spray once a day for total of 3 days. Prescriptions: New benzonatate 100 mg capsule 100 mg PO TID PRN (Reason: cough) Qty: 20 0RF fluticasone propionate [Flonase Allergy Relief] 50 mcg/actuation spray,suspension 1 spray intranasal BID Qty: 16 0RF Rx Instructions: administer into each nostril No Action lisinopril 30 MG tablet 30 mg PO QAM Qty: 0 diclofenac sodium [Voltaren Arthritis Pain] 1 % gel 4 g topical QID PRN (Reason: pain) Qty: 100 0RF Rx Instructions: apply to single knee, ankle, foot; for foot includes sole/toes/top of foot lidocaine 5 % adhesive patch,medicated 2 patch topical DAILY PRN (Reason: pain) Qty: 15 0RF Rx Instructions: leave on most painful area for up to 12 hrs tramadol 50 mg tablet 50 mg PO BID PRN (Reason: pain) Qty: 10 0RF codeine-guaifenesin 10-100 mg/5 mL liquid 5 ml PO Q6H PRN (Reason: cough) Qty: 50 0RF oxycodone-acetaminophen [Percocet] 5-325 mg tablet 1 tab PO Q8H PRN (Reason: pain) Qty: 14 0RF doxycycline hyclate 100 mg tablet 100 mg PO BID 7 Days Qty: 14 0RF cetirizine 10 mg tablet 10 mg PO DAILY Qty: 20 0RF amoxicillin-pot clavulanate 875-125 mg tablet 1 tab PO BID 7 Days Qty: 14 0RF cyanocobalamin (vitamin B-12) [Vitamin B-12] 1,000 mcg Tablet 1,000 mcg PO DAILY omeprazole 40 mg capsule,delayed release(DR/EC) 40 mg PO BID calcium polycarbophil [Fiber-Tabs] 625 mg Tablet 1 tab PO BID solifenacin 10 mg tablet 10 mg PO QPM Centrum Silver 0.4-300-250 mg-mcg-mcg Tablet 1 tab PO DAILY cholecalciferol (vitamin D3) [Vitamin D3] 2,000 unit Capsule 4,000 unit PO BID celecoxib [Celebrex] 200 mg Capsule 200 mg PO DAILY conjugated estrogens [Premarin] 0.625 mg tablet 0.625 mg PO QAM hydrochlorothiazide 25 mg tablet 25 mg PO QAM escitalopram oxalate [Lexapro] 20 mg tablet 20 mg PO QAM folic acid 1 mg tablet 1 mg PO DAILY atorvastatin [Lipitor] 40 mg tablet 40 mg PO QPM amitriptyline 10 mg tablet 10 mg PO QPM clobetasol 0.05 % ointment topical cyclobenzaprine 10 mg tablet 10 mg PO BID PRN (Reason: muscle spasm) Qty: 60 1RF diazepam [Valium] 10 mg tablet 10 mg PO .COMPLEX MDD 3 tabs PRN (Reason: 1-2 prior to MRI and for possible steroid flare) Qty: 10 0RF Rx Instructions: 10 mg PO PRN; (DME) Respirinics DreamStation 2 Auto CPAP kit Qty: 1 Dose Instruction: As directed Label Comments: Pressure: 7-14 cmH2O DME: [employer] Rx Instructions: As directed Referrals: Ana Paula Jean Baptiste MD [Primary Care Provider] - Visit Report Forms: Patient Portal/API
[2021-12-09 08:24] VITALS: BP 164/77; PULSE 87; RESP 20; TEMP 37; O2SAT 97
[2021-12-09 08:37] VITALS: BMI 38.9
[2021-12-09] MEDS: BENZONATATE 100 MG CAPSULE PO (08:45)
[2021-12-09] MEDS: OXYMETAZOLINE NASAL SPRAY 15 ML 2 SPRAYS NASAL (08:45)
[2021-12-09 10:09] LABS: Adenovirus Not Detected (Not Detect); B. parapertussis Not Detected (Not Detecte); Bordetella pertussis Not Detected (Not Detecte); Chlamydophila pneumoniae Not Detected (Not Detect); Coronavirus 229E Not Detected (Not Detect); Coronavirus HKU1 Not Detected (Not Detect); Coronavirus NL 63 Not Detected (Not Detect); Coronavirus OC43 Not Detected (Not Detect); Human Metapneumovirus Not Detected (Not Detect); Human Rhinovirus/Enterovirus Not Detected (Not Detect); Influenza A Not Detected (Not Detect); Influenza B Not Detected (Not Detect); Mycoplasma pneumoniae Not Detected (Not Detect); Parainfluenza Virus 1 Not Detected (Not Detect); Parainfluenza Virus 2 Not Detected (Not Detect); Parainfluenza Virus 3 Not Detected (Not Detect); Parainfluenza Virus 4 Not Detected (Not Detect); Respiratory Syncytial Virus Not Detected (Not Detect); SARS- CoV-2 Not Detected (Not Detecte)
== END 2021-12-09 10:28 | disposition home or self-care (01) ==
PROVIDERS: Emergency Provider Emergency Medicine; PCP Family Medicine
DX: J06.9 Acute upper respiratory infection, unspecified (principal); J30.9 Allergic rhinitis, unspecified; Z20.822 Contact with and (suspected) exposure to COVID-19
CPT/HCPCS: 71045; 87633; 99283; 99284; A9270

== ENCOUNTER 2021-12-16 11:36 | Emergency (ER) | payer MEDICARE, OTHER, SELFPAY ==
[2021-07-04 11:37] VITALS: BMI 39.9
[2021-12-16] VITALS (9 sets, daily range): BP systolic 116–165; BP diastolic 57–95; PULSE 83–91; RESP 18–36; TEMP 37.1; O2SAT 89–98; BMI 39.5
--- NOTE | 2021-12-16 12:54 | DI.RAD.S_ITS ---
PROCEDURE: XR SHOULDER LT MIN 2V INDICATIONS: Pain post mechanical fall TECHNIQUE: 3 views of the shoulder were acquired. COMPARISON: [facility], CR, XR HAND LT MIN 3V, 12/16/2021, 13:48. [facility], CR, XR HIP W PEL IF DONE RT 2V, 12/16/2021, 13:48. [facility], CR, XR SHOULDER LT MIN 2V, 03/17/2020, 17:39. FINDINGS: Bones: No fractures or dislocations. No suspicious bony lesions. Visualized ribs appear intact. Left shoulder arthroplasty hardware is seen. No findings of hardware failure or hardware loosening are seen. Age-appropriate bony degenerative changes are seen. Soft tissues: No suspicious soft tissue calcifications. The visualized lung demonstrates an unremarkable appearance. IMPRESSION: Unremarkable left shoulder arthroplasty hardware, without acute abnormality seen. Dictated by: Sherman Alarcon M.D. on 12/16/2021 at 12:32 Approved by: Sherman Alarcon M.D. on 12/16/2021 at 12:33
--- NOTE | 2021-12-16 12:55 | DI.RAD.S_ITS ---
PROCEDURE: XR HAND LT MIN 3V INDICATIONS: Pain post mechanical fall TECHNIQUE: Three views of the hand(s) acquired. COMPARISON: None. FINDINGS: Bones: Mild periarticular demineralization. There is extensive joint space loss and osseous remodeling involving the interphalangeal joints diffusely, 1st, and 5th metacarpal phalangeal joints, and irregularity and osseous hypertrophy at the 1st carpometacarpal joint. There is severe marginal spurring at the 2nd through 4th interphalangeal joints. No visible fractures. Soft tissues: Linear, likely periarticular soft tissue calcifications adjacent to the 3rd MCP joint. There is a radiodense foreign body in the thenar soft tissues. IMPRESSION: 1. No visible acute fracture. 2. Severe arthritic changes. 3. Soft tissue foreign body in the thenar eminence. Correlate with soft tissue injury or laceration. Dictated by: Paty Zambrano M.D. on 12/16/2021 at 13:37 Approved by: Paty Zambrano M.D. on 12/16/2021 at 13:40
--- NOTE | 2021-12-16 12:57 | DI.RAD.S_ITS ---
PROCEDURE: XR HIP W PEL IF DONE RT 2V INDICATIONS: Pain post mechanical fall TECHNIQUE: AP pelvis with lateral view(s) of the right hip(s). COMPARISON: [facility], CR, XR HAND LT MIN 3V, 12/16/2021, 13:48. [facility], CR, XR HIP W PEL IF DONE LT 2V, 08/25/2021, 15:52. FINDINGS: Bones: No fractures or dislocations. Pelvic ring appears intact. No suspicious bony lesions. Note is made of osteitis pubis, which is not considered to be frankly abnormal in a woman of this age. Age-appropriate lower lumbar spine degenerative changes are noted. There is moderate to severe superior joint space narrowing seen of both hips, with associated remodeling changes with subchondral sclerosis and osteophyte formation. Soft tissues: The visualized bowel gas pattern is normal. No suspicious soft tissue calcifications. IMPRESSION: No displaced fractures are seen on these plain films. If there is point tenderness (or other clinical suspicion for a fracture not seen on these images) then a dedicated CT could be considered for further evaluation, if clinically appropriate. Moderate to severe bilateral hip degenerative change can be seen. Dictated by: Sherman Alarcon M.D. on 12/16/2021 at 12:30 Approved by: Sherman Alarcon M.D. on 12/16/2021 at 12:31
--- NOTE | 2021-12-16 13:53 | DI.RAD.S_ITS ---
PROCEDURE: XR CHEST 2V INDICATIONS: wheezing TECHNIQUE: 2 views of the chest were acquired. COMPARISON: [facility], CR, XR CHEST 1V, 12/09/2021, 8:41. FINDINGS: Surgical changes and devices: Left shoulder reverse arthroplasty. Lungs and pleura: Slight coarsening of the interstitial markings. No dense consolidations or visible pleural effusions. Mediastinum: Mediastinal contours are normal. Heart size is normal. Bones and chest wall: No suspicious bony abnormalities. Soft tissues appear unremarkable. IMPRESSION: 1. Mild interstitial thickening may indicate edema or emphysema. Correlate clinically. 2. No consolidation or pleural effusion. Dictated by: Paty Zambrano M.D. on 12/16/2021 at 15:05 Approved by: Paty Zambrano M.D. on 12/16/2021 at 15:06
--- NOTE | 2021-12-16 13:59 | ED_ITS ---
HPI - Fall <Eve Boles [facility] - Last Filed: 12/16/21 17:52> General Chief Complaint: Fall Stated Complaint: fell hurt rt hip lt fingers Time Seen by Provider: 12/16/21 13:27 Source: patient Mode of arrival: Ambulatory History of Present Illness HPI Narrative: This is a 76-year-old female who presents to the emergency department after a mechanical fall at home after she tripped over her dog. 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 Patient reports that she did not hit her head, does not have any new weakness, balance issues, but does endorse having three weeks of allergy symptoms, a cough wheezing fatigue, states that she was prescribed allergy medicine by her primary care provider and Bactrim for URI five days ago on December 11, 2021. She reports that she has not gotten any better on this medication. States that she is having wheezing daily, denies any fever but states that she is hot and cold, de nies any chest pain, difficulty breathing, difficulty swallowing, or being on a steroid. Denies history of diabetes. Has a history of chronic pain, degenerative joint disease, osteoarthritis and back pain. Related Data Home Medications Medication Instructions Recorded Confirmed lisinopril 30 mg tablet 30 mg PO QAM ##0 04/01/16 06/28/21 amitriptyline 10 mg tablet 10 mg PO QPM 02/26/18 06/28/21 atorvastatin 40 mg tablet (Lipitor) 40 mg PO QPM 02/26/18 06/28/21 conjugated estrogens 0.625 mg 0.625 mg PO QAM 02/26/18 06/28/21 tablet (Premarin) escitalopram oxalate 20 mg tablet 20 mg PO QAM 02/26/18 06/28/21 (Lexapro) folic acid 1 mg tablet 1 mg PO DAILY 02/26/18 06/28/21 hydrochlorothiazide 25 mg tablet 25 mg PO QAM 02/26/18 06/28/21 calcium polycarbophil 625 mg 1 tab PO BID 08/10/18 06/28/21 tablet (Fiber-Tabs) cholecalciferol (vitamin D3) 50 4,000 unit PO BID 08/10/18 06/28/21 mcg (2,000 unit) capsule (Vitamin D3) cyanocobalamin (vitamin B-12) 1,000 mcg PO DAILY 08/10/18 06/28/21 1,000 mcg tablet (Vitamin B-12) sfhgccim-ebr-arlvh acid 0.4 1 tab PO DAILY 08/10/18 06/28/21 mg-lycopene 300 mcg-lutein 250 mcg tablet (Centrum Silver) omeprazole 40 mg capsule,delayed 40 mg PO BID 08/10/18 06/28/21 release solifenacin 10 mg tablet 10 mg PO QPM 08/10/18 06/28/21 celecoxib 200 mg capsule (Celebrex) 200 mg PO DAILY 11/10/19 06/28/21 Respirinics DreamStation 2 Auto #1 ea 06/28/21 CPAP clobetasol 0.05 % topical ointment g topical 09/03/21 Previous Rx's Medication Instructions Recorded diclofenac sodium 1 % topical gel 4 g topical QID PRN pain #100 grams 08/25/21 (Voltaren Arthritis Pain) lidocaine 5 % topical patch 2 patch topical DAILY PRN pain #15 08/25/21 ea tramadol 50 mg tablet 50 mg PO BID PRN pain #10 tabs 08/25/21 cyclobenzaprine 10 mg tablet 10 mg PO BID PRN muscle spasm #60 09/03/21 tabs diazepam 10 mg tablet (Valium) 10 mg PO .COMPLEX PRN 1-2 prior to 09/03/21 MRI and for possible steroid flare #10 tabs benzonatate 100 mg capsule 100 mg PO TID PRN cough #20 caps 12/09/21 fluticasone propionate 50 1 spray intranasal BID #16 grams 12/09/21 mcg/actuation nasal spray,suspension (Flonase Allergy Relief) amoxicillin 875 mg-potassium 1 tab PO BID 7 days #14 tabs 12/16/21 clavulanate 125 mg tablet cetirizine 10 mg tablet 10 mg PO DAILY allergy symptoms 12/16/21 #20 tabs codeine 10 mg-guaifenesin 100 mg/5 5 ml PO Q6H PRN cough #50 mL 12/16/21 mL oral liquid doxycycline hyclate 100 mg tablet 100 mg PO BID 7 days #14 tabs 07/24/22 oxycodone-acetaminophen 5 mg-325 1 tab PO Q8H PRN pain #14 tabs 12/16/21 mg tablet (Percocet) prednisone 20 mg tablet 40 mg PO DAILY 5 days #10 tabs 12/16/21 Allergies Allergy/AdvReac Type Severity Reaction Status Date / Time piroxicam [PIROXICAM] Allergy Severe RASH Verified 12/09/21 08:40 shellfish derived Allergy Severe scallops Verified 12/09/21 08:40 [SHELLFISH DERIVED] only ANAPHYLAXIS rofecoxib [ROFECOXIB] Allergy Intermediate RASH Verified 12/09/21 08:40 bacitracin Allergy Mild rash Verified 12/09/21 08:40 [From NEOSPORIN ([id number])] neomycin Allergy Mild rash Verified 12/09/21 08:40 [From NEOSPORIN ([id number])] polymyxin B Allergy Mild rash Verified 12/09/21 08:40 [From NEOSPORIN ([id number])] Review of Systems <QIAN Willingham - Last Filed: 12/16/21 17:52> Review of Systems Narrative: General: denies fever, chills, malaise, sweats, endorses feeling hot and cold and having fatigue Head/Neck: denies headache, neck pain, dizziness Eyes: denies visual changes, eye pain Cardio: denies chest pain, palpitations, edema Respiratory: Endorses having a cough, wheezing, shortness of breath, denies orthopnea GI: Denies abdominal pain, vomiting, blood in stool, changes to bowel : denies dysuria, hematuria, urinary retention, frequency or incontinence MSK: denies joint pain, muscle weakness Skin: denies rash, itching, skin lesions or other Neuro: denies numbness, tingling Patient History <QIAN Willingham - Last Filed: 12/16/21 17:52> Medical History Allergic rhinitis Anxiety Bilateral foot pain Chronic pain syndrome Chronic rhinosinusitis Closed L1 vertebral fracture Contusion of left hip Degenerative disc disease, cervical Degenerative disc disease, lumbar Degenerative joint disease (DJD) of hip Degenerative joint disease, ankle, foot, toe Depression Diverticulosis Excessive daytime sleepiness (~2006) Facet arthropathy, lumbar Flu Gait instability GERD (gastroesophageal reflux disease) GI bleed 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 bursitis Hyperlipidemia Hypertension Insomnia, psychophysiological (~2006) Lumbar radiculopathy director 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 associated with 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 MGUS (monoclonal gammopathy of unknown significance) Obesity (BMI 30-39.9) Obstructive sleep apnea of adult (~2006) 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 sides of body Rectal bleeding Snoring (~1984) Tear of left hamstring Surgical History History of bladder suspension procedure History of colonoscopy History of hand surgery History of hysterectomy History of surgery on left wrist Hx of repair of right rotator cuff Social History marital status: details: julienne Mirza, lives in [place] household members: spouse lives independently: Yes caregiver/support person: No housing: house Smoking Status: Never smoker alcohol intake: current Smoking Status: Never smoker alcohol intake frequency: holidays/special occasions only Substance Use Type: does not use Exam <QIAN Willingham - Last Filed: 12/16/21 17:52> Narrative Exam Narrative: Independently reviewed vitals signs and nursing notes. General: cooperative, comfortable, in no acute distress, well groomed Head: atraumatic, symmetrical facial expressions Neck: supple Eyes: equal round and reactive, EOMI, conjunctiva normal Nose: nares patent, +congestion Mouth/Throat: moist mucus membranes Cardiovascular: regular rate and rhythm, no peripheral edema, warm extremities, S1-S2 without murmur Respiratory: normal effort, able to speak in complete sentences, no audible wheezing, stridor, or rales. Course breath sounds throughout ace, generally diminished, No retractions or tachypnea. GI: abdomen soft, nontender to palpation, nondistended, no masses, no exquisite tenderness with exam, without guarding or rebound. MSK: moves all extremities, neurovascularly intact, no weakness, normal tone Skin: brisk capillary refill, no rash, no erythema Neuro: normal speech and cognition, A&O x3 Psych: mental status is grossly normal, congruent mood, normal affect, pleasant and cooperative Initial Vital Signs Initial Vital Signs: Vital Signs Temperature 98.7 F 12/16/21 11:51 Pulse Rate 88 12/16/21 11:51 Respiratory Rate 18 12/16/21 11:51 Blood Pressure 165/95 H 12/16/21 11:51 Pulse Oximetry 95 12/16/21 11:51 Oxygen Delivery Method 12/16/21 11:51 <Davida Pitt DO - Last Filed: 12/17/21 08:44> Initial Vital Signs Initial Vital Signs: Vital Signs Temperature 98.7 F 12/16/21 11:51 Pulse Rate 88 12/16/21 11:51 Respiratory Rate 18 12/16/21 11:51 Blood Pressure 165/95 H 12/16/21 11:51 Pulse Oximetry 95 12/16/21 11:51 Oxygen Delivery Method 12/16/21 11:51 Scores <QIAN Willingham - Last Filed: 12/16/21 17:52> CURB-65 Confusion: Yes Respiratory rate greater or equal to 30: No SBP <90mmHg or DBP less or equal to 60mmHg: No Age 65 or Older: Yes Score 0-1 Outpatient care, Score 2 Inpt vs. Obs, Score 3 or over Inpt admit with ICU for score of 4-5 SOFA Platelets: >= 150 Buster Coma Scale: 15 Course <QIAN Willingham - Last Filed: 12/16/21 17:52> Orders Ordered: Discontinued Medications Albuterol (Albuterol 2.5 Mg/3 Ml Neb (Adult)) 2.5 mg INH NOW ONE Stop: 12/16/21 15:27 Last Admin: 12/16/21 15:47 Dose: 2.5 mg Documented By: RUDDY Amoxicillin/Clavulanate Potassium (Amoxicillin/Clav 875/125 Mg) 1 tab PO NOW ONE Stop: 12/16/21 16:07 Last Admin: 12/16/21 16:14 Dose: 1 tab Documented By: NR Doxycycline Hyclate (Doxycycline Hyclate 100 Mg Tablet) 100 mg PO NOW ONE Stop: 12/16/21 16:06 Last Admin: 12/16/21 16:16 Dose: 100 mg Documented By: NR Azithromycin 500 mg/ Dextrose 250 mls @ 250 mls/hr IV NOW ONE Stop: 12/16/21 16:04 Last Admin: 12/16/21 16:13 Dose: Not Given Documented By: NR Ipratropium Boswell (Ipratropium 0.5 Mg/2.5 Ml Neb) 1.5 mg INH NOW ONE Stop: 12/16/21 13:54 Last Admin: 12/16/21 16:03 Dose: Not Given Documented By: NR Methylprednisolone (Methylprednisolone 125 Mg/2 Ml Vial) 125 mg IV NOW ONE Stop: 12/16/21 17:13 Last Admin: 12/16/21 17:15 Dose: 125 mg Documented By: GABRIELLA Oxycodone/Acetaminophen (Oxycodone/Acetaminophen 5/325 Tablet) 1 tab PO NOW ONE Stop: 12/16/21 13:54 Last Admin: 12/16/21 14:45 Dose: 1 tab Documented By: KRIS Oxycodone/Acetaminophen (Oxycodone/Apap 5/325 Prepack) 1 bottle MISC SEEINSTR ONE Stop: 12/16/21 17:44 Last Admin: 12/16/21 18:04 Dose: 1 bottle Documented By: NR Vital Signs Vital signs: Vital Signs - 8 hr 12/16/21 11:51 12/16/21 14:38 12/16/21 15:31 Temperature 98.7 F Pulse Rate 88 83 84 Respiratory Rate 18 26 H 36 H Blood Pressure 165/95 H 153/69 H 133/62 Pulse Oximetry 95 93 89 L Oxygen Delivery Method Room Air Room Air Room Air 12/16/21 16:01 12/16/21 16:58 12/16/21 17:00 Temperature Pulse Rate 85 88 85 Respiratory Rate 26 H 18 24 Blood Pressure 116/57 L 129/60 129/60 Pulse Oximetry 93 98 93 Oxygen Delivery Method Room Air Room Air Room Air 12/16/21 17:23 Temperature Pulse Rate Respiratory Rate Blood Pressure Pulse Oximetry 93 Oxygen Delivery Method Room Air <Davida Pitt DO - Last Filed: 12/17/21 08:44> Orders Ordered: Discontinued Medications Albuterol (Albuterol 2.5 Mg/3 Ml Neb (Adult)) 2.5 mg INH NOW ONE Stop: 12/16/21 15:27 Last Admin: 12/16/21 15:47 Dose: 2.5 mg Documented By: RUDDY Amoxicillin/Clavulanate Potassium (Amoxicillin/Clav 875/125 Mg) 1 tab PO NOW ONE Stop: 12/16/21 16:07 Last Admin: 12/16/21 16:14 Dose: 1 tab Documented By: NR Doxycycline Hyclate (Doxycycline Hyclate 100 Mg Tablet) 100 mg PO NOW ONE Stop: 12/16/21 16:06 Last Admin: 12/16/21 16:16 Dose: 100 mg Documented By: NR Azithromycin 500 mg/ Dextrose 250 mls @ 250 mls/hr IV NOW ONE Stop: 12/16/21 16:04 Last Admin: 12/16/21 16:13 Dose: Not Given Documented By: NR Ipratropium Boswell (Ipratropium 0.5 Mg/2.5 Ml Neb) 1.5 mg INH NOW ONE Stop: 12/16/21 13:54 Last Admin: 12/16/21 16:03 Dose: Not Given Documented By: NR Methylprednisolone (Methylprednisolone 125 Mg/2 Ml Vial) 125 mg IV NOW ONE Stop: 12/16/21 17:13 Last Admin: 12/16/21 17:15 Dose: 125 mg Documented By: NR Oxycodone/Acetaminophen (Oxycodone/Acetaminophen 5/325 Tablet) 1 tab PO NOW ONE Stop: 12/16/21 13:54 Last Admin: 12/16/21 14:45 Dose: 1 tab Documented By: KRIS Oxycodone/Acetaminophen (Oxycodone/Apap 5/325 Prepack) 1 bottle MISC SEEINSTR ONE Stop: 12/16/21 17:44 Last Admin: 12/16/21 18:04 Dose: 1 bottle Documented By: NR Vital Signs Vital signs: Vital Signs - 8 hr 12/16/21 11:51 12/16/21 14:38 12/16/21 15:31 Temperature 98.7 F Pulse Rate 88 83 84 Respiratory Rate 18 26 H 36 H Blood Pressure 165/95 H 153/69 H 133/62 Pulse Oximetry 95 93 89 L Oxygen Delivery Method Room Air Room Air Room Air 12/16/21 16:01 12/16/21 16:58 12/16/21 17:00 Temperature Pulse Rate 85 88 85 Respiratory Rate 26 H 18 24 Blood Pressure 116/57 L 129/60 129/60 Pulse Oximetry 93 98 93 Oxygen Delivery Method Room Air Room Air Room Air 12/16/21 17:23 Temperature Pulse Rate Respiratory Rate Blood Pressure Pulse Oximetry 93 Oxygen Delivery Method Room Air MDM - Fall <QIAN Willingham - Last Filed: 12/16/21 17:52> Lab Data Result diagrams: 12/16/21 14:40 12/16/21 14:46 Labs: Lab Results 12/16/21 12/16/21 12/16/21 Range/Units 14:40 14:40 14:40 WBC (4.5-11.0) X10^3/uL RBC (4.0-5.2) X10^6/uL Hgb (12.0-16.0) g/dL Hct (36-46) % MCV (80-100) fL MCH (26-34) PG MCHC (30-36) % RDW (11.6-14.8) % Plt Count (150-400) X10^3/uL Neut % (Auto) (50-75) % Lymph % (Auto) (25-40) % Dickson % (Auto) (3-14) % Eos % (Auto) (2-4) % Baso % (Auto) (0-2) % Neut # (Auto) (6620-1898) /uL Lymph # (Auto) (7283-6321) /uL Dickson # (Auto) (0-900) /uL Eos # (Auto) (0-450) /uL Baso # (Auto) (0-100) /uL D-Dimer 836 H (<230) ng/mL ABG pH (7.35-7.45) ABG pCO2 (35-45) mmHg ABG pO2 (80-100) mmHg ABG HCO3 (22-26) mmol/L ABG Total CO2 (21-31) mmol/L ABG O2 Saturation (95-100) % ABG Base Excess (-2-2) mmol/L FiO2 Sodium (137-145) mmol/L Potassium (3.4-5.1) mmol/L Chloride (98-107) mmol/L Carbon Dioxide (22-32) mmol/L BUN (7-17) mg/dL Creatinine (0.52-1.04) mg/dL Estimated GFR (>60) mL/min BUN/Creatinine Ratio (6-22) Glucose (80-110) mg/dL Lactate (0.7-2.1) mmol/L Calcium (8.4-10.2) mg/dL Total Bilirubin (0.2-1.3) mg/dL AST (14-36) IU/L ALT (<35) IU/L Alkaline Phosphatase (38-126) U/L Total Creatine Kinase 184 H (30-135) U/L CK-MB (CK-2) 1.25 (<2.37) ng/mL CK-MB (CK-2) Rel Index 0.7 L (1.5-5.0) % Troponin I < 0.012 (0.01-0.034) ng/mL NT-Pro-B Natriuret Pep 41 (<450) pg/mL Total Protein (6.3-8.2) g/dL Albumin (3.5-5.0) g/dL Globulin (1.7-4.1) g/dL Albumin/Globulin Ratio (1.0-2.8) Lipase (23-300) U/L Procalcitonin (<0.5) ng/mL Chlamy pneumoniae PCR (Not Detect) Adenovirus (PCR) (Not Detect) B. pertussis DNA (PCR) (Not Detecte) B.parapertussis DNA PCR (Not Detecte) Coronavirus OC43 (PCR) (Not Detect) Coronavirus HKU1 (PCR) (Not Detect) Coronavirus 229E (PCR) (Not Detect) SARS-CoV-2 (PCR) (Not Detecte) Coronavirus NL63 (PCR) (Not Detect) Human Metapneumovir PCR (Not Detect) Influenza Type A (PCR) (Not Detect) Influenza Type B (PCR) (Not Detect) M. pneumoniae (PCR) (Not Detect) Parainfluenza 1 (PCR) (Not Detect) Parainfluenza 2 (PCR) (Not Detect) Parainfluenza 3 (PCR) (Not Detect) Parainfluenza 4 (PCR) (Not Detect) RSV (PCR) (Not Detect) Entero/Rhino (PCR) (Not Detect) 12/16/21 12/16/21 12/16/21 Range/Units 14:40 14:40 14:40 WBC 9.0 (4.5-11.0) X10^3/uL RBC 3.93 L (4.0-5.2) X10^6/uL Hgb 12.3 (12.0-16.0) g/dL Hct 35.7 L (36-46) % MCV 90.8 (80-100) fL MCH 31.2 (26-34) PG MCHC 34.4 (30-36) % RDW 13.2 (11.6-14.8) % Plt Count 233 (150-400) X10^3/uL Neut % (Auto) 61.5 (50-75) % Lymph % (Auto) 26.9 (25-40) % Dickson % (Auto) 9.0 (3-14) % Eos % (Auto) 1.8 L (2-4) % Baso % (Auto) 0.8 (0-2) % Neut # (Auto) 5500 (2829-6621) /uL Lymph # (Auto) 2400 (9351-0104) /uL Dickson # (Auto) 800 (0-900) /uL Eos # (Auto) 200 (0-450) /uL Baso # (Auto) 100 (0-100) /uL D-Dimer (<230) ng/mL ABG pH (7.35-7.45) ABG pCO2 (35-45) mmHg ABG pO2 (80-100) mmHg ABG HCO3 (22-26) mmol/L ABG Total CO2 (21-31) mmol/L ABG O2 Saturation (95-100) % ABG Base Excess (-2-2) mmol/L FiO2 Sodium (137-145) mmol/L Potassium (3.4-5.1) mmol/L Chloride (98-107) mmol/L Carbon Dioxide (22-32) mmol/L BUN (7-17) mg/dL Creatinine (0.52-1.04) mg/dL Estimated GFR (>60) mL/min BUN/Creatinine Ratio (6-22) Glucose (80-110) mg/dL Lactate 1.0 (0.7-2.1) mmol/L Calcium (8.4-10.2) mg/dL Total Bilirubin (0.2-1.3) mg/dL AST (14-36) IU/L ALT (<35) IU/L Alkaline Phosphatase (38-126) U/L Total Creatine Kinase (30-135) U/L CK-MB (CK-2) (<2.37) ng/mL CK-MB (CK-2) Rel Index (1.5-5.0) % Troponin I (0.01-0.034) ng/mL NT-Pro-B Natriuret Pep (<450) pg/mL Total Protein (6.3-8.2) g/dL Albumin (3.5-5.0) g/dL Globulin (1.7-4.1) g/dL Albumin/Globulin Ratio (1.0-2.8) Lipase (23-300) U/L Procalcitonin (<0.5) ng/mL Chlamy pneumoniae PCR Not detected (Not Detect) Adenovirus (PCR) Not detected (Not Detect) B. pertussis DNA (PCR) Not detected (Not Detecte) B.parapertussis DNA PCR Not detected (Not Detecte) Coronavirus OC43 (PCR) Not detected (Not Detect) Coronavirus HKU1 (PCR) Not detected (Not Detect) Coronavirus 229E (PCR) Not detected (Not Detect) SARS-CoV-2 (PCR) Not detected (Not Detecte) Coronavirus NL63 (PCR) Not detected (Not Detect) Human Metapneumovir PCR Not detected (Not Detect) Influenza Type A (PCR) Not detected (Not Detect) Influenza Type B (PCR) Not detected (Not Detect) M. pneumoniae (PCR) Not detected (Not Detect) Parainfluenza 1 (PCR) Not detected (Not Detect) Parainfluenza 2 (PCR) Not detected (Not Detect) Parainfluenza 3 (PCR) Not detected (Not Detect) Parainfluenza 4 (PCR) Not detected (Not Detect) RSV (PCR) Not detected (Not Detect) Entero/Rhino (PCR) Not detected (Not Detect) 12/16/21 12/16/21 12/16/21 Range/Units 14:46 14:46 15:43 WBC (4.5-11.0) X10^3/uL RBC (4.0-5.2) X10^6/uL Hgb (12.0-16.0) g/dL Hct (36-46) % MCV (80-100) fL MCH (26-34) PG MCHC (30-36) % RDW (11.6-14.8) % Plt Count (150-400) X10^3/uL Neut % (Auto) (50-75) % Lymph % (Auto) (25-40) % Dickson % (Auto) (3-14) % Eos % (Auto) (2-4) % Baso % (Auto) (0-2) % Neut # (Auto) (8840-4675) /uL Lymph # (Auto) (3982-3041) /uL Dickson # (Auto) (0-900) /uL Eos # (Auto) (0-450) /uL Baso # (Auto) (0-100) /uL D-Dimer (<230) ng/mL ABG pH 7.38 (7.35-7.45) ABG pCO2 46.8 H (35-45) mmHg ABG pO2 76 L (80-100) mmHg ABG HCO3 27 H (22-26) mmol/L ABG Total CO2 29 (21-31) mmol/L ABG O2 Saturation 95 (95-100) % ABG Base Excess 2.0 (-2-2) mmol/L FiO2 21 Sodium 133 L (137-145) mmol/L Potassium 4.5 (3.4-5.1) mmol/L Chloride 100 (98-107) mmol/L Carbon Dioxide 25 (22-32) mmol/L BUN 16 (7-17) mg/dL Creatinine 0.86 (0.52-1.04) mg/dL Estimated GFR > 60 (>60) mL/min BUN/Creatinine Ratio 18.6 (6-22) Glucose 87 (80-110) mg/dL Lactate (0.7-2.1) mmol/L Calcium 8.7 (8.4-10.2) mg/dL Total Bilirubin 0.3 (0.2-1.3) mg/dL AST 38 H (14-36) IU/L ALT 21 (<35) IU/L Alkaline Phosphatase 128 H (38-126) U/L Total Creatine Kinase (30-135) U/L CK-MB (CK-2) (<2.37) ng/mL CK-MB (CK-2) Rel Index (1.5-5.0) % Troponin I (0.01-0.034) ng/mL NT-Pro-B Natriuret Pep (<450) pg/mL Total Protein 6.9 (6.3-8.2) g/dL Albumin 3.8 (3.5-5.0) g/dL Globulin 3.1 (1.7-4.1) g/dL Albumin/Globulin Ratio 1.2 (1.0-2.8) Lipase 34 (23-300) U/L Procalcitonin 0.08 (<0.5) ng/mL Chlamy pneumoniae PCR (Not Detect) Adenovirus (PCR) (Not Detect) B. pertussis DNA (PCR) (Not Detecte) B.parapertussis DNA PCR (Not Detecte) Coronavirus OC43 (PCR) (Not Detect) Coronavirus HKU1 (PCR) (Not Detect) Coronavirus 229E (PCR) (Not Detect) SARS-CoV-2 (PCR) (Not Detecte) Coronavirus NL63 (PCR) (Not Detect) Human Metapneumovir PCR (Not Detect) Influenza Type A (PCR) (Not Detect) Influenza Type B (PCR) (Not Detect) M. pneumoniae (PCR) (Not Detect) Parainfluenza 1 (PCR) (Not Detect) Parainfluenza 2 (PCR) (Not Detect) Parainfluenza 3 (PCR) (Not Detect) Parainfluenza 4 (PCR) (Not Detect) RSV (PCR) (Not Detect) Entero/Rhino (PCR) (Not Detect) Urine Dip Bedside Urine Glucose Negative Bedside Urine Bilirubin - Negative Bedside Urine Ketone - Negative Urine Specific [place] 1.015 Bedside Urine Occult Blood - Negative Bedside Urine pH 6 Bedside Urine Protein - Negative Bedside Urine Urobilinogen - Negative Bedside Urine Nitrite - Negative Bedside Urine Leukocytes - Negative Esterase Age-Adjusted D-dimer for Venous Thromboembolism (VTE) from [employer] on 12/16/2021 All calculations should be rechecked by clinician prior to use RESULT SUMMARY: 750 ?g/L Age-adjusted D-dimer cutoff, FEU VTE possible Reported D-dimer is greater than cutoff; consider confirmatory testing with CTA or V/Q scan INPUTS: Age ?> 76 years D-dimer level reported by lab ?> 836 ?g/L D-dimer unit type ?> 1 = FEU (unadjusted cutoff typically ~500 or 0.50) Imaging Data Chest x-ray: Radiologist's Impression: PROCEDURE:? XR CHEST 2V ? INDICATIONS:? wheezing ? TECHNIQUE:? 2 views of the chest were acquired.? ? COMPARISON:? [facility], , XR CHEST 1V, 12/09/2021, 8:41. ? FINDINGS:? ? Surgical changes and devices:? Left shoulder reverse arthroplasty. ? Lungs and pleura:? Slight coarsening of the interstitial markings.? No dense consolidations or visible pleural effusions. ? Mediastinum:? Mediastinal contours are normal.? Heart size is normal.? ? Bones and chest wall:? No suspicious bony abnormalities.? Soft tissues appear unremarkable.? ? IMPRESSION:? ? 1. Mild interstitial thickening may indicate edema or emphysema.? Correlate clinically. ? 2. No consolidation or pleural effusion.? ? ? Dictated by: Paty Zambrano M.D. on 12/16/2021 at 15:05 ? ? Approved by: Paty Zambrano M.D. on 12/16/2021 at 15:06 ? Extremity x-ray #1: Radiologist's Impression: PROCEDURE:? XR HIP W PEL IF DONE RT 2V ? INDICATIONS:? Pain post mechanical fall ? TECHNIQUE:? AP pelvis with lateral view(s) of the right hip(s).? ? COMPARISON:? [facility], CR, XR HAND LT MIN 3V, 12/16/2021, 13:48.? [facility], CR, XR HIP W PEL IF DONE LT 2V, 08/25/2021, 15:52. ? FINDINGS:? ? Bones:? No fractures or dislocations.? Pelvic ring appears intact.? No suspicious bony lesions.? Note is made of osteitis pubis, which is not considered to be frankly abnormal in a woman of this age.? Age-appropriate lower lumbar spine degenerative changes are noted. ? There is moderate to severe superior joint space narrowing seen of both hips, with associated remodeling changes with subchondral sclerosis and osteophyte formation.? ? Soft tissues:? The visualized bowel gas pattern is normal.? No suspicious soft tissue calcifications.? ? ? IMPRESSION:? ? No displaced fractures are seen on these plain films. ? If there is point tenderness (or other clinical suspicion for a fracture not seen on these images) then a dedicated CT could be considered for further evaluation, if clinically appropriate. ? Moderate to severe bilateral hip degenerative change can be seen. ? Dictated by: Sherman Alarcon M.D. on 12/16/2021 at 12:30 ? ? Approved by: Sherman Alarcon M.D. on 12/16/2021 at 12:31 ? Extremity x-ray #2: Radiologist's Impression: PROCEDURE:? XR HAND LT MIN 3V ? INDICATIONS:? Pain post mechanical fall ? TECHNIQUE:? Three views of the hand(s) acquired.? ? COMPARISON:? None. ? FINDINGS:? ? Bones:? Mild periarticular demineralization.? There is extensive joint space loss and osseous remodeling involving the interphalangeal joints diffusely, 1st, and 5th metacarpal phalangeal joints, and irregularity and osseous hypertrophy at the 1st carpometacarpal joint.? There is severe marginal spurring at the 2nd through 4th interphalangeal joints.? No visible fractures. ? Soft tissues:? Linear, likely periarticular soft tissue calcifications adjacent to the 3rd MCP joint.? There is a radiodense foreign body in the thenar soft tissues.? ? ? IMPRESSION:? ? 1. No visible acute fracture. ? 2. Severe arthritic changes. ? 3. Soft tissue foreign body in the thenar eminence.? Correlate with soft tissue injury or laceration.? ? ? Dictated by: Paty Zambrano M.D. on 12/16/2021 at 13:37 ? ? Approved by: Paty Zambrano M.D. on 12/16/2021 at 13:40 ? Extremity x-ray #3: Radiologist's Impression: PROCEDURE:? XR SHOULDER LT MIN 2V ? INDICATIONS:? Pain post mechanical fall ? TECHNIQUE:? 3 views of the shoulder were acquired.? ? COMPARISON:? [facility], CR, XR HAND LT MIN 3V, 12/16/2021, 13:48.? [facility], CR, XR HIP W PEL IF DONE RT 2V, 12/16/2021, 13:48.? [facility], CR, XR SHOULDER LT MIN 2V, 03/17/2020, 17:39. ? FINDINGS:? ? Bones:? No fractures or dislocations.? No suspicious bony lesions.? Visualized ribs appear intact.? ? Left shoulder arthroplasty hardware is seen.? No findings of hardware failure or hardware loosening are seen. ? Age-appropriate bony degenerative changes are seen.? ? ? Soft tissues:? No suspicious soft tissue calcifications.? The visualized lung demonstrates an unremarkable appearance. ? ? IMPRESSION:? Unremarkable left shoulder arthroplasty hardware, without acute abnormality seen. ? ? Dictated by: Sherman Alarcon M.D. on 12/16/2021 at 12:32 ? ? Approved by: Sherman Alarcon M.D. on 12/16/2021 at 12:33 ? ECG Data Interpretation: EKG independently reviewed by Dr. Pitt and reveals normal sinus rhythm at 79 bpm with regular axis and intervals. No STEMI, ST segment changes, arrhythmia, or acute ischemic changes. MDM Narrative Medical decision making narrative: This is a 76 old female presents to the department complaining of a ground level fall which happened early this morning when she tripped over her dog. Patient endorses left-sided aches and pains, denies any mobility deficit, new weakness, sensation changes, or severe pain. Patient endorses three weeks of seasonal allergy symptoms, shortness of breath, subjective wheezing without history of this in the past. Patient saw her primary care provider and had a chest x-ray completed on 12/09/21 which showed no acute cardiopulmonary findings, her chest x-ray today shows mild interstitial thickening may indicate edema or emphysema, correlate clinically with no consolidation or pleural effusion. Heart size appeared normal with slight coarsening of interstitial markings. On exam, patient was mildly tachypneic, pulse oximetry on room air 91-92%, breath sounds are coarse, diminished throughout, no tachycardia or murmur. EKG shows normal sinus rhythm without ectopy, arrhythmia, or ST changes. Patient is afebrile, lab work does not reveal any leukocytosis, and, her D-dimer is elevated and age adjusted above her baseline. Age-Adjusted D-dimer for Venous Thromboembolism (VTE) from [employer] on 12/16/2021 All calculations should be rechecked by clinician prior to use RESULT SUMMARY: 750 ?g/L Age-adjusted D-dimer cutoff, FEU VTE possible Reported D-dimer is greater than cutoff; consider confirmatory testing with CTA or V/Q scan INPUTS: Age ?> 76 years D-dimer level reported by lab ?> 836 ?g/L D-dimer unit type ?> 1 = FEU (unadjusted cutoff typically ~500 or 0.50) Patient's respiratory panel PCR is negative for all tested viruses. Sputum culture obtained and is pending. Albuterol neb was given, without any improved aeration or significant change in breathing, patient reports that she feels relatively the same afterwards. ABG shows pH of 7.375, pCO2 of 46.8, PO2 of 76, base excess of two, bicarb of 27.4, CO2 of 29 with S O2 of 95% Patient is not in distress, on multiple rechecks, she is comfortable, mildly tachypneic, afebrile, without wheezes and decreased breath sounds bilaterally. RT evaluated patient and gave patient an incentive spirometer and flutter valve to use at home. CT PE shows no large or central pulmonary embolism, clear lungs, incidental note of left shoulder arthroplasty, prior granulomatous exposure, small hiatal hernia. Patient wears CPAP at home for ELADIO and reports that she is not been wearing her for at least two weeks. She was given methylprednisolone 125 mg, Percocet for pain and she reports tolerating this, also states that the cough syrup her primary care provider prescribed her was helpful. Patient reports that she has been hot and cold and is concerned about not being on any antibiotic. Discussed treating with doxycycline and having her follow-up with Dr. Jean Baptiste in the next 3-5 days, sputum culture is pending. Patient reports that her pain in her hip, hand and left shoulder are improved after pain medication, she is ambulatory without new weakness or sensation changes. Patient started moving her secretions after incentive spirometer and flutter valve, states that she is starting feel better. Prescribe patient codeine cough syrup, one week of b.i.d. Augmentin and doxycycline for upper bronchitis with treatment failure on Bactrim. Albuterol did not make any improvement for patient's symptoms, she is given methylprednisolone, a prescription for prednisone for the next five days, the pharmacist at [facility] refused to feel patient Percocet and codeine cough syrup at the same time even with documented history of hydrocodone and codeine together on December 07 and respectively. She was given a prepack of Percocet and has hydrocodone at home to take as needed for her musculoskeletal pain. Patient understands to follow-up with Dr. Jean Baptiste in the next five days and to return to the emergency department for any worsening of her symptoms. She is going to start using her CPAP at home. Will follow-up on sputum sample. Ambulatory trial on pulse oximeter did not have any hypoxia, patient's pulse oximetry was 93% and she did not have any worsening of her breathing. Patient is appropriate and amenable to discharge home. Vital signs are stable on repeat examination is unremarkable. Patient has been informed of results. Patient has been given strict return to ER precautions for any new or worsening symptoms. Patient understands to follow up closely with outpatient providers as instructed. Patient understands plan and agrees to discharge home. All q uestions and concerns answered at this time. Avoidance of Antibiotic Treatment for Acute Bronchitis/Bronchiolitis [] The patient has acute bronchitis/bronchiolitis and antibiotics were not prescribed or dispensed today. [SATISFIES MIPS PERFORMANCE] [] The patient has acute bronchitis/ bronchiolitis. Antibiotics were prescribed or dispensed because the patient meets one of the following: [MIPS PERFORMANCE EXCEPTION/EXCLUSION] [x] Patient has a medical reason for prescribing or dispensing an antibiotic. That reason is ELADIO< prediabetes, 3 weeks of cough (ex. COPD, bacterial infection, acute sinusitis, etc.). [x] Patient is currently on antibiotics or has been in the last 30 days. [] Patient?s visit resulted in an inpatient admission. [] The patient has acute bronchitis/ bronchiolitis and antibiotics were prescribed or dispensed today. [DOES NOT SATISFY MIPS PERFORMANCE] <Davida Pitt, - Last Filed: 12/17/21 08:44> Lab Data Labs: Lab Results 12/16/21 12/16/21 12/16/21 Range/Units 14:40 14:40 14:40 WBC (4.5-11.0) X10^3/uL RBC (4.0-5.2) X10^6/uL Hgb (12.0-16.0) g/dL Hct (36-46) % MCV (80-100) fL MCH (26-34) PG MCHC (30-36) % RDW (11.6-14.8) % Plt Count (150-400) X10^3/uL Neut % (Auto) (50-75) % Lymph % (Auto) (25-40) % Dickson % (Auto) (3-14) % Eos % (Auto) (2-4) % Baso % (Auto) (0-2) % Neut # (Auto) (3572-8728) /uL Lymph # (Auto) (1957-0182) /uL Dickson # (Auto) (0-900) /uL Eos # (Auto) (0-450) /uL Baso # (Auto) (0-100) /uL D-Dimer 836 H (<230) ng/mL ABG pH (7.35-7.45) ABG pCO2 (35-45) mmHg ABG pO2 (80-100) mmHg ABG HCO3 (22-26) mmol/L ABG Total CO2 (21-31) mmol/L ABG O2 Saturation (95-100) % ABG Base Excess (-2-2) mmol/L FiO2 Sodium (137-145) mmol/L Potassium (3.4-5.1) mmol/L Chloride (98-107) mmol/L Carbon Dioxide (22-32) mmol/L BUN (7-17) mg/dL Creatinine (0.52-1.04) mg/dL Estimated GFR (>60) mL/min BUN/Creatinine Ratio (6-22) Glucose (80-110) mg/dL Lactate (0.7-2.1) mmol/L Calcium (8.4-10.2) mg/dL Total Bilirubin (0.2-1.3) mg/dL AST (14-36) IU/L ALT (<35) IU/L Alkaline Phosphatase (38-126) U/L Total Creatine Kinase 184 H (30-135) U/L CK-MB (CK-2) 1.25 (<2.37) ng/mL CK-MB (CK-2) Rel Index 0.7 L (1.5-5.0) % Troponin I < 0.012 (0.01-0.034) ng/mL NT-Pro-B Natriuret Pep 41 (<450) pg/mL Total Protein (6.3-8.2) g/dL Albumin (3.5-5.0) g/dL Globulin (1.7-4.1) g/dL Albumin/Globulin Ratio (1.0-2.8) Lipase (23-300) U/L Procalcitonin (<0.5) ng/mL Chlamy pneumoniae PCR (Not Detect) Adenovirus (PCR) (Not Detect) B. pertussis DNA (PCR) (Not Detecte) B.parapertussis DNA PCR (Not Detecte) Coronavirus OC43 (PCR) (Not Detect) Coronavirus HKU1 (PCR) (Not Detect) Coronavirus 229E (PCR) (Not Detect) SARS-CoV-2 (PCR) (Not Detecte) Coronavirus NL63 (PCR) (Not Detect) Human Metapneumovir PCR (Not Detect) Influenza Type A (PCR) (Not Detect) Influenza Type B (PCR) (Not Detect) M. pneumoniae (PCR) (Not Detect) Parainfluenza 1 (PCR) (Not Detect) Parainfluenza 2 (PCR) (Not Detect) Parainfluenza 3 (PCR) (Not Detect) Parainfluenza 4 (PCR) (Not Detect) RSV (PCR) (Not Detect) Entero/Rhino (PCR) (Not Detect) 12/16/21 12/16/21 12/16/21 Range/Units 14:40 14:40 14:40 WBC 9.0 (4.5-11.0) X10^3/uL RBC 3.93 L (4.0-5.2) X10^6/uL Hgb 12.3 (12.0-16.0) g/dL Hct 35.7 L (36-46) % MCV 90.8 (80-100) fL MCH 31.2 (26-34) PG MCHC 34.4 (30-36) % RDW 13.2 (11.6-14.8) % Plt Count 233 (150-400) X10^3/uL Neut % (Auto) 61.5 (50-75) % Lymph % (Auto) 26.9 (25-40) % Dickson % (Auto) 9.0 (3-14) % Eos % (Auto) 1.8 L (2-4) % Baso % (Auto) 0.8 (0-2) % Neut # (Auto) 5500 (0438-8973) /uL Lymph # (Auto) 2400 (4089-3679) /uL Dickson # (Auto) 800 (0-900) /uL Eos # (Auto) 200 (0-450) /uL Baso # (Auto) 100 (0-100) /uL D-Dimer (<230) ng/mL ABG pH (7.35-7.45) ABG pCO2 (35-45) mmHg ABG pO2 (80-100) mmHg ABG HCO3 (22-26) mmol/L ABG Total CO2 (21-31) mmol/L ABG O2 Saturation (95-100) % ABG Base Excess (-2-2) mmol/L FiO2 Sodium (137-145) mmol/L Potassium (3.4-5.1) mmol/L Chloride (98-107) mmol/L Carbon Dioxide (22-32) mmol/L BUN (7-17) mg/dL Creatinine (0.52-1.04) mg/dL Estimated GFR (>60) mL/min BUN/Creatinine Ratio (6-22) Glucose (80-110) mg/dL Lactate 1.0 (0.7-2.1) mmol/L Calcium (8.4-10.2) mg/dL Total Bilirubin (0.2-1.3) mg/dL AST (14-36) IU/L ALT (<35) IU/L Alkaline Phosphatase (38-126) U/L Total Creatine Kinase (30-135) U/L CK-MB (CK-2) (<2.37) ng/mL CK-MB (CK-2) Rel Index (1.5-5.0) % Troponin I (0.01-0.034) ng/mL NT-Pro-B Natriuret Pep (<450) pg/mL Total Protein (6.3-8.2) g/dL Albumin (3.5-5.0) g/dL Globulin (1.7-4.1) g/dL Albumin/Globulin Ratio (1.0-2.8) Lipase (23-300) U/L Procalcitonin (<0.5) ng/mL Chlamy pneumoniae PCR Not detected (Not Detect) Adenovirus (PCR) Not detected (Not Detect) B. pertussis DNA (PCR) Not detected (Not Detecte) B.parapertussis DNA PCR Not detected (Not Detecte) Coronavirus OC43 (PCR) Not detected (Not Detect) Coronavirus HKU1 (PCR) Not detected (Not Detect) Coronavirus 229E (PCR) Not detected (Not Detect) SARS-CoV-2 (PCR) Not detected (Not Detecte) Coronavirus NL63 (PCR) Not detected (Not Detect) Human Metapneumovir PCR Not detected (Not Detect) Influenza Type A (PCR) Not detected (Not Detect) Influenza Type B (PCR) Not detected (Not Detect) M. pneumoniae (PCR) Not detected (Not Detect) Parainfluenza 1 (PCR) Not detected (Not Detect) Parainfluenza 2 (PCR) Not detected (Not Detect) Parainfluenza 3 (PCR) Not detected (Not Detect) Parainfluenza 4 (PCR) Not detected (Not Detect) RSV (PCR) Not detected (Not Detect) Entero/Rhino (PCR) Not detected (Not Detect) 12/16/21 12/16/21 12/16/21 Range/Units 14:46 14:46 15:43 WBC (4.5-11.0) X10^3/uL RBC (4.0-5.2) X10^6/uL Hgb (12.0-16.0) g/dL Hct (36-46) % MCV (80-100) fL MCH (26-34) PG MCHC (30-36) % RDW (11.6-14.8) % Plt Count (150-400) X10^3/uL Neut % (Auto) (50-75) % Lymph % (Auto) (25-40) % Dickson % (Auto) (3-14) % Eos % (Auto) (2-4) % Baso % (Auto) (0-2) % Neut # (Auto) (7518-4727) /uL Lymph # (Auto) (7466-3977) /uL Dickson # (Auto) (0-900) /uL Eos # (Auto) (0-450) /uL Baso # (Auto) (0-100) /uL D-Dimer (<230) ng/mL ABG pH 7.38 (7.35-7.45) ABG pCO2 46.8 H (35-45) mmHg ABG pO2 76 L (80-100) mmHg ABG HCO3 27 H (22-26) mmol/L ABG Total CO2 29 (21-31) mmol/L ABG O2 Saturation 95 (95-100) % ABG Base Excess 2.0 (-2-2) mmol/L FiO2 21 Sodium 133 L (137-145) mmol/L Potassium 4.5 (3.4-5.1) mmol/L Chloride 100 (98-107) mmol/L Carbon Dioxide 25 (22-32) mmol/L BUN 16 (7-17) mg/dL Creatinine 0.86 (0.52-1.04) mg/dL Estimated GFR > 60 (>60) mL/min BUN/Creatinine Ratio 18.6 (6-22) Glucose 87 (80-110) mg/dL Lactate (0.7-2.1) mmol/L Calcium 8.7 (8.4-10.2) mg/dL Total Bilirubin 0.3 (0.2-1.3) mg/dL AST 38 H (14-36) IU/L ALT 21 (<35) IU/L Alkaline Phosphatase 128 H (38-126) U/L Total Creatine Kinase (30-135) U/L CK-MB (CK-2) (<2.37) ng/mL CK-MB (CK-2) Rel Index (1.5-5.0) % Troponin I (0.01-0.034) ng/mL NT-Pro-B Natriuret Pep (<450) pg/mL Total Protein 6.9 (6.3-8.2) g/dL Albumin 3.8 (3.5-5.0) g/dL Globulin 3.1 (1.7-4.1) g/dL Albumin/Globulin Ratio 1.2 (1.0-2.8) Lipase 34 (23-300) U/L Procalcitonin 0.08 (<0.5) ng/mL Chlamy pneumoniae PCR (Not Detect) Adenovirus (PCR) (Not Detect) B. pertussis DNA (PCR) (Not Detecte) B.parapertussis DNA PCR (Not Detecte) Coronavirus OC43 (PCR) (Not Detect) Coronavirus HKU1 (PCR) (Not Detect) Coronavirus 229E (PCR) (Not Detect) SARS-CoV-2 (PCR) (Not Detecte) Coronavirus NL63 (PCR) (Not Detect) Human Metapneumovir PCR (Not Detect) Influenza Type A (PCR) (Not Detect) Influenza Type B (PCR) (Not Detect) M. pneumoniae (PCR) (Not Detect) Parainfluenza 1 (PCR) (Not Detect) Parainfluenza 2 (PCR) (Not Detect) Parainfluenza 3 (PCR) (Not Detect) Parainfluenza 4 (PCR) (Not Detect) RSV (PCR) (Not Detect) Entero/Rhino (PCR) (Not Detect) Urine Dip Bedside Urine Glucose Negative Bedside Urine Bilirubin - Negative Bedside Urine Ketone - Negative Urine Specific Liberty 1.015 Bedside Urine Occult Blood - Negative Bedside Urine pH 6 Bedside Urine Protein - Negative Bedside Urine Urobilinogen - Negative Bedside Urine Nitrite - Negative Bedside Urine Leukocytes - Negative Esterase ECG Data Interpretation: EKG independently reviewed by Dr. Pitt and reveals normal sinus rhythm at 79 bpm with regular axis and intervals. No STEMI, ST segment changes, arrhythmia, or acute ischemic changes. EVERETTE: Normal sinus rhythm rate 79 OR interval 1 6 QRS [address] changes or T-wave inversions Discharge Plan Departure Patient Disposition: Home Clinical Impression: Elevated d-dimer, Bronchitis Instructions: Acute Bronchitis, Allergic Rhinitis, DI for Shortness of Breath Activity Restrictions/Additional Instructions: *You have been diagnosed with bronchitis. Your D-dimer which is a marker of clotting was elevated today and the concern was that you might have a pulmonary embolism (blood clot in your lungs). You do not have that, or any sign of heart strain. Your white blood cell count is normal, your oxygen was slightly low on your blood gas and on pulse oximetry but still within normal ranges. Please use your CPAP at home, take your steroid daily for the next five days, follow-up with Dr. Jean Baptiste in 3-5 days. Your respiratory viral panel was negative for all tested viruses. Your chest x-ray does not show any focal consolidation, patchy opacity, pleural effusion, or definitive pneumonia. This is most likely bronchitis with a productive cough. Please take Mucinex daily to help thin your secretions, use your flutter valve and incentive spirometer throughout the day to help prevent pneumonia. Please stay hydrated, take pain medication as needed for your injuries and remember to take deep breaths frequently and clear your secretions. Please take the cetirizine/Zyrtec daily as her allergy medicine, this can help dry up some nasal drainage, use Flonase morning and night, codeine cough syrup as needed for your cough, you may use the other cough medications that Dr. Jean Baptiste gave you as well. Please stay hydrated as a priority, do your breathing exercises throughout the day to help prevent this from getting worse and follow- up with Dr. Jean Baptiste soon. Use your pain medication as needed, do not take greater than 4 g of Tylenol in 24 hours, each tab of Percocet has 325 mg in it. Please take Augmentin and doxycycline twice a day for the next seven days for antibiotic therapy for pneumonia. *What to do: *Please continue to take your regular medications as directed. [ x] New medication prescriptions sent to your pharmacy: [ [facility]] [ ] New medication written as a paper prescription [ ] No new medications given *Please follow up with your primary care provider in 2-3 days, call for an appointment. Let them know you were seen in the Emergency Department and that we asked that you be seen for follow-up. We will electronically transmit a record of today's note if your PCP is in our system *If you do not have a primary care provider please contact [phone] to establish care with one of the [facility] primary care providers. *Return to Emergency Department if you should have any new, worsening or concerning symptoms, such as [fever greater than 101F, chills, worsening pain, persistent vomiting or other bothersome symptoms] Prescriptions: New prednisone 20 mg tablet 40 mg PO DAILY 5 Days Qty: 10 0RF codeine-guaifenesin 10-100 mg/5 mL liquid 5 ml PO Q6H PRN (Reason: cough) Qty: 50 0RF oxycodone-acetaminophen [Percocet] 5-325 mg tablet 1 tab PO Q8H PRN (Reason: pain) Qty: 14 0RF doxycycline hyclate 100 mg tablet 100 mg PO BID 7 Days Qty: 14 0RF cetirizine 10 mg tablet 10 mg PO DAILY Qty: 20 0RF amoxicillin-pot clavulanate 875-125 mg tablet 1 tab PO BID 7 Days Qty: 14 0RF No Action lisinopril 30 MG tablet 30 mg PO QAM Qty: 0 diclofenac sodium [Voltaren Arthritis Pain] 1 % gel 4 g topical QID PRN (Reason: pain) Qty: 100 0RF Rx Instructions: apply to single knee, ankle, foot; for foot includes sole/toes/top of foot lidocaine 5 % adhesive patch,medicated 2 patch topical DAILY PRN (Reason: pain) Qty: 15 0RF Rx Instructions: leave on most painful area for up to 12 hrs tramadol 50 mg tablet 50 mg PO BID PRN (Reason: pain) Qty: 10 0RF cyanocobalamin (vitamin B-12) [Vitamin B-12] 1,000 mcg Tablet 1,000 mcg PO DAILY omeprazole 40 mg capsule,delayed release(DR/EC) 40 mg PO BID calcium polycarbophil [Fiber-Tabs] 625 mg Tablet 1 tab PO BID solifenacin 10 mg tablet 10 mg PO QPM Centrum Silver 0.4-300-250 mg-mcg-mcg Tablet 1 tab PO DAILY cholecalciferol (vitamin D3) [Vitamin D3] 2,000 unit Capsule 4,000 unit PO BID celecoxib [Celebrex] 200 mg Capsule 200 mg PO DAILY benzonatate 100 mg capsule 100 mg PO TID PRN (Reason: cough) Qty: 20 0RF fluticasone propionate [Flonase Allergy Relief] 50 mcg/actuation spray,suspension 1 spray intranasal BID Qty: 16 0RF Rx Instructions: administer into each nostril conjugated estrogens [Premarin] 0.625 mg tablet 0.625 mg PO QAM hydrochlorothiazide 25 mg tablet 25 mg PO QAM escitalopram oxalate [Lexapro] 20 mg tablet 20 mg PO QAM folic acid 1 mg tablet 1 mg PO DAILY atorvastatin [Lipitor] 40 mg tablet 40 mg PO QPM amitriptyline 10 mg tablet 10 mg PO QPM clobetasol 0.05 % ointment topical cyclobenzaprine 10 mg tablet 10 mg PO BID PRN (Reason: muscle spasm) Qty: 60 1RF diazepam [Valium] 10 mg tablet 10 mg PO .COMPLEX MDD 3 tabs PRN (Reason: 1-2 prior to MRI and for possible steroid flare) Qty: 10 0RF Rx Instructions: 10 mg PO PRN; (DME) [employer] Dream[employer] 2 Auto CPAP kit Qty: 1 Dose Instruction: As directed Label Comments: Pressure: 7-14 cmH2O DME: [employer] Rx Instructions: As directed Referrals: Ana Paula Jean Baptiste MD [Primary Care Provider] - Visit Report Forms: Patient Portal/API <Davida Pitt DO - Last Filed: 12/17/21 08:44> Cosign ED Attending Cosignature Attestation: I was immediately available in the department for consultation. Documentation has been reviewed. I agree with assessment and plan.
[2021-12-16] MEDS: OXYCODONE/ACETAMINOPHEN 5/325 TABLET 1 TAB PO (14:45)
[2021-12-16 15:00] LABS: Creatine Kinase 184 U/L (30-135)
[2021-12-16 15:02] LABS: D Dimer 836 ng/mL (<230)
[2021-12-16 15:04] LABS: Add Manual Diff / Slide Review NO; Basophils Absolute Auto 100 /uL (0-100); Basophils Percent Auto 0.8 % (0-2); Eosinophils Absolute Auto 200 /uL (0-450); Eosinophils Percent Auto 1.8 % (2-4); Hematocrit 35.7 % (36-46); Hemoglobin 12.3 g/dL (12.0-16.0); Lymphocytes Absolute Auto 2400 /uL (1100-4500); Lymphocytes Percent Auto 26.9 % (25-40); Mean Corpuscular HGB Conc 34.4 % (30-36); Mean Corpuscular Hemoglobin 31.2 PG (26-34); Mean Corpuscular Volume 90.8 fL (80-100); Monocytes Absolute Auto 800 /uL (0-900); Neutrophils Absolute Auto 5500 /uL (1500-7000); Neutrophils Percent Auto 61.5 % (50-75); Platelet Count 233 X10^3/uL (150-400); Red Blood Cell Count 3.93 X10^6/uL (4.0-5.2); Red Cell Distribution Width 13.2 % (11.6-14.8)
[2021-12-16 15:10] LABS: NT-proBNP (BNP-Adult 18+) 41 pg/mL (<450)
[2021-12-16 15:14] LABS: Troponin I < 0.012 ng/mL (0.01-0.034)
[2021-12-16 15:16] LABS: CKMB % Relative Index 0.7 % (1.5-5.0); Creatine Kinase MB 1.25 ng/mL (<2.37)
--- NOTE | 2021-12-16 15:25 | DI.CT.S_ITS ---
PROCEDURE: CT ANGIO CHEST PE PROTOCOL INDICATIONS: elevated D-dimer, SOB, mild hypoxia, tachypnea TECHNIQUE: After the administration of intravenous contrast, 2 mm thick sections acquired from the pulmonary apices to the posterior costophrenic angles. 3-dimensional maximum intensity projection (MIP) coronal and sagittal reformats were then acquired through the thorax. For radiation dose reduction, the following was used: automated exposure control, adjustment of mA and/or kV according to patient size. COMPARISON: [facility], CT, CT ABDOMEN PELVIS W CON, 12/14/2020, 17:10. [facility], CR, XR CHEST 2V, 12/16/2021, 14:57. FINDINGS: Image quality: There is artifact associated with the metallic hardware. Evaluation of the pulmonary arteries is somewhat limited by bolus timing. Pulmonary arteries: The bolus of the contrast injection is suboptimal. The main pulmonary artery measures approximately 140 Hounsfield units. Pulmonary artery densities are greater than 250 Hounsfield units are considered to be ideal for evaluation of pulmonary embolism. However, no large or central pulmonary emboli are seen on these images. No pulmonary emboli are seen more distally, although sensitivity for detection of such is limited on this study. Lungs and pleura: Lungs are clear. No pleural effusions or pneumothorax. Central and peripheral airways are patent. Mediastinum: Heart size is normal, without pericardial effusion. No mediastinal or hilar adenopathy. Thoracic aorta is normal in caliber and enhancement. Esophagus is normal in caliber. There is a small hiatal hernia. Bones and chest wall: No suspicious bony lesions. Left shoulder postoperative change is seen, with associated streak artifact. Age-appropriate bony degenerative changes are seen. Mild dextroconvex scoliotic curvature is seen. Ribs and thoracic spine appear intact throughout. Thyroid gland is not definitely seen. No axillary or supraclavicular adenopathy. Abdomen: Calcified granulomas can be seen within the spleen. IMPRESSION: Limited study demonstrating no large or central pulmonary embolism. Clear lungs. Incidental note is made of: Left shoulder arthroplasty Prior granulomatous exposure. Small hiatal hernia Dictated by: Sherman Alarcon M.D. on 12/16/2021 at 15:50 Approved by: Sherman Alarcon M.D. on 12/16/2021 at 15:54
[2021-12-16 15:35] LABS: Alanine Aminotransferase 21 IU/L (<35); Albumin 3.8 g/dL (3.5-5.0); Albumin Globulin Ratio 1.2 (1.0-2.8); Alkaline Phosphatase 128 U/L (38-126); Aspartate Aminotransferase 38 IU/L (14-36); BUN Creatinine Ratio 18.6 (6-22); Bilirubin Total 0.3 mg/dL (0.2-1.3); Blood Urea Nitrogen 16 mg/dL (7-17); Calcium 8.7 mg/dL (8.4-10.2); Carbon Dioxide 25 mmol/L (22-32); Chloride 100 mmol/L (98-107); Estimated Glomerular Filt Rate > 60 mL/min (>60); Globulin 3.1 g/dL (1.7-4.1); Glucose 87 mg/dL (80-110); HEMOLYSIS < 15 (0-50); Lipase 34 U/L (23-300); Potassium 4.5 mmol/L (3.4-5.1); Sodium 133 mmol/L (137-145); Total Protein 6.9 g/dL (6.3-8.2)
[2021-12-16 15:47] LABS: Adenovirus Not Detected (Not Detect); B. parapertussis Not Detected (Not Detecte); Bordetella pertussis Not Detected (Not Detecte); Chlamydophila pneumoniae Not Detected (Not Detect); Coronavirus 229E Not Detected (Not Detect); Coronavirus HKU1 Not Detected (Not Detect); Coronavirus NL 63 Not Detected (Not Detect); Coronavirus OC43 Not Detected (Not Detect); Human Metapneumovirus Not Detected (Not Detect); Human Rhinovirus/Enterovirus Not Detected (Not Detect); Influenza A Not Detected (Not Detect); Influenza B Not Detected (Not Detect); Mycoplasma pneumoniae Not Detected (Not Detect); Parainfluenza Virus 1 Not Detected (Not Detect); Parainfluenza Virus 2 Not Detected (Not Detect); Parainfluenza Virus 3 Not Detected (Not Detect); Parainfluenza Virus 4 Not Detected (Not Detect); Respiratory Syncytial Virus Not Detected (Not Detect); SARS- CoV-2 Not Detected (Not Detecte)
[2021-12-16] MEDS: ALBUTEROL 2.5 MG/3 ML NEB (ADULT) INH (15:47)
[2021-12-16 15:51] LABS: Procalcitonin 0.08 ng/mL (<0.5)
[2021-12-16 16:13] LABS: PCO2 ABG 46.8 mmHg (35-45)
[2021-12-16 16:14] LABS: Fractionated Inspired Oxygen 21; HCO3 ABG 27 mmol/L (22-26); Oxygen Saturation ABG 95 % (95-100); PO2 ABG 76 mmHg (80-100); TCO2 ABG 29 mmol/L (21-31)
[2021-12-16] MEDS: AMOXICILLIN/CLAV 875/125 MG 1 TAB PO (16:14)
[2021-12-16 16:15] LABS: pH ABG 7.38 (7.35-7.45)
[2021-12-16] MEDS: DOXYCYCLINE HYCLATE 100 MG TABLET PO (16:16)
[2021-12-16] MEDS: methylPREDNISolone 125 MG/2 ML VIAL IV (17:15)
--- NOTE | 2021-12-16 17:34 | PC.NURSE ---
Pt ambulated with steady gait using her walker. Pt SpO2 92-95% while ambulating. Pt has dyspnea upon walking which is quickly resolved with rest.
[2021-12-16] MEDS: OXYCODONE/APAP 5/325 PREPACK 1 BOTTLE MISC (18:04)
== END 2021-12-16 18:06 | disposition home or self-care (01) ==
PROVIDERS: Emergency Provider Nurse Practitioner Critical Care Medicine; PCP Family Medicine
DX: J40 Bronchitis, not specified as acute or chronic (principal); R79.89 Other specified abnormal findings of blood chemistry; Z20.822 Contact with and (suspected) exposure to COVID-19; M25.551 Pain in right hip; W18.30XA Fall on same level, unspecified, initial encounter
CPT/HCPCS: 36415; 36600; 71046; 71275; 73030; 73130; 73502; 80053; 81003; 82550; 82553; 82805; 83605; 83690; 83880; 84145; 84484; 85025; 85379; 87070; 87077; 87186; 87205; 87633; 93005; 96374; 99284; 99285; J2930; J7613; Q9967

== ENCOUNTER → 2022-03-01 12:34 | Outpatient (CLI) | payer MEDICARE, OTHER, SELFPAY ==
[2021-07-04 11:37] VITALS: BMI 39.9
--- NOTE | 2022-03-01 12:36 | DI.MG.S_ITS ---
BILATERAL DIGITAL SCREENING MAMMOGRAM 3D/2D WITH CAD: 03/01/2022 CLINICAL: Routine screening. Comparison is made to exams dated: 03/07/2021 mammogram, 02/17/2021 mammogram, 01/27/2019 mammogram, and 12/24/2017 mammogram - [facility]. There are scattered areas of fibroglandular density in both breasts (category b / 25%-50% glandular tissue). Current study was also evaluated with a Computer Aided Detection (CAD) system. No significant masses, calcifications, or other findings are seen in either breast. There has been no significant interval change. IMPRESSION: NEGATIVE There is no mammographic evidence of malignancy. A 1 year screening mammogram is recommended. Based on the Tyrer Cuzick model (a risk assessment model) the patient's lifetime risk is 2.4% and her 10 year risk is 2.4%. According to the ACR, ACS, and NCCN guidelines, an annual breast MRI exam along with mammogram is recommended if the patient's lifetime risk is 20% or greater. This exam was interpreted at Station ID: [id number]. NOTE: For mammograms, a report in lay terms will be sent to the patient. Approximately 15% of breast malignancies will not be visualized mammographically. In the management of a palpable breast mass, a negative mammogram must not discourage biopsy of a clinically suspicious lesion. Electronically Signed By: Edmundo tian/socrates:03/01/2022 15:21:31 letter sent: Normal Exam ACR BI-RADS Category 1: Negative [id number]
== END ==
PROVIDERS: PCP Family Medicine; Referring Provider Family Medicine; Visit Provider Family Medicine
DX: Z12.31 Encounter for screening mammogram for malignant neoplasm of breast (principal)
CPT/HCPCS: 77063; 77067

== ENCOUNTER → 2022-03-29 11:37 | Outpatient (CLI) | payer MEDICARE, OTHER, SELFPAY ==
[2021-07-04 11:37] VITALS: BMI 39.9
--- NOTE | 2022-03-29 | DI.US.S_ITS ---
PROCEDURE: US PERIPH VENOUS UP EXTREM LT INDICATIONS: LEFT UPPER ARM PAIN/LUMPS TECHNIQUE: Real-time imaging, as well as color and pulse Doppler interrogation, was performed of the left upper extremity deep veins from the inferior neck to the antecubital fossa. COMPARISON: None. FINDINGS: The internal jugular vein, visualized portions of the subclavian vein, axillary, and brachial veins are free of intraluminal thrombus. Where physically possible, the veins are normally compressible. Color and pulse Doppler demonstrate normal intraluminal flow, with expected phasicity and pulsatility. Additional scanning of the cephalic and basilic veins of the superficial system demonstrate normal compressibility, without thrombus. Additional, dedicated ultrasound scanning is performed at the area of clinical lumps. No focal ultrasound abnormalities are seen within these regions. IMPRESSION: Negative for deep venous thrombosis. Dictated by: Sherman Alarcon M.D. on 03/29/2022 at 12:07 Approved by: Sherman Alarcon M.D. on 03/29/2022 at 12:07
== END ==
PROVIDERS: PCP Family Medicine; Referring Provider Family Medicine; Visit Provider Family Medicine
DX: M79.602 Pain in left arm (principal)
CPT/HCPCS: 93971

== ENCOUNTER 2022-06-11 10:20 | Outpatient (CLI) | payer MEDICARE, OTHER, SELFPAY ==
[2021-07-04 11:37] VITALS: BMI 39.9
[2022-06-11] VITALS (8 sets, daily range): BP systolic 145–178; BP diastolic 63–99; PULSE 72–80; RESP 17–23; TEMP 36.3; O2SAT 94–98
--- NOTE | 2022-06-11 10:24 | DI.RAD.S_ITS ---
PROCEDURE: PAIN L INTERLAMINAR/CAUDAL INJ INDICATIONS: SPONDYLOSIS COMPARISON: [facility], XA, PAIN L INTERLAMINAR/CAUDAL INJ, 07/12/2021, 12:20. [facility], XA, PAIN L/S TRANSFORAMINAL INJECT, 10/09/2021, 15:30. FINDINGS: Fluoroscopic spot filming was performed to verify placement of a spinal needle at the L4-L5 level, as labeled on the films. Appropriate location of the needle tip was confirmed by injection of iodinated contrast. IMPRESSION: Intraprocedural examination within normal limits. Dictated by: Sherman Alarcon M.D. on 06/11/2022 at 12:09 Approved by: Sherman Alarcon M.D. on 06/11/2022 at 12:09
[2022-06-11] MEDS: MIDAZOLAM 2 MG/2 ML VIAL IV (11:51)
[2022-06-11] MEDS: IOPAMIDOL 15 ML VIAL 3 ML INJ (11:55)
[2022-06-11] MEDS: BUPIVACAINE 0.5% MDV 2 ML INJ (11:55)
[2022-06-11] MEDS: DEXAMETHASONE 10 MG/ML VIAL 20 MG INJ (11:56)
[2022-06-11] MEDS: BETAMETHASONE 30 MG/5 ML MDV 6 MG INJ (11:58)
--- NOTE | 2022-06-11 12:06 | P.PCN_ITS ---
Date/Time/Diagnoses Date of procedure: 06/11/22 Time of procedure: 12:06 Pre-procedure diagnosis: 1. HNP WITH RADICULAR FEATURES, 2. MULTILEVEL CENTRAL STENOSIS, Post-procedure diagnosis: same Procedure Notes Procedure: 1. FLUOROSCOPICALLY GUIDED CONTRAST CONTROLLED INTERLAMINAR EPIDURAL STEROID INJECTION -L4/5 Indications: Pat is referred by Dr. Jean Baptiste for treatment of Bilateral Foraminal Stenosis R>L LE symptoms. Physician: David Flores Total Fluoroscopy time (seconds): 6 Total sedation minutes: 10 Complications: none Procedure in detail & Post-procedure care: FINDINGS Multilevel Central Spinal Stenosis with Nerve Root Compression DESCRIPTION OF PROCEDURE Fluoroscopically guided, contrast-controlled L4/5 translaminar epidural steroid injection. Following review of allergy and review of potential side effects and complications, including, but not necessarily limited to, infection, allergic reaction, local tissue breakdown, temporary as well as permanent nerve injury, paralysis, stroke and possible , the patient indicated that the patient understood and agreed to proceed. An informed consent document was signed by the patient, witnessed by a nurse, and placed in the patient's chart. Additionally, other treatment options including modalities, medications, and physical therapy were reviewed with the patient. After review of previous anaesthesic history and IV conscious sedation the patient was deemed safe to proceed with today?s procedure with IV conscious sedation as ASA class II designation. Safety time-out was performed to confirm patient ID, procedure to be performed and site of procedure. IV sedation was accomplished with a combination of 2mg of Versed was administered by the RN after DO order, titrated to patient comfort during the course of the procedure while the patient remained responsive to all verbal commands In the prone position, following sterile prep and drape of the lumbar region, the L4/5 translaminar space was identified fluoroscopically. The skin was anesthetized via a 25-gauge, 1.5inch needle with 1% lidocaine solution. At this point, a 22-gauge short bevel spinal needle was atraumatically introduced and advanced under fluoroscopic guidance into the region of the L4/5 translaminar space. Depth was confirmed on lateral view. Radiological data, including multiple fluoroscopic views of the lumbar spine, reveal a spinal needle at the L4/5 translaminar space. Lateral views then show placement of the needle in the epidural space. Subsequent views show contrast material flowing superiorly and inferiorly in the epidural space. No vascular or intrathecal uptake is observed. At this point, using loss of resistance technique with saline and air, the epidural space was entered. This was confirmed following negative aspiration with injection of approximately 1.5cc of Isovue 200, showing excellent epidural flow without vascular or intrathecal uptake. At this point, 1cc of 1% lidocaine solution combined with 3cc or 20mg of dexamethasone and 6mg betamethasone was injected without incident. The patient tolerated the procedure well without signs or symptoms of complications prior to transfer to the recovery area continued monitoring without incident. The patient was then transferred to the recovery area where they were observed for an appropriate period of time after the injection. The patient reported a VAS score of 6 prior to the procedure and a post- procedure VAS of 0. POST OP INSTRUCTIONS The patient was provided a Pain Log to continue to record their response to the target-specific procedure prior to follow-up visit with their referring physician. Additionally, specific post-injection care instructions and a contact number to our office were provided if concerns arise regarding possible complications associated with the procedure are suspected.
--- NOTE | 2022-06-11 12:56 | PC.NURSE ---
1208-Patient has weakness to BLE, right worse then left, reports her legs feel numb and tingling. 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 1250- patient stood at chair walked in place, continues to have slight numbness, but is able to walk in place, took few steps with cane. Patient reports she feels safe on her feet, spouse will help stand by at home and reports that she has a wheel chair. 1255- Educated spouse on standing by to assist with mobility. Has no questions or concerns.
== END 2022-06-11 12:55 | disposition home or self-care (01) ==
PROVIDERS: PCP Family Medicine; Referring Provider Physical Medicine & Rehabilitation; Visit Provider Physical Medicine & Rehabilitation
DX: M51.16 Intervertebral disc disorders with radiculopathy, lumbar region (principal); M48.061 Spinal stenosis, lumbar region without neurogenic 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
CPT/HCPCS: 62323; 99152; J0702; J1040; J1100; J2250; J3490

== ENCOUNTER → 2022-07-23 14:19 | Outpatient (CLI) | payer MEDICARE, OTHER, SELFPAY ==
[2021-07-04 11:37] VITALS: BMI 39.9
--- NOTE | 2022-07-23 | DI.US.S_ITS ---
PROCEDURE: US PERIP VENOUS LOW EXTREM LT INDICATIONS: Pain in left leg TECHNIQUE: Real-time imaging, as well as color and pulse Doppler interrogation, were performed of the lower extremity deep veins from the inguinal ligament to the popliteal fossa. COMPARISON: [facility], , [facility] VENOUS UP EXTREM LT, 03/29/2022, 11:55. FINDINGS: The common femoral, femoral and popliteal veins are normally compressible, and free of intraluminal thrombus. Color and pulse Doppler demonstrate normal phasic intraluminal flow. There is normal augmentation response to distal compression maneuver. IMPRESSION: Negative for deep venous thrombosis. Dictated by: Sherman Alarcon M.D. on 07/23/2022 at 14:16 Approved by: Sherman Alarcon M.D. on 07/23/2022 at 14:17
== END ==
PROVIDERS: PCP Family Medicine; Referring Provider Family Medicine; Visit Provider Family Medicine
DX: M79.605 Pain in left leg (principal)
CPT/HCPCS: 93971

== ENCOUNTER → 2022-10-11 15:11 | Outpatient (CLI) | payer MEDICARE, OTHER, SELFPAY ==
[2021-07-04 11:37] VITALS: BMI 39.9
--- NOTE | 2022-10-11 15:12 | DI.MRI.S_ITS ---
PROCEDURE: MR LUMBAR SPINE WO CON INDICATIONS: Lumbar HNP, spinal stenosis TECHNIQUE: Noncontrast sagittal T1 spin echo and T2 fast echo, sagittal STIR, and T2 fast spin echo through the lumbar spine. In cases with scoliosis, additional coronal T2 fast spin echo may be performed. COMPARISON: [facility], MR, L-SPINE WITHOUT CONTRAST, 12/19/2016, 8:42. [facility], MR, L-SPINE WITHOUT CONTRAST, 03/13/2015, 12:30. [facility], MR, L-SPINE WITHOUT CONTRAST, 03/10/2012, 15:28. [facility], MR, L-SPINE WITHOUT CONTRAST, 03/15/2010, 18:00. [facility], , MR LUMBAR SPINE WO CON, 09/21/2020, 19:59. FINDINGS: Image quality: This examination is limited by involuntary motion artifact. Alignment and Curvature: Mild levoconvex scoliotic curvature is noted. Minimal retrolisthesis can be seen at L1-L2, L2-L3, and L3-L4. Minimal anterolisthesis is seen at L4-L5. No associated pars defects are seen. Bone Marrow: Marrow is of normal overall signal. No acute vertebral body compression fractures. There is a stable L1 compression deformity, with approximately 60% loss of height centrally. Spinal Cord: Conus medullaris terminates at the L1 level. Visualized cord demonstrates normal signal and size. Paraspinous Soft Tissues: No paravertebral masses. T12-L1: The disc height is well-preserved. Loss of disc signal is seen at this level. Mild to moderate disc bulge is seen. There is a mild central/right disc protrusion seen. Mild facet joint hypertrophy is seen. Moderate bilateral neural foraminal narrowing can be seen, right worse than left. Mild central canal narrowing is seen. No significant change from the prior. L1-L2: Mild loss of disc height is seen. Loss of disc signal is seen. Mild to moderate disc bulge is seen, with a mild central disc protrusion. Mild facet joint hypertrophy is seen. There is mild to moderate right-sided and moderate left-sided neural foraminal narrowing. Mild central canal narrowing is seen. When comparison is made with the prior images, these findings are similar. L2-L3: [id number] loss of disc height and disc signal can be seen. At least moderate disc bulge is seen, with a central disc protrusion. Moderate facet joint hypertrophy is seen. Associated hypertrophy of the ligamentum flavum can be seen. Moderate bilateral neural foraminal narrowing is seen. Moderate to severe central canal narrowing is seen. Stable from the prior study. L3-L4: Mild loss of disc height is seen. Loss of disc signal is seen. Moderate disc bulge is seen, which is slightly eccentric to the left. There is a central/left disc protrusion. Moderate facet joint hypertrophy is seen. Associated hypertrophy of the ligamentum flavum can be seen. There is at least moderate right-sided and moderate to severe left-sided neural foraminal narrowing. There is a mild degree of compression seen upon the exiting left L3 nerve root. At least moderate central canal narrowing is seen. When comparison is made with the prior images, these findings are similar. L4-L5: Mild loss of disc height is seen. Loss of disc signal is seen. Moderate disc bulge is seen, which is eccentric to the left. There is a left subarticular/left foraminal disc protrusion seen. At least moderate facet hypertrophy can be seen. There is at least moderate left-sided and [id number] right-sided neural foraminal narrowing. Mild to moderate central canal narrowing can be seen. When comparison is made with the prior images, these findings are similar. L5-S1: The disc height and disk signal are relatively well-preserved. Mild to moderate disc bulge is seen, which is eccentric to the left, with a left foraminal disc protrusion. Bridging endplate osteophytes can be seen on the right side. Moderate facet joint hypertrophy is seen. No significant neural foraminal or central canal narrowing can be seen. No significant change from the prior. IMPRESSION: Multiple levels of lumbar spine degenerative change can be seen, which are not significantly change compared to 2020. Dictated by: Sherman Alarcon M.D. on 10/11/2022 at 19:49 Approved by: Sherman Alarcon M.D. on 10/11/2022 at 19:56
== END ==
PROVIDERS: PCP Family Medicine; Referring Provider Physical Medicine & Rehabilitation; Visit Provider Physical Medicine & Rehabilitation
DX: M16.0 Bilateral primary osteoarthritis of hip (principal)
CPT/HCPCS: 72148

== ENCOUNTER → 2022-10-12 08:46 | Outpatient (CLI) | payer MEDICARE, OTHER, SELFPAY ==
[2021-07-04 11:37] VITALS: BMI 39.9
[2022-10-12 09:29] LABS: Alanine Aminotransferase 33 IU/L (<35); Albumin 3.6 g/dL (3.5-5.0); Albumin Globulin Ratio 1.1 (1.0-2.8); Alkaline Phosphatase 109 U/L (38-126); Aspartate Aminotransferase 36 IU/L (14-36); BUN Creatinine Ratio 39.1 (6-22); Bilirubin Total 0.4 mg/dL (0.2-1.3); Blood Urea Nitrogen 25 mg/dL (7-17); Calcium 8.5 mg/dL (8.4-10.2); Carbon Dioxide 32 mmol/L (22-32); Chloride 102 mmol/L (98-107); Cholesterol 179 mg/dL (140-199); Estimated Glomerular Filt Rate > 60 mL/min (>60); Globulin 3.2 g/dL (1.7-4.1); Glucose 108 mg/dL (80-110); HDL Cholesterol 73 mg/dL (40-60); HEMOLYSIS < 15 (0-50); LDL Cholesterol Calculated 64 mg/dL (<100); Potassium 4.3 mmol/L (3.4-5.1); Sodium 137 mmol/L (137-145); Total Protein 6.8 g/dL (6.3-8.2); Triglycerides 212 mg/dL (35-150)
[2022-10-12 09:32] LABS: Add Manual Diff / Slide Review NO; Basophils Absolute Auto 0 /uL (0-100); Basophils Percent Auto 0.6 % (0-2); Eosinophils Absolute Auto 100 /uL (0-450); Eosinophils Percent Auto 1.7 % (2-4); Hematocrit 36.6 % (36-46); Hemoglobin 12.4 g/dL (12.0-16.0); Lymphocytes Absolute Auto 2100 /uL (1100-4500); Lymphocytes Percent Auto 37.1 % (25-40); Mean Corpuscular Hemoglobin 31.6 PG (26-34); Mean Corpuscular Volume 93.1 fL (80-100); Monocytes Absolute Auto 600 /uL (0-900); Monocytes Percent Auto 10.3 % (3-14); Neutrophils Absolute Auto 2900 /uL (1500-7000); Neutrophils Percent Auto 50.3 % (50-75); Platelet Count 194 X10^3/uL (150-400); Red Blood Cell Count 3.93 X10^6/uL (4.0-5.2); Red Cell Distribution Width 13.6 % (11.6-14.8); White Blood Cell Count 5.8 X10^3/uL (4.5-11.0)
[2022-10-12 09:58] LABS: TSH w/ Reflex to FT4 3.71 uIU/mL (0.47-4.68)
[2022-10-14 01:36] LABS: Labcorp Hemoglobin (Hb) A1c 6.2 % (4.8-5.6)
== END ==
PROVIDERS: PCP Family Medicine; Referring Provider Family Medicine; Visit Provider Family Medicine
DX: I10 Essential (primary) hypertension (principal); R73.01 Impaired fasting glucose; E78.5 Hyperlipidemia, unspecified; F41.8 Other specified anxiety disorders; D12.6 Benign neoplasm of colon, unspecified
CPT/HCPCS: 36415; 80053; 80061; 83036; 84443; 85025

== ENCOUNTER 2022-10-31 11:53 | Outpatient (CLI) | payer MEDICARE, OTHER, SELFPAY ==
[2021-07-04 11:37] VITALS: BMI 39.9
[2022-10-31] VITALS (9 sets, daily range): BP systolic 168–214; BP diastolic 77–93; PULSE 67–81; RESP 13–22; TEMP 36.4; O2SAT 91–95
--- NOTE | 2022-10-31 11:54 | DI.RAD.S_ITS ---
PROCEDURE: PAIN L INTERLAMINAR/CAUDAL INJ INDICATIONS: SPONDYLOSIS COMPARISON: [facility], XA, PAIN L INTERLAMINAR/CAUDAL INJ, 06/11/2022, 12:55. [facility], MR, MR LUMBAR SPINE WO CON, 10/11/2022, 15:25. FINDINGS: Fluoroscopic spot filming was performed to verify placement of a spinal needle at the L3-L4 level, as labeled on the films. Appropriate location of the needle tip was confirmed by injection of iodinated contrast. IMPRESSION: Intraprocedural examination within normal limits. Dictated by: Sherman Alarcon M.D. on 10/31/2022 at 13:15 Approved by: Sherman Alarcon M.D. on 10/31/2022 at 13:15
[2022-10-31] MEDS: MIDAZOLAM 2 MG/2 ML VIAL IV (13:03)
[2022-10-31] MEDS: BUPIVACAINE 0.25% (PF) VIAL 2 ML INJ (13:08)
[2022-10-31] MEDS: DEXAMETHASONE 10 MG/ML VIAL 20 MG INJ (13:09)
[2022-10-31] MEDS: IOPAMIDOL 15 ML VIAL 3 ML INJ (13:10)
[2022-10-31] MEDS: BETAMETHASONE 30 MG/5 ML MDV 6 MG INJ (13:11)
--- NOTE | 2022-10-31 13:34 | P.PCN_ITS ---
Date/Time/Diagnoses Date of procedure: 10/31/22 Time of procedure: 13:34 Pre-procedure diagnosis: 1. HNP WITH RADICULAR FEATURES, 2. MULTILEVEL CENTRAL STENOSIS, Post-procedure diagnosis: same Procedure Notes Procedure: 1. FLUOROSCOPICALLY GUIDED CONTRAST CONTROLLED INTERLAMINAR EPIDURAL STEROID INJECTION - L3/4 Indications: Pat is referred by Dr. Jean Baptiste for treatment of Bilateral Foraminal Stenosis L>R LE symptoms. Physician: David Flores Total Fluoroscopy time (seconds): 35 Total sedation minutes: 25 Complications: none Procedure in detail & Post-procedure care: FINDINGS Multilevel Central Spinal Stenosis with Nerve Root Compression DESCRIPTION OF PROCEDURE Fluoroscopically guided, contrast-controlled L3/4 translaminar epidural steroid injection. Following review of allergy and review of potential side effects and complications, including, but not necessarily limited to, infection, allergic reaction, local tissue breakdown, temporary as well as permanent nerve injury, paralysis, stroke and possible , the patient indicated that the patient understood and agreed to proceed. An informed consent document was signed by the patient, witnessed by a nurse, and placed in the patient's chart. Additionally, other treatment options including modalities, medications, and physical therapy were reviewed with the patient. After review of previous anaesthesic history and IV conscious sedation the patient was deemed safe to proceed with today?s procedure with IV conscious sedation as ASA class II designation. Safety time-out was performed to confirm patient ID, procedure to be performed and site of procedure. IV sedation was accomplished with a combination of 2mg of Versed was administered by the RN after DO order, titrated to patient comfort during the course of the procedure while the patient remained responsive to all verbal commands. In the prone position, following sterile prep and drape of the lumbar region, the L3/4 translaminar space was identified fluoroscopically. The skin was anesthetized via a 25-gauge, 1.5-inch needle with 1% lidocaine solution. At this point, a 22-gauge short bevel spinal needle was atraumatically introduced and advanced under fluoroscopic guidance into the region of the L3/4 translaminar space. Depth was confirmed on lateral view. Radiological data, including multiple fluoroscopic views of the lumbar spine, reveal a spinal needle at the L3/4 translaminar space. Lateral views then show placement of the needle in the epidural space. Subsequent views show contrast material flowing superiorly and inferiorly in the epidural space. No vascular or intrathecal uptake is observed. At this point, using loss of resistance technique with saline and air, the epidural space was entered. This was confirmed following negative aspiration with injection of approximately 1.5 cc of Isovue 200, showing excellent epidural flow without vascular or intrathecal uptake. At this point, 1cc of 1% lidocaine solution combined with 3cc or 20mg of dexamethasone and 6mg of betamethasone was injected without incident. The patient tolerated the procedure well without signs or symptoms of complications prior to transfer to the recovery area continued monitoring without incident. The patient was then transferred to the recovery area where they were observed for an appropriate period of time after the injection. The patient reported a VAS score of 6 prior to the procedure and a post- procedure VAS of 0. POST OP INSTRUCTIONS The patient was provided a Pain Log to continue to record their response to the target-specific procedure prior to follow-up visit with their referring physician. Additionally, specific post-injection care instructions and a contact number to our office were provided if concerns arise regarding possible complications associated with the procedure are suspected.
== END 2022-10-31 13:45 | disposition home or self-care (01) ==
LOC: RAD 11:54
PROVIDERS: PCP Family Medicine; Referring Provider Physical Medicine & Rehabilitation; Visit Provider Physical Medicine & Rehabilitation
DX: M51.16 Intervertebral disc disorders with radiculopathy, lumbar region (principal); M48.061 Spinal stenosis, lumbar region without neurogenic 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
CPT/HCPCS: 62323; 99152; 99153; J0702; J1100; J2250; J3490

== ENCOUNTER 2022-12-01 15:33 | Emergency (ER) | payer MEDICARE, OTHER, SELFPAY ==
[2021-07-04 11:37] VITALS: BMI 39.9
[2022-12-01 15:47] VITALS: BP 133/71; PULSE 74; RESP 16; TEMP 36.7; O2SAT 94; BMI 38.4
--- NOTE | 2022-12-01 15:59 | DI.RAD.S_ITS ---
PROCEDURE: XR HIP W PEL IF DONE RT 2V INDICATIONS: R hip pain, TECHNIQUE: AP pelvis with lateral view(s) of the right hip(s). COMPARISON: [facility], , XR HIP W PEL IF DONE RT 2V, 12/16/2021, 13:48. FINDINGS: Bones: No fractures or dislocations. There are degenerative changes of both hips and the symphysis pubis. Pelvic ring appears intact. No suspicious bony lesions. Soft tissues: The visualized bowel gas pattern is normal. No suspicious soft tissue calcifications. IMPRESSION: No acute traumatic abnormality of the pelvis or right hip. Dictated by: Brijesh Bui M.D. on 12/01/2022 at 16:17 Approved by: Brijesh Bui M.D. on 12/01/2022 at 16:19
--- NOTE | 2022-12-01 15:59 | DI.RAD.S_ITS ---
PROCEDURE: XR LUMBAR SPINE 2-3V INDICATIONS: L4/5 tender midline, hip/back twist 3 dPTA TECHNIQUE: 3 views of the lumbar spine were acquired. COMPARISON: [facility], CR, XR LUMBAR SPINE 2-3V, 09/04/2020, 12:37. FINDINGS: Bones: Three views of the lumbar spine demonstrate multilevel degenerative changes. There is disc disease at multiple levels most prominently at L2-3 and L4-5. Facet arthrosis is present in the lower lumbar spine. The symphysis pubis has degenerative changes. The sacroiliac joints are normal. No fracture of the pelvis. No vertebral body height loss. Leftward curvature of the thoracolumbar spine. Soft tissues: Overlying bowel gas pattern is normal. No suspicious soft tissue calcifications. IMPRESSION: Degenerative changes and disc disease of the lumbar spine. No acute traumatic abnormality. Dictated by: Brijesh Bui M.D. on 12/01/2022 at 16:20 Approved by: Brijesh Bui M.D. on 12/01/2022 at 16:22
--- NOTE | 2022-12-01 16:04 | ED.LOWEXIN ---
HPI - Extremity Injury (Lower) <Ana Paula Fleming PA-C - Last Filed: 12/01/22 19:35> General Chief Complaint: Extremity Injury, Lower Stated Complaint: T-4 R/twisted hip, knee swollen Time Seen by Provider: 12/01/22 15:59 Source: patient Mode of arrival: Wheelchair History of Present Illness HPI Narrative: This is a 77-year-old woman with a history of chronic back problems, lumbar stenosis with neurogenic 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 and lumbar radiculopathy as well as degenerative joint disease of the hip who presents with concern for right hip pain and right low back pain after she twisted while standing 3 days ago and feels she did something to her hip. Patient states that she has been ambulating on it but ever since she twisted she has been feeling pain in the back of her right thigh and pain radiating down her buttock from her right low back. She also states that she has been having chronic problems with pain in her groin at the joint on both sides where her leg folds but it has been worse since she twisted herself a few days ago and she is had a popping sensation going on there that it has been happening more frequently than it was prior to the twisting. She states this happened at home, her was there and he helped her to keep her from actually falling to the ground. She had made a sudden move and twist and felt like her leg was going to give out in her caught her. She has been taking her regular medications including pregabalin for her back pain. She is currently seeing orthopedics. She denies numbness or tingling of the affected extremity, change in bowel or bladder function or any other symptoms. Related Data Home Medications Medication Instructions Recorded Confirmed amitriptyline 10 mg tablet 10 mg PO QPM 02/26/18 10/09/22 atorvastatin 40 mg tablet (Lipitor) 40 mg PO QPM 02/26/18 10/09/22 conjugated estrogens 0.625 mg 0.625 mg PO QAM 02/26/18 10/09/22 tablet (Premarin) escitalopram oxalate 20 mg tablet 20 mg PO QAM 02/26/18 10/09/22 (Lexapro) folic acid 1 mg tablet 1 mg PO DAILY 02/26/18 10/09/22 hydrochlorothiazide 25 mg tablet 25 mg PO QAM 02/26/18 10/09/22 calcium polycarbophil 625 mg 1 tab PO BID 08/10/18 10/09/22 tablet (Fiber-Tabs) cholecalciferol (vitamin D3) 50 4,000 unit PO BID 08/10/18 10/09/22 mcg (2,000 unit) capsule (Vitamin D3) cyanocobalamin (vitamin B-12) 1,000 mcg PO DAILY 08/10/18 10/09/22 1,000 mcg tablet (Vitamin B-12) rjcksuij-cjj-pdnig acid 0.4 1 tab PO DAILY 08/10/18 10/09/22 mg-lycopene 300 mcg-lutein 250 mcg tablet (Centrum Silver) solifenacin 10 mg tablet 10 mg PO QPM 08/10/18 10/09/22 celecoxib 200 mg capsule (Celebrex) 200 mg PO DAILY 11/10/19 10/09/22 Respirinics DreamStation 2 Auto #1 ea 06/28/21 10/09/22 CPAP clobetasol 0.05 % topical ointment g topical 09/03/21 10/09/22 lisinopril 40 mg tablet 40 mg PO DAILY 10/09/22 10/09/22 omeprazole 20 mg capsule,delayed 20 mg PO DAILY 10/09/22 10/09/22 release Previous Rx's Medication Instructions Recorded diclofenac sodium 1 % topical gel 4 g topical QID PRN pain #100 grams 08/25/21 (Voltaren Arthritis Pain) lidocaine 5 % topical patch 2 patch topical DAILY PRN pain #15 08/25/21 ea cyclobenzaprine 10 mg tablet 10 mg PO BID PRN muscle spasm #60 09/03/21 tabs cetirizine 10 mg tablet 10 mg PO DAILY allergy symptoms 12/16/21 #20 tabs oxycodone-acetaminophen 5 mg-325 1 tab PO Q8H PRN pain #14 tabs 12/16/21 mg tablet (Percocet) diazepam 10 mg tablet (Valium) 10 mg PO .COMPLEX PRN 1-2 prior to 10/15/22 MRI and for possible steroid flare #10 tabs tramadol 50 mg tablet 50 mg PO BID PRN pain #30 tabs 10/15/22 cyclobenzaprine 5 mg tablet 5 mg PO TID PRN muscle spasm #20 11/09/22 tabs baclofen 10 mg tablet 10 mg PO TID 10 days #30 tabs 12/01/22 lidocaine 5 % topical cream 1 applic topical TID PRN pain #15 12/01/22 grams prednisone 20 mg tablet 40 mg PO DAILY 4 days #8 tabs 12/01/22 Allergies Allergy/AdvReac Type Severity Reaction Status Date / Time piroxicam [PIROXICAM] Allergy Severe RASH Verified 10/09/22 09:19 shellfish derived Allergy Severe scallops Verified 10/09/22 09:19 [SHELLFISH DERIVED] only ANAPHYLAXIS rofecoxib [ROFECOXIB] Allergy Intermediate RASH Verified 10/09/22 09:19 bacitracin Allergy Mild rash Verified 10/09/22 09:19 [From NEOSPORIN ([id number])] neomycin Allergy Mild rash Verified 10/09/22 09:19 [From NEOSPORIN ([id number])] polymyxin B Allergy Mild rash Verified 10/09/22 09:19 [From NEOSPORIN ([id number])] Review of Systems <Ana Paula Fleming PA-C - Last Filed: 12/01/22 19:35> Review of Systems Narrative: See HPI Patient History <Ana Paula Fleming PA-C - Last Filed: 12/01/22 19:35> Medical History Allergic rhinitis Anxiety Bilateral foot pain Chronic pain syndrome Chronic rhinosinusitis Closed L1 vertebral fracture Contusion of left hip Degenerative disc disease, cervical Degenerative disc disease, lumbar Degenerative joint disease (DJD) of hip Degenerative joint disease, ankle, foot, toe Depression Diverticulosis Excessive daytime sleepiness (~2006) Facet arthropathy, lumbar Flu Gait instability GERD (gastroesophageal reflux disease) GI bleed 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 bursitis Hyperlipidemia Hypertension Insomnia, psychophysiological (~2006) Lumbar radiculopathy 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 with neurogenic 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 MGUS (monoclonal gammopathy of unknown significance) Obesity (BMI 30-39.9) Obstructive sleep apnea of adult (~2006) 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 sides of body Rectal bleeding Snoring (~1984) Tear of left hamstring Surgical History History of bladder suspension procedure History of colonoscopy History of hand surgery History of hysterectomy History of surgery on left wrist Hx of repair of right rotator cuff Social History marital status: details: julienne Mirza, lives in [place] household members: spouse lives independently: Yes caregiver/support person: No housing: house Smoking Status: Never smoker alcohol intake: current Smoking Status: Never smoker alcohol intake frequency: holidays/special occasions only Substance Use Type: does not use Exam <Ana Paula Fleming PA-C - Last Filed: 12/01/22 19:35> Narrative Exam Narrative: GENERAL: 77 year old patient appears stated age. Well-developed patient, in mild distress. HEAD: Atraumatic. Normocephalic. EYES: Pupils equal round and reactive. Extraocular motions intact. No scleral icterus. No injection or drainage. ENT: Nose without bleeding, purulent discharge. Airway patent. NECK: Trachea midline. CARDIOVASCULAR: Regular rate and rhythm without murmurs, gallops, or rubs. RESPIRATORY: Clear to auscultation. Breath sounds equal bilaterally. No wheezes, rales, or rhonchi. GASTROINTESTINAL: Abdomen protuberant, non-tender, nondistended. EXTREMITIES: There is mild tenderness of the posterior thigh/hamstring, there is tenderness of the lumbar L3 through 5, midline, right paraspinal tenderness and SI joint tenderness on the right, No edema or joint tenderness. Strength and range of motion are intact in bilateral lower extremities, patient does have increased low back pain with flexion of the hip and the knee BACK: See extremities, otherwise Nontender without deformity or crepitance. No flank tenderness. NEURO: AOx3. SKIN: No rash or erythema of visible areas Initial Vital Signs Initial Vital Signs: Vital Signs Temperature 98.0 F 12/01/22 15:47 Pulse Rate 74 12/01/22 15:47 Respiratory Rate 16 12/01/22 15:47 Blood Pressure 133/71 12/01/22 15:47 Pulse Oximetry 94 12/01/22 15:47 Oxygen Delivery Method Room Air 12/01/22 15:47 <Lyle Souza DO - Last Filed: 12/01/22 21:07> Initial Vital Signs Initial Vital Signs: Vital Signs Temperature 98.0 F 12/01/22 15:47 Pulse Rate 74 12/01/22 15:47 Respiratory Rate 16 12/01/22 15:47 Blood Pressure 133/71 12/01/22 15:47 Pulse Oximetry 94 12/01/22 15:47 Oxygen Delivery Method Room Air 12/01/22 15:47 Course <Ana Paula Fleming PA-C - Last Filed: 12/01/22 19:35> Orders Ordered: ED Orders 12/01/22 15:59 XR hip w pel if done RT 2V Stat XR lumbar spine 2-3V Stat Discontinued Medications Acetaminophen (Acetaminophen 325 Mg Tablet) 650 mg PO NOW ONE Stop: 12/01/22 16:00 Last Admin: 12/01/22 16:05 Dose: 650 mg Documented By: RB Vital Signs Vital signs: Vital Signs - 8 hr 12/01/22 15:47 12/01/22 18:50 Temperature 98.0 F 97.8 F Pulse Rate 74 78 Respiratory Rate 16 18 Blood Pressure 133/71 132/62 Pulse Oximetry 94 97 Oxygen Delivery Method Room Air Room Air <Lyle Souza DO - Last Filed: 12/01/22 21:07> Orders Ordered: ED Orders 12/01/22 15:59 XR hip w pel if done RT 2V Stat XR lumbar spine 2-3V Stat Discontinued Medications Acetaminophen (Acetaminophen 325 Mg Tablet) 650 mg PO NOW ONE Stop: 12/01/22 16:00 Last Admin: 12/01/22 16:05 Dose: 650 mg Documented By: RB Vital Signs Vital signs: Vital Signs - 8 hr 12/01/22 15:47 12/01/22 18:50 Temperature 98.0 F 97.8 F Pulse Rate 74 78 Respiratory Rate 16 18 Blood Pressure 133/71 132/62 Pulse Oximetry 94 97 Oxygen Delivery Method Room Air Room Air MDM - Extremity Injury (Lower) <Ana Paula Fleming PA-C - Last Filed: 12/01/22 19:35> Differential Diagnosis Differential diagnosis: Likely other (Degenerative disease of the hip, hip fracture, pelvis fracture, sciatica, muscle spasm, muscle strain) Imaging Data XR lumbar: My Impression: Agree with Radiology interpretation Radiologist's Impression: [address] [address] XRay Report Signed Patient: Pta Jackson MR#: [id number] : 1945 Acct:[id number] Age/Sex: 77 / F Date of Service: 12/01/22 Loc: ED Accession Number: [id number] ?? Procedure: XR lumbar spine 2-3V Ordering Provider: Ana Paula Fleming P.A-C PROCEDURE:? XR LUMBAR SPINE 2-3V ? INDICATIONS:? L4/5 tender midline, hip/back twist 3 dPTA ? TECHNIQUE:? 3 views of the lumbar spine were acquired.? ? COMPARISON:? [facility], CR, XR LUMBAR SPINE 2-3V, 09/04/2020, 12:37. ? FINDINGS:? ? Bones:? Three views of the lumbar spine demonstrate multilevel degenerative changes.? There is disc disease at multiple levels most prominently at L2-3 and L4-5.? Facet arthrosis is present in the lower lumbar spine.? The symphysis pubis has degenerative changes.? The sacroiliac joints are normal.? No fracture of the pelvis.? No vertebral body height loss.? Leftward curvature of the thoracolumbar spine. ? Soft tissues:? Overlying bowel gas pattern is normal.? No suspicious soft tissue calcifications.? ? IMPRESSION:? Degenerative changes and disc disease of the lumbar spine.? No acute traumatic abnormality. ? ? Dictated by: Brijesh Bui M.D. on 12/01/2022 at 16:20 ? ? Approved by: Brijesh Bui M.D. on 12/01/2022 at 16:22?? XR hip/pelvis: My Impression: Agree with Radiology interpretation Radiologist's Impression: [address] [address] XRay Report Signed Patient: Pat Jackson MR#: [id number] : 1945 Acct:[id number] Age/Sex: 77 / F Date of Service: 12/01/22 Loc: ED Accession Number: [id number]? ? Procedure: XR hip w pel if done RT 2V Ordering Provider: Ana Paula Fleming P.A-C PROCEDURE:? XR HIP W PEL IF DONE RT 2V ? INDICATIONS:? R hip pain, ? TECHNIQUE:? AP pelvis with lateral view(s) of the right hip(s).? ? COMPARISON:? [facility], CR, XR HIP W PEL IF DONE RT 2V, 12/16/2021, 13:48. ? FINDINGS:? ? Bones:? No fractures or dislocations.? There are degenerative changes of both hips and the symphysis pubis.? Pelvic ring appears intact.? No suspicious bony lesions.? ? Soft tissues:? The visualized bowel gas pattern is normal.? No suspicious soft tissue calcifications.? ? ? IMPRESSION:? No acute traumatic abnormality of the pelvis or right hip. ? Dictated by: Brijesh Bui M.D. on 12/01/2022 at 16:17? ?? Approved by: Brijesh Bui M.D. on 12/01/2022 at 16:19?? Treatment and disposition Shared decision making:: Shared decision-making was used in determining the patient's plan of care in the emergency department and plan for outpatient follow-up MDM Narrative Medical decision making narrative: This is a 77-year-old woman with a history of lumbar radiculopathy, osteoarthritis, degenerative joint disease of the hip who presents with concern for acute on chronic hip and right-sided low back pain after she twisted suddenly while standing 3 days ago. X-rays of hip and pelvis as well as L-spine are unremarkable for acute change or finding, discussed this with the patient and did place her on short course of prednisone as well as prescription for topical lidocaine and muscle relaxer. Patient was given Tylenol today in the emergency department, her pain was not severe exam was consistent with radiculopathy from sciatica as well as muscle spasming of her right hamstring. Patient is advised to follow up closely with her orthopedic provider Dr. Bar in [place], return precautions provided, follow-up plan discussed, all questions answered. Discharge Plan Departure Patient Disposition: Home Clinical Impression: Acute bilateral low back pain with right-sided sciatica, Muscle spasm of right leg Activity Restrictions/Additional Instructions: *You have been diagnosed with [sciatica, muscle spasm] *What to do: *Please continue to take your regular medications as directed. [3 ] New medication prescriptions sent to your pharmacy: [Baclofen, topical lidocaine, prednisone] [ ] New medication written as a paper prescription [ ] No new medications given *Please follow up with your primary care provider in 2-3 days, call for an appointment. Let them know you were seen in the Emergency Department and that we ask that you be seen in follow up. We will electronically transmit a record of today's note if your PCP is in our system. We did x-rays today of your right hip and pelvis as well as your lumbar spine. Your lumbar spine does have some degenerative changes but this is something you were already aware of. Otherwise your x-rays looked okay today. I am placing on a very short course of prednisone steroid medication for inflammation, I think that you have pulled a muscle and have some muscle tightness and spasming in her right hamstring from the twist that you did the other day, you can try using the muscle relaxer but please be cautious about taking this with your other medications make sure there is somebody with you the 1st time we try and do not operate any equipment or drive a car after taking it. I have also prescribed some topical lidocaine they can try for pain as well. You may benefit from trying heat in addition. I recommend he follow up closely with your orthopedic provider Dr. Bar. We did print a disc of the images from today the can share with your orthopedic provider/PCP. *If you do not have a primary care provider please contact the [facility] Resource line at [phone]. They will ask some questions about your medical history and help get you set up with a doctor in the community. *Return to Emergency Department if you should have any new, worsening or concerning symptoms, such as [fever greater than 101 F, shaking chills, worsening pain, persistent vomiting or other bothersome symptoms] Prescriptions: New baclofen 10 mg tablet 10 mg PO TID 10 Days Qty: 30 0RF lidocaine 5 % cream 1 applic topical TID PRN (Reason: pain) Qty: 15 1RF prednisone 20 mg tablet 40 mg PO DAILY 4 Days Qty: 8 0RF No Action cyclobenzaprine 5 mg tablet 5 mg PO TID PRN (Reason: muscle spasm) Qty: 20 0RF Rx Instructions: Do not take with other muscle relaxers May take 2 tablets at a time if needed May cause drowsiness. tramadol 50 mg tablet 50 mg PO BID PRN (Reason: pain) Qty: 30 1RF diazepam [Valium] 10 mg tablet 10 mg PO .COMPLEX MDD 3 tabs PRN (Reason: 1-2 prior to MRI and for possible steroid flare) Qty: 10 0RF Rx Instructions: 10 mg PO PRN; diclofenac sodium [Voltaren Arthritis Pain] 1 % gel 4 g topical QID PRN (Reason: pain) Qty: 100 0RF Rx Instructions: apply to single knee, ankle, foot; for foot includes sole/toes/top of foot lidocaine 5 % adhesive patch,medicated 2 patch topical DAILY PRN (Reason: pain) Qty: 15 0RF Rx Instructions: leave on most painful area for up to 12 hrs oxycodone-acetaminophen [Percocet] 5-325 mg tablet 1 tab PO Q8H PRN (Reason: pain) Qty: 14 0RF cetirizine 10 mg tablet 10 mg PO DAILY Qty: 20 0RF cyanocobalamin (vitamin B-12) [Vitamin B-12] 1,000 mcg Tablet 1,000 mcg PO DAILY calcium polycarbophil [Fiber-Tabs] 625 mg Tablet 1 tab PO BID solifenacin 10 mg tablet 10 mg PO QPM Centrum Silver 0.4-300-250 mg-mcg-mcg Tablet 1 tab PO DAILY cholecalciferol (vitamin D3) [Vitamin D3] 2,000 unit Capsule 4,000 unit PO BID celecoxib [Celebrex] 200 mg Capsule 200 mg PO DAILY conjugated estrogens [Premarin] 0.625 mg tablet 0.625 mg PO QAM hydrochlorothiazide 25 mg tablet 25 mg PO QAM escitalopram oxalate [Lexapro] 20 mg tablet 20 mg PO QAM folic acid 1 mg tablet 1 mg PO DAILY atorvastatin [Lipitor] 40 mg tablet 40 mg PO QPM amitriptyline 10 mg tablet 10 mg PO QPM omeprazole 20 mg capsule,delayed release(DR/EC) 20 mg PO DAILY lisinopril 40 mg tablet 40 mg PO DAILY clobetasol 0.05 % ointment topical cyclobenzaprine 10 mg tablet 10 mg PO BID PRN (Reason: muscle spasm) Qty: 60 1RF (DME) Respirinics DreamStation 2 Auto CPAP kit Qty: 1 Dose Instruction: As directed Patient Comments: Pressure: 7-14 cmH2O DME: [employer] Rx Instructions: As directed Referrals: Sami Bar DO [Non-Staff] - Ana Paula Jean Baptiste MD [Primary Care Provider] - Stand Alone Forms: Patient Portal/API <Lyle Souza DO - Last Filed: 12/01/22 21:07> Cosign ED Attending Cosignature Attestation: Dr Souza Co-Sign Statement: I was available for consultation during this patient's emergency department visit. This chart is signed by myself for administrative purposes only. I did not have direct contact with this patient during this visit. They were seen independently by the APC.
[2022-12-01] MEDS: ACETAMINOPHEN 325 MG TABLET 650 MG PO (16:05)
[2022-12-01 18:50] VITALS: BP 132/62; PULSE 78; RESP 18; TEMP 36.6; O2SAT 97
== END 2022-12-01 18:59 | disposition home or self-care (01) ==
PROVIDERS: Emergency Provider Student in an Organized Health Care Education/Training Program; PCP Family Medicine
DX: M54.41 Lumbago with sciatica, right side (principal); M62.838 Other muscle spasm
CPT/HCPCS: 72100; 73502; 99283

== ENCOUNTER 2022-12-04 15:41 | Emergency (ER) | payer MEDICARE, OTHER, SELFPAY ==
[2021-07-04 11:37] VITALS: BMI 39.9
[2022-12-04 15:45] VITALS: BP 187/96; PULSE 86; RESP 18; TEMP 36.4; O2SAT 95; BMI 39.4
--- NOTE | 2022-12-04 17:23 | PC.NURSE ---
patient has blisters after taking off her compression stocking. She was seen by Nasreen Jean Baptiste and was told to wear her compression stockings for leg swelling in both legs.
[2022-12-04 18:01] VITALS: PULSE 76; RESP 14; O2SAT 93
--- NOTE | 2022-12-04 18:07 | ED_ITS ---
HPI - Skin/Abscess/Foreign Bdy <Keren Nunez PA-C - Last Filed: 12/04/22 18:19> General Chief complaint: Skin/Abscess/Foreign Body Stated complaint: lt ft giant blister/swollen legs Time Seen by Provider: 12/04/22 17:28 Source: patient Mode of arrival: Ambulatory Limitations: no limitations History of Present Illness HPI narrative: 77-year-old female with past medical history hypertension, osteoarthritis, MGUS presents to the ED with bilateral foot blisters at the base of her 2nd and 3rd toes on the dorsal side. Patient states that she has had worsening swelling in bilateral feet and legs, had seen her PCP Dr. Jean Baptiste who advised her to wear her compression stockings daily. Patient states she has been doing that over the past several days, noted that the blisters appeared yesterday. They are symmetric on both feet. Patient does endorse that her feet have been more swollen than prior and that her shoes do feel somewhat tight. Patient denies any fever, chills, chest pain, shortness of breath, numbness, weakness, tingling. Related Data Home Medications Medication Instructions Recorded Confirmed amitriptyline 10 mg tablet 10 mg PO QPM 02/26/18 10/09/22 atorvastatin 40 mg tablet (Lipitor) 40 mg PO QPM 02/26/18 10/09/22 conjugated estrogens 0.625 mg 0.625 mg PO QAM 02/26/18 10/09/22 tablet (Premarin) escitalopram oxalate 20 mg tablet 20 mg PO QAM 02/26/18 10/09/22 (Lexapro) folic acid 1 mg tablet 1 mg PO DAILY 02/26/18 10/09/22 hydrochlorothiazide 25 mg tablet 25 mg PO QAM 02/26/18 10/09/22 calcium polycarbophil 625 mg 1 tab PO BID 08/10/18 10/09/22 tablet (Fiber-Tabs) cholecalciferol (vitamin D3) 50 4,000 unit PO BID 08/10/18 10/09/22 mcg (2,000 unit) capsule (Vitamin D3) cyanocobalamin (vitamin B-12) 1,000 mcg PO DAILY 08/10/18 10/09/22 1,000 mcg tablet (Vitamin B-12) shzdydlx-ehr-vmcoo acid 0.4 1 tab PO DAILY 08/10/18 10/09/22 mg-lycopene 300 mcg-lutein 250 mcg tablet (Centrum Silver) solifenacin 10 mg tablet 10 mg PO QPM 08/10/18 10/09/22 celecoxib 200 mg capsule (Celebrex) 200 mg PO DAILY 11/10/19 10/09/22 Respirinics DreamStation 2 Auto #1 ea 06/28/21 10/09/22 CPAP clobetasol 0.05 % topical ointment g topical 09/03/21 10/09/22 lisinopril 40 mg tablet 40 mg PO DAILY 10/09/22 10/09/22 omeprazole 20 mg capsule,delayed 20 mg PO DAILY 10/09/22 10/09/22 release Previous Rx's Medication Instructions Recorded diclofenac sodium 1 % topical gel 4 g topical QID PRN pain #100 grams 08/25/21 (Voltaren Arthritis Pain) lidocaine 5 % topical patch 2 patch topical DAILY PRN pain #15 08/25/21 ea cyclobenzaprine 10 mg tablet 10 mg PO BID PRN muscle spasm #60 09/03/21 tabs cetirizine 10 mg tablet 10 mg PO DAILY allergy symptoms 12/16/21 #20 tabs oxycodone-acetaminophen 5 mg-325 1 tab PO Q8H PRN pain #14 tabs 12/16/21 mg tablet (Percocet) diazepam 10 mg tablet (Valium) 10 mg PO .COMPLEX PRN 1-2 prior to 10/15/22 MRI and for possible steroid flare #10 tabs tramadol 50 mg tablet 50 mg PO BID PRN pain #30 tabs 10/15/22 cyclobenzaprine 5 mg tablet 5 mg PO TID PRN muscle spasm #20 11/09/22 tabs baclofen 10 mg tablet 10 mg PO TID 10 days #30 tabs 12/01/22 lidocaine 5 % topical cream 1 applic topical TID PRN pain #15 12/01/22 grams prednisone 20 mg tablet 40 mg PO DAILY 4 days #8 tabs 12/01/22 mupirocin 2 % topical ointment 1 applic topical TID 5 days #22 12/04/22 grams Allergies Allergy/AdvReac Type Severity Reaction Status Date / Time piroxicam [PIROXICAM] Allergy Severe RASH Verified 12/04/22 15:49 shellfish derived Allergy Severe scallops Verified 12/04/22 15:49 [SHELLFISH DERIVED] only ANAPHYLAXIS rofecoxib [ROFECOXIB] Allergy Intermediate RASH Verified 12/04/22 15:49 bacitracin Allergy Mild rash Verified 12/04/22 15:49 [From NEOSPORIN ([id number])] neomycin Allergy Mild rash Verified 12/04/22 15:49 [From NEOSPORIN ([id number])] polymyxin B Allergy Mild rash Verified 12/04/22 15:49 [From NEOSPORIN ([id number])] Review of Systems <Keren Nunez PA-C - Last Filed: 12/04/22 18:19> Review of Systems ROS Unobtainable: All systems reviewed & are unremarkable except as noted in HPI and below Constitutional Constitutional: Denies chills, Denies fatigue, Denies fever(s), Denies frequent falls, Denies lethargy and Denies weakness Eyes Eyes: Denies change in vision, Denies eye discharge, Denies irritation and Denies loss of vision ENT Ears, Nose, Mouth, and Throat: Denies change in voice, Denies dizziness, Denies neck pain, Denies sore throat and Denies throat swelling Cardiovascular Cardiovascular: Denies chest pain, Denies irregular heart rhythm, Denies lightheadedness, Denies palpitations, Denies dyspnea, Denies dyspnea on exertion and Denies orthopnea Respiratory Respiratory: Denies cough, Denies dyspnea, Denies dyspnea on exertion and Denies wheezing Gastrointestinal Gastrointestinal: Denies abdominal pain, Denies change in bowel habits, Denies diarrhea, Denies nausea and Denies vomiting Genitourinary Genitourinary: Denies hematuria, Denies flank pain, Denies urinary incontinence and Denies urinary urgency Musculoskeletal Musculoskeletal: Denies back pain, Denies muscle weakness, Denies neck pain, Denies numbness and Denies tingling Integumentary/Breasts Skin/Breast: Denies pruritus, Denies erythema, Denies rash and Denies wounds Comments: Bilateral foot blisters Neurologic Neurologic: Denies behavioral changes, Denies confusion, Denies dizziness, Denies frequent falls, Denies loss of vision, Denies numbness, Denies tingling and Denies weakness Psychiatric Psychiatric: Denies anxiety, Denies behavioral changes, Denies confusion, Denies depression, Denies homicidal ideation and Denies suicidal ideation Endocrine Endocrine: Denies fatigue, Denies flushing and Denies palpitations Hematologic/Lymphatic Hematologic/Lymphatic: Denies easy bruising Allergic/Immunologic Allergic/Immunologic: Denies urticaria, Denies throat swelling and Denies w heezing Patient History <Keren Nunez PA-C - Last Filed: 12/04/22 18:19> Medical History Allergic rhinitis Anxiety Bilateral foot pain Chronic pain syndrome Chronic rhinosinusitis Closed L1 vertebral fracture Contusion of left hip Degenerative disc disease, cervical Degenerative disc disease, lumbar Degenerative joint disease (DJD) of hip Degenerative joint disease, ankle, foot, toe Depression Diverticulosis Excessive daytime sleepiness (~2006) Facet arthropathy, lumbar Flu Gait instability GERD (gastroesophageal reflux disease) GI bleed 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 bursitis Hyperlipidemia Hypertension Insomnia, psychophysiological (~2006) Lumbar radiculopathy 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 with neurogenic 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 MGUS (monoclonal gammopathy of unknown significance) Obesity (BMI 30-39.9) Obstructive sleep apnea of adult (~2006) 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 sides of body Rectal bleeding Snoring (~1984) Tear of left hamstring Surgical History History of bladder suspension procedure History of colonoscopy History of hand surgery History of hysterectomy History of surgery on left wrist Hx of repair of right rotator cuff Social History marital status: details: julienne Mirza, lives in [place] household members: spouse lives independently: Yes caregiver/support person: No housing: house Smoking Status: Never smoker alcohol intake: current Smoking Status: Never smoker alcohol intake frequency: holidays/special occasions only Substance Use Type: does not use Exam <Keren Nunez PA-C - Last Filed: 12/04/22 18:19> Narrative Exam Narrative: Const General:?cooperative, healthy appearing and comfortable [facility] Head:?normal to inspection Ears:?hearing grossly normal bilaterally Nose:?external nose normal Face and sinus:?normal facial exam and sinuses nontender Mouth:?oral mucosae normal Throat:?posterior oropharynx normal Eyes General:?appearance normal, both eyes and all related structures Neck Neck:?normal visual inspection and no lymphadenopathy noted Resp Effort & Inspection:?normal respiratory effort Auscultation:?clear to auscultation bilaterally Cardio Rate:?regular rate Rhythm:?regular rhythm Integumentary There are bilateral symmetric blisters on the dorsal aspect of bilateral feet at the base of the 2nd and 3rd toes. The blister on the left foot appears to have burst. The blister on the right foot is intact, appears to be filled with clear fluid. The blisters are consistent with friction blisters. There are no signs of bacterial infection. Strength and sensation is intact. There is full range of motion. Patient is neurovascularly intact. Neuro General:?patient alert, patient awake and patient oriented x3 Initial Vital Signs Initial Vital Signs: Vital Signs Temperature 97.6 F 12/04/22 15:45 Pulse Rate 86 12/04/22 15:45 Respiratory Rate 18 12/04/22 15:45 Blood Pressure 187/96 H 12/04/22 15:45 Pulse Oximetry 95 12/04/22 15:45 Oxygen Delivery Method Room Air 12/04/22 15:45 <DO Martha Tsai Last Filed: 12/04/22 19:11> Initial Vital Signs Initial Vital Signs: Vital Signs Temperature 97.6 F 12/04/22 15:45 Pulse Rate 86 12/04/22 15:45 Respiratory Rate 18 12/04/22 15:45 Blood Pressure 187/96 H 12/04/22 15:45 Pulse Oximetry 95 12/04/22 15:45 Oxygen Delivery Method Room Air 12/04/22 15:45 Course <Keren Nunez PA-C - Last Filed: 12/04/22 18:19> Vital Signs Vital signs: Vital Signs - 8 hr 12/04/22 15:45 12/04/22 18:01 Temperature 97.6 F Pulse Rate 86 76 Respiratory Rate 18 14 Blood Pressure 187/96 H Pulse Oximetry 95 93 Oxygen Delivery Method Room Air Room Air <DO Martha Tsai Last Filed: 12/04/22 19:11> Vital Signs Vital signs: Vital Signs - 8 hr 12/04/22 15:45 12/04/22 18:01 Temperature 97.6 F Pulse Rate 86 76 Respiratory Rate 18 14 Blood Pressure 187/96 H Pulse Oximetry 95 93 Oxygen Delivery Method Room Air Room Air MDM - Skin/Abscess/Foreign Bdy <Keren Nunez PA-C - Last Filed: 12/04/22 18:19> MDM Narrative Medical decision making narrative: 77-year-old female with past medical history hypertension, osteoarthritis, MGUS presents to the ED with bilateral foot blisters at the base of her 2nd and 3rd toes on the dorsal side. The blisters appear consistent with friction blisters that might have been caused by shoes that are too tight on the swollen feet. Advised patient to wear looser shoes or flip-flops to prevent further blisters. Wound care, signs of infection discussed with patient. Prescribed mupirocin ointment. ED return precautions were discussed with patient. Patient verbalized understanding. Patient agrees to follow-up with Dr. Jean Baptiste as soon as possible. Medical records reviewed: Yes Discharge Plan Departure Patient Disposition: Home Clinical Impression: Blister Instructions: DI for Blisters Activity Restrictions/Additional Instructions: You were evaluated in the ED today for blisters on your feet. It appears from the pattern of the blisters and location that these are caused by friction from your shoes, especially since your feet have been more swollen recently. The blisters do not appear to be infected. You are being prescribed an antibiotic cream to apply for the next few days. Please keep the blisters clean and dry. Please wear shoes that are loose and do not put pressure on your feet. Please follow-up with your PCP Dr. Jean Baptiste as soon as possible. Return to the ED if you note any signs of infection including worsening redness, pain, discharge, warmth, swelling of the wounds. Prescriptions: New mupirocin 2 % ointment 1 applic topical TID 5 Days Qty: 22 0RF No Action cyclobenzaprine 5 mg tablet 5 mg PO TID PRN (Reason: muscle spasm) Qty: 20 0RF Rx Instructions: Do not take with other muscle relaxers May take 2 tablets at a time if needed May cause drowsiness. tramadol 50 mg tablet 50 mg PO BID PRN (Reason: pain) Qty: 30 1RF diazepam [Valium] 10 mg tablet 10 mg PO .COMPLEX MDD 3 tabs PRN (Reason: 1-2 prior to MRI and for possible steroid flare) Qty: 10 0RF Rx Instructions: 10 mg PO PRN; diclofenac sodium [Voltaren Arthritis Pain] 1 % gel 4 g topical QID PRN (Reason: pain) Qty: 100 0RF Rx Instructions: apply to single knee, ankle, foot; for foot includes sole/toes/top of foot lidocaine 5 % adhesive patch,medicated 2 patch topical DAILY PRN (Reason: pain) Qty: 15 0RF Rx Instructions: leave on most painful area for up to 12 hrs oxycodone-acetaminophen [Percocet] 5-325 mg tablet 1 tab PO Q8H PRN (Reason: pain) Qty: 14 0RF cetirizine 10 mg tablet 10 mg PO DAILY Qty: 20 0RF baclofen 10 mg tablet 10 mg PO TID 10 Days Qty: 30 0RF lidocaine 5 % cream 1 applic topical TID PRN (Reason: pain) Qty: 15 1RF prednisone 20 mg tablet 40 mg PO DAILY 4 Days Qty: 8 0RF cyanocobalamin (vitamin B-12) [Vitamin B-12] 1,000 mcg Tablet 1,000 mcg PO DAILY calcium polycarbophil [Fiber-Tabs] 625 mg Tablet 1 tab PO BID solifenacin 10 mg tablet 10 mg PO QPM Centrum Silver 0.4-300-250 mg-mcg-mcg Tablet 1 tab PO DAILY cholecalciferol (vitamin D3) [Vitamin D3] 2,000 unit Capsule 4,000 unit PO BID celecoxib [Celebrex] 200 mg Capsule 200 mg PO DAILY conjugated estrogens [Premarin] 0.625 mg tablet 0.625 mg PO QAM hydrochlorothiazide 25 mg tablet 25 mg PO QAM escitalopram oxalate [Lexapro] 20 mg tablet 20 mg PO QAM folic acid 1 mg tablet 1 mg PO DAILY atorvastatin [Lipitor] 40 mg tablet 40 mg PO QPM amitriptyline 10 mg tablet 10 mg PO QPM omeprazole 20 mg capsule,delayed release(DR/EC) 20 mg PO DAILY lisinopril 40 mg tablet 40 mg PO DAILY clobetasol 0.05 % ointment topical cyclobenzaprine 10 mg tablet 10 mg PO BID PRN (Reason: muscle spasm) Qty: 60 1RF (DME) Respirinics DreamStation 2 Auto CPAP kit Qty: 1 Dose Instruction: As directed Patient Comments: Pressure: 7-14 cmH2O DME: [employer] Rx Instructions: As directed Referrals: Ana Paula Jean Baptiste MD [Primary Care Provider] - Stand Alone Forms: Patient Portal/API <Breanne Burleson DO - Last Filed: 12/04/22 19:11> Cosign ED Attending Cosroyalature Attestation: I was immediately available in the department for consultation. Documentation has been reviewed.
== END 2022-12-04 18:13 | disposition home or self-care (01) ==
PROVIDERS: Emergency Provider Student in an Organized Health Care Education/Training Program; PCP Family Medicine
DX: R23.8 Other skin changes (principal)
CPT/HCPCS: 99281; 99282

== ENCOUNTER → 2022-12-09 16:54 | Outpatient (CLI) | payer MEDICARE, OTHER, SELFPAY ==
[2021-07-04 11:37] VITALS: BMI 39.9
[2022-12-09 17:51] LABS: Add Manual Diff / Slide Review NO; Basophils Absolute Auto 0 /uL (0-100); Basophils Percent Auto 0.5 % (0-2); Eosinophils Absolute Auto 100 /uL (0-450); Eosinophils Percent Auto 1.3 % (2-4); Hematocrit 37.3 % (36-46); Hemoglobin 12.8 g/dL (12.0-16.0); Lymphocytes Absolute Auto 3300 /uL (1100-4500); Lymphocytes Percent Auto 33.4 % (25-40); Mean Corpuscular HGB Conc 34.3 % (30-36); Mean Corpuscular Hemoglobin 31.1 PG (26-34); Mean Corpuscular Volume 90.6 fL (80-100); Monocytes Absolute Auto 1200 /uL (0-900); Monocytes Percent Auto 12.3 % (3-14); Neutrophils Absolute Auto 5100 /uL (1500-7000); Neutrophils Percent Auto 52.5 % (50-75); Platelet Count 191 X10^3/uL (150-400); Red Blood Cell Count 4.11 X10^6/uL (4.0-5.2); Red Cell Distribution Width 13.9 % (11.6-14.8); White Blood Cell Count 9.8 X10^3/uL (4.5-11.0)
[2022-12-09 18:09] LABS: Alanine Aminotransferase 30 IU/L (<35); Albumin 3.9 g/dL (3.5-5.0); Albumin Globulin Ratio 1.1 (1.0-2.8); Alkaline Phosphatase 141 U/L (38-126); Aspartate Aminotransferase 33 IU/L (14-36); BUN Creatinine Ratio 22.1 (6-22); Blood Urea Nitrogen 25 mg/dL (7-17); C-Reactive Protein Quant 4.1 mg/dL (<1.0); Calcium 8.5 mg/dL (8.4-10.2); Carbon Dioxide 31 mmol/L (22-32); Chloride 97 mmol/L (98-107); Estimated Glomerular Filt Rate 50 mL/min (>60); Globulin 3.5 g/dL (1.7-4.1); Glucose 118 mg/dL (80-110); HEMOLYSIS < 15 (0-50); Potassium 3.9 mmol/L (3.4-5.1); Sodium 135 mmol/L (137-145); Total Protein 7.4 g/dL (6.3-8.2)
== END ==
PROVIDERS: PCP Family Medicine; Referring Provider Family Medicine; Visit Provider Family Medicine
DX: M54.16 Radiculopathy, lumbar region (principal); L03.90 Cellulitis, unspecified
CPT/HCPCS: 36415; 80053; 85025; 86140; 87070; 87075; 87077; 87186; 87205

== ENCOUNTER → 2022-12-13 09:44 | Outpatient (CLI) | payer MEDICARE, OTHER, SELFPAY ==
[2021-07-04 11:37] VITALS: BMI 39.9
== END ==
PROVIDERS: PCP Family Medicine; Referring Provider Family Medicine; Visit Provider Physician Assistant
DX: M79.89 Other specified soft tissue disorders (principal); S90.822A Blister (nonthermal), left foot, initial encounter; S90.821A Blister (nonthermal), right foot, initial encounter; R60.0 Localized edema; L53.9 Erythematous condition, unspecified; L89.893 Pressure ulcer of other site, stage 3
CPT/HCPCS: 11042; 87070; 87075; 87077; 87147; 87186; 87205; 93971; 99214

== ENCOUNTER → 2022-12-13 11:09 | Outpatient (CLI) | payer MEDICARE, OTHER, SELFPAY ==
[2021-07-04 11:37] VITALS: BMI 39.9
--- NOTE | 2022-12-13 | DI.US.S_ITS ---
PROCEDURE: US [facility] VENOUS LOW EXTREM LT INDICATIONS: SWELLING TECHNIQUE: Real-time imaging, as well as color and pulse Doppler interrogation, were performed of the lower extremity deep veins from the inguinal ligament to the popliteal fossa. COMPARISON: [facility], [facility] VENOUS LOW EXTREM LT, 07/23/2022, 14:35. FINDINGS: The common femoral, femoral and popliteal veins are normally compressible, and free of intraluminal thrombus. Color and pulse Doppler demonstrate normal phasic intraluminal flow. There is normal augmentation response to distal compression maneuver. IMPRESSION: No DVT in the left lower extremity. Dictated by: Brijesh Bui M.D. on 12/13/2022 at 11:53 Approved by: Brijesh Bui M.D. on 12/13/2022 at 11:54
== END ==
PROVIDERS: PCP Family Medicine; Referring Provider Physician Assistant; Visit Provider Physician Assistant
DX: M79.89 Other specified soft tissue disorders (principal)
CPT/HCPCS: 93971

== ENCOUNTER → 2022-12-19 12:48 | Outpatient (CLI) | payer MEDICARE, OTHER, SELFPAY ==
[2021-07-04 11:37] VITALS: BMI 39.9
== END ==
PROVIDERS: PCP Family Medicine; Referring Provider Family Medicine; Visit Provider Physician Assistant
DX: L89.893 Pressure ulcer of other site, stage 3 (principal); G60.9 Hereditary and idiopathic neuropathy, unspecified
CPT/HCPCS: 11042; 99214

== ENCOUNTER → 2022-12-27 13:54 | Outpatient (CLI) | payer MEDICARE, OTHER, SELFPAY ==
[2022-12-25 12:34] VITALS: BMI 39.9
== END ==
PROVIDERS: PCP Family Medicine; Referring Provider Family Medicine; Visit Provider Physician Assistant
DX: S90.822A Blister (nonthermal), left foot, initial encounter (principal); M79.672 Pain in left foot; L89.893 Pressure ulcer of other site, stage 3
CPT/HCPCS: 11042; 99214

== ENCOUNTER → 2023-01-01 12:02 | Outpatient (CLI) | payer MEDICARE, OTHER, SELFPAY ==
[2022-12-25 12:34] VITALS: BMI 39.9
--- NOTE | 2023-01-01 | DI.RAD.S_ITS ---
PROCEDURE: XR HIP W PEL IF DONE LT 2V INDICATIONS: Fall, Hip Pain TECHNIQUE: AP pelvis with lateral view(s) of the left hip(s). COMPARISON: [facility], CR, XR HIP W PEL IF DONE RT 2V, 12/01/2022, 16:07. [facility], CR, XR HIP W PEL IF DONE RT 2V, 12/16/2021, 13:48. FINDINGS: Bones: No fractures or dislocations. Pelvic ring appears intact. No suspicious bony lesions. Moderate-severe degenerative changes of both hips. Soft tissues: The visualized bowel gas pattern is normal. No suspicious soft tissue calcifications. IMPRESSION: No acute osseous abnormality. If symptoms persist, follow-up radiographs and/or CT or MRI may be helpful for further evaluation. Dictated by: Edmundo Dunham M.D. on 01/01/2023 at 15:18 Approved by: Edmundo Dunham M.D. on 01/01/2023 at 15:20
== END ==
PROVIDERS: PCP Family Medicine; Referring Provider Family Medicine; Visit Provider Family Medicine
DX: M25.552 Pain in left hip (principal)
CPT/HCPCS: 73502

== ENCOUNTER → 2023-01-03 09:02 | Outpatient (CLI) | payer MEDICARE, OTHER, SELFPAY ==
[2022-12-25 12:34] VITALS: BMI 39.9
== END ==
PROVIDERS: PCP Family Medicine; Referring Provider Family Medicine; Visit Provider Physician Assistant
DX: L89.893 Pressure ulcer of other site, stage 3 (principal); G60.9 Hereditary and idiopathic neuropathy, unspecified; R60.0 Localized edema
CPT/HCPCS: 11042; 99213

== ENCOUNTER → 2023-01-10 09:17 | Outpatient (CLI) | payer MEDICARE, OTHER, SELFPAY ==
[2022-12-25 12:34] VITALS: BMI 39.9
== END ==
PROVIDERS: PCP Family Medicine; Referring Provider Family Medicine; Visit Provider Physician Assistant
DX: L89.893 Pressure ulcer of other site, stage 3 (principal)
CPT/HCPCS: 11042; 87070; 87075; 87205; 99213

== ENCOUNTER → 2023-01-17 10:39 | Outpatient (CLI) | payer MEDICARE, OTHER, SELFPAY ==
[2022-12-25 12:34] VITALS: BMI 39.9
== END ==
PROVIDERS: PCP Family Medicine; Referring Provider Family Medicine; Visit Provider Physician Assistant
DX: G60.9 Hereditary and idiopathic neuropathy, unspecified (principal); L89.893 Pressure ulcer of other site, stage 3; R60.0 Localized edema; L53.9 Erythematous condition, unspecified
CPT/HCPCS: 99212; 99213

== ENCOUNTER → 2023-02-10 08:00 | Outpatient (CLI) | payer MEDICARE, OTHER, SELFPAY ==
[2022-12-25 12:34] VITALS: BMI 39.9
--- NOTE | 2023-02-10 | DI.ECHO.S_ITS ---
[facility] +---------+ : : [address] : : : : [id number] : : : : Phone: [phone] Echocardiogram Report + + :Name: ROD LEE Study Date: 02/10/2023 Height: 66 in : :[facility] ReadingLocation: Weight: 235 lb : : Gender: Female BSA: 2.1 m2 : :: 1945 Age: 77 yrs BP: 195/97 mmHg: :Reason For Study: Edema : :Ordering Physician: ANDRES, : :CORY Performed By: Neda Quinones : :Referring: CORY CAMPOS : + + Interpretation Summary There is mild concentric left ventricular hypertrophy. The ejection fraction is estimated to be 55-60%. Grade I diastolic dysfunction. The right ventricle is normal in size and function. There is moderate mitral regurgitation. There is moderate tricuspid regurgitation. The right ventricular systolic pressure is estimated to be at least 44 mmHg based on an estimated right atrial pressure of 15 mm Hg. Procedure: A two-dimensional transthoracic echocardiogram with color flow and Doppler was performed. The study quality was technically adequate. The patient had an echocardiogram, but there is no comparison study available. The patient was in normal sinus rhythm during the exam. The patient had frequent PVCs during the exam. Left Ventricle: The left ventricle is normal in size. There is mild concentric left ventricular hypertrophy. The ejection fraction is estimated to be 55-60%. Diastolic parameters suggest a relaxation abnormality of the left ventricle, consistent with probable normal filling pressures. Right Ventricle: The right ventricle is normal in size and function. Atria: The left atrial size is normal. Right atrial size is normal. There is no Doppler evidence for an interatrial shunt. Mitral Valve: The mitral valve leaflets appear mildly thickened, but open well. There is mild mitral annular calcification. There is no mitral valve stenosis. There is moderate mitral regurgitation. Aortic Valve: The aortic valve is not well visualized. The aortic valve opens well. There is no aortic valve stenosis. No aortic regurgitation is present. Tricuspid Valve: The tricuspid valve is normal. There is no tricuspid stenosis. There is moderate tricuspid regurgitation. The right ventricular systolic pressure is estimated to be at least 44 mmHg based on an estimated right atrial pressure of 15 mm Hg. Pulmonic Valve: The pulmonic valve is not well visualized. There is no pulmonic valvular stenosis. There is trace pulmonic regurgitation. Great Vessels: The aortic root is normal size. The ascending aorta is normal in size. The pulmonary artery is normal size. The IVC is dilated (diameter is greater than 2.1 cm) and it collapses less than 50% with a sniff. This suggests a high right atrial pressure of 15 mm Hg. Pericardium/ Pleura There is no pericardial effusion. There is no pleural effusion. MMode/2D Measurements & Calculations LVIDd: 4.7 cm LVOT diam: 2.0 cm LVIDs: 3.9 cm Ao root diam: 2.9 cm FS: 17.0 % asc Aorta Diam: 3.3 cm IVSd: 1.1 cm LVPWd: 1.1 cm LV eason. diameter/BSA (cm/m^2): 2.2 LV sys. diameter/BSA (cm/m^2): 1.8 LA A2 area: 16.5 cm2 RA long axis: 4.6 cm LA A4 area: 18.4 cm2 RA area: 14.6 cm2 LA length (vol): 4.7 cm RA vol: 39.5 ml LA vol: 54.7 ml RA : 18.4 ml/m2 LA vol index: 25.5 ml/m2 IVC diam: 2.3 cm RVD1 (basal): 3.2 cm LVLs ap4: 6.3 cm LVLd ap2: 7.9 cm TAPSE_phl: 2.2 cm LVLs ap2: 6.4 cm Doppler Measurements & Calculations Ao V2 max: 153.0 cm/sec LVOT Max Junior: 103.0 cm/sec Ao V2 mean: 106.5 cm/sec LV V1 max P.2 mmHg Ao max P.0 mmHg LV V1 VTI: 23.2 cm Ao mean P.0 mmHg XU(I,D): 2.2 cm2 Ao V2 VTI: 33.8 cm XU(V,D): 2.1 cm2 sev ratio: 0.69 XU indexed to BSA (cm^2/m^2): 1.0 MV E max junior: 92.1 cm/sec TR max junior: 249.0 cm/sec MV A max junior: 66.4 cm/sec TR max P.5 mmHg MV E/A: 1.4 PA V2 max: 104.0 cm/sec Med Peak E' Junior: 10.7 cm/sec PA V2 mean: 72.8 cm/sec E/E' med: 8.6 PA mean P.0 mmHg Lat Peak E' Junior: 8.2 cm/sec PA pr(Accel): 43.5 mmHg E/E' lat: 11.3 E/e' average: 9.9 MV dec time: 0.16 sec SV(LVOT): 72.9 ml AV VR_phl: 0.67 XU(VTI)/BSA_phl: 1.0 Reading Physician:09:33 AM
== END ==
PROVIDERS: PCP Family Medicine; Referring Provider Family Medicine; Visit Provider Family Medicine
DX: I08.1 Rheumatic disorders of both mitral and tricuspid valves (principal); R60.9 Edema, unspecified
CPT/HCPCS: 93306

== ENCOUNTER 2023-02-14 17:39 | Emergency (ER) | payer MEDICARE, OTHER, SELFPAY ==
[2022-12-25 12:34] VITALS: BMI 39.9
[2023-02-14 17:43] VITALS: BP 174/79; PULSE 75; RESP 17; TEMP 36.9; O2SAT 94; BMI 38.4
--- NOTE | 2023-02-14 17:55 | DI.RAD.S_ITS ---
PROCEDURE: XR CHEST 1V INDICATIONS: chest pain TECHNIQUE: One view of the chest was acquired. COMPARISON: [facility], CR, XR CHEST 2V, 12/16/2021, 14:57. [facility], CR, XR CHEST 1V, 12/09/2021, 8:41. FINDINGS: Surgical changes and devices: None. Lungs and pleura: Lungs are clear. No pleural effusions or pneumothorax. Mediastinum: Mediastinal contours appear normal. Heart size is normal. Bones and chest wall: No suspicious bony lesions. Overlying soft tissues appear unremarkable. IMPRESSION: Portable chest within normal limits for age. Dictated by: Gurjit Hubbard M.D. on 02/14/2023 at 18:41 Approved by: Gurjit Hubbard M.D. on 02/14/2023 at 18:41
[2023-02-14 18:13] VITALS: BP 156/67
[2023-02-14 18:30] LABS: Alanine Aminotransferase 26 IU/L (<35); Albumin 3.8 g/dL (3.5-5.0); Albumin Globulin Ratio 1.1 (1.0-2.8); Alkaline Phosphatase 102 U/L (38-126); Aspartate Aminotransferase 41 IU/L (14-36); BUN Creatinine Ratio 27.9 (6-22); Bilirubin Total 0.4 mg/dL (0.2-1.3); Blood Urea Nitrogen 19 mg/dL (7-17); Carbon Dioxide 30 mmol/L (22-32); Chloride 102 mmol/L (98-107); Creatine Kinase 56 U/L (30-135); Estimated Glomerular Filt Rate > 60 mL/min (>60); Globulin 3.6 g/dL (1.7-4.1); Glucose 110 mg/dL (80-110); HEMOLYSIS 50 (0-50); Lipase 41 U/L (23-300); Magnesium 1.7 mg/dL (1.6-2.3); Potassium 4.5 mmol/L (3.4-5.1); Sodium 139 mmol/L (137-145); Total Protein 7.4 g/dL (6.3-8.2)
[2023-02-14 18:41] LABS: Troponin I < 0.012 ng/mL (0.01-0.034)
[2023-02-14 18:42] LABS: Add Manual Diff / Slide Review NO; Basophils Absolute Auto 0 /uL (0-100); Basophils Percent Auto 0.6 % (0-2); Eosinophils Absolute Auto 100 /uL (0-450); Eosinophils Percent Auto 1.5 % (2-4); Hematocrit 35.1 % (36-46); Hemoglobin 11.8 g/dL (12.0-16.0); Lymphocytes Absolute Auto 3200 /uL (1100-4500); Lymphocytes Percent Auto 44.9 % (25-40); Mean Corpuscular HGB Conc 33.5 % (30-36); Mean Corpuscular Hemoglobin 30.8 PG (26-34); Monocytes Absolute Auto 800 /uL (0-900); Monocytes Percent Auto 11.4 % (3-14); Neutrophils Absolute Auto 3000 /uL (1500-7000); Neutrophils Percent Auto 41.6 % (50-75); Platelet Count 168 X10^3/uL (150-400); Red Blood Cell Count 3.82 X10^6/uL (4.0-5.2); Red Cell Distribution Width 13.6 % (11.6-14.8); White Blood Cell Count 7.1 X10^3/uL (4.5-11.0)
[2023-02-14 18:47] LABS: Prothrombin Time 11.2 SECONDS (10.1-12.7)
[2023-02-14 18:50] LABS: PTT Partial Thromboplastin Tim 28 SECONDS (26-36)
--- NOTE | 2023-02-14 18:57 | ED.GENADULT ---
HPI - General Adult General Chief complaint: Hypertension Stated complaint: High BP Time Seen by Provider: 02/14/23 18:06 Source: patient and family Mode of arrival: Ambulatory History of Present Illness HPI narrative: Patient is a 77-year-old female history of hypertension hyperlipidemia chronic back pain presenting today with elevated blood pressure. She reports that she is actually had increased back pain over the last couple of days. She is scheduled for surgery next week. This is her chronic back pain that has not changed in any way. No numbness tingling or weakness no change in bowel or bladder habits. She took her blood pressure this morning was elevated at 206. She continue to take her blood pressure throughout the day and it continued to be elevated. She came to the ED to be checked out. She is no chest pain palpitations shortness of breath headache numbness tingling or weakness. Related Data Home Medications Medication Instructions Recorded Confirmed amitriptyline 10 mg tablet 10 mg PO QPM 02/26/18 02/03/23 atorvastatin 40 mg tablet (Lipitor) 40 mg PO QPM 02/26/18 02/03/23 conjugated estrogens 0.625 mg 0.625 mg PO QAM 02/26/18 02/03/23 tablet (Premarin) escitalopram oxalate 20 mg tablet 20 mg PO QAM 02/26/18 02/03/23 (Lexapro) folic acid 1 mg tablet 1 mg PO DAILY 02/26/18 02/03/23 hydrochlorothiazide 25 mg tablet 25 mg PO QAM 02/26/18 02/03/23 calcium polycarbophil 625 mg 1 tab PO BID 08/10/18 02/03/23 tablet (Fiber-Tabs) cholecalciferol (vitamin D3) 50 4,000 unit PO BID 08/10/18 02/03/23 mcg (2,000 unit) capsule (Vitamin D3) cyanocobalamin (vitamin B-12) 1,000 mcg PO DAILY 08/10/18 02/03/23 1,000 mcg tablet (Vitamin B-12) irlyvfpl-epx-nhonn acid 0.4 1 tab PO DAILY 08/10/18 02/03/23 mg-lycopene 300 mcg-lutein 250 mcg tablet (Centrum Silver) solifenacin 10 mg tablet 10 mg PO QPM 08/10/18 02/03/23 celecoxib 200 mg capsule (Celebrex) 200 mg PO DAILY 11/10/19 02/03/23 Respirinics DreamStation 2 Auto #1 ea 06/28/21 02/03/23 CPAP clobetasol 0.05 % topical ointment g topical 09/03/21 02/03/23 lisinopril 40 mg tablet 40 mg PO DAILY 10/09/22 02/03/23 omeprazole 20 mg capsule,delayed 20 mg PO DAILY 10/09/22 02/03/23 release pregabalin 50 mg capsule 50 mg PO 3XD 12/25/22 02/03/23 furosemide 20 mg tablet 20 mg PO DAILY 02/03/23 02/03/23 nystatin 100,000 unit/gram topical 1 applic topical BID 02/03/23 02/03/23 cream Previous Rx's Medication Instructions Recorded diclofenac sodium 1 % topical gel 4 g topical QID PRN pain #100 grams 08/25/21 (Voltaren Arthritis Pain) lidocaine 5 % topical patch 2 patch topical DAILY PRN pain #15 08/25/21 ea cyclobenzaprine 10 mg tablet 10 mg PO BID PRN muscle spasm #60 09/03/21 tabs cetirizine 10 mg tablet 10 mg PO DAILY allergy symptoms 12/16/21 #20 tabs lidocaine 5 % topical cream 1 applic topical TID PRN pain #15 12/01/22 grams tramadol 50 mg tablet 50 mg PO BID PRN pain #30 tabs 12/25/22 Allergies Allergy/AdvReac Type Severity Reaction Status Date / Time piroxicam [PIROXICAM] Allergy Severe RASH Verified 02/14/23 17:56 shellfish derived Allergy Severe scallops Verified 02/14/23 17:56 [SHELLFISH DERIVED] only ANAPHYLAXIS rofecoxib [ROFECOXIB] Allergy Intermediate RASH Verified 02/14/23 17:56 bacitracin Allergy Mild rash Verified 02/14/23 17:56 [From NEOSPORIN ([id number])] neomycin Allergy Mild rash Verified 02/14/23 17:56 [From NEOSPORIN ([id number])] polymyxin B Allergy Mild rash Verified 02/14/23 17:56 [From NEOSPORIN ([id number])] Review of Systems Review of Systems ROS Unobtainable: All systems reviewed & are unremarkable except as noted in HPI and below 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 joint disease, ankle, foot, toe Depression Diverticulosis Excessive daytime sleepiness (~2006) Facet arthropathy, lumbar Flu Gait instability GERD (gastroesophageal reflux disease) GI bleed 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 bursitis Hyperlipidemia Hypertension Insomnia, psychophysiological (~2006) Lumbar radiculopathy 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 with neurogenic 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 MGUS (monoclonal gammopathy of unknown significance) Obesity (BMI 30-39.9) Obstructive sleep apnea of adult (~2006) 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 sides of body Rectal bleeding Snoring (~1984) Tear of left hamstring Surgical History History of bladder suspension procedure History of colonoscopy History of hand surgery History of hysterectomy History of surgery on left wrist Hx of repair of right rotator cuff Social History marital status: details: julienne Mirza, lives in [place] household members: spouse lives independently: Yes caregiver/support person: No housing: house Smoking Status: Never smoker alcohol intake: current Smoking Status: Never smoker alcohol intake frequency: holidays/special occasions only Substance Use Type: does not use Exam Initial Vital Signs Initial Vital Signs: Vital Signs Temperature 98.5 F 02/14/23 17:43 Pulse Rate 75 02/14/23 17:43 Respiratory Rate 17 02/14/23 17:43 Blood Pressure 174/79 H 02/14/23 17:43 Pulse Oximetry 94 02/14/23 17:43 Oxygen Delivery Method Room Air 02/14/23 17:43 GENERAL: Alert pleasant 77-year-old female and in no acute distress. HEENT: Head atraumatic,EOMI, pupils reactive, face symmetric, moist mucous membranes CARDIOVASCULAR: Regular rate and rhythm without murmurs, rubs or gallops. RESPIRATORY: Breath sounds equal bilaterally, no wheezes rales or rhonchi. ABDOMEN: Soft, nontender. Normoactive bowel sounds all 4 quadrants. No guarding or rebound. EXTREMITIES: Normal range of motion, no clubbing or edema. Neurovascularly intact NEUROLOGICAL: Alert and oriented x4. SKIN: Warm, dry, no laceration, no petechiae, no rashes or lesions. Course Orders Ordered: ED Orders 02/14/23 17:55 XR chest 1V Stat EKG-12 Lead Stat 02/14/23 18:05 Complete Blood Count AUTO DIFF Stat Comprehensive Metabolic Panel Stat Lipase Stat Magnesium Stat PTT Partial Thromboplastin Aayush Stat Prothrombin Time INR Stat Troponin & CK Cardiac Panel Stat Vital Signs Vital signs: Vital Signs - 8 hr 02/14/23 17:43 02/14/23 18:13 02/14/23 19:50 Temperature 98.5 F Pulse Rate 75 68 Respiratory Rate 17 18 Blood Pressure 174/79 H 156/67 H 195/85 H Pulse Oximetry 94 96 Oxygen Delivery Method Room Air Room Air Medical Decision Making Lab Data 02/14/23 18:05 02/14/23 18:05 Labs: Lab Results 02/14/23 02/14/23 02/14/23 Range/Units 18:05 18:05 18:05 WBC 7.1 (4.5-11.0) X10^3/uL RBC 3.82 L (4.0-5.2) X10^6/uL Hgb 11.8 L (12.0-16.0) g/dL Hct 35.1 L (36-46) % MCV 92.0 (80-100) fL MCH 30.8 (26-34) PG MCHC 33.5 (30-36) % RDW 13.6 (11.6-14.8) % Plt Count 168 (150-400) X10^3/uL Neut % (Auto) 41.6 L (50-75) % Lymph % (Auto) 44.9 H (25-40) % Corson % (Auto) 11.4 (3-14) % Eos % (Auto) 1.5 L (2-4) % Baso % (Auto) 0.6 (0-2) % Neut # (Auto) 3000 (8356-1983) /uL Lymph # (Auto) 3200 (6890-3677) /uL Corson # (Auto) 800 (0-900) /uL Eos # (Auto) 100 (0-450) /uL Baso # (Auto) 0 (0-100) /uL PT 11.2 (10.1-12.7) SECONDS INR 1.0 (0.9-1.3) APTT 28 (26-36) SECONDS Sodium 139 (137-145) mmol/L Potassium 4.5 (3.4-5.1) mmol/L Chloride 102 (98-107) mmol/L Carbon Dioxide 30 (22-32) mmol/L BUN 19 H (7-17) mg/dL Creatinine 0.68 (0.52-1.04) mg/dL Estimated GFR > 60 (>60) mL/min BUN/Creatinine Ratio 27.9 H (6-22) Glucose 110 (80-110) mg/dL Calcium 9.0 (8.4-10.2) mg/dL Magnesium 1.7 (1.6-2.3) mg/dL Total Bilirubin 0.4 (0.2-1.3) mg/dL AST 41 H (14-36) IU/L ALT 26 (<35) IU/L Alkaline Phosphatase 102 (38-126) U/L Total Creatine Kinase 56 (30-135) U/L Troponin I < 0.012 (0.01-0.034) ng/mL Total Protein 7.4 (6.3-8.2) g/dL Albumin 3.8 (3.5-5.0) g/dL Globulin 3.6 (1.7-4.1) g/dL Albumin/Globulin Ratio 1.1 (1.0-2.8) Lipase 41 (23-300) U/L Imaging Data Chest x-ray: Radiologist's Impression: PROCEDURE:? XR CHEST 1V ? INDICATIONS:? chest pain ? TECHNIQUE:? One view of the chest was acquired.? ? COMPARISON:? [facility], , XR CHEST 2V, 12/16/2021, 14:57.? [facility], , XR CHEST 1V, 12/09/2021, 8:41. ? FINDINGS:? ? Surgical changes and devices:? None.? ? Lungs and pleura:? Lungs are clear.? No pleural effusions or pneumothorax.? ? Mediastinum:? Mediastinal contours appear normal.? Heart size is normal.? ? Bones and chest wall:? No suspicious bony lesions.? Overlying soft tissues appear unremarkable.? ? ? IMPRESSION:? Portable chest within normal limits for age. ? ? Dictated by: Gurjit Hubbard M.D. on 02/14/2023 at 18:41 ECG Data Interpretation: Normal sinus rhythm rate 60 NM interval 168 QRS [address] changes Q-wave noted in lead [address] changes similar to previous EKGs MDM Narrative Medical decision making narrative: Alert pleasant well-appearing 77-year-old female who presents today with chronic back pain and elevated pressure. Blood pressure has come down without any sort of intervention. She is not having any back pain sitting in the gurney comfortably. Blood work has been reviewed and is overall reassuring without any evidence of end-organ damage. [] Multiple etiologies for patient's symptoms considered including, but not limited to: Pain, hypertension Prior Charts reviewed: Labs reviewed and interpreted by myself: Negative troponin Imaging reviewed: Chest x-ray Consultations: None Patient's symptoms improved over duration of stay with above-stated therapies. Findings and discharge diagnosis discussed with patient/family followed by verbalization of understanding Return precautions discussed with patient/family whom verbalize understanding of diagnosis and plan Discharge Plan Departure Patient Disposition: Home Clinical Impression: Hypertension Instructions: DI for High Blood Pressure Activity Restrictions/Additional Instructions: *You have been diagnosed with high blood pressure *What to do: Please continue to monitor and check your blood pressure 1 to 2 times daily ready down you may need adjustment in her blood pressure medication. Pain can also cause elevated blood pressure. *Continue to take medications as directed *Follow up with your primary care provider in 2-3 days or call [phone] *Return to ER if you should have increasing blood pressure greater than 200/110 for more than 1 hour chest pain headache palpitations passing or any new, worsening or concerning symptoms Prescriptions: No Action diclofenac sodium [Voltaren Arthritis Pain] 1 % gel 4 g topical QID PRN (Reason: pain) Qty: 100 0RF Rx Instructions: apply to single knee, ankle, foot; for foot includes sole/toes/top of foot lidocaine 5 % adhesive patch,medicated 2 patch topical DAILY PRN (Reason: pain) Qty: 15 0RF Rx Instructions: leave on most painful area for up to 12 hrs cetirizine 10 mg tablet 10 mg PO DAILY Qty: 20 0RF lidocaine 5 % cream 1 applic topical TID PRN (Reason: pain) Qty: 15 1RF cyanocobalamin (vitamin B-12) [Vitamin B-12] 1,000 mcg Tablet 1,000 mcg PO DAILY calcium polycarbophil [Fiber-Tabs] 625 mg Tablet 1 tab PO BID solifenacin 10 mg tablet 10 mg PO QPM Centrum Silver 0.4-300-250 mg-mcg-mcg Tablet 1 tab PO DAILY cholecalciferol (vitamin D3) [Vitamin D3] 2,000 unit Capsule 4,000 unit PO BID celecoxib [Celebrex] 200 mg Capsule 200 mg PO DAILY conjugated estrogens [Premarin] 0.625 mg tablet 0.625 mg PO QAM hydrochlorothiazide 25 mg tablet 25 mg PO QAM escitalopram oxalate [Lexapro] 20 mg tablet 20 mg PO QAM folic acid 1 mg tablet 1 mg PO DAILY atorvastatin [Lipitor] 40 mg tablet 40 mg PO QPM amitriptyline 10 mg tablet 10 mg PO QPM omeprazole 20 mg capsule,delayed release(DR/EC) 20 mg PO DAILY lisinopril 40 mg tablet 40 mg PO DAILY pregabalin 50 mg capsule 50 mg PO 3XD tramadol 50 mg tablet 50 mg PO BID PRN (Reason: pain) Qty: 30 3RF clobetasol 0.05 % ointment topical cyclobenzaprine 10 mg tablet 10 mg PO BID PRN (Reason: muscle spasm) Qty: 60 1RF nystatin 100,000 unit/gram cream 1 applic topical BID furosemide 20 mg tablet 20 mg PO DAILY (DME) Respirinics DreamStation 2 Auto CPAP kit Qty: 1 Dose Instruction: As directed Patient Comments: Pressure: 7-14 cmH2O DME: [employer] Rx Instructions: As directed Referrals: Ana Paula Jean Baptiste MD [Primary Care Provider] - Stand Alone Forms: Patient Portal/API
--- NOTE | 2023-02-14 19:47 | PC.NURSE ---
Patient denies CP, SOB, here for elevated blood pressures.
[2023-02-14 19:50] VITALS: BP 195/85; PULSE 68; RESP 18; O2SAT 96
== END 2023-02-14 19:53 | disposition home or self-care (01) ==
PROVIDERS: Emergency Medicine; Emergency Provider Emergency Medicine; PCP Family Medicine
DX: I10 Essential (primary) hypertension (principal); R07.9 Chest pain, unspecified; Z79.899 Other long term (current) drug therapy
CPT/HCPCS: 36415; 71045; 80053; 82550; 83690; 83735; 84484; 85025; 85610; 85730; 93005; 99284

== ENCOUNTER 2023-02-25 14:43 | Outpatient (CLI) | payer MEDICARE, OTHER, SELFPAY ==
[2022-12-25 12:34] VITALS: BMI 39.9
[2023-02-25] VITALS (8 sets, daily range): BP systolic 134–162; BP diastolic 69–92; PULSE 76–85; RESP 14–22; TEMP 36.6; O2SAT 92–97
--- NOTE | 2023-02-25 14:45 | DI.RAD.S_ITS ---
PROCEDURE: PAIN L INTERLAMINAR/CAUDAL INJ INDICATIONS: SPONDYLOSIS COMPARISON: [facility], XA, PAIN L INTERLAMINAR/CAUDAL INJ, 10/31/2022, 13:08. FINDINGS: Fluoroscopic spot filming was performed to verify placement of spinal needles at the L4-L5 interlaminar space level(s), as labeled on the films. Appropriate location(s) of the needle tip(s) was confirmed by injection of iodinated contrast. IMPRESSION: Access needle tip in the L4-L5 interlaminar space for translaminar epidural steroid injection. Dictated by: Clemencia Newell MD, PhD on 02/25/2023 at 15:57 Approved by: Clemencia Newell MD, PhD on 02/25/2023 at 15:58
[2023-02-25] MEDS: MIDAZOLAM 2 MG/2 ML VIAL IV (15:38)
[2023-02-25] MEDS: BUPIVACAINE 0.25% (PF) VIAL 2 ML INJ (15:43)
[2023-02-25] MEDS: BETAMETHASONE 30 MG/5 ML MDV 6 MG INJ (15:43)
[2023-02-25] MEDS: DEXAMETHASONE 10 MG/ML VIAL INJ (15:44)
[2023-02-25] MEDS: iopamidoL 15 ML VIAL 3 ML INJ (15:44)
--- NOTE | 2023-02-25 16:19 | P.PCN_ITS ---
Date/Time/Diagnoses Date of procedure: 02/25/23 Time of procedure: 16:19 Pre-procedure diagnosis: 1. HNP WITH RADICULAR FEATURES, 2. MULTILEVEL CENTRAL STENOSIS, Post-procedure diagnosis: same Procedure Notes Procedure: 1. FLUOROSCOPICALLY GUIDED CONTRAST CONTROLLED INTERLAMINAR EPIDURAL STEROID INJECTION -L4/5 Indications: Pat is referred by Dr. Jean Baptiste for treatment of Bilateral Foraminal Stenosis R>L LE symptoms. Physician: David Flores Total Fluoroscopy time (seconds): 6 Total sedation minutes: 10 Complications: none Procedure in detail & Post-procedure care: FINDINGS Multilevel Central Spinal Stenosis with Nerve Root Compression DESCRIPTION OF PROCEDURE Fluoroscopically guided, contrast-controlled L4/5 translaminar epidural steroid injection. Following review of allergy and review of potential side effects and complications, including, but not necessarily limited to, infection, allergic reaction, local tissue breakdown, temporary as well as permanent nerve injury, paralysis, stroke and possible , the patient indicated that the patient understood and agreed to proceed. An informed consent document was signed by the patient, witnessed by a nurse, and placed in the patient's chart. Additionally, other treatment options including modalities, medications, and physical therapy were reviewed with the patient. After review of previous anaesthesic history and IV conscious sedation the patient was deemed safe to proceed with today?s procedure with IV conscious sedation as ASA class II designation. Safety time-out was performed to confirm patient ID, procedure to be performed and site of procedure. IV sedation was accomplished with a combination of 2mg of Versed was administered by the RN after DO order, titrated to patient comfort during the course of the procedure while the patient remained responsive to all verbal commands In the prone position, following sterile prep and drape of the lumbar region, the L4/5 translaminar space was identified fluoroscopically. The skin was anesthetized via a 25-gauge, 1.5inch needle with 1% lidocaine solution. At this point, a 22-gauge short bevel spinal needle was atraumatically introduced and advanced under fluoroscopic guidance into the region of the L4/5 translaminar space. Depth was confirmed on lateral view. Radiological data, including multiple fluoroscopic views of the lumbar spine, reveal a spinal needle at the L4/5 translaminar space. Lateral views then show placement of the needle in the epidural space. Subsequent views show contrast material flowing superiorly and inferiorly in the epidural space. No vascular or intrathecal uptake is observed. At this point, using loss of resistance technique with saline and air, the epidural space was entered. This was confirmed following negative aspiration with injection of approximately 1.5cc of Isovue 200, showing excellent epidural flow without vascular or intrathecal uptake. At this point, 1cc of 1% lidocaine solution combined with 2cc or 10mg of dexamethasone and 6mg betamethasone was injected without incident. The patient tolerated the procedure well without signs or symptoms of complications prior to transfer to the recovery area continued monitoring without incident. The patient was then transferred to the recovery area where they were observed for an appropriate period of time after the injection. The patient reported a VAS score of 10 prior to the procedure and a post- procedure VAS of 1. POST OP INSTRUCTIONS The patient was provided a Pain Log to continue to record their response to the target-specific procedure prior to follow-up visit with their referring physician. Additionally, specific post-injection care instructions and a contact number to our office were provided if concerns arise regarding possible complications associated with the procedure are suspected.
== END 2023-02-25 16:18 | disposition home or self-care (01) ==
LOC: RAD 14:44
PROVIDERS: PCP Family Medicine; Referring Provider Physical Medicine & Rehabilitation; Visit Provider Physical Medicine & Rehabilitation
DX: M51.16 Intervertebral disc disorders with radiculopathy, lumbar region (principal); M48.061 Spinal stenosis, lumbar region without neurogenic 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
CPT/HCPCS: 62323; 99152; J0702; J1100; J2250; J3490

== ENCOUNTER → 2023-03-26 15:05 | Outpatient (CLI) | payer MEDICARE, OTHER, SELFPAY ==
[2022-12-25 12:34] VITALS: BMI 39.9
--- NOTE | 2023-03-26 15:07 | DI.MG.S_ITS ---
BILATERAL DIGITAL SCREENING MAMMOGRAM 3D/2D WITH CAD: 03/26/2023 CLINICAL: Routine screening. Comparison is made to exams dated: 03/01/2022 mammogram, 02/17/2021 mammogram, 01/27/2019 mammogram, and 12/24/2017 mammogram - [facility]. There are scattered areas of fibroglandular density in both breasts (category b / 25%-50% glandular tissue). Current study was also evaluated with a Computer Aided Detection (CAD) system. There are benign vascular calcifications in both breasts. No significant masses, calcifications, or other findings are seen in either breast. There has been no significant interval change. IMPRESSION: BENIGN There is no mammographic evidence of malignancy. A 1 year screening mammogram is recommended. Based on the Tyrer Cuzick model (a risk assessment model) the patient's lifetime risk is 2.2% and her 10 year risk is 0.0%. According to the ACR, ACS, and NCCN guidelines, an annual breast MRI exam along with mammogram is recommended if the patient's lifetime risk is 20% or greater. This exam was interpreted at Station ID: [id number]. NOTE: For mammograms, a report in lay terms will be sent to the patient. Approximately 15% of breast malignancies will not be visualized mammographically. In the management of a palpable breast mass, a negative mammogram must not discourage biopsy of a clinically suspicious lesion. Electronically Signed By: Hector squires/socrates:03/27/2023 12:47:30 letter sent: Normal Exam ACR BI-RADS Category 2: Benign Finding(s) [id number]
== END ==
PROVIDERS: PCP Family Medicine; Referring Provider Family Medicine; Visit Provider Family Medicine
DX: Z12.31 Encounter for screening mammogram for malignant neoplasm of breast (principal)
CPT/HCPCS: 77063; 77067

== ENCOUNTER → 2023-05-14 17:49 | Outpatient (CLI) | payer MEDICARE, OTHER, SELFPAY ==
[2022-12-25 12:34] VITALS: BMI 39.9
[2023-05-14 18:16] LABS: Appearance Urine UA SL CLOUDY; Bilirubin Urine UA NEGATIVE (NEGATIVE); Color Urine UA YELLOW; Glucose Urine UA NEGATIVE (Negative); Ketones Urine UA NEGATIVE (NEGATIVE); Leukocyte Esterase Urine UA 2+ (NEGATIVE); Nitrite Urine UA NEGATIVE (Negative); Occult Blood Urine UA 2+ (Negative); Protein Urine UA TRACE (Negative); Specific Gravity Urine UA 1.015 (1.000-1.035); Urobilinogen Urine UA 0.2 E.U./dL (0.2)
[2023-05-14 18:24] LABS: Bacteria Urine Few (2-10); Culture Indicated Urine Specimen Cultured; RBC Urine 1-5/HPF (0-5/HPF); Squamous Epithelial Cell Urine 1-5 /HPF (0-5/HPF); WBC Urine >100/HPF (0-5/HPF)
[2023-05-14 18:32] LABS: Alanine Aminotransferase 22 IU/L (<35); Albumin 3.9 g/dL (3.5-5.0); Albumin Globulin Ratio 1.1 (1.0-2.8); Alkaline Phosphatase 149 U/L (38-126); Aspartate Aminotransferase 33 IU/L (14-36); BUN Creatinine Ratio 21.7 (6-22); Bilirubin Total 0.6 mg/dL (0.2-1.3); Blood Urea Nitrogen 15 mg/dL (7-17); Calcium 9.5 mg/dL (8.4-10.2); Carbon Dioxide 26 mmol/L (22-32); Chloride 101 mmol/L (98-107); Estimated Glomerular Filt Rate > 60 mL/min (>60); Globulin 3.7 g/dL (1.7-4.1); Glucose 96 mg/dL (80-110); HEMOLYSIS < 15 (0-50); Magnesium 1.7 mg/dL (1.6-2.3); Potassium 4.2 mmol/L (3.4-5.1); Sodium 136 mmol/L (137-145); Total Protein 7.6 g/dL (6.3-8.2)
== END ==
PROVIDERS: PCP Family Medicine; Referring Provider Family Medicine; Visit Provider Family Medicine
DX: Z13.0 Encounter for screening for diseases of the blood and blood-forming organs and certain disorders involving the immune mechanism (principal); I49.3 Ventricular premature depolarization; R60.9 Edema, unspecified; N17.9 Acute kidney failure, unspecified; I10 Essential (primary) hypertension; R32 Unspecified urinary incontinence
CPT/HCPCS: 36415; 80053; 81001; 83735; 87077; 87086; 87186

== ENCOUNTER → 2023-05-15 13:05 | Outpatient (CLI) | payer MEDICARE, OTHER, SELFPAY ==
[2022-12-25 12:34] VITALS: BMI 39.9
--- NOTE | 2023-05-15 13:07 | DI.US.S_ITS ---
PROCEDURE: [facility] VENOUS UP EXTREM LT INDICATIONS: EDEMA IN LEFT ARM TECHNIQUE: Real-time imaging, as well as color and pulse Doppler interrogation, was performed of the left upper extremity deep veins from the inferior neck to the antecubital fossa. COMPARISON: [facility], , [facility] VENOUS UP EXTREM LT, 03/29/2022, 11:55. FINDINGS: The internal jugular vein, visualized portions of the subclavian vein, axillary, and brachial veins are free of intraluminal thrombus. Where physically possible, the veins are normally compressible. Color and pulse Doppler demonstrate normal intraluminal flow, with expected phasicity and pulsatility. Additional scanning of the cephalic and basilic veins of the superficial system demonstrates normal compressibility, without thrombus. IMPRESSION: No findings of upper extremity deep venous thrombosis can be seen. Dictated by: Tom Sena M.D. on 05/15/2023 at 13:50 Approved by: Tom Sena M.D. on 05/15/2023 at 13:50
== END ==
PROVIDERS: PCP Family Medicine; Referring Provider Family Medicine; Visit Provider Family Medicine
DX: R60.9 Edema, unspecified (principal)
CPT/HCPCS: 93971

== ENCOUNTER → 2023-05-21 15:41 | Outpatient (CLI) | payer MEDICARE, OTHER, SELFPAY ==
[2022-12-25 12:34] VITALS: BMI 39.9
[2023-05-21 17:32] LABS: Add Manual Diff / Slide Review NO; Basophils Absolute Auto 0 /uL (0-100); Basophils Percent Auto 0.6 % (0-2); Eosinophils Absolute Auto 100 /uL (0-450); Eosinophils Percent Auto 1.2 % (2-4); Hematocrit 31.8 % (36-46); Hemoglobin 10.8 g/dL (12.0-16.0); Lymphocytes Absolute Auto 2200 /uL (1100-4500); Lymphocytes Percent Auto 32.9 % (25-40); Mean Corpuscular HGB Conc 33.8 % (30-36); Mean Corpuscular Hemoglobin 30.9 PG (26-34); Mean Corpuscular Volume 91.3 fL (80-100); Monocytes Absolute Auto 700 /uL (0-900); Monocytes Percent Auto 10.3 % (3-14); Neutrophils Absolute Auto 3600 /uL (1500-7000); Platelet Count 266 X10^3/uL (150-400); Red Blood Cell Count 3.48 X10^6/uL (4.0-5.2); Red Cell Distribution Width 13.8 % (11.6-14.8); White Blood Cell Count 6.6 X10^3/uL (4.5-11.0)
== END ==
PROVIDERS: PCP Family Medicine; Referring Provider Family Medicine; Visit Provider Family Medicine
DX: R32 Unspecified urinary incontinence (principal)
CPT/HCPCS: 85025

== ENCOUNTER 2023-06-08 15:43 | Emergency (ER) | payer MEDICARE, OTHER, SELFPAY ==
[2022-12-25 12:34] VITALS: BMI 39.9
[2023-06-08 16:01] VITALS: BP 120/63; PULSE 80; RESP 18; TEMP 37.2; O2SAT 97; BMI 37.1
--- NOTE | 2023-06-08 16:14 | ED.FALL ---
HPI - Fall General Chief Complaint: Fall Stated Complaint: GLF, arm, foot, and hip pain, on baby aspirin Time Seen by Provider: 06/08/23 16:05 Source: patient and family Mode of arrival: Ambulatory History of Present Illness HPI Narrative: Patient is a 77-year-old female. Not on anticoagulation. Is here for evaluation of injuries she sustained when yesterday she was getting out of bed. Was reaching for her walker and tripped and fell. She ended up hitting her back in her left arm on a dresser. She then fell to the ground. She injured her left foot as well. Did not hit her head. No loss of consciousness. Has been ambulatory with her walker since that. Now has discomfort her left hip and the toes on her left foot. Has a bruise to her left arm. No loss of consciousness. Prior to the fall did not have lightheadedness, chest pain, palpitations. Related Data Home Medications Medication Instructions Recorded Confirmed amitriptyline 10 mg tablet 10 mg PO QPM 02/26/18 03/17/23 atorvastatin 40 mg tablet (Lipitor) 40 mg PO QPM 02/26/18 03/17/23 conjugated estrogens 0.625 mg 0.625 mg PO QAM 02/26/18 03/17/23 tablet (Premarin) escitalopram oxalate 20 mg tablet 20 mg PO QAM 02/26/18 03/17/23 (Lexapro) folic acid 1 mg tablet 1 mg PO DAILY 02/26/18 03/17/23 hydrochlorothiazide 25 mg tablet 25 mg PO QAM 02/26/18 03/17/23 calcium polycarbophil 625 mg 1 tab PO BID 08/10/18 03/17/23 tablet (Fiber-Tabs) cholecalciferol (vitamin D3) 50 4,000 unit PO BID 08/10/18 03/17/23 mcg (2,000 unit) capsule (Vitamin D3) cyanocobalamin (vitamin B-12) 1,000 mcg PO DAILY 08/10/18 03/17/23 1,000 mcg tablet (Vitamin B-12) vspixzjg-ngd-gyqdr acid 0.4 1 tab PO DAILY 08/10/18 03/17/23 mg-lycopene 300 mcg-lutein 250 mcg tablet (Centrum Silver) solifenacin 10 mg tablet 10 mg PO QPM 08/10/18 03/17/23 celecoxib 200 mg capsule (Celebrex) 200 mg PO DAILY 11/10/19 03/17/23 Respirinics DreamStation 2 Auto #1 ea 06/28/21 03/17/23 CPAP clobetasol 0.05 % topical ointment g topical 09/03/21 03/17/23 lisinopril 40 mg tablet 40 mg PO DAILY 10/09/22 03/17/23 omeprazole 20 mg capsule,delayed 20 mg PO DAILY 10/09/22 03/17/23 release pregabalin 50 mg capsule 50 mg PO 3XD 12/25/22 03/17/23 furosemide 20 mg tablet 20 mg PO DAILY 02/03/23 03/17/23 nystatin 100,000 unit/gram topical 1 applic topical BID 02/03/23 03/17/23 cream amlodipine 2.5 mg tablet 2.5 mg PO DAILY 03/17/23 03/17/23 Previous Rx's Medication Instructions Recorded diclofenac sodium 1 % topical gel 4 g topical QID PRN pain #100 grams 08/25/21 (Voltaren Arthritis Pain) lidocaine 5 % topical patch 2 patch topical DAILY PRN pain #15 08/25/21 ea cyclobenzaprine 10 mg tablet 10 mg PO BID PRN muscle spasm #60 09/03/21 tabs cetirizine 10 mg tablet 10 mg PO DAILY allergy symptoms 12/16/21 #20 tabs lidocaine 5 % topical cream 1 applic topical TID PRN pain #15 12/01/22 grams tramadol 50 mg tablet 50 mg PO BID PRN pain #30 tabs 12/25/22 Allergies Allergy/AdvReac Type Severity Reaction Status Date / Time piroxicam [PIROXICAM] Allergy Severe RASH Verified 03/17/23 11:15 shellfish derived Allergy Severe scallops Verified 03/17/23 11:15 [SHELLFISH DERIVED] only ANAPHYLAXIS rofecoxib [ROFECOXIB] Allergy Intermediate RASH Verified 03/17/23 11:15 bacitracin Allergy Mild rash Verified 03/17/23 11:15 [From NEOSPORIN ([id number])] neomycin Allergy Mild rash Verified 03/17/23 11:15 [From NEOSPORIN ([id number])] polymyxin B Allergy Mild rash Verified 03/17/23 11:15 [From NEOSPORIN ([id number])] Review of Systems Constitutional Constitutional: Reports system reviewed and no additional complaints, except as documented Cardiovascular Cardiovascular: Reports system reviewed and no additional complaints, except as documented Respiratory Respiratory: Reports system reviewed and no additional complaints, except as documented Gastrointestinal Gastrointestinal: Reports system reviewed and no additional complaints, except as documented Musculoskeletal Musculoskeletal: Reports system reviewed and no additional complaints, except as documented Integumentary/Breasts Skin/Breast: Reports system reviewed and no additional complaints, except as documented Neurologic Neurologic: Reports system reviewed and no additional complaints, except as documented Hematologic/Lymphatic On Anticoagulants: No Patient History Medical History 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 with neurogenic 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 Gait instability Tear of left hamstring 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 Lumbar radiculopathy Facet arthropathy, lumbar Insomnia, psychophysiological (~2006) Diverticulosis MGUS (monoclonal gammopathy of unknown significance) GI bleed 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 sides of body GERD (gastroesophageal reflux disease) Anxiety Depression Hyperlipidemia Hypertension Allergic rhinitis Chronic rhinosinusitis Excessive daytime sleepiness (~2006) Obstructive sleep apnea of adult (~2006) Snoring (~1984) Degenerative joint disease, ankle, foot, toe Degenerative joint disease (DJD) of hip Closed L1 vertebral fracture Flu Bilateral foot pain Obesity (BMI 30-39.9) Degenerative disc disease, cervical Degenerative disc disease, lumbar Chronic pain syndrome Contusion of left hip Rectal bleeding Surgical History Hx of repair of right rotator cuff History of hysterectomy History of surgery on left wrist History of hand surgery History of bladder suspension procedure History of colonoscopy Social History marital status: details: julienne Mirza, lives in [place] household members: spouse lives independently: Yes caregiver/support person: No housing: house Smoking Status: Never smoker alcohol intake: current Smoking Status: Never smoker alcohol intake frequency: holidays/special occasions only Substance Use Type: does not use Exam Initial Vital Signs Initial Vital Signs: Vital Signs Temperature 99.0 F 06/08/23 16:01 Pulse Rate 80 06/08/23 16:01 Respiratory Rate 18 06/08/23 16:01 Blood Pressure 120/63 06/08/23 16:01 Pulse Oximetry 97 06/08/23 16:01 Oxygen Delivery Method Room Air 06/08/23 16:01 Const General: cooperative, comfortable and No ill appearing HENUT Head: normal to inspection and normocephalic Resp Effort & Inspection: normal respiratory effort Auscultation: clear to auscultation bilaterally Cardio Rate: regular rate Skin Other: Bruise to the left upper lateral arm Extrem Other: Full range of motion of bilateral shoulders and elbows and wrists. Does have full range of motion of the left hip but has discomfort with palpation. Bilateral knees unremarkable. Discomfort with the 2nd and 3rd toe of the left foot. Course Orders Ordered: ED Orders 06/08/23 16:16 XR foot LT min 3V Stat XR hip w pel if done LT 2V Stat Vital Signs Vital signs: Vital Signs - 8 hr 06/08/23 16:01 06/08/23 16:23 06/08/23 16:36 Temperature 99.0 F Pulse Rate 80 82 Respiratory Rate 18 Blood Pressure 120/63 Pulse Oximetry 97 93 94 Oxygen Delivery Method Room Air Room Air MDM - Fall Imaging Data Extremity x-ray #1: Radiologist's Impression: PROCEDURE: XR HIP W PEL IF DONE LT 2V INDICATIONS: hip pain after fall TECHNIQUE: 2 views of the hip were acquired. COMPARISON: [facility], [place], XR HIP W PEL IF DONE LT 2V, 01/01/2023, 12:21. FINDINGS: Bones: No fractures or dislocations. No suspicious bony lesions. The visualized pelvic ring appears intact. Superior joint space narrowing and osteophyte formation. Soft tissues: No suspicious soft tissue calcifications or masses. IMPRESSION: No acute bony abnormality. Left greater than right osteoarthritic changes of the hips. Extremity x-ray #2: Radiologist's Impression: PROCEDURE: XR FOOT LT MIN 3V INDICATIONS: 2nd and 3rd toe pain after fall TECHNIQUE: 3 views of the foot were acquired. COMPARISON: [facility], [place], XR FOOT LT MIN 3V, 10/06/2020, 13:43. FINDINGS: Bones: Diffuse osseous demineralization. No displaced fracture identified. Multifocal osteoarthritic changes throughout the midfoot and interphalangeal joints. Plantar calcaneal spur. Soft tissues: No tibiotalar joint effusion. Achilles tendon appears normal. IMPRESSION: No displaced fracture. Moderate midfoot and interphalangeal osteoarthrosis. MDM Narrative Medical decision making narrative: X-ray show no fractures. She does have a contusion to her left upper arm. No back pain. Discussed all this with the patient. No indication for admission to the hospital. She can continue to take all of her medications. She did not hit her head. She was given return precautions. She expressed understanding and agreement. Discharge Plan Departure Patient Disposition: Home Clinical Impression: Contusion of arm, left, Contusion of left foot Instructions: Contusion Activity Restrictions/Additional Instructions: Continue to take all of your medications as directed. Return to the emergency department for new or worsening symptoms. Prescriptions: No Action diclofenac sodium [Voltaren Arthritis Pain] 1 % gel 4 g topical QID PRN (Reason: pain) Qty: 100 0RF Rx Instructions: apply to single knee, ankle, foot; for foot includes sole/toes/top of foot lidocaine 5 % adhesive patch,medicated 2 patch topical DAILY PRN (Reason: pain) Qty: 15 0RF Rx Instructions: leave on most painful area for up to 12 hrs cetirizine 10 mg tablet 10 mg PO DAILY Qty: 20 0RF lidocaine 5 % cream 1 applic topical TID PRN (Reason: pain) Qty: 15 1RF cyanocobalamin (vitamin B-12) [Vitamin B-12] 1,000 mcg Tablet 1,000 mcg PO DAILY calcium polycarbophil [Fiber-Tabs] 625 mg Tablet 1 tab PO BID solifenacin 10 mg tablet 10 mg PO QPM Centrum Silver 0.4-300-250 mg-mcg-mcg Tablet 1 tab PO DAILY cholecalciferol (vitamin D3) [Vitamin D3] 2,000 unit Capsule 4,000 unit PO BID celecoxib [Celebrex] 200 mg Capsule 200 mg PO DAILY conjugated estrogens [Premarin] 0.625 mg tablet 0.625 mg PO QAM hydrochlorothiazide 25 mg tablet 25 mg PO QAM escitalopram oxalate [Lexapro] 20 mg tablet 20 mg PO QAM folic acid 1 mg tablet 1 mg PO DAILY atorvastatin [Lipitor] 40 mg tablet 40 mg PO QPM amitriptyline 10 mg tablet 10 mg PO QPM omeprazole 20 mg capsule,delayed release(DR/EC) 20 mg PO DAILY lisinopril 40 mg tablet 40 mg PO DAILY pregabalin 50 mg capsule 50 mg PO 3XD tramadol 50 mg tablet 50 mg PO BID PRN (Reason: pain) Qty: 30 3RF amlodipine 2.5 mg tablet 2.5 mg PO DAILY clobetasol 0.05 % ointment topical cyclobenzaprine 10 mg tablet 10 mg PO BID PRN (Reason: muscle spasm) Qty: 60 1RF nystatin 100,000 unit/gram cream 1 applic topical BID furosemide 20 mg tablet 20 mg PO DAILY (DME) Respirinics DreamStation 2 Auto CPAP kit Qty: 1 Dose Instruction: As directed Patient Comments: Pressure: 7-14 cmH2O DME: [facility] Instructions: As directed Referrals: Ana Paula Jean Baptiste MD [Primary Care Provider] - Stand Alone Forms: Patient Portal/API
--- NOTE | 2023-06-08 16:16 | DI.RAD.S_ITS ---
PROCEDURE: XR FOOT LT MIN 3V INDICATIONS: 2nd and 3rd toe pain after fall TECHNIQUE: 3 views of the foot were acquired. COMPARISON: [facility], [place], XR FOOT LT MIN 3V, 10/06/2020, 13:43. FINDINGS: Bones: Diffuse osseous demineralization. No displaced fracture identified. Multifocal osteoarthritic changes throughout the midfoot and interphalangeal joints. Plantar calcaneal spur. Soft tissues: No tibiotalar joint effusion. Achilles tendon appears normal. IMPRESSION: No displaced fracture. Moderate midfoot and interphalangeal osteoarthrosis. Dictated by: Qamar Mahan M.D. on 06/08/2023 at 16:06 Approved by: Qamar Mahan M.D. on 06/08/2023 at 16:08
--- NOTE | 2023-06-08 16:16 | DI.RAD.S_ITS ---
PROCEDURE: XR HIP W PEL IF DONE LT 2V INDICATIONS: hip pain after fall TECHNIQUE: 2 views of the hip were acquired. COMPARISON: [facility], [place], XR HIP W PEL IF DONE LT 2V, 01/01/2023, 12:21. FINDINGS: Bones: No fractures or dislocations. No suspicious bony lesions. The visualized pelvic ring appears intact. Superior joint space narrowing and osteophyte formation. Soft tissues: No suspicious soft tissue calcifications or masses. IMPRESSION: No acute bony abnormality. Left greater than right osteoarthritic changes of the hips. Dictated by: Qamar Mahan M.D. on 06/08/2023 at 16:09 Approved by: Qamar Mahan M.D. on 06/08/2023 at 16:10
[2023-06-08 16:23] VITALS: O2SAT 93
[2023-06-08 16:36] VITALS: PULSE 82; O2SAT 94
[2023-06-08 17:00] VITALS: PULSE 84; O2SAT 94
[2023-06-08 17:30] VITALS: PULSE 80; O2SAT 94
[2023-06-08 18:00] VITALS: BP 120/63; PULSE 77; O2SAT 93
== END 2023-06-08 18:05 | disposition home or self-care (01) ==
PROVIDERS: Emergency Provider Emergency Medicine; PCP Family Medicine
DX: S40.022A Contusion of left upper arm, initial encounter (principal); S90.32XA Contusion of left foot, initial encounter; M25.552 Pain in left hip; W01.0XXA Fall on same level from slipping, tripping and stumbling without subsequent striking against object, initial encounter; Z79.899 Other long term (current) drug therapy
CPT/HCPCS: 73502; 73630; 99283

== ENCOUNTER 2023-12-30 20:12 | Emergency (ER) | payer MEDICARE, OTHER, SELFPAY ==
[2022-12-25 12:34] VITALS: BMI 39.9
[2023-12-30 20:13] VITALS: BP 137/88; PULSE 92; RESP 14; TEMP 36.7; O2SAT 97; BMI 36.6
--- NOTE | 2023-12-30 20:29 | DI.CT.S_ITS ---
PROCEDURE: CT CERVICAL SPINE WO CON INDICATIONS: GLF/HEAD INJ TECHNIQUE: Noncontrast 3 mm thick sections acquired from the skull base to the T4 level. Sagittal and coronal reformats were then constructed. For radiation dose reduction, the following was used: automated exposure control, adjustment of mA and/or kV according to patient size. COMPARISON: [facility], CT, CT CERVICAL SPINE WO CON, 10/10/2019, 19:43. FINDINGS: Image quality: Excellent. Bones: No fractures or dislocations. Loss of disc height, degenerative endplate changes and bilateral uncovertebral hypertrophic changes are noted throughout cervical spine causing [id number] central canal stenosis and bilateral neural foraminal narrowing most notably at C5-6 level. Visualized superior ribs are intact. Soft tissues: Prevertebral soft tissues are normal in thickness. No paravertebral hematomas. No apical pneumothoraces. IMPRESSION: 1. No displaced fracture or traumatic subluxation. 2. Degenerative disc disease throughout cervical spine as above. Dictated by: Shin Kapoor M.D. on 12/30/2023 at 21:03 Approved by: Shin Kapoor M.D. on 12/30/2023 at 21:05
--- NOTE | 2023-12-30 20:29 | DI.CT.S_ITS ---
PROCEDURE: CT HEAD/BRAIN WO CON INDICATIONS: GLF/HEAD INJ TECHNIQUE: Noncontrast 4.5 mm thick angled axial sections acquired from the foramen magnum to the vertex, with coronal and sagittal reformats. For radiation dose reduction, the following was used: automated exposure control, adjustment of mA and/or kV according to patient size. COMPARISON: [facility], CT, CT HEAD/BRAIN WO CON, 10/10/2019, 19:43. FINDINGS: Image quality: Diagnostic. CSF spaces: Basal cisterns are patent. No extra-axial fluid collections. The ventricles are symmetric in size and shape. Brain: No intracranial bleeds or masses. There is cerebral volume loss for age, with resultant ventricular and sulcal prominence. There are periventricular and deep white matter chronic small vessel ischemic changes. There is intracranial internal carotid artery atherosclerosis. Skull and face: Calvarium and visualized facial bones appear intact, without suspicious lesions. Sinuses: Fluid within root left maxillary sinus is seen. Bilateral mastoid air cells are well aerated. IMPRESSION: 1. No acute intracranial pathology. 2. Chronic appearing left maxillary sinusitis. 3. No displaced skull fracture. Dictated by: Shin Kapoor M.D. on 12/30/2023 at 21:01 Approved by: Shin Kapoor M.D. on 12/30/2023 at 21:02
--- NOTE | 2023-12-30 20:39 | ED.FALL ---
HPI - Fall General Chief Complaint: Fall Stated Complaint: fall, facial injury Time Seen by Provider: 12/30/23 20:26 Source: patient Mode of arrival: Wheelchair History of Present Illness HPI Narrative: 78-year-old female presents for evaluation after ground level fall with head injury. Patient states that she tripped over her shoes, landing on her knees and then striking her head against the ground. She takes a baby aspirin but it was not take any other blood thinners. She denies loss of consciousness. She states that she has had a tetanus update within the last 5 years. Related Data Home Medications Medication Instructions Recorded Confirmed amitriptyline 10 mg tablet 10 mg PO QPM 02/26/18 03/17/23 atorvastatin 40 mg tablet (Lipitor) 40 mg PO QPM 02/26/18 03/17/23 conjugated estrogens 0.625 mg 0.625 mg PO QAM 02/26/18 03/17/23 tablet (Premarin) escitalopram oxalate 20 mg tablet 20 mg PO QAM 02/26/18 03/17/23 (Lexapro) folic acid 1 mg tablet 1 mg PO DAILY 02/26/18 03/17/23 hydrochlorothiazide 25 mg tablet 25 mg PO QAM 02/26/18 03/17/23 calcium polycarbophil 625 mg 1 tab PO BID 08/10/18 03/17/23 tablet (Fiber-Tabs) cholecalciferol (vitamin D3) 50 4,000 unit PO BID 08/10/18 03/17/23 mcg (2,000 unit) capsule (Vitamin D3) cyanocobalamin (vitamin B-12) 1,000 mcg PO DAILY 08/10/18 03/17/23 1,000 mcg tablet (Vitamin B-12) begymkyc-fmm-ptfgm acid 0.4 1 tab PO DAILY 08/10/18 03/17/23 mg-lycopene 300 mcg-lutein 250 mcg tablet (Centrum Silver) solifenacin 10 mg tablet 10 mg PO QPM 08/10/18 03/17/23 celecoxib 200 mg capsule (Celebrex) 200 mg PO DAILY 11/10/19 03/17/23 Respirinics DreamStation 2 Auto #1 ea 06/28/21 03/17/23 CPAP clobetasol 0.05 % topical ointment g topical 09/03/21 03/17/23 lisinopril 40 mg tablet 40 mg PO DAILY 10/09/22 03/17/23 omeprazole 20 mg capsule,delayed 20 mg PO DAILY 10/09/22 03/17/23 release pregabalin 50 mg capsule 50 mg PO 3XD 12/25/22 03/17/23 furosemide 20 mg tablet 20 mg PO DAILY 02/03/23 03/17/23 nystatin 100,000 unit/gram topical 1 applic topical BID 02/03/23 03/17/23 cream amlodipine 2.5 mg tablet 2.5 mg PO DAILY 03/17/23 03/17/23 Previous Rx's Medication Instructions Recorded diclofenac sodium 1 % topical gel 4 g topical QID PRN pain #100 grams 08/25/21 (Voltaren Arthritis Pain) lidocaine 5 % topical patch 2 patch topical DAILY PRN pain #15 08/25/21 ea cyclobenzaprine 10 mg tablet 10 mg PO BID PRN muscle spasm #60 09/03/21 tabs cetirizine 10 mg tablet 10 mg PO DAILY allergy symptoms 12/16/21 #20 tabs lidocaine 5 % topical cream 1 applic topical TID PRN pain #15 12/01/22 grams tramadol 50 mg tablet 50 mg PO BID PRN pain #30 tabs 12/25/22 Allergies Allergy/AdvReac Type Severity Reaction Status Date / Time piroxicam [PIROXICAM] Allergy Severe RASH Verified 12/30/23 20:21 shellfish derived Allergy Severe scallops Verified 12/30/23 20:21 [SHELLFISH DERIVED] only ANAPHYLAXIS rofecoxib [ROFECOXIB] Allergy Intermediate RASH Verified 12/30/23 20:21 bacitracin Allergy Mild rash Verified 12/30/23 20:21 [From NEOSPORIN ([id number])] neomycin Allergy Mild rash Verified 12/30/23 20:21 [From NEOSPORIN ([id number])] polymyxin B Allergy Mild rash Verified 12/30/23 20:21 [From NEOSPORIN ([id number])] Patient History Medical History 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 with neurogenic 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 Gait instability Tear of left hamstring 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 Lumbar radiculopathy Facet arthropathy, lumbar Insomnia, psychophysiological (~2006) Diverticulosis MGUS (monoclonal gammopathy of unknown significance) GI bleed 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 sides of body GERD (gastroesophageal reflux disease) Anxiety Depression Hyperlipidemia Hypertension Allergic rhinitis Chronic rhinosinusitis Excessive daytime sleepiness (~2006) Obstructive sleep apnea of adult (~2006) Snoring (~1984) Degenerative joint disease, ankle, foot, toe Degenerative joint disease (DJD) of hip Closed L1 vertebral fracture Flu Bilateral foot pain Obesity (BMI 30-39.9) Degenerative disc disease, cervical Degenerative disc disease, lumbar Chronic pain syndrome Contusion of left hip Rectal bleeding Surgical History Hx of repair of right rotator cuff History of hysterectomy History of surgery on left wrist History of hand surgery History of bladder suspension procedure History of colonoscopy Social History marital status: details: to [place], lives in [place] household members: spouse lives independently: Yes caregiver/support person: No housing: house Smoking Status: Never smoker alcohol intake: current Smoking Status: Never smoker alcohol intake frequency: holidays/special occasions only Substance Use Type: does not use Exam Initial Vital Signs Initial Vital Signs: Vital Signs Temperature 98.1 F 12/30/23 20:13 Pulse Rate 92 H 12/30/23 20:13 Respiratory Rate 14 12/30/23 20:13 Blood Pressure 137/88 12/30/23 20:13 Pulse Oximetry 97 12/30/23 20:13 Oxygen Delivery Method Room Air 12/30/23 20:13 Const: Awake, alert, no acute distress, nontoxic appearing MSK: No deformity, full range of motion, pulses equal, bruising over bilateral anterior knees Skin: Warm, Dry, 4 cm horizontal laceration over left eyebrow Neuro: AO x3, CN II-XII grossly intact, moves all extremities Procedures Laceration Repair Laceration 1: Site: face Side (If applicable): left Size (cm): 4 Description: irregular Depth: simple, single layer Local Anesthetic: lidocaine 1% and with epi Amount of anesthesia used (mL): 5 Pre-repair: wound explored, irrigated extensively and deep structures intact Skin layer closed with: nylon Skin layer suture size: 6-0 Number of sutures: 14 Technique: simple, interrupted Course Orders Ordered: ED Orders 12/30/23 20:29 CT cervical spine wo con Stat CT head/brain wo con Stat 12/30/23 20:38 XR knee LT 3V Stat XR knee RT 3V Stat Discontinued Medications Acetaminophen (Acetaminophen 325 Mg Tablet) 975 mg PO NOW ONE Stop: 12/30/23 20:30 Last Admin: 12/30/23 21:08 Dose: 975 mg Documented By: TANVI Vital Signs Vital signs: Vital Signs - 8 hr 12/30/23 20:13 12/30/23 21:08 12/30/23 21:09 Temperature 98.1 F Pulse Rate 92 H 91 H Respiratory Rate 14 Blood Pressure 137/88 152/88 H Pulse Oximetry 97 97 Oxygen Delivery Method Room Air 12/30/23 21:30 12/30/23 21:30 12/30/23 22:00 Temperature Pulse Rate 89 87 Respiratory Rate Blood Pressure 162/81 H Pulse Oximetry 96 95 Oxygen Delivery Method 12/30/23 22:00 Temperature Pulse Rate Respiratory Rate 18 Blood Pressure 184/84 H Pulse Oximetry Oxygen Delivery Method MDM - Fall Differential Diagnosis Differential diagnosis: Likely syncope, dislocation of shoulder region and fracture of wrist Imaging Data CT - cervical spine: Radiologist's Impression: PROCEDURE: CT CERVICAL SPINE WO CON INDICATIONS: GLF/HEAD INJ TECHNIQUE: Noncontrast 3 mm thick sections acquired from the skull base to the T4 level. Sagittal and coronal reformats were then constructed. For radiation dose reduction, the following was used: automated exposure control, adjustment of mA and/or kV according to patient size. COMPARISON: [facility], CT, CT CERVICAL SPINE WO CON, 10/10/2019, 19:43. FINDINGS: Image quality: Excellent. Bones: No fractures or dislocations. Loss of disc height, degenerative endplate changes and bilateral uncovertebral hypertrophic changes are noted throughout cervical spine causing khta-yo-amzjrskd central canal stenosis and bilateral neural foraminal narrowing most notably at C5-6 level. Visualized superior ribs are intact. Soft tissues: Prevertebral soft tissues are normal in thickness. No paravertebral hematomas. No apical pneumothoraces. IMPRESSION: 1. No displaced fracture or traumatic subluxation. 2. Degenerative disc disease throughout cervical spine as above. Dictated by: Shin Kapoor M.D. on 12/30/2023 at 21:03 Approved by: Shin Kapoor M.D. on 12/30/2023 at 21:05 Extremity x-ray #1: Radiologist's Impression: PROCEDURE: XR KNEE LT 3V INDICATIONS: GLF, BILAT KNEE PAIN TECHNIQUE: 3 views of the knee were acquired. COMPARISON: None. FINDINGS: Bones: No fractures or dislocations. Smrl-cz-[id number] tricompartmental osteoarthritis is seen. No significant patellar subluxation. No suspicious bony lesions. Soft tissues: Soft tissue swelling along anterior aspect of patella and patella tendon is seen. No joint effusion. No suspicious soft tissue calcifications. IMPRESSION: Anterior left knee soft tissue swelling. No acute left knee fracture or dislocation. No significant joint effusion. Dictated by: Shin Kapoor M.D. on 12/30/2023 at 21:10 Approved by: Shin Kapoor M.D. on 12/30/2023 at 21:11 Extremity x-ray #2: Radiologist's Impression: PROCEDURE: XR KNEE RT 3V INDICATIONS: GLF, BILAT KNEE PAIN TECHNIQUE: 3 views of the knee were acquired. COMPARISON: None. FINDINGS: Bones: No fractures or dislocations. Afpk-vk-udfvfmbv tricompartmental osteoarthritis. No significant patellar subluxation. No suspicious bony lesions. Soft tissues: Marked soft tissue swelling anterior to the patella and patellar tendon is noted. No significant joint effusion. No suspicious soft tissue calcifications. IMPRESSION: 1. Marked soft tissue swelling anterior to patella and patellar tendon. No acute fracture or dislocation. No significant joint effusion. Dictated by: Shin Kapoor M.D. on 12/30/2023 at 21:11 Approved by: Shin Kapoor M.D. on 12/30/2023 at 21:12 [facility] Narrative Medical decision making narrative: Ground level mechanical fall after tripping over her shoes. Reporting pain in her forehead and bilateral knee pain, denying any other accident or injury. Patient states that she was up-to-date on her tetanus vaccinations. CT brain, C-spine negative for acute traumatic findings. X-rays of the knee shows swelling without fracture. Wound repaired per procedure note. Given Davonte wraps for her knees for comfort. Wound care instructions and return precautions discussed at bedside. Discharge Plan Departure Patient Disposition: Home Clinical Impression: Laceration of forehead Instructions: DI for Laceration Repair -- Simple Activity Restrictions/Additional Instructions: I PLACED 14 SUTURES IN YOUR EYEBROW. THESE WILL NEED TO BE REMOVED IN 5-7 DAYS. KEEP YOUR FOREHEAD CLEAN AND DRY. YOU MAY SHOWER, BUT DO NOT SCRUB THE WOUND. WEAR SUNSCREEN DAILY TO PREVENT SCAR DARKENING. APPLY ICE NEEDED TO AREAS OF SWELLING AND PAIN. Prescriptions: No Action diclofenac sodium [Voltaren Arthritis Pain] 1 % gel 4 g topical QID PRN (Reason: pain) Qty: 100 0RF Rx Instructions: apply to single knee, ankle, foot; for foot includes sole/toes/top of foot lidocaine 5 % adhesive patch,medicated 2 patch topical DAILY PRN (Reason: pain) Qty: 15 0RF Rx Instructions: leave on most painful area for up to 12 hrs cetirizine 10 mg tablet 10 mg PO DAILY Qty: 20 0RF lidocaine 5 % cream 1 applic topical TID PRN (Reason: pain) Qty: 15 1RF cyanocobalamin (vitamin B-12) [Vitamin B-12] 1,000 mcg Tablet 1,000 mcg PO DAILY calcium polycarbophil [Fiber-Tabs] 625 mg Tablet 1 tab PO BID solifenacin 10 mg tablet 10 mg PO QPM Centrum Silver 0.4-300-250 mg-mcg-mcg Tablet 1 tab PO DAILY cholecalciferol (vitamin D3) [Vitamin D3] 2,000 unit Capsule 4,000 unit PO BID celecoxib [Celebrex] 200 mg Capsule 200 mg PO DAILY conjugated estrogens [Premarin] 0.625 mg tablet 0.625 mg PO QAM hydrochlorothiazide 25 mg tablet 25 mg PO QAM escitalopram oxalate [Lexapro] 20 mg tablet 20 mg PO QAM folic acid 1 mg tablet 1 mg PO DAILY atorvastatin [Lipitor] 40 mg tablet 40 mg PO QPM amitriptyline 10 mg tablet 10 mg PO QPM omeprazole 20 mg capsule,delayed release(DR/EC) 20 mg PO DAILY lisinopril 40 mg tablet 40 mg PO DAILY pregabalin 50 mg capsule 50 mg PO 3XD tramadol 50 mg tablet 50 mg PO BID PRN (Reason: pain) Qty: 30 3RF amlodipine 2.5 mg tablet 2.5 mg PO DAILY clobetasol 0.05 % ointment topical cyclobenzaprine 10 mg tablet 10 mg PO BID PRN (Reason: muscle spasm) Qty: 60 1RF nystatin 100,000 unit/gram cream 1 applic topical BID furosemide 20 mg tablet 20 mg PO DAILY (DME) Respirinics DreamStation 2 Auto CPAP kit Qty: 1 Dose Instruction: As directed Patient Comments: Pressure: 7-14 cmH2O DME: [employer] Rx Instructions: As directed Referrals: Ana Paula Jean Baptiste MD [Primary Care Provider] - Stand Alone Forms: Patient Portal/API
[2023-12-30 21:08] VITALS: BP 152/88
[2023-12-30] MEDS: ACETAMINOPHEN 325 MG TABLET 975 MG PO (21:08)
--- NOTE | 2023-12-30 21:08 | PC.NURSE ---
returned from radiology
[2023-12-30 21:09] VITALS: PULSE 91; O2SAT 97
--- NOTE | 2023-12-30 21:10 | PC.NURSE ---
Dr Sams in to suture pt's laceration
[2023-12-30 21:30] VITALS: BP 162/81; PULSE 89; O2SAT 96
[2023-12-30 22:00] VITALS: BP 184/84; PULSE 87; RESP 18; O2SAT 95
== END 2023-12-30 22:20 | disposition home or self-care (01) ==
PROVIDERS: Emergency Provider Emergency Medicine; PCP Family Medicine
DX: S01.81XA Laceration without foreign body of other part of head, initial encounter (principal); M25.562 Pain in left knee; M25.561 Pain in right knee; W01.198A Fall on same level from slipping, tripping and stumbling with subsequent striking against other object, initial encounter; Z79.82 Long term (current) use of aspirin
CPT/HCPCS: 12013; 70450; 72125; 73562; 99283; 99284

== ENCOUNTER 2024-01-04 12:34 | Observation (INO) | payer MEDICARE, OTHER, SELFPAY ==
[2022-12-25 12:34] VITALS: BMI 39.9
[2024-01-04] VITALS (15 sets, daily range): BP systolic 130–177; BP diastolic 61–81; PULSE 74–97; RESP 16–37; TEMP 36–36.9; O2SAT 92–96; BMI 36.6
--- NOTE | 2024-01-04 12:53 | DI.RAD.S_ITS ---
PROCEDURE: XR RIBS LT MIN 3V W CXR1V INDICATIONS: fall, left rib pain TECHNIQUE: 3 views of the ribs were acquired, along with a single view chest. COMPARISON: None. FINDINGS: Surgical changes and devices: Left shoulder arthroplasty hardware is present.. Bones and chest wall: No fractures or dislocations. No suspicious bony lesions. Overlying soft tissues appear unremarkable. Lungs and pleura: No pleural effusions or pneumothorax. Lungs appear clear. Mediastinum: Mediastinal contours appear normal. Heart size is normal. IMPRESSION: No displaced rib fracture or pneumothorax. Dictated by: Yolanda Rosales M.D. on 01/04/2024 at 12:25 Approved by: Yolanda Rosales M.D. on 01/04/2024 at 12:28
--- NOTE | 2024-01-04 12:58 | EKG_ITS ---
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
[2024-01-04 13:06] LABS: Add Manual Diff / Slide Review NO; Basophils Absolute Auto 0 /uL (0-100); Basophils Percent Auto 0.5 % (0-2); Eosinophils Absolute Auto 100 /uL (0-450); Eosinophils Percent Auto 1.6 % (2-4); Hematocrit 29.1 % (36-46); Lymphocytes Absolute Auto 3000 /uL (1100-4500); Lymphocytes Percent Auto 37.7 % (25-40); Mean Corpuscular HGB Conc 34.5 % (30-36); Mean Corpuscular Hemoglobin 30.9 PG (26-34); Mean Corpuscular Volume 89.6 fL (80-100); Monocytes Absolute Auto 800 /uL (0-900); Monocytes Percent Auto 10.6 % (3-14); Neutrophils Absolute Auto 3900 /uL (1500-7000); Neutrophils Percent Auto 49.6 % (50-75); Platelet Count 220 X10^3/uL (150-400); Red Blood Cell Count 3.25 X10^6/uL (4.0-5.2); Red Cell Distribution Width 13.5 % (11.6-14.8); White Blood Cell Count 7.9 X10^3/uL (4.5-11.0)
[2024-01-04 13:21] LABS: Alanine Aminotransferase 27 IU/L (<35); Albumin 4.1 g/dL (3.5-5.0); Albumin Globulin Ratio 1.2 (1.0-2.8); Alkaline Phosphatase 144 U/L (38-126); Aspartate Aminotransferase 36 IU/L (14-36); BUN Creatinine Ratio 26.9 (6-22); Bilirubin Total 0.5 mg/dL (0.2-1.3); Blood Urea Nitrogen 52 mg/dL (7-17); Calcium 8.9 mg/dL (8.4-10.2); Carbon Dioxide 23 mmol/L (22-32); Chloride 104 mmol/L (98-107); Creatine Kinase 127 U/L (30-135); Estimated Glomerular Filt Rate 26 mL/min (>60); Globulin 3.4 g/dL (1.7-4.1); Glucose 100 mg/dL (80-110); HEMOLYSIS 48 (0-50); Lipase 56 U/L (23-300); Magnesium 2.2 mg/dL (1.6-2.3); Potassium 5.2 mmol/L (3.4-5.1); Sodium 136 mmol/L (137-145); Total Protein 7.5 g/dL (6.3-8.2)
[2024-01-04 13:24] LABS: INR 0.9 (0.9-1.3); Prothrombin Time 10.5 SECONDS (9.4-12.5)
[2024-01-04 13:26] LABS: PTT Partial Thromboplastin Tim 29 SECONDS (25.1-36.5)
[2024-01-04 13:33] LABS: NT-proBNP (BNP-Adult 18+) 293 pg/mL (<450); Troponin I < 0.012 ng/mL (0.01-0.034)
--- NOTE | 2024-01-04 13:54 | ED.SYNCOPE ---
HPI - Syncope General Chief Complaint: Dizziness Stated Complaint: Vertigo , fell pain on left side Time Seen by Provider: 01/04/24 12:54 History of Present Illness HPI narrative: Patient is 78-year-old female history of vertigo hyperlipidemia hypertension gait instability lumbar radiculopathy presenting today with a 2nd syncopal episode this week. She was seen and evaluated here on 12/30/2023 after she tripped over her shoes landing on her knee striking her head. She does take an aspirin daily but not on any other thinners. At time it seemed like a mechanical fall. However about 24 hours ago she got up in the middle tonight to the restroom when she fell again hitting her head almost in the same place where she hit her head last night. She has not had any loss of consciousness nausea or vomiting but this was very odd provoked. She says it does not quite feel like her vertigo. She has no new weakness numbness or tingling. She does have multiple bruises all over her body from her recent falls including on her left ribs. She denies any fever chills palpitations or chest pain. Related Data Home Medications Medication Instructions Recorded Confirmed amitriptyline 10 mg tablet 10 mg PO QPM 02/26/18 03/17/23 atorvastatin 40 mg tablet (Lipitor) 40 mg PO QPM 02/26/18 03/17/23 conjugated estrogens 0.625 mg 0.625 mg PO QAM 02/26/18 03/17/23 tablet (Premarin) escitalopram oxalate 20 mg tablet 20 mg PO QAM 02/26/18 03/17/23 (Lexapro) folic acid 1 mg tablet 1 mg PO DAILY 02/26/18 03/17/23 hydrochlorothiazide 25 mg tablet 25 mg PO QAM 02/26/18 03/17/23 calcium polycarbophil 625 mg 1 tab PO BID 08/10/18 03/17/23 tablet (Fiber-Tabs) cholecalciferol (vitamin D3) 50 4,000 unit PO BID 08/10/18 03/17/23 mcg (2,000 unit) capsule (Vitamin D3) cyanocobalamin (vitamin B-12) 1,000 mcg PO DAILY 08/10/18 03/17/23 1,000 mcg tablet (Vitamin B-12) gxkjsubp-qha-gkuux acid 0.4 1 tab PO DAILY 08/10/18 03/17/23 mg-lycopene 300 mcg-lutein 250 mcg tablet (Centrum Silver) solifenacin 10 mg tablet 10 mg PO QPM 08/10/18 03/17/23 celecoxib 200 mg capsule (Celebrex) 200 mg PO DAILY 11/10/19 03/17/23 Respirinics DreamStation 2 Auto #1 ea 06/28/21 03/17/23 CPAP clobetasol 0.05 % topical ointment g topical 09/03/21 03/17/23 omeprazole 20 mg capsule,delayed 20 mg PO DAILY 10/09/22 03/17/23 release pregabalin 50 mg capsule 50 mg PO 3XD 12/25/22 03/17/23 furosemide 20 mg tablet 20 mg PO DAILY 02/03/23 03/17/23 nystatin 100,000 unit/gram topical 1 applic topical BID 02/03/23 03/17/23 cream amlodipine 2.5 mg tablet 2.5 mg PO DAILY 03/17/23 03/17/23 Previous Rx's Medication Instructions Recorded diclofenac sodium 1 % topical gel 4 g topical QID PRN pain #100 grams 08/25/21 (Voltaren Arthritis Pain) lidocaine 5 % topical patch 2 patch topical DAILY PRN pain #15 08/25/21 ea cyclobenzaprine 10 mg tablet 10 mg PO BID PRN muscle spasm #60 09/03/21 tabs cetirizine 10 mg tablet 10 mg PO DAILY allergy symptoms 12/16/21 #20 tabs lidocaine 5 % topical cream 1 applic topical TID PRN pain #15 12/01/22 grams tramadol 50 mg tablet 50 mg PO BID PRN pain #30 tabs 12/25/22 Allergies Allergy/AdvReac Type Severity Reaction Status Date / Time piroxicam [PIROXICAM] Allergy Severe RASH Verified 12/30/23 20:21 shellfish derived Allergy Severe scallops Verified 12/30/23 20:21 [SHELLFISH DERIVED] only ANAPHYLAXIS rofecoxib [ROFECOXIB] Allergy Intermediate RASH Verified 12/30/23 20:21 bacitracin Allergy Mild rash Verified 12/30/23 20:21 [From NEOSPORIN ([id number])] neomycin Allergy Mild rash Verified 12/30/23 20:21 [From NEOSPORIN ([id number])] polymyxin B Allergy Mild rash Verified 12/30/23 20:21 [From NEOSPORIN ([id number])] Patient History Medical History (Updated 01/04/24 @ 18:17 by Karl Perez MD) Colitis 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 with neurogenic 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 Gait instability 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 Lumbar radiculopathy Facet arthropathy, lumbar Insomnia, psychophysiological (~2006) Diverticulosis MGUS (monoclonal gammopathy of unknown significance) GI bleed 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 sides of body GERD (gastroesophageal reflux disease) Anxiety Depression Hyperlipidemia Hypertension Allergic rhinitis Chronic rhinosinusitis Excessive daytime sleepiness (~2006) Obstructive sleep apnea of adult (~2006) Snoring (~1984) Degenerative joint disease, ankle, foot, toe Degenerative joint disease (DJD) of hip Closed L1 vertebral fracture Flu Bilateral foot pain Obesity (BMI 30-39.9) Degenerative disc disease, cervical Degenerative disc disease, lumbar Chronic pain syndrome Contusion of left hip Rectal bleeding Surgical History Hx of repair of right rotator cuff History of hysterectomy History of surgery on left wrist History of hand surgery History of bladder suspension procedure History of colonoscopy Social History marital status: details: julienne Mirza, lives in [place] household members: spouse lives independently: Yes caregiver/support person: No housing: house Smoking Status: Never smoker alcohol intake: current Smoking Status: Never smoker alcohol intake frequency: holidays/special occasions only Substance Use Type: does not use Exam Initial Vital Signs Initial Vital Signs: Vital Signs Temperature 98.4 F 01/04/24 12:38 Pulse Rate 80 01/04/24 12:38 Respiratory Rate 16 01/04/24 12:38 Blood Pressure 147/68 H 01/04/24 12:38 Pulse Oximetry 96 01/04/24 12:38 Oxygen Delivery Method Room Air 01/04/24 12:38 GENERAL: Alert pleasant 78-year-old female and in no acute distress. HEENT: Head atraumatic,EOMI, pupils reactive, face symmetric, moist mucous membranes CARDIOVASCULAR: Regular rate and rhythm without murmurs, rubs or gallops. RESPIRATORY: Breath sounds equal bilaterally, no wheezes rales or rhonchi. ABDOMEN: Soft, nontender. Normoactive bowel sounds all 4 quadrants. No guarding or rebound. EXTREMITIES: Normal range of motion, no clubbing or edema. Neurovascularly intact NEUROLOGICAL: Alert and oriented x4.Normal gait and speech. Cranial nerves II through XII grossly intact. Good omnxto-me-oqmj, good feef-wq-ymde, strength equal bilaterally, no dysarthria or aphasia, sensation in tact to soft touch bilaterally, no visual changes, no facial droop SKIN: Warm, dry, no laceration, no petechiae, no rashes or lesions. Scores NIH Stroke Scale Level of Conciousness: Alert, keenly responsive Ask month/age: Answers both questions correctly. Open/close eyes, close hand: Performs both tasks correctly Best gaze horizontal: Normal Visual ace: No visual loss Facial palsy: Normal symetrical movement Left arm drift: No drift for full 10 sec Right arm drift: No drift for full 10 sec Left leg drift: No drift for full 5 sec Right leg drift: No drift for full 5 sec Limb ataxia: Absent Sensory on face/arms/legs: Normal, no sensory loss Best language: No aphasia, normal Dysarthria: Normal Extinction or inattention: No abnormality Total NIH Stroke scale score: 0 Course Orders Ordered: ED Orders 01/04/24 12:53 XR ribs LT min 3V w CXR1V Stat EKG-12 Lead Stat 01/04/24 12:58 Complete Blood Count AUTO DIFF Stat Comprehensive Metabolic Panel Stat Lipase Stat Magnesium Stat NT-proBNP (BNP-Adult 18+) Stat PTT Partial Thromboplastin Aayush Stat Prothrombin Time INR Stat Troponin & CK Cardiac Panel Stat 01/04/24 14:03 MR stroke Stat Discontinued Medications Sodium Chloride (Normal Saline 0.9%) 1,000 mls @ 1,000 mls/hr IV BOLUS ONE Stop: 01/04/24 15:02 Last Infusion: 01/04/24 16:23 Dose: Infused Documented By: Infusion: 01/04/24 15:17 Dose: 1,000 mls/hr Documented By: Infusion: 01/04/24 14:20 Dose: 0 mls/hr Documented By: Admin: 01/04/24 14:15 Dose: 1,000 mls/hr Documented By: AIXA Lorazepam (Lorazepam 2 Mg/Ml Inj) 0.5 mg IV NOW ONE Stop: 01/04/24 14:05 Last Admin: 01/04/24 14:18 Dose: 0.5 mg Documented By: SB Vital Signs Vital signs: Vital Signs - 8 hr 01/04/24 12:38 01/04/24 12:50 01/04/24 12:51 Temperature 98.4 F Pulse Rate 80 97 H Respiratory Rate 16 Blood Pressure 147/68 H 132/75 Pulse Oximetry 96 95 Oxygen Delivery Method Room Air 01/04/24 12:51 01/04/24 13:00 01/04/24 13:00 Temperature Pulse Rate 87 74 Respiratory Rate 23 Blood Pressure 168/77 H Pulse Oximetry 96 95 Oxygen Delivery Method Room Air 01/04/24 13:30 01/04/24 14:00 01/04/24 15:15 Temperature Pulse Rate 74 80 83 Respiratory Rate 28 H 27 H 22 Blood Pressure 177/81 H Pulse Oximetry 92 95 96 Oxygen Delivery Method 01/04/24 15:30 01/04/24 16:01 01/04/24 16:52 Temperature Pulse Rate 76 78 84 Respiratory Rate 34 H 37 H Blood Pressure 130/71 158/81 H Pulse Oximetry 95 94 92 Oxygen Delivery Method Room Air 01/04/24 16:53 01/04/24 16:53 01/04/24 17:00 Temperature Pulse Rate 84 80 Respiratory Rate 25 H 18 Blood Pressure 134/61 132/63 Pulse Oximetry 92 96 Oxygen Delivery Method Room Air MDM - Syncope Lab Data 01/04/24 12:58 01/04/24 12:58 Labs: Lab Results 01/04/24 Range/Units 12:58 WBC 7.9 (4.5-11.0) X10^3/uL RBC 3.25 L (4.0-5.2) X10^6/uL Hgb 10.0 L (12.0-16.0) g/dL Hct 29.1 L (36-46) % MCV 89.6 (80-100) fL MCH 30.9 (26-34) PG MCHC 34.5 (30-36) % RDW 13.5 (11.6-14.8) % Plt Count 220 (150-400) X10^3/uL Neut % (Auto) 49.6 L (50-75) % Lymph % (Auto) 37.7 (25-40) % Clinton % (Auto) 10.6 (3-14) % Eos % (Auto) 1.6 L (2-4) % Baso % (Auto) 0.5 (0-2) % Neut # (Auto) 3900 (3798-3915) /uL Lymph # (Auto) 3000 (4554-7200) /uL Clinton # (Auto) 800 (0-900) /uL Eos # (Auto) 100 (0-450) /uL Baso # (Auto) 0 (0-100) /uL PT 10.5 (9.4-12.5) SECONDS INR 0.9 (0.9-1.3) APTT 29 (25.1-36.5) SECONDS Sodium 136 L (137-145) mmol/L Potassium 5.2 H (3.4-5.1) mmol/L Chloride 104 (98-107) mmol/L Carbon Dioxide 23 (22-32) mmol/L BUN 52 H (7-17) mg/dL Creatinine 1.93 H (0.52-1.04) mg/dL Estimated GFR 26 L (>60) mL/min BUN/Creatinine Ratio 26.9 H (6-22) Glucose 100 (80-110) mg/dL Calcium 8.9 (8.4-10.2) mg/dL Magnesium 2.2 (1.6-2.3) mg/dL Total Bilirubin 0.5 (0.2-1.3) mg/dL AST 36 (14-36) IU/L ALT 27 (<35) IU/L Alkaline Phosphatase 144 H (38-126) U/L Total Creatine Kinase 127 (30-135) U/L Troponin I < 0.012 (0.01-0.034) ng/mL NT-Pro-B Natriuret Pep 293 (<450) pg/mL Total Protein 7.5 (6.3-8.2) g/dL Albumin 4.1 (3.5-5.0) g/dL Globulin 3.4 (1.7-4.1) g/dL Albumin/Globulin Ratio 1.2 (1.0-2.8) Lipase 56 (23-300) U/L Imaging Data Chest x-ray: Radiologist's Impression: PROCEDURE: XR RIBS LT MIN 3V W CXR1V INDICATIONS: fall, left rib pain TECHNIQUE: 3 views of the ribs were acquired, along with a single view chest. COMPARISON: None. FINDINGS: Surgical changes and devices: Left shoulder arthroplasty hardware is present.. Bones and chest wall: No fractures or dislocations. No suspicious bony lesions. Overlying soft tissues appear unremarkable. Lungs and pleura: No pleural effusions or pneumothorax. Lungs appear clear. Mediastinum: Mediastinal contours appear normal. Heart size is normal. IMPRESSION: No displaced rib fracture or pneumothorax. Dictated by: Yolanda Rosales M.D. on 01/04/2024 at 12:25 MR brain: Radiologist's Impression: PROCEDURE: MR STROKE INDICATIONS: syncope x2 in 1 week TECHNIQUE: Brain: Noncontrast axial T1 spin echo, axial T2 fast spin echo, sagittal and axial FLAIR, coronal T2 fast spin echo, axial gradient echo, axial diffusion and ADC through the brain. MR angiogram: Noncontrast axial 3D [id number] MR angiogram, with maximum intensity projection reformats of the internal carotid arteries and posterior circulation then performed. COMPARISON: None. FINDINGS: Image quality: Adequate. Mild motion artifact is present on some sequences. BRAIN: CSF Spaces: Basal cisterns are patent. No extra-axial fluid collections. Ventricles are normal in size and shape. Brain: No midline shift. No intracranial bleeds or mass effects. The brainstem appears normal. Camp/white matter interface appears normal. Diffusion-weighted images demonstrate no acute ischemic insult. No chronic ischemic insults. Normal intravascular flow voids are present. No susceptibility artifact to suggest acute hemorrhage. Scattered subcortical white matter T2 hyperintensities are likely the sequela of microangiopathy. Skull and face: Calvarium has normal marrow signal. Orbits appear normal. Sinuses: There is mild mucoperiosteal thickening within the left maxillary sinus. Sinuses and mastoids are otherwise clear. BRAIN MR ANGIOGRAM: Anterior circulation: Intracranial internal carotid arteries demonstrate normal size and intraluminal flow signal. The flow within the paired anterior cerebral arteries is normal and symmetric. The flow within the middle cerebral arteries is normal and symmetric. The anterior communicating artery is seen. No stenoses, occlusions, or aneurysms. Posterior circulation: The visualized vertebral arteries demonstrate normal caliber, and join to form a normal appearing basilar artery. The flow within the posterior cerebral arteries is normal and symmetric. Note is made of normal appearing posterior cerebral arteries. No stenoses, occlusions, or aneurysms. IMPRESSION: 1. No acute ischemia or evidence for the etiology of the patient's syncope. 2. Mild chronic left maxillary sinusitis. Dictated by: Yolanda Rosales M.D. on 01/04/2024 at 14:28 ECG Data Attestation: I personally reviewed and interpreted this ECG as follows: Interpretation: Normal sinus rhythm rate 72 IA interval 186 QRS [address] changes MDM Narrative Medical decision making narrative: Patient is 78-year-old female presenting today for her 2nd fall less than 1 week. Initially her 1st fall was thought to be a mechanical trip and fall however this fall seems to be possibly a syncopal episode. She has some bruising on her left ribs she has very minimal bruising over her left forehead sutures seem to be intact and not infected. Concern for recurrent syncopal episode cardiac versus neurologic versus vertigo Blood work has been reviewed she is found to be mildly dehydrated with a creatinine of 1.9 previously was 0.6 in 05/14/2023 potassium is 5.2 troponin is negative. Mild anemia hemoglobin 10 hematocrit 29.1 previously 10.8/31.8 MRI brain does not show any evidence of ischemia Patient is here for what was thought to be a 2nd syncopal episode this week however, upon chart review all and discussion with patient she had a mechanical fall. She reports that her shoe and foot got stuck on the floor then she fell forward hitting her head. Today she had an unprovoked syncopal episode. She is found to be mildly dehydrated with a creatinine of 1.9 previously it was 0.6 slightly elevated potassium of 5.2. She reports that blood pressure medication has been adjusted she was taken off lisinopril for probable angioedema symptoms. She would her PCP have been monitoring. She has given a L of fluid She has some kind of tremors at baseline but they definitely seem to be more Due to syncopal episode 2nd fall this week SARAH very mild hyperkalemia patient is placed in observation with Dr. Perez who kindly accepts Discharge Plan Departure Patient Disposition: Admitted as Observation Clinical Impression: SARAH (acute kidney injury), Syncope Admit Date/Time: 01/04/24 17:23 Admit Provider: Karl Perez
--- NOTE | 2024-01-04 14:03 | DI.MRI.S_ITS ---
PROCEDURE: MR STROKE INDICATIONS: syncope x2 in 1 week TECHNIQUE: Brain: Noncontrast axial T1 spin echo, axial T2 fast spin echo, sagittal and axial FLAIR, coronal T2 fast spin echo, axial gradient echo, axial diffusion and ADC through the brain. MR angiogram: Noncontrast axial 3D [id number] MR angiogram, with maximum intensity projection reformats of the internal carotid arteries and posterior circulation then performed. COMPARISON: None. FINDINGS: Image quality: Adequate. Mild motion artifact is present on some sequences. BRAIN: CSF Spaces: Basal cisterns are patent. No extra-axial fluid collections. Ventricles are normal in size and shape. Brain: No midline shift. No intracranial bleeds or mass effects. The brainstem appears normal. Camp/white matter interface appears normal. Diffusion-weighted images demonstrate no acute ischemic insult. No chronic ischemic insults. Normal intravascular flow voids are present. No susceptibility artifact to suggest acute hemorrhage. Scattered subcortical white matter T2 hyperintensities are likely the sequela of microangiopathy. Skull and face: Calvarium has normal marrow signal. Orbits appear normal. Sinuses: There is mild mucoperiosteal thickening within the left maxillary sinus. Sinuses and mastoids are otherwise clear. BRAIN MR ANGIOGRAM: Anterior circulation: Intracranial internal carotid arteries demonstrate normal size and intraluminal flow signal. The flow within the paired anterior cerebral arteries is normal and symmetric. The flow within the middle cerebral arteries is normal and symmetric. The anterior communicating artery is seen. No stenoses, occlusions, or aneurysms. Posterior circulation: The visualized vertebral arteries demonstrate normal caliber, and join to form a normal appearing basilar artery. The flow within the posterior cerebral arteries is normal and symmetric. Note is made of normal appearing posterior cerebral arteries. No stenoses, occlusions, or aneurysms. IMPRESSION: 1. No acute ischemia or evidence for the etiology of the patient's syncope. 2. Mild chronic left maxillary sinusitis. Dictated by: Yolanda Rosales M.D. on 01/04/2024 at 14:28 Approved by: Yolanda Rosales M.D. on 01/04/2024 at 14:34
[2024-01-04] MEDS: SODIUM CHLORIDE 0.9% 1,000 ML 1000 ML IV (14:15)
[2024-01-04] MEDS: LORazepam 2 MG/ML INJ 0.5 MG IV (14:18)
--- NOTE | 2024-01-04 18:13 | P.HP_ITS ---
History of Present Illness History of Present Illness Date Patient Seen: 01/04/24 Time Patient Seen: 18:14 Chief complaint: Vertigo , fell pain on left side Narrative: 78-year-old female who normally sees Dr. Jean Baptiste at [facility] admitted with a syncopal spell, perhaps the second 1 this week Patient came to the ER today talking about getting up in the middle the night to go to the bathroom where she lost her balance and or fell hitting her head. She denies any loss of consciousness. There was no palpitations chest pain or other symptoms associated with this. No loss of bowel or bladder function. Patient had either a mechanical fall or another syncopal/near syncopal episode seen in the ER several days ago. Did sustain injuries but nothing serious. Sort of covered with multiple bruises all over her trunk from multiple falls over time. Patient apparently has longstanding history of gait disorder including significant spinal disease has been seen for this over time. In the ER she was found to have an acute kidney injury with creatinine 9 (although no recent creatinine available). Also found to be somewhat more anemic than previously with normal indices. Apparently has had some recent changes in her antihypertensive regimen through her PCP. Working on updating her med list Also she has been having what she describes as some vertigo coming from her left ear. 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 Lumbar radiculopathy Facet arthropathy, lumbar Insomnia, psychophysiological (~2006) Diverticulosis MGUS (monoclonal gammopathy of unknown significance) GI bleed 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 sides of body GERD (gastroesophageal reflux disease) Anxiety Depression Hyperlipidemia Hypertension Allergic rhinitis Chronic rhinosinusitis Excessive daytime sleepiness (~2006) Obstructive sleep apnea of adult (~2006) Snoring (~1984) Degenerative joint disease, ankle, foot, toe Degenerative joint disease (DJD) of hip Closed L1 vertebral fracture Flu Bilateral foot pain Obesity (BMI 30-39.9) Degenerative disc disease, cervical Degenerative disc disease, lumbar Chronic pain syndrome Contusion of left hip Rectal bleeding Surgical History Hx of repair of right rotator cuff History of hysterectomy History of surgery on left wrist History of hand surgery History of bladder suspension procedure History of colonoscopy Social History marital status: details: julienne Mirza, lives in [place] household members: spouse lives independently: Yes caregiver/support person: No housing: house Smoking Status: Never smoker alcohol intake: current Meds Home Medications and Allergies Home Medications Medication Instructions Recorded Confirmed Type amitriptyline 10 mg tablet 10 mg PO QPM 02/26/18 01/04/24 History atorvastatin 40 mg tablet (Lipitor) 40 mg PO QPM 02/26/18 01/04/24 History conjugated estrogens 0.625 mg 0.3125 mg PO QAM 02/26/18 01/04/24 History tablet (Premarin) escitalopram oxalate 20 mg tablet 20 mg PO QPM 02/26/18 01/04/24 History (Lexapro) folic acid 1 mg tablet 1 mg PO DAILY 02/26/18 01/04/24 History hydrochlorothiazide 25 mg tablet 25 mg PO QAM 02/26/18 01/04/24 History calcium polycarbophil 625 mg 1 tab PO BID 08/10/18 01/04/24 History tablet (Fiber-Tabs) cholecalciferol (vitamin D3) 50 4,000 unit PO BID 08/10/18 01/04/24 History mcg (2,000 unit) capsule (Vitamin D3) cyanocobalamin (vitamin B-12) 1,000 mcg PO BID 08/10/18 01/04/24 History 1,000 mcg tablet (Vitamin B-12) pkokjarq-eki-kfmfs acid 0.4 1 tab PO DAILY 08/10/18 01/04/24 History mg-lycopene 300 mcg-lutein 250 mcg tablet (Centrum Silver) solifenacin 10 mg tablet 10 mg PO QPM 08/10/18 01/04/24 History celecoxib 200 mg capsule (Celebrex) 200 mg PO DAILY 11/10/19 01/04/24 History Respirinics DreamStation 2 Auto #1 ea 06/28/21 03/17/23 History CPAP diclofenac sodium 1 % topical gel 4 g topical QID PRN pain #100 grams 08/25/21 03/17/23 Rx (Voltaren Arthritis Pain) clobetasol 0.05 % topical ointment 1 applic topical PRN PRN Rash 09/03/21 01/04/24 History omeprazole 20 mg capsule,delayed 20 mg PO BID 10/09/22 01/04/24 History release tramadol 50 mg tablet 50 mg PO BID PRN pain #30 tabs 12/25/22 03/17/23 Rx nystatin 100,000 unit/gram topical 1 applic topical BID 02/03/23 03/17/23 History cream amlodipine 2.5 mg tablet 5 mg PO DAILY 03/17/23 01/04/24 History Adult Low Dose Aspirin 81 mg PO DAILY 01/04/24 01/04/24 History losartan 100 mg PO DAILY 01/04/24 01/04/24 History Allergies Allergy/AdvReac Type Severity Reaction Status Date / Time piroxicam [PIROXICAM] Allergy Severe RASH Verified 12/30/23 20:21 shellfish derived Allergy Severe scallops Verified 12/30/23 20:21 [SHELLFISH DERIVED] only ANAPHYLAXIS rofecoxib [ROFECOXIB] Allergy Intermediate RASH Verified 12/30/23 20:21 bacitracin Allergy Mild rash Verified 12/30/23 20:21 [From NEOSPORIN ([id number])] neomycin Allergy Mild rash Verified 12/30/23 20:21 [From NEOSPORIN ([id number])] polymyxin B Allergy Mild rash Verified 12/30/23 20:21 [From NEOSPORIN ([id number])] Review of Systems Review of Systems ROS: Yes All systems reviewed with the patient and are negative except as otherwise documented Exam Vital Signs (past 8 hours): - 01/04/24 12:38 01/04/24 12:50 01/04/24 12:51 Temperature 98.4 F Pulse Rate 80 97 H Respiratory Rate 16 Blood Pressure 147/68 H 132/75 Pulse Oximetry 96 95 Oxygen Delivery Method Room Air 01/04/24 12:51 01/04/24 13:00 01/04/24 13:00 Temperature Pulse Rate 87 74 Respiratory Rate 23 Blood Pressure 168/77 H Pulse Oximetry 96 95 Oxygen Delivery Method Room Air 01/04/24 13:30 01/04/24 14:00 01/04/24 15:15 Temperature Pulse Rate 74 80 83 Respiratory Rate 28 H 27 H 22 Blood Pressure 177/81 H Pulse Oximetry 92 95 96 Oxygen Delivery Method 01/04/24 15:30 01/04/24 16:01 01/04/24 16:52 Temperature Pulse Rate 76 78 84 Respiratory Rate 34 H 37 H Blood Pressure 130/71 158/81 H Pulse Oximetry 95 94 92 Oxygen Delivery Method Room Air 01/04/24 16:53 01/04/24 16:53 01/04/24 17:00 Temperature Pulse Rate 84 80 Respiratory Rate 25 H 18 Blood Pressure 134/61 132/63 Pulse Oximetry 92 96 Oxygen Delivery Method Room Air 01/04/24 17:30 01/04/24 17:30 Temperature Pulse Rate 78 Respiratory Rate 37 H Blood Pressure 143/74 H Pulse Oximetry 94 Oxygen Delivery Method Oxygen Delivery Method Room Air Narrative Exam Narrative: Non acutely ill-appearing elderly female lying in her hospital bed with obvious bruising around the left eye including laceration with sutures left super orbital ridge Neck-no bruits Lungs-clear with good breath sounds Heart-regular rate and rhythm grade 2/6 systolic ejection murmur left precordial area without radiation Abdomen-positive bowel tones Objective Labs 01/04/24 12:58 01/04/24 12:58 Labs: Laboratory Results - last 24 hr 01/04/24 12:58 WBC 7.9 RBC 3.25 L Hgb 10.0 L Hct 29.1 L MCV 89.6 MCH 30.9 MCHC 34.5 RDW 13.5 Plt Count 220 Neut % (Auto) 49.6 L Lymph % (Auto) 37.7 Potter % (Auto) 10.6 Eos % (Auto) 1.6 L Baso % (Auto) 0.5 Neut # (Auto) 3900 Lymph # (Auto) 3000 Potter # (Auto) 800 Eos # (Auto) 100 Baso # (Auto) 0 PT 10.5 INR 0.9 APTT 29 Sodium 136 L Potassium 5.2 H Chloride 104 Carbon Dioxide 23 BUN 52 H Creatinine 1.93 H Estimated GFR 26 L BUN/Creatinine Ratio 26.9 H Glucose 100 Calcium 8.9 Magnesium 2.2 Total Bilirubin 0.5 AST 36 ALT 27 Alkaline Phosphatase 144 H Total Creatine Kinase 127 Troponin I < 0.012 NT-Pro-B Natriuret Pep 293 Total Protein 7.5 Albumin 4.1 Globulin 3.4 Albumin/Globulin Ratio 1.2 Lipase 56 Assessment & Plan Assessment & Plan narrative: 1. Syncope/falls-patient with multiple falls and possibly least 1 if not more syncopal episodes. No clear etiology for this at this point. MRI of the brain was unremarkable. Needs to be evaluated for possible cardiac source of syncope including cardiac monitoring and echocardiography. Doubt this was a seizure and no evidence of vascular neurologic cause based on MRI of brain. Will have her seen by Physical therapy as well. 2. Acute kidney injury-patient does appear to be somewhat volume depleted and perhaps some degree of orthostasis this responsible for her increased falls etcetera. Patient will benefit from IV fluids. Unclear whether this is connected to her mild anemia or not. 3. Insomnia-continue patient's usual home medication 4. Chronic spine disease-patient has multiple issues with her back and spine with some element of chronic pain. Will provide oxycodone as necessary as well as Tylenol while here in the hospital. 5. Anemia-at this point not clear what patient's recent blood counts have been. Clearly somewhat anemic with normal indices. Would obtain stool for Hemoccult testing to rule out GI bleed. Continue to follow her blood counts over time check iron B12 and folic acid levels. If indeed patient was something like a GI bleed that could explain her mild volume depletion/AK I as well as perhaps her syncope 6. VTE prophylaxis-SCDs for now. No chemo prophylaxis given the possibility of bleeding with the anemia 7. Code status-per patient's request 8. Left supraorbital laceration-continue to monitor. No need for specific intervention at this time. Sutures will need to be removed probably on January 05 or so 9. Hypertension-continue patient's home antihypertensives for now, although I am holding her diuretics Time-Based Coding :: [TOTAL MINUTES] spent with patient and on the chart (including review of chart, obtaining history, exam, reviewing outside data, placing orders, documenting exam and treatment plan, and counseling patient) on [DATE]. PROFEE Charge Codes Initial inpatient/observation care: 01889
--- NOTE | 2024-01-04 19:40 | PC.NURSE ---
Patient arrived from ED at 1730. She is assisted to bed,oriented to room, and received dinner tray. She reported being very hungry from not eating since breakfast. SBP initially elevated MD aware at bedside. Pt admission assessment completed, bed alarm on, call light in reach, frequent rounding. Patient is pleasant and calls for assistance appropriately. She currently denies pain or dizziness.
[2024-01-04] MEDS: SODIUM CHLORIDE 0.9% 1,000 ML 100 ML IV (19:50)
[2024-01-04] MEDS: AMLODIPINE 5 MG TABLET PO (20:34)
[2024-01-05] VITALS (7 sets, daily range): BP systolic 135–175; BP diastolic 60–80; PULSE 71–90; RESP 17–18; TEMP 35.9–36.6; O2SAT 94–97
[2024-01-05] MEDS: SODIUM CHLORIDE 0.9% 1,000 ML 100 ML IV ×2 (04:08→13:48)
[2024-01-05] MEDS: ACETAMINOPHEN 325 MG TABLET 650 MG PO ×2 (04:27→20:24)
[2024-01-05 04:41] LABS: Add Manual Diff / Slide Review NO; Basophils Absolute Auto 0 /uL (0-100); Basophils Percent Auto 0.7 % (0-2); Eosinophils Absolute Auto 100 /uL (0-450); Hematocrit 27.1 % (36-46); Hemoglobin 9.2 g/dL (12.0-16.0); Lymphocytes Absolute Auto 2800 /uL (1100-4500); Lymphocytes Percent Auto 44.6 % (25-40); Mean Corpuscular Hemoglobin 30.8 PG (26-34); Mean Corpuscular Volume 90.5 fL (80-100); Monocytes Absolute Auto 800 /uL (0-900); Monocytes Percent Auto 11.8 % (3-14); Neutrophils Absolute Auto 2600 /uL (1500-7000); Neutrophils Percent Auto 40.9 % (50-75); Platelet Count 190 X10^3/uL (150-400); Red Cell Distribution Width 13.3 % (11.6-14.8); White Blood Cell Count 6.4 X10^3/uL (4.5-11.0)
[2024-01-05 04:51] LABS: HEMOLYSIS < 15 (0-50); Iron 83 ug/dL (37-170)
[2024-01-05 04:53] LABS: BUN Creatinine Ratio 22.9 (6-22); Blood Urea Nitrogen 38 mg/dL (7-17); Calcium 8.6 mg/dL (8.4-10.2); Carbon Dioxide 23 mmol/L (22-32); Chloride 108 mmol/L (98-107); Estimated Glomerular Filt Rate 32 mL/min (>60); Glucose 102 mg/dL (80-110); HEMOLYSIS < 15 (0-50); Potassium 5.2 mmol/L (3.4-5.1); Sodium 136 mmol/L (137-145)
[2024-01-05 05:03] LABS: Percent Iron Saturation 28 % (15-50); Total Iron Binding Capacity 292 ug/dL (265-497); Transferrin 224 mg/dL (206-381)
[2024-01-05 05:59] LABS: Folate > 20.0 ng/mL (2.76-20.0); Vitamin B12 739 pg/mL (239-931)
[2024-01-05] MEDS: PANTOPRAZOLE DR 20 MG TABLET PO ×2 (06:07→20:29)
--- NOTE | 2024-01-05 06:36 | PC.NURSE ---
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 Denies N/V, SOB, CP. Patient had small BM overnight, appeared brown & pebbly, guaic negative. Patient states that she experiences urinary incontinence at baseline, voiding frequently. 1PA to BSC w/ FWW. IVF infusing as ordered. SCDs are on. Cont tele in place. Oriented to call-light, plan of care ongoing.
[2024-01-05] MEDS: LOSARTAN 50 MG TABLET 100 MG PO (08:46)
[2024-01-05] MEDS: PREMARIN 0.625 MG 0.3125 EACH PO (11:53)
--- NOTE | 2024-01-05 14:30 | PT.IIE ---
Surgical History (Last Reviewed 01/04/24 @ 19:04 by Karl Perez MD) History of bladder suspension procedure History of colonoscopy History of hand surgery History of hysterectomy History of surgery on left wrist Hx of repair of right rotator cuff Medical History (Last Reviewed 01/04/24 @ 19:04 by Karl Perez MD) Allergic rhinitis Anxiety Bilateral foot pain Chronic pain syndrome Chronic rhinosinusitis Closed L1 vertebral fracture Colitis Contusion of left hip Degenerative disc disease, cervical Degenerative disc disease, lumbar Degenerative joint disease (DJD) of hip Degenerative joint disease, ankle, foot, toe Depression Diverticulosis Excessive daytime sleepiness (~2006) Facet arthropathy, lumbar Flu Gait instability GERD (gastroesophageal reflux disease) GI bleed Hyperlipidemia Hypertension Insomnia, psychophysiological (~2006) Lumbar radiculopathy 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 with neurogenic 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 MGUS (monoclonal gammopathy of unknown significance) Obesity (BMI 30-39.9) Obstructive sleep apnea of adult (~2006) 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 sides of body Rectal bleeding Snoring (~1984) Tear of left hamstring Physical Therapy Inpatient Evaluation/Re-Eval M1 PT/OT-IP Prior Functional Status Start: 01/05/24 10:30 Freq: NEEDED Status: Active Protocol: Document 01/05/24 13:54 MB (Rec: 01/05/24 14:30 MB [id number]) Medical Review Prior Functional Status Medical History Reviewed Yes Diet/Fluid Consistency Regular Communication WNLs Mobility and Gait Mod I with 4WRW or cane inside and electric scooter outside Social History Household Members spouse Living Arrangements House Number of Floors (Floors) One Floor Number of Stairs To Enter/Railing? No steps to enter Home Environment Standard Height Toilet,Tub/ Shower Home Equipment Four Wheel Walker,Straight Cane,Power Wheelchair/Scooter, Shower Seat with Backrest,Hand Held Shower,Grab Bars Near Toilet,Grab Bars In Shower Employment Status Retired M2 PT-IP Current Condition Start: 01/05/24 10:30 Freq: NEEDED Status: Active Protocol: Document 01/05/24 13:54 MB (Rec: 01/05/24 14:30 MB [id number]) Physical Therapy Current Condition Current Condition Evaluation Date 01/05/24 Treatment Diagnosis Falls M3 PT-IP Subjective Start: 01/05/24 10:30 Freq: NEEDED Status: Active Protocol: Document 01/05/24 13:54 MB (Rec: 01/05/24 14:30 MB [id number]) Subjective Physical Therapy Visit Type Type Initial Evaluation Visit Start Time 13:54 Visit Stop Time 14:15 Number of FOOD AND BEVERAGE OPERATIONS MANAGER Visits 0 Physical Therapy Visit Comments Patient Comments Pt states that she has a history of vertigo and that she got outpatient PT in the past for what sounds like BPPV . Pt also had a history of falls with recent injuries to left eye, left ribs and right knee. She denies pain during assessment and she denies dizziness with rolling in bed, getting up and cervical ROM in sitting. Therapy Pain Assessment Pain When Pain Assessed At Rest Pain Present Pain Present Denied Pain M4 PT-IP Mobility and Gait Start: 01/05/24 10:30 Freq: NEEDED Status: Active Protocol: Document 01/05/24 13:54 MB (Rec: 01/05/24 14:30 MB [id number]) PT-Bed Mobility Assessment Rolling Type of Rolling Roll to Right Level of Assist Standby Assistance Supine to Sit Supine to Sit Standby Assistance,1 Person Assistance,Bedrails Scooting Scooting to Edge of Bed Standby Assistance PT-Transfer Assessment Sit to and From Stand Sit to and from Stand Contact Guard Assistance,1 Person Assistance,Use of Upper Extremities Equipment Transfer Assistive Device Gait Belt,4 Wheeled Walker Orthotic/Prosthetic Devices or Brace: No Transfers Transfer Destination Chair,Toilet Transfer Technique Ambulation Transfer Ability Level of Assist Contact Guard Assistance,1 Person Assistance,Use of Upper Extremities Comments Mobility Comments Orthostatic assessment with BP and HR in RUE: supine 149/70, 78; standing 147/61, 85; standing 1' 175/80, 81. Gait Assessment Gait Gait Assistance Required: Contact Guard Assist Distance (Feet) 20 Able to Maintain Weight Bearing Status Yes During Gait Assistive Devices Assistive Device Gait Belt,4 Wheeled Walker Orthotic/Prosthetic Devices or Brace: No Gait Deviations General Gait Pattern Decreased Stride Length, Decreased Feet Clearance, Flexed Trunk,Wide Based Gait Factors Limiting Gait Function Factors Limiting Gait Function Decreased Activity Tolerance Comments Gait Comments Pt gait trains 20'x2 to BR with 4WRW. She requires set-up assistance with toileting hygiene and superv. PT-Balance Assessment Sitting Balance and Reactions Static Sitting Balance Ability Good Dynamic Sitting Balance Ability Good Standing Balance and Reactions Static Standing Balance Ability Fair Dynamic Standing Balance Ability Fair Device Used 4WRW M5 PT-IP Objective Assessments Start: 01/05/24 10:30 Freq: NEEDED Status: Active Protocol: Document 01/05/24 13:54 MB (Rec: 01/05/24 14:30 MB [id number]) Orientation Orientation/Cognition Level of Alertness Alert Orientation Name,Age,Birthday,Year,Place, Situation Language Function Ability No Deficits Noted Safety Awareness Decreased Safety Awareness Memory Description No Deficits Noted Gross Range of Motion Upper Extremity ROM Assessment Within Functional Limits Lower Extremity ROM Assessment Within Functional Limits Strength Upper Extremity Strength Assessment Within Functional Limits Comments Strength Comments R knee extension 4-/5 and right ankle DF and great toe extension 4/5; left knee extension, ankle DF and toe extension 4/5. Coordination Assessment Assessment Coordination Comments Slow heel to lin B but no dysmetria noted Sensation Assessment Sensation Gross Sensation Right LE Impaired,Left LE Impaired Comments Sensation Comments Pt reports B feet with toes with neuropathy Muscle Tone Muscle Tone WNL Yes M6 PT-IP Treatment Start: 01/05/24 10:30 Freq: NEEDED Status: Active Protocol: Document 01/05/24 13:54 MB (Rec: 01/05/24 14:30 MB [id number]) Physical Therapy Treatment Education Education Provided Safety M7 PT-IP Assessment and Plan Start: 01/05/24 10:30 Freq: NEEDED Status: Active Protocol: Document 01/05/24 13:54 MB (Rec: 01/05/24 14:30 MB [id number]) PT Summary Assessment and Plan Potential Rehabilitation Potential Good Status of Condition at Evaluation Evolving Summary Impairments Strength,Balance,Coordination, Sensation,Cognition,Bed Mobility,Transfers,Gait, Activity Tolerance Progress Towards Goals Progressing Toward Goals Assessment Summary Pt is a 78 y/o female presenting with history of falls and two recent falls. She reports a history of dizziness and left ear fullness. She has had outpatient PT in the past for what sounds like BPPV. She has limited cervical ROM and no dizziness with B rotation and extension in sitting. She denies dizziness with rolling today and orthostatic assessment is negative. She will benefit from ongoing acute and post-acute PT to improve gait, mobility and balance. Recommend HHPT consult and progress to OPPT at current presentation level given many falls at home. Goals Bed Mobility Goal Independent Transfer Goal Independent,Four Wheeled Walker Gait Goal Independent,Four Wheel Walker Gait Distance 75 Days to Meet Goals 3 Frequency of Treatment Frequency Of Treatment Once a Day Treatment Plan Physical Therapy Treatment Plan Bed Mobility Training,Transfer Training,Gait Training, Therapeutic Exercise,Balance Retraining,Discharge Planning, Hot or Cold Pack,Neuromuscular Re-ed,Coordination Retraining ,Manual Therapy Precautions Other Precautions Falls Weight Bearing Status Weight Bearing Status Weight Bear as Tolerated Recommendations To Nursing Amount of Assist Needed 1 Person Assist Discharge Recommendations PT Discharge Recommendations Home with 16/12 Assist Available,Home Health, Outpatient PT Other Discharge Recommendations HH vs OPPT or progression from HH to OP Transportation Needs at Discharge Private Vehicle
--- NOTE | 2024-01-05 15:41 | DI.ECHO.S_ITS ---
[facility]+ [facility] : : [address] : : [place] : : [id number] : : Phone: [phone] Echocardiogram Report + + :Name: ROD LEE Study Date: 01/05/2024 Height: 66 in : :[facility] ReadingLocation: Weight: 258 lb : : Gender: Female BSA: 2.2 m2 : :: 1945 Age: 78 yrs BP: 135/60 mmHg: :Reason For Study: VERTIGO, FALL : :Ordering Physician: OPAL, : :GRAY Melo MD Performed By: Ben Nagy : :Referring: GRAY JOSEPH MD : + + Interpretation Summary Normal left ventricle size with ejection fraction 60-65%. Mild aortic valve sclerosis. Mild mitral annular calcification. Mild mitral regurgitation. Mild to moderate tricuspid regurgitation. Procedure: A two-dimensional transthoracic echocardiogram with color flow and Doppler was performed. The study quality was technically adequate. Comparison is made with the echocardiogram of 02/10/2023. The patient was in sinus rhythm with heart rates between 70-82 bpm during the exam. Left Ventricle: The left ventricle is normal in size and wall thickness. The ejection fraction is estimated to be 60-65%. There are no obvious focal wall motion abnormalities noted but poor endocardial definition reduces the sensitivity for the detection of such. Right Ventricle: The right ventricle is not well visualized. The right ventricular systolic function is normal. Atria: The left atrium is mildly dilated. Right atrial size is normal. The interatrial septum grossly appears intact with no obvious evidence for an atrial septal defect. Mitral Valve: There is mild mitral annular calcification. The mitral valve leaflets appear mildly thickened, but open well. The mitral valve leaflets appear to open well. There is no mitral valve stenosis. There is mild mitral regurgitation. Aortic Valve: The aortic valve is trileaflet. The aortic valve opens well. There is mild aortic valve sclerosis. There is no aortic valve stenosis. No aortic regurgitation is present. Tricuspid Valve: The tricuspid valve is normal. There is no tricuspid stenosis. There is mild to moderate tricuspid regurgitation. The right ventricular systolic pressure is estimated to be at least 36.1 mmHg based on an estimated right atrial pressure of 8 mm Hg. Pulmonic Valve: The pulmonic valve is not well visualized. There is no pulmonic valvular stenosis. There is no pulmonic valvular regurgitation. Great Vessels: The aortic root is normal size. The dimensions of the ascending aorta are normal. The IVC is dilated (diameter is greater than 2.1 cm) yet it collapses greater than 50% with a sniff. This suggests a right atrial pressure of 8 mm Hg. Pericardium/ Pleura There is no pericardial effusion. There is no pleural effusion. MMode/2D Measurements & Calculations LVIDd: 4.9 cm LVOT diam: 2.2 cm LVIDs: 3.4 cm Ao root diam: 3.3 cm FS: 29.7 % asc Aorta Diam: 3.6 cm IVSd: 1.1 cm LVPWd: 1.0 cm LV eason. diameter/BSA (cm/m^2): 2.2 LV sys. diameter/BSA (cm/m^2): 1.5 LA A2 area: 31.6 cm2 RA long axis: 5.3 cm LA A4 area: 24.5 cm2 RA area: 22.0 cm2 LA length (vol): 6.3 cm RA vol: 78.0 ml LA vol: 104.4 ml RA : 35.0 ml/m2 LA vol index: 46.9 ml/m2 IVC diam: 2.2 cm TAPSE: 2.3 cm Doppler Measurements & Calculations Ao V2 max: 223.9 cm/sec LVOT Max Junior: 113.8 cm/sec Ao V2 mean: 141.2 cm/sec LV V1 max P.2 mmHg Ao max P.0 mmHg LV V1 VTI: 28.8 cm Ao mean P.3 mmHg XU(I,D): 2.5 cm2 Ao V2 VTI: 45.7 cm XU(V,D): 2.0 cm2 sev ratio: 0.63 XU indexed to BSA (cm^2/m^2): 1.1 MV E max junior: 61.9 cm/sec TR max junior: 264.5 cm/sec MV A max junior: 71.3 cm/sec TR max P.1 mmHg MV E/A: 0.87 PA V2 max: 143.5 cm/sec Med Peak E' Junior: 7.2 cm/sec PA V2 mean: 92.6 cm/sec E/E' med: 8.6 PA mean P.9 mmHg Lat Peak E' Junior: 12.0 cm/sec PA pr(Accel): 32.8 mmHg E/E' lat: 5.2 E/e' average: 6.9 MV dec time: 0.20 sec SV(LVOT): 113.0 ml Electronically signed by: Regulo Caicedo on Reading Physician:01/05/2024 06:23 PM
[2024-01-05 15:45] LABS: Appearance Urine UA CLEAR; Bilirubin Urine UA NEGATIVE (NEGATIVE); Color Urine UA YELLOW; Glucose Urine UA NEGATIVE (Negative); Ketones Urine UA NEGATIVE (NEGATIVE); Leukocyte Esterase Urine UA NEGATIVE (NEGATIVE); Nitrite Urine UA NEGATIVE (Negative); Occult Blood Urine UA 3+ (Negative); Protein Urine UA 1+ (Negative); Urobilinogen Urine UA 0.2 E.U./dL (0.2)
[2024-01-05 16:10] LABS: RBC Urine 5-10/HPF (0-5/HPF); Urine Volume 10mL (spun); WBC Urine 0-1/HPF (0-5/HPF)
[2024-01-05 16:11] LABS: Bacteria Urine Occasional (0-1); Culture Indicated Urine Specimen Cultured; Squamous Epithelial Cell Urine 5-10 /HPF (0-5/HPF)
--- NOTE | 2024-01-05 18:07 | P.PN_ITS ---
Subjective Subjective Date Patient Seen: 01/05/24 Time Patient Seen: 18:08 Exam Vital Signs (past 8 hours): - 01/05/24 12:00 01/05/24 16:00 Temperature 96.8 F L Pulse Rate 76 78 Respiratory Rate 18 17 Blood Pressure 135/60 175/80 H Pulse Oximetry 96 96 Oxygen Flow Rate 0 0 Oxygen Delivery Method Room Air Oxygen Flow Rate 0 Narrative Exam Narrative: Patient is alert and oriented no apparent distress. Some fluctuation in her blood pressures. HEENT is unremarkable Neck: Supple Chest: Clear to auscultation without wheezes rhonchi or crackles Cor: Regular rate and rhythm without a murmur, distant S1-S2 Extremities no edema. Patient with prepatellar hematoma small slightly nontender Patient with well-healed laceration with sutures in place above her left eye Pulses intact Ecchymosis left lateral torso with some tenderness along the rib Objective Labs 01/05/24 04:25 01/05/24 04:25 Labs: Laboratory Results - last 24 hr 01/05/24 01/05/24 04:25 15:30 WBC 6.4 RBC 3.00 L Hgb 9.2 L Hct 27.1 L MCV 90.5 MCH 30.8 MCHC 34.0 RDW 13.3 Plt Count 190 Neut % (Auto) 40.9 L Lymph % (Auto) 44.6 H [place] % (Auto) 11.8 Eos % (Auto) 2.0 Baso % (Auto) 0.7 Neut # (Auto) 2600 Lymph # (Auto) 2800 [place] # (Auto) 800 Eos # (Auto) 100 Baso # (Auto) 0 Sodium 136 L Potassium 5.2 H Chloride 108 H Carbon Dioxide 23 BUN 38 H Creatinine 1.66 H Estimated GFR 32 L BUN/Creatinine Ratio 22.9 H Glucose 102 Calcium 8.6 Iron 83 TIBC 292 % Saturation 28 Transferrin 224 Vitamin B12 739 Folate > 20.0 H Urine Color Yellow Urine Appearance Clear Urine pH 6.0 Ur Specific [place] 1.010 Urine Protein 1+ H Urine Glucose (UA) Negative Urine Ketones Negative Urine Occult Blood 3+ H Urine Nitrate Negative Urine Bilirubin Negative Urine Urobilinogen 0.2 Ur Leukocyte Esterase Negative Urine RBC 5-10/hpf H Urine WBC 0-1/hpf Ur Squamous Epith Cells 5-10 /hpf H Urine Bacteria Occasional (0-1) Ur Culture Indicated? 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 associated with 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 Lumbar radiculopathy Facet arthropathy, lumbar Insomnia, psychophysiological (~2006) Diverticulosis MGUS (monoclonal gammopathy of unknown significance) GI bleed 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 sides of body GERD (gastroesophageal reflux disease) Anxiety Depression Hyperlipidemia Hypertension Allergic rhinitis Chronic rhinosinusitis Excessive daytime sleepiness (~2006) Obstructive sleep apnea of adult (~2006) Snoring (~1984) Degenerative joint disease, ankle, foot, toe Degenerative joint disease (DJD) of hip Closed L1 vertebral fracture Flu Bilateral foot pain Obesity (BMI 30-39.9) Degenerative disc disease, cervical Degenerative disc disease, lumbar Chronic pain syndrome Contusion of left hip Rectal bleeding Surgical History Hx of repair of right rotator cuff History of hysterectomy History of surgery on left wrist History of hand surgery History of bladder suspension procedure History of colonoscopy Social History marital status: details: julienne Mirza, lives in [place] household members: spouse lives independently: Yes caregiver/support person: No housing: house Smoking Status: Never smoker alcohol intake: current Assessment & Plan Assessment & Plan narrative: Assessment & Plan narrative: 1. Syncope/falls-patient with multiple falls and possibly least 1 if not more syncopal episodes. No clear etiology for this at this point. Discussed differential diagnosis including probable not 1 single etiology but multifactorial. Suspect that this is related to possible inner ear problem I doubt that this is related to the chronic maxillary sinusitis seen on the MRI but we will have PT evaluate for this contributing to her balance. Also possible peripheral neuropathy. Also concern for central ataxia. MRI/MRA of the brain was normal with no abnormalities. We will do a carotid Doppler tomorrow. Her echo is pending. Her telemetry has been normal not showing any cardiac etiology. She has had blood pressure changes with medication changes as we thought she had angioedema related to lisinopril and we switched her to losartan. Blood pressure is still been slightly unstable. Pending how patient does and if she improves is more stable then she would go home and outpatient we would have her see neurologist. I do not think this is related to any of her medications. Clearly based on scanning there is no evidence of a stroke or tumor this has been worsened over the last 2 weeks. 2. Acute kidney injury-suspect secondary to hypovolemia and possible nephritis related to Septra. Septra was discontinued. Urine culture is pending. 3. Insomnia-continue patient's usual home medication 4. Chronic spine disease-patient has multiple issues with her back and spine with some element of chronic pain. Will provide oxycodone as necessary as well as Tylenol while here in the hospital. 5. Anemia-at this point not clear what patient's recent blood counts have been. Clearly somewhat anemic with normal indices. Would obtain stool for Hemoccult testing to rule out GI bleed. Continue to follow her blood counts over time check iron B12 and folic acid levels. I low index of suspicion for GI bleed. Suspect chronic anemia secondary to chronic medical illness which has been longstanding but worsened slightly over the last 6 months. We will do a stool card. Will check B12 and folate. 6. VTE prophylaxis-SCDs for now. No chemo prophylaxis given the possibility of bleeding with the anemia 7. Code status-per patient's request 8. Left supraorbital laceration-continue to monitor. No need for specific intervention at this time. Sutures will need to be removed probably on January 05 or so 9. Hypertension-continue patient's home antihypertensives for now, although I am holding her diuretics Will continue off HCTZ. Recheck labs tomorrow and pending blood pressure consider starting HCTZ low dose versus going and vomiting amlodipine 10. Urinary incontinence with recent UTIs. Plan: Urine culture pending. Continue off antibiotics for now. Assessment 11. Hematuria. If urine cultures negative which her last 1 was we will refer for urology which has already been done as outpatient. 58 minutes was spent with patient and her reviewing her chart and ER workup and discussing with physicians and nursing and patient and her , formulating a plan and documentation. Time-Based Coding :: [TOTAL MINUTES] spent with patient and on the chart (including review of chart, obtaining history, exam, reviewing outside data, placing orders, documenting exam and treatment plan, and counseling patient) on [DATE]. Quality VTE Deep Vein Thrombosis/Pulmonary Embolism Present on Admission: No
--- NOTE | 2024-01-05 18:29 | CM.DANOTE ---
DCP Assessment Note: Pt is a 78yo female, resident of [place], is admitted for syncope and a GLF. Pt lives in a house with , Hermes. Pt's Primary Care Provider is Dr. Ana Paula Jean Baptiste and insurance is Medicare and [employer]. Reviewed chart and team rounds for pt's medical status and initial discharge needs. DCP met w/patient at bedside; introduced self and role. Patient was found in bed, alert and oriented, cooperative with assessment. Pt confirmed living situation and good support in . Pt expressed preference in returning home when medically stable. Pt has a hx of hip and back surgery, didn't have to go to SNF Rehab after. Pt agreeable to working with therapies and following their recommendations, no preference for HH agency stated. Per PT, patient is being recommended for home health at discharge vs. OP PT. Plan: Anticipating discharge home with home health referral to follow. CM team will follow closely for coordination of discharge plans. LILLIE Oseguera Discharge Planning/Care Management CM Discharge Assessment Start: 01/05/24 18:26 Freq: Status: Active Protocol: Document 01/05/24 18:27 MW (Rec: 01/05/24 18:29 MW [id number]) Discharge Planning Assessment Assigned Mechanical Technologist PUNEET Reaves DPOA/Assigned Designee Name Hermes, Spouse Contact Information [phone] Advance Directives? No History Provided By Patient,Medical Record Has Patient been admitted in last 30 No days? Prior Living Arrangements House Household Members spouse Type of transporation used prior to Drives own vehicle admit Independent with ADL's Yes Is patient alert and oriented? Yes Caregiver for Another No Community Services used prior to Physical Therapy admission: Comment OP PT at [facility] Physical Therapy [facility] [place]. DME Already Rented / Owned FWW / Walker,Cane Patient/Family Preference Home with Home Health Comment Patient open to Home Health referral for PT at home. States she has about 12 OP PT sessions left prescribed. Barriers to Discharge No Discharge Plan Home with Home Health Community Services Physical Therapy,Occupational Therapy,Home Health Aid,Home Health Nurse Referrals Initiated Home Health Medicare Choice List Provided No Whiteboard Updated in Patient Room with Yes name and ext. # of Mechanical Technologist Comment [phone] Please Provide Date Initial DC 01/05/24 Assessment Was Performed Next Review Type Continued Stay Review
[2024-01-05] MEDS: ATORVASTATIN 20 MG TABLET 40 MG PO (20:24)
[2024-01-05] MEDS: AMLODIPINE 5 MG TABLET PO (20:24)
[2024-01-05] MEDS: AMITRIPTYLINE 10 MG TABLET PO (20:24)
[2024-01-05] MEDS: ESCITALOPRAM 10 MG TABLET 20 MG PO (20:25)
[2024-01-05] MEDS: OXYBUTYNIN 5 MG ER TAB 10 MG PO (20:25)
[2024-01-06] VITALS (8 sets, daily range): BP systolic 168–181; BP diastolic 68–80; PULSE 73–89; RESP 17–20; TEMP 35.8–36.4; O2SAT 95–98
[2024-01-06 05:03] LABS: Add Manual Diff / Slide Review NO; Basophils Absolute Auto 0 /uL (0-100); Basophils Percent Auto 0.7 % (0-2); Eosinophils Absolute Auto 100 /uL (0-450); Eosinophils Percent Auto 2.1 % (2-4); Hematocrit 27.6 % (36-46); Hemoglobin 9.3 g/dL (12.0-16.0); Lymphocytes Absolute Auto 3000 /uL (1100-4500); Lymphocytes Percent Auto 48.5 % (25-40); Mean Corpuscular HGB Conc 33.5 % (30-36); Mean Corpuscular Hemoglobin 30.4 PG (26-34); Mean Corpuscular Volume 90.6 fL (80-100); Monocytes Absolute Auto 700 /uL (0-900); Monocytes Percent Auto 11.1 % (3-14); Neutrophils Absolute Auto 2300 /uL (1500-7000); Neutrophils Percent Auto 37.6 % (50-75); Platelet Count 200 X10^3/uL (150-400); Red Blood Cell Count 3.05 X10^6/uL (4.0-5.2); Red Cell Distribution Width 13.4 % (11.6-14.8); White Blood Cell Count 6.2 X10^3/uL (4.5-11.0)
[2024-01-06 05:18] LABS: Alanine Aminotransferase 25 IU/L (<35); Albumin 3.5 g/dL (3.5-5.0); Albumin Globulin Ratio 1.1 (1.0-2.8); Alkaline Phosphatase 136 U/L (38-126); Aspartate Aminotransferase 32 IU/L (14-36); BUN Creatinine Ratio 22.4 (6-22); Bilirubin Total 0.4 mg/dL (0.2-1.3); Blood Urea Nitrogen 30 mg/dL (7-17); Calcium 8.7 mg/dL (8.4-10.2); Carbon Dioxide 25 mmol/L (22-32); Chloride 109 mmol/L (98-107); Estimated Glomerular Filt Rate 41 mL/min (>60); Globulin 3.1 g/dL (1.7-4.1); Glucose 105 mg/dL (80-110); HEMOLYSIS < 15 (0-50); Sodium 137 mmol/L (137-145); Total Protein 6.6 g/dL (6.3-8.2)
[2024-01-06 05:48] LABS: TSH w/ Reflex to FT4 4.84 uIU/mL (0.47-4.68)
--- NOTE | 2024-01-06 05:59 | DI.US.S_ITS ---
PROCEDURE: US CAROTID DOPPLER BI INDICATIONS: dizzy TECHNIQUE: Color and pulse Doppler interrogation was performed of both carotid systems, with image documentation and velocity measurements. COMPARISON: None. FINDINGS: Stenosis calculations are based on SRU (Society of Radiologists in Ultrasound) criteria. Right side: Brachial blood pressure: 163/72 mm Hg. Common carotid artery peak systolic velocity: 83 cm/sec. Internal carotid artery peak systolic velocity: 71 cm/sec. Internal carotid artery end diastolic velocity: 20 cm/sec. External carotid artery peak systolic velocity: 88 cm/sec. ICA/CCA peak systolic ratio: 0.9 . Camp scale imaging description: Mild atherosclerotic plaque Percent internal carotid artery stenosis: Less than 50 . Vertebral artery: Flow direction is antegrade. Left side: Brachial blood pressure: 168/79 mm Hg. Common carotid artery peak systolic velocity: 78 cm/sec. Internal carotid artery peak systolic velocity: 72 cm/sec. Internal carotid artery end diastolic velocity: 23 cm/sec. External carotid artery peak systolic velocity: 63 cm/sec. ICA/CCA peak systolic ratio: 0.9 . Camp scale imaging description: Mild atherosclerotic plaque Percent internal carotid artery stenosis: Less than 50 . Vertebral artery: Flow direction is antegrade. IMPRESSION: Mild atherosclerotic plaque without hemodynamically significant stenosis, bilateral proximal ICA Approved by: Rinku Tamez M.D. on 01/06/2024 at 11:57
[2024-01-06] MEDS: PANTOPRAZOLE DR 20 MG TABLET PO ×2 (06:03→20:45)
[2024-01-06 06:26] LABS: Free T4, Direct Thyroxine 0.94 ng/dL (0.78-2.19)
--- NOTE | 2024-01-06 08:39 | P.PN_ITS ---
Subjective Subjective Interval history: Patient globally feels better today feels more stable ECHO done and normal EF, mild valvular disease carotid doppler pending Patient seen in a.m. and in the afternoon Patient feeling better in the afternoon. She worked with PT and still with antalgic gait and central ataxia but overall markedly improved, muscle twitching she was having when sleeping has improved although it is still present in his still very intermittent. Twelve point review of systems otherwise negative. Patient outpatient was on 7.5 of amlodipine but has only been on 5 mg here in the hospital. Her hydrochlorothiazide was discontinued due to acute kidney injury. Hence her blood pressure is more elevated. Exam Vital Signs (past 8 hours): - 01/06/24 04:00 01/06/24 08:00 Temperature 96.9 F L 97.5 F L Pulse Rate 77 73 Respiratory Rate 17 19 Blood Pressure 168/74 H 181/73 H Pulse Oximetry 98 96 Oxygen Flow Rate 0 0 Oxygen Delivery Method Room Air Oxygen Flow Rate 0 Narrative Exam Narrative: AF VSS alert and oriented Bilateral external auditory canals within normal limits without cerumen impaction in normal for her age tympanic membrane Oropharynx mucous membranes moist and pink chest cta bilaterally cor: rrr without murmur abdomen benign extremities unchanged neuro non focal other than ataxia Laceration above left palpebral fissure is healing well with scabs. Attempted removal of sutures but only able to remove about 4 due to not having appropriate scissors. Objective Labs 01/06/24 04:32 01/06/24 04:32 Labs: Laboratory Results - last 24 hr 01/05/24 01/06/24 15:30 04:32 WBC 6.2 RBC 3.05 L Hgb 9.3 L Hct 27.6 L MCV 90.6 MCH 30.4 MCHC 33.5 RDW 13.4 Plt Count 200 Neut % (Auto) 37.6 L Lymph % (Auto) 48.5 H [place] % (Auto) 11.1 Eos % (Auto) 2.1 Baso % (Auto) 0.7 Neut # (Auto) 2300 Lymph # (Auto) 3000 [place] # (Auto) 700 Eos # (Auto) 100 Baso # (Auto) 0 Sodium 137 Potassium 5.0 Chloride 109 H Carbon Dioxide 25 BUN 30 H Creatinine 1.34 H Estimated GFR 41 L BUN/Creatinine Ratio 22.4 H Glucose 105 Calcium 8.7 Total Bilirubin 0.4 AST 32 ALT 25 Alkaline Phosphatase 136 H Total Protein 6.6 Albumin 3.5 Globulin 3.1 Albumin/Globulin Ratio 1.1 TSH 4.84 H Free T4 0.94 Urine Color Yellow Urine Appearance Clear Urine pH 6.0 Ur Specific [place] 1.010 Urine Protein 1+ H Urine Glucose (UA) Negative Urine Ketones Negative Urine Occult Blood 3+ H Urine Nitrate Negative Urine Bilirubin Negative Urine Urobilinogen 0.2 Ur Leukocyte Esterase Negative Urine RBC 5-10/hpf H Urine WBC 0-1/hpf Ur Squamous Epith Cells 5-10 /hpf H Urine Bacteria Occasional (0-1) Ur Culture Indicated? Specimen cultured Vol Urine Centrifuged 10ml (spun) [facility] Medical History Colitis 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 with neurogenic 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 Gait instability Tear of left hamstring rn ante partum associated with 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 Lumbar radiculopathy Facet arthropathy, lumbar Insomnia, psychophysiological (~2006) Diverticulosis MGUS (monoclonal gammopathy of unknown significance) GI bleed 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 sides of body GERD (gastroesophageal reflux disease) Anxiety Depression Hyperlipidemia Hypertension Allergic rhinitis Chronic rhinosinusitis Excessive daytime sleepiness (~2006) Obstructive sleep apnea of adult (~2006) Snoring (~1984) Degenerative joint disease, ankle, foot, toe Degenerative joint disease (DJD) of hip Closed L1 vertebral fracture Flu Bilateral foot pain Obesity (BMI 30-39.9) Degenerative disc disease, cervical Degenerative disc disease, lumbar Chronic pain syndrome Contusion of left hip Rectal bleeding Surgical History Hx of repair of right rotator cuff History of hysterectomy History of surgery on left wrist History of hand surgery History of bladder suspension procedure History of colonoscopy Social History marital status: details: to Hermes, lives in [place] household members: spouse lives independently: Yes caregiver/support person: No housing: house Smoking Status: Never smoker alcohol intake: current Assessment & Plan Assessment & Plan narrative: 78 yo female hospital day #2 for ataxia, dizziness and frequent falling Assessment #1 dizziness Patient is improving and her gait is improving. Suspect that this has a multifactorial etiology including probable dehydration with acute kidney injury related to Septra and hydrochlorothiazide, complicated by recent spine surgeries and peripheral neuropathy. Patient has had a MRI/MRA stroke protocol without evidence of abnormalities. Echo showed no significant abnormalities. Carotid Doppler was negative. I think this rules out a central nervous etiology as best I can tell. I do not think this is a cardiac etiology. Telemetry has been normal and echo is essentially normal. Due to patient's frequent falling her unsteady gait she requires continued hospitalization for further evaluation. She will be seen by the vestibular PT specialist tomorrow. Patient with persistent ear fullness. Will likely have her see ENT as outpatient to exam is unremarkable Hopefully if she is more stable she will go home tomorrow but I suspect it will most likely be on . I will have her see Neurology as an outpatient. She has an appointment with her spine surgeon who is at [facility]. Assessment 2. Hypertension worsened off hydrochlorothiazide Plan: Will increase her amlodipine to 7.5 mg daily which is what she is on outpatient. If her blood pressure is not improved then we will increase to 10 mg and will continue off the hydrochlorothiazide due to concern for renal problems etc.. Continue with 100 mg of losartan daily as well Assessment 3. Head laceration healing Plan will remove remainder of sutures tomorrow Assessment 4. DVT prophylaxis has been held due to frequent falling she is improving we will start Lovenox and do renal dosing Assessment 5. Acute kidney injury improving now off IV fluids. Plan: Continue with off Septra and hydrochlorothiazide. Recheck in a.m.. Encourage p.o. fluids Assessment 6. Chronic anemia presumed from chronic medical problems worsened with hospitalization Plan: Guaiac stool and do iron studies in the morning. B12 and folate are normal Assessment 7. Depression with chronic pain related to her severe degenerative joint disease. Plan: Will continue amitriptyline she has been on this longstanding. I do not think this is contributing to her ataxia. Will continue with the same Lexapro as well. Assessment 8. GERD Plan: Continue on omeprazole 20 mg twice daily Spent 60 minutes with patient and discussing with nursing and PT and reviewing chart and diagnostics and meeting with patient and her and formulating a plan and documentation. Time-Based Coding :: [TOTAL MINUTES] spent with patient and on the chart (including review of chart, obtaining history, exam, reviewing outside data, placing orders, documenting exam and treatment plan, and counseling patient) on [DATE]. Quality VTE Deep Vein Thrombosis/Pulmonary Embolism Present on Admission: No
[2024-01-06] MEDS: LOSARTAN 50 MG TABLET 100 MG PO (09:16)
[2024-01-06] MEDS: PREMARIN 0.625 MG 0.3125 EACH PO (09:18)
[2024-01-06] MEDS: ACETAMINOPHEN 325 MG TABLET 650 MG PO (09:19)
--- NOTE | 2024-01-06 12:00 | CM.DPC ---
Addendum entered by PUNEET Martinez 01/06/24 15:16: DCP was notified by RN that pt's provider is encouraging orders for home health. DCP entered room and spoke to pt, pt now agreeable to home health and stated no preference for HH agency. DCP educated pt that accepting agency will contact pt for scheduling. Admin kindly sent referral/clinicals to [facility], pending acceptance. LILLIE Oseguera Original Note: DCP Continued: Reviewed EMR and team rounds for pt?s medical status. Per RN, pt doing well and anticipating discharge today pending imaging results. DCP entered room, pt was found sitting in chair. DCP discussed possible referral to HH and if pt had history or preferences for an agency. Pt explained she is hopeful to return to her OP PT ([facility] in [place]), daughter is able to transport her if necessary. Pt declines any need for HH at this time. DCP encouraged pt to re-evaluate the need for HH with PCP at follow up if necessary, pt verbalized understanding. Pt denied any other discharge needs at this time. Plan: Anticipating discharge home with spouse to transport when medically stable. CM Team will continue to follow for coordination of discharge plans. LILLIE Oseguera
--- NOTE | 2024-01-06 15:15 | PT.IPTN ---
Physical Therapy Treatment Note M2 PT-IP Current Condition Start: 01/05/24 10:30 Freq: NEEDED Status: Active Protocol: Document 01/05/24 13:54 MB (Rec: 01/05/24 14:30 MB [id number]) Physical Therapy Current Condition Current Condition Evaluation Date 01/05/24 Treatment Diagnosis Falls M3 PT-IP Subjective Start: 01/05/24 10:30 Freq: NEEDED Status: Active Protocol: Document 01/06/24 15:15 AB (Rec: 01/06/24 16:54 AB [id number]) Subjective Physical Therapy Visit Type Type Treatment Note Visit Start Time 15:15 Visit Stop Time 15:40 Number of SENIOR COUNSEL COMMERCIAL Visits 0 Physical Therapy Visit Comments Patient Comments agreeable to do PT M4 PT-IP Mobility and Gait Start: 01/05/24 10:30 Freq: NEEDED Status: Active Protocol: Document 01/06/24 15:15 AB (Rec: 01/06/24 16:54 AB [id number]) PT-Bed Mobility Assessment Supine to Sit Supine to Sit Standby Assistance PT-Transfer Assessment Sit to and From Stand Sit to and from Stand Standby Assistance,1 Person Assistance,Use of Upper Extremities Equipment Transfer Assistive Device Gait Belt,4 Wheeled Walker Orthotic/Prosthetic Devices or Brace: No Transfers Transfer Destination Chair Transfer Technique ambulated Transfer Ability Level of Assist Standby Assistance,1 Person Assistance,Use of Upper Extremities Comments Mobility Comments pt supine in bed and agreeable to do PT. pt completed supine to sit SBA. able to sit on EOB SBA. completed sit to stand SBA and ambulated using 4WW ~ 250 ft SBA. pt with unsteady antalgic gait but without LOB. stated that she just had her L hip sx last november and still recovering. pt stated that she has ongoing PT but has to cancel since the doctor wants her to do HHPT. pt has her spouse to assist her at home. pt may go home when medically stable. Gait Assessment Gait Gait Assistance Required: Standby Assistance Distance (Feet) 250 Able to Maintain Weight Bearing Status Yes During Gait Assistive Devices Assistive Device Gait Belt,4 Wheeled Walker Orthotic/Prosthetic Devices or Brace: No Gait Deviations General Gait Pattern Antalgic,Decreased Stride Length,Decreased Feet Clearance,Step-to Gait Factors Limiting Gait Function Factors Limiting Gait Function Decreased Activity Tolerance, Decreased Strength,Limited Range of Motion,Poor Balance, Poor Safety Awareness M5 PT-IP Objective Assessments Start: 01/05/24 10:30 Freq: NEEDED Status: Active Protocol: Document 01/05/24 13:54 MB (Rec: 01/05/24 14:30 MB [id number]) Orientation Orientation/Cognition Level of Alertness Alert Orientation Name,Age,Birthday,Year,Place, Situation Language Function Ability No Deficits Noted Safety Awareness Decreased Safety Awareness Memory Description No Deficits Noted Gross Range of Motion Upper Extremity ROM Assessment Within Functional Limits Lower Extremity ROM Assessment Within Functional Limits Strength Upper Extremity Strength Assessment Within Functional Limits Comments Strength Comments R knee extension 4-/5 and right ankle DF and great toe extension 4/5; left knee extension, ankle DF and toe extension 4/5. Coordination Assessment Assessment Coordination Comments Slow heel to lin B but no dysmetria noted Sensation Assessment Sensation Gross Sensation Right LE Impaired,Left LE Impaired Comments Sensation Comments Pt reports B feet with toes with neuropathy Muscle Tone Muscle Tone WNL Yes M6 PT-IP Treatment Start: 01/05/24 10:30 Freq: NEEDED Status: Active Protocol: Document 01/06/24 15:15 AB (Rec: 01/06/24 16:54 AB [id number]) Physical Therapy Treatment Education Education Provided Safety M7 PT-IP Assessment and Plan Start: 01/05/24 10:30 Freq: NEEDED Status: Active Protocol: Document 01/06/24 15:15 AB (Rec: 01/06/24 16:54 AB [id number]) PT Summary Assessment and Plan Potential Rehabilitation Potential Good Summary Impairments Pain,ROM,Strength,Balance, Sensation,Bed Mobility, Transfers,Gait,Activity Tolerance Progress Towards Goals Progressing Toward Goals Assessment Summary pt progressing with mobility using 4WW requiring SBA. pt lives with spouse and may go home when medically stable. pt had ongoing outpt PT for her hip rehab but has just cancelled then since the doctor told her that they want her to have HHPT. Goals Bed Mobility Goal Independent Transfer Goal Independent,Four Wheeled Walker Gait Goal Independent,Four Wheel Walker Gait Distance 300 Days to Meet Goals 5 Frequency of Treatment Frequency Of Treatment Once a Day Treatment Plan Physical Therapy Treatment Plan Bed Mobility Training,Transfer Training,Gait Training, Therapeutic Exercise,Balance Retraining,Discharge Planning, Hot or Cold Pack,Neuromuscular Re-ed,Coordination Retraining ,Manual Therapy Recommendations To Nursing Amount of Assist Needed 1 Person Assist Discharge Recommendations PT Discharge Recommendations Home,Home Health,Outpatient PT Transportation Needs at Discharge Private Vehicle
[2024-01-06] MEDS: OXYBUTYNIN 5 MG ER TAB 10 MG PO (20:45)
[2024-01-06] MEDS: AMITRIPTYLINE 10 MG TABLET PO (20:45)
[2024-01-06] MEDS: ESCITALOPRAM 10 MG TABLET 20 MG PO (20:45)
[2024-01-06] MEDS: ATORVASTATIN 20 MG TABLET 40 MG PO (20:45)
[2024-01-06] MEDS: AMLODIPINE 5 MG TABLET 7.5 MG PO (20:46)
[2024-01-06] MEDS: SODIUM CHLORIDE 0.9% FLUSH 10 ML IV (20:46)
--- NOTE | 2024-01-06 22:04 | DI.MRI.S_ITS ---
PROCEDURE: MR LUMBAR SPINE WO CON INDICATIONS: ataxia; spinal stenosis TECHNIQUE: Noncontrast sagittal T1 spin echo and T2 fast echo, sagittal STIR, and T2 fast spin echo through the lumbar spine. In cases with scoliosis, additional coronal T2 fast spin echo may be performed. COMPARISON: [facility], MR, MR LUMBAR SPINE WO CON, 10/11/2022, 15:25. FINDINGS: Image quality: Excellent. Alignment and Curvature: Mild levocurvature. Grade 1 anterolisthesis of L4 on L5. Bone Marrow: L2 through L4 laminectomy changes. Stable moderate L1 compression deformity. Marrow is of normal overall signal. No acute vertebral body compression fractures. Spinal Cord: Conus medullaris terminates at the L1 level. Visualized cord demonstrates normal signal and size. Paraspinous Soft Tissues: No paravertebral masses. T12-L1: Disc desiccation. Posterior disc bulge. Facet arthropathy. Stable mild central canal stenosis and moderate bilateral neural foraminal stenosis. L1-L2: Disc desiccation height loss. Mild disc bulge. Facet arthropathy. Mild central canal stenosis. Stable mild to moderate right and moderate left neural foraminal stenosis. L2-L3: Disc desiccation and height loss. Posterior disc bulge with small superimposed central disc protrusion. Facet arthropathy. Moderate central canal stenosis is mildly improved compared to prior. Stable moderate bilateral neural foraminal stenosis. L3-L4: Disc desiccation and posterior disc bulge. Facet arthropathy. Postoperative changes. Improvement in mild to moderate central canal stenosis, previously moderate. Moderate right and moderate to severe left neural foraminal stenosis is stable. L4-L5: Anterolisthesis. Disc desiccation height loss. Mild disc bulge. Facet arthropathy. Postoperative changes. Mild central canal stenosis is improved compared to prior. Moderate left and [id number] right neural foraminal stenosis is stable. L5-S1: Facet arthropathy. Disc bulge, eccentric to the left. No significant central canal or neural foraminal stenosis. IMPRESSION: 1. Multilevel degenerative changes of the lumbar spine status post L2 through L4 laminectomy. There is mild improvement of central canal stenosis at these levels. Degenerative changes otherwise similar appearance to prior exam. 2. Moderate central canal stenosis at L2-L3. 3. Moderate to severe left neural foraminal stenosis at L3-L4. Multilevel moderate neural foraminal stenosis as above. Dictated by: Jimmy Tinoco M.D. on 01/07/2024 at 14:44 Approved by: Jimmy Tinoco M.D. on 01/07/2024 at 14:50
--- NOTE | 2024-01-06 22:06 | DI.MRI.S_ITS ---
PROCEDURE: MR CERVICAL SPINE WO CON INDICATIONS: ataxia; spinal stenosis TECHNIQUE: Noncontrast sagittal T1 spin echo and T2 fast spin echo, sagittal STIR, foraminal oblique sagittal T2 fast spin echo, and axial gradient echo or T2 fast spin echo through the cervical spine. COMPARISON: None. FINDINGS: Image quality: Excellent. Alignment and Curvature: Straightening of the normal cervical lordosis. Mild anterolisthesis of C4 on C5 and mild retrolisthesis of C5 on C6 and C6 on C7. Bone Marrow: Marrow demonstrates normal overall signal. Spinal Cord: Visualized spinal cord has normal size and signal. No cerebellar tonsillar herniation. Paraspinous Soft Tissues: No paravertebral masses. Prevertebral soft tissues are normal in thickness. C2-C3: Disc desiccation and mild posterior disc osteophyte complex. No central canal stenosis. Facet uncovertebral arthropathy. Mild bilateral neural foraminal stenosis. C3-C4: Disc desiccation. No central canal stenosis. Facet and uncovertebral arthropathy. Mild bilateral neural foraminal stenosis. C4-C5: Disc desiccation and mild height loss. Posterior disc osteophyte complex. Moderate central canal stenosis. Facet uncovertebral arthropathy. Moderate bilateral neural foraminal stenosis. C5-C6: Disc desiccation and moderate height loss. Posterior disc bulge. Moderate central canal stenosis. Facet and uncovertebral arthropathy. Moderate to severe bilateral neural foraminal stenosis. C6-C7: Disc desiccation and moderate disc height loss. Posterior disc osteophyte complex. Moderate central canal stenosis. Facet and uncovertebral arthropathy. Severe bilateral neural foraminal stenosis. C7-T1: Disc desiccation. No significant central canal or neural foraminal stenosis. IMPRESSION: 1. Multilevel degenerative changes of the cervical spine as described above. 2. Moderate central canal stenosis at C4-C5, C5-C6 and C6-C7. 3. Severe bilateral neural foraminal stenosis at C6-C7. Moderate to severe bilateral neural foraminal stenosis at C5-C6. Dictated by: Jimmy Tinoco M.D. on 01/07/2024 at 14:50 Approved by: Jimmy Tinoco M.D. on 01/07/2024 at 14:53
[2024-01-07] VITALS (7 sets, daily range): BP systolic 152–187; BP diastolic 61–82; PULSE 72–82; RESP 16–20; TEMP 36.3–36.5; O2SAT 94–97
[2024-01-07 04:53] LABS: Add Manual Diff / Slide Review NO; Basophils Absolute Auto 0 /uL (0-100); Basophils Percent Auto 0.6 % (0-2); Eosinophils Absolute Auto 100 /uL (0-450); Hemoglobin 9.6 g/dL (12.0-16.0); Lymphocytes Absolute Auto 3200 /uL (1100-4500); Lymphocytes Percent Auto 44.9 % (25-40); Mean Corpuscular HGB Conc 34.2 % (30-36); Mean Corpuscular Volume 90.6 fL (80-100); Monocytes Absolute Auto 700 /uL (0-900); Monocytes Percent Auto 10.2 % (3-14); Neutrophils Absolute Auto 3000 /uL (1500-7000); Neutrophils Percent Auto 42.3 % (50-75); Platelet Count 223 X10^3/uL (150-400); Red Blood Cell Count 3.09 X10^6/uL (4.0-5.2); Red Cell Distribution Width 13.4 % (11.6-14.8); White Blood Cell Count 7.2 X10^3/uL (4.5-11.0)
[2024-01-07 05:03] LABS: Alanine Aminotransferase 25 IU/L (<35); Albumin 3.5 g/dL (3.5-5.0); Albumin Globulin Ratio 1.1 (1.0-2.8); Alkaline Phosphatase 137 U/L (38-126); Aspartate Aminotransferase 41 IU/L (14-36); BUN Creatinine Ratio 22.3 (6-22); Bilirubin Total 0.4 mg/dL (0.2-1.3); Blood Urea Nitrogen 29 mg/dL (7-17); Calcium 8.7 mg/dL (8.4-10.2); Carbon Dioxide 25 mmol/L (22-32); Chloride 109 mmol/L (98-107); Estimated Glomerular Filt Rate 42 mL/min (>60); Globulin 3.1 g/dL (1.7-4.1); Glucose 99 mg/dL (80-110); HEMOLYSIS < 15 (0-50); Potassium 4.9 mmol/L (3.4-5.1); Sodium 137 mmol/L (137-145); Total Protein 6.6 g/dL (6.3-8.2)
[2024-01-07 05:17] LABS: HEMOLYSIS < 15 (0-50); Iron 54 ug/dL (37-170)
[2024-01-07 05:25] LABS: Transferrin 217 mg/dL (206-381)
[2024-01-07 05:38] LABS: Ferritin 51 ng/mL (11-264)
[2024-01-07] MEDS: PANTOPRAZOLE DR 20 MG TABLET PO ×2 (06:48→20:31)
[2024-01-07] MEDS: LORazepam 2 MG/ML INJ 0.5 MG IV (09:45)
[2024-01-07] MEDS: ACETAMINOPHEN 325 MG TABLET 650 MG PO (09:45)
[2024-01-07] MEDS: LOSARTAN 50 MG TABLET 100 MG PO (11:36)
[2024-01-07] MEDS: PREMARIN 0.625 MG 0.3125 EACH PO (11:37)
[2024-01-07] MEDS: SODIUM CHLORIDE 0.9% FLUSH 10 ML IV ×2 (11:37→20:30)
[2024-01-07] MEDS: AMLODIPINE 5 MG TABLET 10 MG PO (11:37)
--- NOTE | 2024-01-07 11:50 | PT.IPTN ---
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 completed sit to stand from chair SBA. pt ambulated using 4WW in the hallway ~ 250 ft SBA. presents with antalgic but seems lesser today compared to yesterday's. pt also with better pacing with ambulation today. pt ambulated back to her room and sat on the chair. positioned pt on the chair. call light and table placed within reach. Gait Assessment Gait Gait Assistance Required: Standby Assistance Distance (Feet) 250 Able to Maintain Weight Bearing Status Yes During Gait Assistive Devices Assistive Device Gait Belt,4 Wheeled Walker Orthotic/Prosthetic Devices or Brace: No Gait Deviations General Gait Pattern Antalgic,Decreased Stride Length,Decreased Feet Clearance Factors Limiting Gait Function Factors Limiting Gait Function Decreased Activity Tolerance, Decreased Strength,Limited Range of Motion,Poor Balance M5 PT-IP Objective Assessments Start: 01/05/24 10:30 Freq: NEEDED Status: Active Protocol: Document 01/05/24 13:54 MB (Rec: 01/05/24 14:30 MB [id number]) Orientation Orientation/Cognition Level of Alertness Alert Orientation Name,Age,Birthday,Year,Place, Situation Language Function Ability No Deficits Noted Safety Awareness Decreased Safety Awareness Memory Description No Deficits Noted Gross Range of Motion Upper Extremity ROM Assessment Within Functional Limits Lower Extremity ROM Assessment Within Functional Limits Strength Upper Extremity Strength Assessment Within Functional Limits Comments Strength Comments R knee extension 4-/5 and right ankle DF and great toe extension 4/5; left knee extension, ankle DF and toe extension 4/5. Coordination Assessment Assessment Coordination Comments Slow heel to lin B but no dysmetria noted Sensation Assessment Sensation Gross Sensation Right LE Impaired,Left LE Impaired Comments Sensation Comments Pt reports B feet with toes with neuropathy Muscle Tone Muscle Tone WNL Yes M6 PT-IP Treatment Start: 01/05/24 10:30 Freq: NEEDED Status: Active Protocol: Document 01/07/24 11:50 AB (Rec: 01/07/24 13:21 AB [id number]) Physical Therapy Treatment Education Education Provided Safety M7 PT-IP Assessment and Plan Start: 01/05/24 10:30 Freq: NEEDED Status: Active Protocol: Document 01/07/24 11:50 AB (Rec: 01/07/24 13:21 AB [id number]) PT Summary Assessment and Plan Potential Rehabilitation Potential Good Summary Impairments Pain,ROM,Strength,Balance, Coordination,Sensation,Tone, Cognition,Bed Mobility, Transfers,Gait,Activity Tolerance Progress Towards Goals Progressing Toward Goals Assessment Summary pt is progressing well with mobility and presents with steadier gait today using a 4WW. pt may go home when medically stable. pt will benefit from outpt PT. Goals Bed Mobility Goal Independent Transfer Goal Independent,Four Wheeled Walker Gait Goal Independent,Four Wheel Walker Gait Distance 300 Days to Meet Goals 5 Frequency of Treatment Frequency Of Treatment Once a Day Treatment Plan Physical Therapy Treatment Plan Bed Mobility Training,Transfer Training,Gait Training, Therapeutic Exercise,Balance Retraining,Discharge Planning, Hot or Cold Pack,Neuromuscular Re-ed,Coordination Retraining ,Manual Therapy Precautions Other Precautions falls Weight Bearing Status Weight Bearing Status Weight Bear as Tolerated Recommendations To Nursing Amount of Assist Needed 1 Person Assist Discharge Recommendations PT Discharge Recommendations Home with Assistance, Outpatient PT Transportation Needs at Discharge Private Vehicle
--- NOTE | 2024-01-07 16:17 | P.PN_ITS ---
Subjective Subjective Date Patient Seen: 01/07/24 Time Patient Seen: 09:00 Interval history: CC: balance and falls Planning to work with PT today, fall precautions, feeling a bit stronger, monitor kidneys. appetite is ok this morning not great, able to use bathroom. Exam Vital Signs (past 8 hours): - 01/07/24 09:15 01/07/24 11:36 01/07/24 12:00 Temperature 97.7 F Pulse Rate 73 73 Respiratory Rate 16 Blood Pressure 170/69 H 170/69 H Pulse Oximetry 96 Oxygen Delivery Method Room Air Oxygen Delivery Method Room Air Oxygen Flow Rate 0 HENMT Other: laceration above L eyebrow healing well with stitches all removed, eomi Resp Other: moving air well, cleat to auscultation bilaterally Cardio Other: regular rate, s1/s2 GI Other: soft nontender nondistended active bowel sounds Neuro Other: alert awake oriented Extrem Other: no pedal edema moving all limbs equally Objective Labs 01/07/24 04:07 01/07/24 04:07 Labs: Laboratory Results - last 24 hr 01/07/24 04:07 WBC 7.2 RBC 3.09 L Hgb 9.6 L Hct 28.0 L MCV 90.6 MCH 31.0 MCHC 34.2 RDW 13.4 Plt Count 223 Neut % (Auto) 42.3 L Lymph % (Auto) 44.9 H [place] % (Auto) 10.2 Eos % (Auto) 2.0 Baso % (Auto) 0.6 Neut # (Auto) 3000 Lymph # (Auto) 3200 [place] # (Auto) 700 Eos # (Auto) 100 Baso # (Auto) 0 Sodium 137 Potassium 4.9 Chloride 109 H Carbon Dioxide 25 BUN 29 H Creatinine 1.30 H Estimated GFR 42 L BUN/Creatinine Ratio 22.3 H Glucose 99 Calcium 8.7 Iron 54 Transferrin 217 Ferritin 51 Total Bilirubin 0.4 AST 41 H ALT 25 Alkaline Phosphatase 137 H Total Protein 6.6 Albumin 3.5 Globulin 3.1 Albumin/Globulin Ratio 1.1 PFSH Medical History Colitis 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 with neurogenic 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 Gait instability 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 of left hamstring 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 Lumbar radiculopathy Facet arthropathy, lumbar Insomnia, psychophysiological (~2006) Diverticulosis MGUS (monoclonal gammopathy of unknown significance) GI bleed 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 sides of body GERD (gastroesophageal reflux disease) Anxiety Depression Hyperlipidemia Hypertension Allergic rhinitis Chronic rhinosinusitis Excessive daytime sleepiness (~2006) Obstructive sleep apnea of adult (~2006) Snoring (~1984) Degenerative joint disease, ankle, foot, toe Degenerative joint disease (DJD) of hip Closed L1 vertebral fracture Flu Bilateral foot pain Obesity (BMI 30-39.9) Degenerative disc disease, cervical Degenerative disc disease, lumbar Chronic pain syndrome Contusion of left hip Rectal bleeding Surgical History Hx of repair of right rotator cuff History of hysterectomy History of surgery on left wrist History of hand surgery History of bladder suspension procedure History of colonoscopy Social History marital status: details: to Hermes, lives in [place] household members: spouse lives independently: Yes caregiver/support person: No housing: house Smoking Status: Never smoker alcohol intake: current Assessment & Plan Assessment & Plan narrative: 78 yo female hospital day #2 for ataxia, dizziness and frequent falling #Dizziness, fall Working with PT - carefully hydrating she is responding well. Complicated by recent spine surgeries and peripheral neuropathy. Normal workup so far including MRI/MRA, echo carotid doppler for any central etiolgoy does not seem cardiac either. Seeing vestibular PT today. Will have her see Neurology and ENT as an outpatient. She has an appointment with her spine surgeon who is at [facility]. #Hypertension Worsened off hydrochlorothiazide, increased amlodipine to 10mg with losartan 100 and monitor may need more meds to get control. #L islam head laceration healing Removed 6 more interrupted nylon sutures without incident, wound explored i think all sutures are removed, cleaned and covered with steristrips. #acute kidney failure improving off septra and hctz, monitor #chronic normocytic anemia transferrign wnl, iron studies pending, folate wnl, possible chronic bleed? guiac pending. #Major depression with chronic pain related to her severe degenerative joint disease. Continue amitriptyline and lexapro home regimen. #GERD Continue home omeprazole Dispo: pending PT workup, maybe home tomorrow DVT: lovenox and SCDs diet: general code: DNR fall precautions Time-Based Coding :: [TOTAL MINUTES] spent with patient and on the chart (including review of chart, obtaining history, exam, reviewing outside data, placing orders, documenting exam and treatment plan, and counseling patient) on [DATE]. Quality VTE Deep Vein Thrombosis/Pulmonary Embolism Present on Admission: No
[2024-01-07] MEDS: AMITRIPTYLINE 10 MG TABLET PO (20:30)
[2024-01-07] MEDS: OXYBUTYNIN 5 MG ER TAB 10 MG PO (20:30)
[2024-01-07] MEDS: ATORVASTATIN 20 MG TABLET 40 MG PO (20:30)
[2024-01-07] MEDS: ESCITALOPRAM 10 MG TABLET 20 MG PO (20:30)
[2024-01-08] VITALS (7 sets, daily range): BP systolic 149–164; BP diastolic 63–71; PULSE 72–81; RESP 16–20; TEMP 35.9–36.4; O2SAT 94–96
[2024-01-08] MEDS: ACETAMINOPHEN 325 MG TABLET 650 MG PO ×3 (06:30→23:01)
[2024-01-08] MEDS: PANTOPRAZOLE DR 20 MG TABLET PO ×2 (06:31→21:43)
[2024-01-08] MEDS: LOSARTAN 50 MG TABLET 100 MG PO (08:16)
[2024-01-08] MEDS: PREMARIN 0.625 MG 0.3125 EACH PO (08:16)
[2024-01-08] MEDS: AMLODIPINE 5 MG TABLET 10 MG PO (08:17)
[2024-01-08] MEDS: SODIUM CHLORIDE 0.9% FLUSH 10 ML IV ×2 (08:18→21:41)
--- NOTE | 2024-01-08 09:22 | PT.IPTN ---
Physical Therapy Treatment Note M2 PT-IP Current Condition Start: 01/05/24 10:30 Freq: NEEDED Status: Active Protocol: Document 01/05/24 13:54 MB (Rec: 01/05/24 14:30 MB [id number]) Physical Therapy Current Condition Current Condition Evaluation Date 01/05/24 Treatment Diagnosis Falls M3 PT-IP Subjective Start: 01/05/24 10:30 Freq: NEEDED Status: Active Protocol: Document 01/08/24 09:48 TS (Rec: 01/08/24 09:56 TS [id number]) Subjective Physical Therapy Visit Type Type Treatment Note Visit Start Time 09:22 Visit Stop Time 09:47 Number of EMPLOYMENT RECRUITER Visits 1 Physical Therapy Visit Comments Patient Comments Pt found resting in chair, she is agreeable to PT. M4 PT-IP Mobility and Gait Start: 01/05/24 10:30 Freq: NEEDED Status: Active Protocol: Document 01/08/24 09:48 TS (Rec: 01/08/24 09:56 TS [id number]) PT-Transfer Assessment Sit to and From Stand Sit to and from Stand Standby Assistance Equipment Transfer Assistive Device 4 Wheeled Walker Orthotic/Prosthetic Devices or Brace: No Comments Mobility Comments STS from chair SBA with 4WW, pt denied any dizziness. She ambulated ~200'SBA with 4WW. PT ambulated back to room, was left in chair, all needs met. Gait Assessment Gait Gait Assistance Required: Standby Assistance Distance (Feet) 200 Able to Maintain Weight Bearing Status Yes During Gait Assistive Devices Assistive Device Gait Belt,4 Wheeled Walker Orthotic/Prosthetic Devices or Brace: No Gait Deviations General Gait Pattern Antalgic,Decreased Stride Length,Decreased Feet Clearance Factors Limiting Gait Function Factors Limiting Gait Function Decreased Activity Tolerance, Decreased Strength,Limited Range of Motion,Poor Balance Comments Gait Comments See mobility comments. PT-Balance Assessment Sitting Balance and Reactions Static Sitting Balance Ability Good Dynamic Sitting Balance Ability Good Standing Balance and Reactions Static Standing Balance Ability Good Dynamic Standing Balance Ability Good Device Used 4WW M5 PT-IP Objective Assessments Start: 01/05/24 10:30 Freq: NEEDED Status: Active Protocol: Document 01/05/24 13:54 MB (Rec: 01/05/24 14:30 MB [id number]) Orientation Orientation/Cognition Level of Alertness Alert Orientation Name,Age,Birthday,Year,Place, Situation Language Function Ability No Deficits Noted Safety Awareness Decreased Safety Awareness Memory Description No Deficits Noted Gross Range of Motion Upper Extremity ROM Assessment Within Functional Limits Lower Extremity ROM Assessment Within Functional Limits Strength Upper Extremity Strength Assessment Within Functional Limits Comments Strength Comments R knee extension 4-/5 and right ankle DF and great toe extension 4/5; left knee extension, ankle DF and toe extension 4/5. Coordination Assessment Assessment Coordination Comments Slow heel to lin B but no dysmetria noted Sensation Assessment Sensation Gross Sensation Right LE Impaired,Left LE Impaired Comments Sensation Comments Pt reports B feet with toes with neuropathy Muscle Tone Muscle Tone WNL Yes M6 PT-IP Treatment Start: 01/05/24 10:30 Freq: NEEDED Status: Active Protocol: Document 01/08/24 09:48 TS (Rec: 01/08/24 09:56 TS [id number]) Physical Therapy Treatment Education Education Provided Safety M7 PT-IP Assessment and Plan Start: 01/05/24 10:30 Freq: NEEDED Status: Active Protocol: Document 01/08/24 09:48 TS (Rec: 01/08/24 09:56 TS [id number]) PT Summary Assessment and Plan Potential Rehabilitation Potential Good Summary Impairments Pain,ROM,Strength,Balance, Coordination,Sensation,Tone, Cognition,Bed Mobility, Transfers,Gait,Activity Tolerance Progress Towards Goals Progressing Toward Goals Assessment Summary Niki is making good progress with her mobility. She is SBA for STS with use of 4WW. She continues to ambulate long distances with her 4WW, has good balance. PT is recommending home with assist and HHPT. Goals Bed Mobility Goal Independent Transfer Goal Independent,Four Wheeled Walker Gait Goal Independent,Four Wheel Walker Gait Distance 300 Days to Meet Goals 5 Frequency of Treatment Frequency Of Treatment Once a Day Treatment Plan Physical Therapy Treatment Plan Bed Mobility Training,Transfer Training,Gait Training, Therapeutic Exercise,Balance Retraining,Discharge Planning, Hot or Cold Pack,Neuromuscular Re-ed,Coordination Retraining ,Manual Therapy Precautions Other Precautions falls Weight Bearing Status Weight Bearing Status Weight Bear as Tolerated Recommendations To Nursing Amount of Assist Needed Standby Assistance Discharge Recommendations PT Discharge Recommendations Home with Assistance,Home Health,Outpatient PT Transportation Needs at Discharge Private Vehicle
--- NOTE | 2024-01-08 11:44 | CM.DPC ---
DCP HH Planning: Per MD, hopeful to discharge pt home today but having some bp issues overnight and will have pt work with PT again today and round in the afternoon to determine if pt stable for discharge. Per OVERNIGHT STOCKER, pt ambulated well in the halls and recommending home with assist and HH still. SW met bedside with pt and and confirmed they remain agreeable with discharge home with [facility] and already have the HH brochure but concerned about pt's bp. Spouse will provide transport at d/c and they are hopeful to discharge home today or in the morning in order to make it to pt's outpt Ortho f/u appointment at 1230 in [facility] for her prior back surgery. SW faxed [facility]AN pt's completed F2F and orders but no discharge orders yet. Plan: SW to follow for plan of discharge home via spouse POV and new Lety LOGAN today vs tomrorow pending bp issues and to fax discharge summary to Lety at discharge. PUNEET Ceja
[2024-01-08] MEDS: OXYCODONE IR 5 MG TABLET PO ×2 (18:12→21:44)
--- NOTE | 2024-01-08 20:39 | PM.PN.1 ---
Subjective Subjective Date Patient Seen: 01/08/24 Time Patient Seen: 09:10 Interval history: CC: dizzy, weak Exam Vital Signs (past 8 hours): - 01/08/24 16:00 Temperature 96.7 F L Pulse Rate 79 Respiratory Rate 16 Blood Pressure 159/64 H Pulse Oximetry 95 Oxygen Flow Rate 0 Oxygen Delivery Method Room Air Oxygen Flow Rate 0 Narrative Exam Narrative: sitting up in bed HENMT Other: laceration to L brow under dressing, no drainage no bleeding Resp Other: clear to auscultation on room air Cardio Other: regular rate, s1/s2 Neuro Other: alert oriented x3 moving all limbs Objective Labs 01/07/24 04:07 01/07/24 04:07 [facility] Medical History Colitis 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 with neurogenic 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 Gait instability 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 Lumbar radiculopathy Facet arthropathy, lumbar Insomnia, psychophysiological (~2006) Diverticulosis MGUS (monoclonal gammopathy of unknown significance) GI bleed 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 sides of body GERD (gastroesophageal reflux disease) Anxiety Depression Hyperlipidemia Hypertension Allergic rhinitis Chronic rhinosinusitis Excessive daytime sleepiness (~2006) Obstructive sleep apnea of adult (~2006) Snoring (~1984) Degenerative joint disease, ankle, foot, toe Degenerative joint disease (DJD) of hip Closed L1 vertebral fracture Flu Bilateral foot pain Obesity (BMI 30-39.9) Degenerative disc disease, cervical Degenerative disc disease, lumbar Chronic pain syndrome Contusion of left hip Rectal bleeding Surgical History Hx of repair of right rotator cuff History of hysterectomy History of surgery on left wrist History of hand surgery History of bladder suspension procedure History of colonoscopy Social History marital status: details: to Hermes, lives in [place] household members: spouse lives independently: Yes caregiver/support person: No housing: house Smoking Status: Never smoker alcohol intake: current Assessment & Plan Assessment & Plan narrative: 78 yo female hospital day #3 for ataxia, dizziness and frequent falling #Dizziness, fall Working with PT - carefully hydrating she is responding well. Complicated by recent spine surgeries and peripheral neuropathy. Normal workup so far including MRI/MRA, echo carotid doppler for any central etiolgoy does not seem cardiac either. Appreciate PT input today. Will have her see Neurology and ENT as an outpatient. She already has an appointment with her spine surgeon who is at [facility]. #Hypertension Worsened off hydrochlorothiazide, increased amlodipine to 10mg with losartan 100 has still been running high in the evenings - discussed otpions i think we will try splitting losartan dose for more even metabolism - if stable may be good to go tomorrow. #L presybeterian head laceration healing sutures removed and doing well under dressing #acute kidney failure improving off septra and hctz, monitor #chronic normocytic anemia hgb improving, iron studies wnl, folate wnl, monitor #Major depression with chronic pain related to her severe degenerative joint disease. stable continue amitriptyline and lexapro home regimen. #GERD Continue home omeprazole Dispo: maybe home tomorrow DVT: lovenox and SCDs diet: general code: DNR fall precautions Time-Based Coding :: [TOTAL MINUTES] spent with patient and on the chart (including review of chart, obtaining history, exam, reviewing outside data, placing orders, documenting exam and treatment plan, and counseling patient) on [DATE]. Quality VTE Deep Vein Thrombosis/Pulmonary Embolism Present on Admission: No
[2024-01-08] MEDS: ATORVASTATIN 20 MG TABLET 40 MG PO (21:40)
[2024-01-08] MEDS: OXYBUTYNIN 5 MG ER TAB 10 MG PO (21:40)
[2024-01-08] MEDS: AMITRIPTYLINE 10 MG TABLET PO (21:40)
[2024-01-08] MEDS: ESCITALOPRAM 10 MG TABLET 20 MG PO (21:40)
[2024-01-08] MEDS: LOSARTAN 50 MG TABLET PO (21:40)
[2024-01-09] VITALS: BP 163/75; PULSE 82; RESP 18; TEMP 36.1; O2SAT 96
[2024-01-09] MEDS: OXYCODONE IR 5 MG TABLET PO (00:34)
[2024-01-09 04:00] VITALS: BP 141/67; PULSE 73; RESP 20; TEMP 35.9; O2SAT 95
[2024-01-09] MEDS: ACETAMINOPHEN 325 MG TABLET 650 MG PO (05:39)
[2024-01-09] MEDS: PANTOPRAZOLE DR 20 MG TABLET PO (05:39)
[2024-01-09 08:00] VITALS: BP 124/62; PULSE 70; RESP 16; TEMP 36.3; O2SAT 95
--- NOTE | 2024-01-09 08:33 | P.DS_ITS ---
History of Present Illness History of Present Illness Date Patient Seen: 01/09/24 Time Patient Seen: 08:33 Chief complaint: Vertigo , fell pain on left side Narrative: Feeling fine this morning up to ambulate to bathroom eating well discussed hydration and return precautions will f/up with us next week in clinic. Discharge Providers Provider Date of admission: 01/04/24 17:23 Discharge Date: 01/09/24 Primary care physician: Ana Paula Jean Baptiste MD Consults: 01/04/24 19:03 Consult to Physical Therapy Evaluate & Treat Comment: falls Physician Instructions: Evaluate and Treat 01/06/24 15:20 Consult to Home Health Routine Comment: RN, PT, OT, HH Aide Reason For Exam: Vertigo, Gait instability, SARAH Discharge provider: Salvador Crabtree MD Summary Hospital Course Discharge Diagnosis: #Dizziness, fall #Hypertension #L advent head laceration healing #acute kidney failure #chronic normocytic anemia #Major depression with chronic pain related to her severe degenerative joint disease. #GERD Hospital Course: 78yo F presented to ED s/p fall with L forehead laceration and complaint of dizziness. Workup was generally negative for any specific problem but general multifactorial etiology likely with dehydration chronic joint pain and labile blood pressure etc etc. Her blood pressure meds were adjusted to allow better control and she felt much more stable on her feet by DoD. Plan will be to f/up with PT as needed outpatient and track BPs at home then see us in clinic. Status at Discharge Cognitive/behavioral status at discharge: at baseline, oriented Functional status at discharge: uses cane/walker Overall status at discharge: patient is progressing back to baseline Time Spent with Patient Time spent: Greater than 30 minutes Exam Vital Signs (past 8 hours): - 01/09/24 04:00 Temperature 96.6 F L Pulse Rate 73 Respiratory Rate 20 Blood Pressure 141/67 H Pulse Oximetry 95 Oxygen Flow Rate 0 Oxygen Delivery Method Room Air Oxygen Flow Rate 0 Narrative Exam Narrative: alert sitting up in chair eating breakfast with family Const Other: well developed well nourished Eyes Other: extraocular movement intact, L forehead with well healing laceration under clean dry dressing and steristrips Resp Other: moving air well clear to auscultation bilaterally Cardio Other: regular rate S1/S2 GI Other: soft nontender nondistended active bowel sounds Neuro Other: alert awake oriented x3 Extrem Other: moving all equally, strength 5/5 bilaterally Objective Labs 01/07/24 04:07 01/07/24 04:07 [facility] Medical History Colitis 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 with neurogenic 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 Gait instability 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 Lumbar radiculopathy Facet arthropathy, lumbar Insomnia, psychophysiological (~2006) Diverticulosis MGUS (monoclonal gammopathy of unknown significance) GI bleed 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 sides of body GERD (gastroesophageal reflux disease) Anxiety Depression Hyperlipidemia Hypertension Allergic rhinitis Chronic rhinosinusitis Excessive daytime sleepiness (~2006) Obstructive sleep apnea of adult (~2006) Snoring (~1984) Degenerative joint disease, ankle, foot, toe Degenerative joint disease (DJD) of hip Closed L1 vertebral fracture Flu Bilateral foot pain Obesity (BMI 30-39.9) Degenerative disc disease, cervical Degenerative disc disease, lumbar Chronic pain syndrome Contusion of left hip Rectal bleeding Surgical History Hx of repair of right rotator cuff History of hysterectomy History of surgery on left wrist History of hand surgery History of bladder suspension procedure History of colonoscopy Social History marital status: details: julienne Mirza, lives in [place] household members: spouse lives independently: Yes caregiver/support person: No housing: house Smoking Status: Never smoker alcohol intake: current Discharge Assessment & Plan Assessment and Plan Assessment: 78 yo female hospital day #3 for ataxia, dizziness and frequent falling #Dizziness, fall Working with PT feeling more steady on her feet - carefully hydrating she is responding well. Complicated by recent spine surgeries and peripheral neuropathy. Normal workup so far including MRI/MRA, echo carotid doppler for any central etiology does not seem cardiac either. Appreciate PT input today. Will have her see Neurology and ENT as an outpatient. She already has an appointment with her spine surgeon who is at [facility]. #Hypertension Worsened off hydrochlorothiazide, increased amlodipine to 10mg with losartan 100 has still been running high in the evenings - improved dramatically with splitting up amlodipine into two 5mg doses this is how her takes it - continue like that on dc #L advent head laceration healing sutures removed and doing well under dressing #acute kidney failure improving off septra and hctz, monitor #chronic normocytic anemia hgb improving, iron studies wnl, folate wnl, monitor #Major depression with chronic pain related to her severe degenerative joint disease. stable continue amitriptyline and lexapro home regimen. #GERD Continue home omeprazole Dispo: home with family DVT: lovenox and SCDs diet: general code: DNR fall precautions Discharge Plan Discharge Plan Patient Disposition: Home Health Service Transfer to: [facility] Discharge orders & Medications Prescriptions: Continued cyanocobalamin (vitamin B-12) [Vitamin B-12] 1,000 mcg Tablet 1,000 mcg PO BID Fiber-Tabs 625 mg Tablet 1 tab PO BID solifenacin 10 mg tablet 10 mg PO QPM Centrum Silver 0.4-300-250 mg-mcg-mcg Tablet 1 tab PO DAILY cholecalciferol (vitamin D3) [Vitamin D3] 2,000 unit Capsule 4,000 unit PO BID celecoxib [Celebrex] 200 mg Capsule 200 mg PO DAILY losartan 100 mg PO DAILY Adult Low Dose Aspirin 81 mg tablet 81 mg PO DAILY diclofenac sodium [Voltaren Arthritis Pain] 1 % gel 4 g topical PRN PRN (Reason: pain) Rx Instructions: apply to single knee, ankle, foot; for foot includes sole/toes/top of foot tramadol 50 mg tablet 50 mg PO PRN PRN (Reason: pain) Rx Instructions: BID PRN sulfamethoxazole-trimethoprim 800-160 mg tablet 1 tab PO BID Rx Instructions: patient stated she had two more days to complete per regimen conjugated estrogens [Premarin] 0.625 mg tablet 0.3125 mg PO QAM hydrochlorothiazide 25 mg tablet 25 mg PO QAM escitalopram oxalate [Lexapro] 20 mg tablet 20 mg PO QPM folic acid 1 mg tablet 1 mg PO DAILY atorvastatin [Lipitor] 40 mg tablet 40 mg PO QPM amitriptyline 10 mg tablet 10 mg PO QPM omeprazole 20 mg capsule,delayed release(DR/EC) 20 mg PO BID amlodipine 2.5 mg tablet 5 mg PO BEDTIME clobetasol 0.05 % ointment 1 applic topical PRN PRN (Reason: Rash) nystatin 100,000 unit/gram cream 1 applic topical BID (DME) Respirinics DreamStation 2 Auto CPAP kit Qty: 1 Dose Instruction: As directed Patient Comments: Pressure: 7-14 cmH2O DME: [employer] Rx Instructions: As directed Follow up/Referrals: Ana Paula Jean Baptiste MD [Primary Care Provider] - Visit Report/Discharge Packet Instructions: DI for Syncope in Adults (Fainting), Fainting Stand Alone Forms: Patient Portal/API, Stroke Signs & Symptoms Discharge Data Primary Care Provider: Ana Paula Jean Baptiste Attending Provider: Ana Paula Jean Baptiste Admit Date/Time: 01/04/24 17:23 Quality VTE Deep Vein Thrombosis/Pulmonary Embolism Present on Admission: No
[2024-01-09] MEDS: LOSARTAN 50 MG TABLET PO (09:14)
[2024-01-09] MEDS: AMLODIPINE 5 MG TABLET 10 MG PO (09:14)
[2024-01-09] MEDS: SODIUM CHLORIDE 0.9% FLUSH 10 ML IV (09:14)
[2024-01-09] MEDS: PREMARIN 0.625 MG 0.3125 EACH PO (09:14)
--- NOTE | 2024-01-09 09:34 | CM.DPC ---
DCP Continued: Reviewed EMR and team rounds for pt?s medical status. Per Provider, pt is medically stable to discharge home today. [facility] accepted pt and following for post-discharge care. DC Summary to be sent to [facility] to complete intake packet. No discharge needs identified at this time. Plan: Patient to discharge home with home health follow up ([facility]), to transport home with . CM Team will continue to follow for coordination of discharge plans. LILLIE Oseguera
--- NOTE | 2024-01-09 10:17 | PC.NURSE ---
Patient is discharging to home soon. She is doing well today.
[2024-01-10 03:33] LABS: Percent Iron Saturation 19 % (15-50); Total Iron Binding Capacity 286 ug/dL (265-497)
== END 2024-01-09 10:49 | disposition home health service (06) ==
LOC: ED 17:01 → AC 17:24
PROVIDERS: Admitting Provider Internal Medicine; Emergency Provider Emergency Medicine; PCP Family Medicine; Referring Provider Emergency Medicine; Visit Provider Family Medicine
DX: R42 Dizziness and giddiness (principal); W01.10XA Fall on same level from slipping, tripping and stumbling with subsequent striking against unspecified object, initial encounter; R29.700 NIHSS score 0; Z91.81 History of falling; N17.9 Acute kidney failure, unspecified; I10 Essential (primary) hypertension; D64.9 Anemia, unspecified; K21.9 Gastro-esophageal reflux disease without esophagitis
CPT/HCPCS: 36415; 70544; 70549; 70553; 71101; 72141; 72148; 80048; 80053; 81001; 82550; 82607; 82728; 82746; 83540; 83550; 83690; 83735; 83880; 84439; 84443; 84484; 85025; 85610; 85730; 87086; 93005; 93010; 93306; 93880; 96361; 96374; 96376; 97116; 97161; 97530; 99284; 99285; G0378; A9579; J2060

== ENCOUNTER 2024-01-15 21:44 | Emergency (ER) | payer MEDICARE, OTHER, SELFPAY ==
[2024-01-04 18:25] VITALS: BMI 36.6
[2024-01-15 21:54] VITALS: BP 175/80; PULSE 82; RESP 18; TEMP 36.8; O2SAT 95; BMI 36.8
--- NOTE | 2024-01-15 22:09 | ED_ITS ---
HPI - Extremity Problem General Chief complaint: Extremity Problem,Nontraumatic Stated complaint: rt leg pain Time Seen by Provider: 01/15/24 21:49 Source: patient Mode of arrival: Ambulatory History of Present Illness HPI Narrative: Patient is a 78-year-old female here for evaluation of right upper leg pain. She states she was sitting on her recliner at home. She had her legs elevated. States she was hitting the button on the chair in order to bring her legs down when she would sudden pain in the right upper inner leg. States that it went from about her groin down to her knee. No specific trauma. She has fallen several times in the past couple days but nothing that caused the pain today. Her symptoms have improved tremendously since the onset but is still painful. Did not tried anything for the symptoms prior to arrival. Related Data Home Medications Medication Instructions Recorded Confirmed amitriptyline 10 mg tablet 10 mg PO QPM 02/26/18 01/04/24 atorvastatin 40 mg tablet (Lipitor) 40 mg PO QPM 02/26/18 01/04/24 conjugated estrogens 0.625 mg 0.3125 mg PO QAM 02/26/18 01/04/24 tablet (Premarin) escitalopram oxalate 20 mg tablet 20 mg PO QPM 02/26/18 01/04/24 (Lexapro) folic acid 1 mg tablet 1 mg PO DAILY 02/26/18 01/04/24 hydrochlorothiazide 25 mg tablet 25 mg PO QAM 02/26/18 01/04/24 calcium polycarbophil 625 mg 1 tab PO BID 08/10/18 01/04/24 tablet (Fiber-Tabs) cholecalciferol (vitamin D3) 50 4,000 unit PO BID 08/10/18 01/04/24 mcg (2,000 unit) capsule (Vitamin D3) cyanocobalamin (vitamin B-12) 1,000 mcg PO BID 08/10/18 01/04/24 1,000 mcg tablet (Vitamin B-12) [id number] acid 0.4 1 tab PO DAILY 08/10/18 01/04/24 mg-lycopene 300 mcg-lutein 250 mcg tablet (Centrum Silver) solifenacin 10 mg tablet 10 mg PO QPM 08/10/18 01/04/24 celecoxib 200 mg capsule (Celebrex) 200 mg PO DAILY 11/10/19 01/04/24 Respirinics DreamStation 2 Auto #1 ea 06/28/21 01/04/24 CPAP clobetasol 0.05 % topical ointment 1 applic topical PRN PRN Rash 09/03/21 01/04/24 omeprazole 20 mg capsule,delayed 20 mg PO BID 10/09/22 01/04/24 release nystatin 100,000 unit/gram topical 1 applic topical BID 02/03/23 01/04/24 cream amlodipine 2.5 mg tablet 5 mg PO BEDTIME 03/17/23 01/04/24 Adult Low Dose Aspirin 81 mg PO DAILY 01/04/24 01/04/24 diclofenac sodium 1 % topical gel 4 g topical PRN PRN pain 01/04/24 01/04/24 (Voltaren Arthritis Pain) losartan 100 mg PO DAILY 01/04/24 01/04/24 sulfamethoxazole 800 1 tab PO BID 01/04/24 01/04/24 mg-trimethoprim 160 mg tablet tramadol 50 mg tablet 50 mg PO PRN PRN pain 01/04/24 01/04/24 Previous Rx's Medication Instructions Recorded cyclobenzaprine 10 mg tablet 10 mg PO TID PRN muscle spasm #7 01/15/24 tabs Allergies Allergy/AdvReac Type Severity Reaction Status Date / Time piroxicam [PIROXICAM] Allergy Severe RASH Verified 12/30/23 20:21 shellfish derived Allergy Severe scallops Verified 12/30/23 20:21 [SHELLFISH DERIVED] only ANAPHYLAXIS rofecoxib [ROFECOXIB] Allergy Intermediate RASH Verified 12/30/23 20:21 bacitracin Allergy Mild rash Verified 12/30/23 20:21 [From NEOSPORIN ([id number])] neomycin Allergy Mild rash Verified 12/30/23 20:21 [From NEOSPORIN ([id number])] polymyxin B Allergy Mild rash Verified 12/30/23 20:21 [From NEOSPORIN ([id number])] Review of Systems Constitutional Constitutional: Reports system reviewed and no additional complaints, except as documented Musculoskeletal Musculoskeletal: Reports system reviewed and no additional complaints, except as documented Integumentary/Breasts Skin/Breast: Reports system reviewed and no additional complaints, except as documented Neurologic Neurologic: Reports system reviewed and no additional complaints, except as documented Patient History Medical History Colitis 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 with neurogenic 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 Gait instability 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 Lumbar radiculopathy Facet arthropathy, lumbar Insomnia, psychophysiological (~2006) Diverticulosis MGUS (monoclonal gammopathy of unknown significance) GI bleed 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 sides of body GERD (gastroesophageal reflux disease) Anxiety Depression Hyperlipidemia Hypertension Allergic rhinitis Chronic rhinosinusitis Excessive daytime sleepiness (~2006) Obstructive sleep apnea of adult (~2006) Snoring (~1984) Degenerative joint disease, ankle, foot, toe Degenerative joint disease (DJD) of hip Closed L1 vertebral fracture Flu Bilateral foot pain Obesity (BMI 30-39.9) Degenerative disc disease, cervical Degenerative disc disease, lumbar Chronic pain syndrome Contusion of left hip Rectal bleeding Surgical History Hx of repair of right rotator cuff History of hysterectomy History of surgery on left wrist History of hand surgery History of bladder suspension procedure History of colonoscopy Social History marital status: details: julienne Mirza, lives in [place] household members: spouse lives independently: Yes caregiver/support person: No housing: house Smoking Status: Never smoker alcohol intake: current Smoking Status: Never smoker alcohol intake frequency: holidays/special occasions only Substance Use Type: does not use Exam Initial Vital Signs Initial Vital Signs: Vital Signs Temperature 98.2 F 01/15/24 21:54 Pulse Rate 82 01/15/24 21:54 Respiratory Rate 18 01/15/24 21:54 Blood Pressure 175/80 H 01/15/24 21:54 Pulse Oximetry 95 01/15/24 21:54 Oxygen Delivery Method Room Air 01/15/24 21:54 Const General: cooperative and comfortable Skin General: no rashes or lesions noted Neuro Sensory Exam: no sensory deficits noted Extrem Other: Patient has reproducible tenderness to palpation along the medial quadriceps muscle and also along the abductor muscles in the right upper inner thigh. Course Orders Ordered: Discontinued Medications Cyclobenzaprine HCl (Cyclobenzaprine 10 Mg Prepack) 1 bottle MISC DIRECTED ONE Stop: 01/15/24 22:10 Last Admin: 01/15/24 22:19 Dose: 1 bottle Documented By: DELIA Vital Signs Vital signs: Vital Signs - 8 hr 01/15/24 21:54 Temperature 98.2 F Pulse Rate 82 Respiratory Rate 18 Blood Pressure 175/80 H Pulse Oximetry 95 Oxygen Delivery Method Room Air MDM - Extremity (Nontraumatic) MDM Narrative Medical decision making narrative: This is obviously a muscular issue given the location of her symptoms out the symptoms are reproducible and I can actively feel the muscle spasm on her upper inner thigh. No trauma. No indication for radiologic studies. Will send home with muscle relaxers. She understands that these medications can make her drowsy so she will be careful given the fact that she was falling quite a bit recently. She was given return precautions and follow-up instructions. She expressed understanding and agreement with plan. Discharge Plan Departure Patient Disposition: Home Clinical Impression: Muscle spasm Instructions: DI for Muscle Spasm Activity Restrictions/Additional Instructions: I recommend that you continue to take all of your medications as directed. Placing some heat over the area and also doing some light stretching and massage can be helpful. Take the medications as needed. Remember that it can make you drowsy. Return to the emergency department for new symptoms. Prescriptions: New cyclobenzaprine 10 mg tablet 10 mg PO TID PRN (Reason: muscle spasm) Qty: 7 0RF No Action cyanocobalamin (vitamin B-12) [Vitamin B-12] 1,000 mcg Tablet 1,000 mcg PO BID Fiber-Tabs 625 mg Tablet 1 tab PO BID solifenacin 10 mg tablet 10 mg PO QPM Centrum Silver 0.4-300-250 mg-mcg-mcg Tablet 1 tab PO DAILY cholecalciferol (vitamin D3) [Vitamin D3] 2,000 unit Capsule 4,000 unit PO BID celecoxib [Celebrex] 200 mg Capsule 200 mg PO DAILY losartan 100 mg PO DAILY Adult Low Dose Aspirin 81 mg tablet 81 mg PO DAILY diclofenac sodium [Voltaren Arthritis Pain] 1 % gel 4 g topical PRN PRN (Reason: pain) Rx Instructions: apply to single knee, ankle, foot; for foot includes sole/toes/top of foot tramadol 50 mg tablet 50 mg PO PRN PRN (Reason: pain) Rx Instructions: BID PRN sulfamethoxazole-trimethoprim 800-160 mg tablet 1 tab PO BID Rx Instructions: patient stated she had two more days to complete per regimen conjugated estrogens [Premarin] 0.625 mg tablet 0.3125 mg PO QAM hydrochlorothiazide 25 mg tablet 25 mg PO QAM escitalopram oxalate [Lexapro] 20 mg tablet 20 mg PO QPM folic acid 1 mg tablet 1 mg PO DAILY atorvastatin [Lipitor] 40 mg tablet 40 mg PO QPM amitriptyline 10 mg tablet 10 mg PO QPM omeprazole 20 mg capsule,delayed release(DR/EC) 20 mg PO BID amlodipine 2.5 mg tablet 5 mg PO BEDTIME clobetasol 0.05 % ointment 1 applic topical PRN PRN (Reason: Rash) nystatin 100,000 unit/gram cream 1 applic topical BID (DME) Respirinics DreamStation 2 Auto CPAP kit Qty: 1 Dose Instruction: As directed Patient Comments: Pressure: 7-14 cmH2O DME: [employer] Rx Instructions: As directed Referrals: Ana Paula Jean Baptiste MD [Primary Care Provider] - Stand Alone Forms: Patient Portal/API
[2024-01-15] MEDS: CYCLOBENZAPRINE 10 MG PREPACK 1 BOTTLE MISC (22:19)
== END 2024-01-15 22:25 | disposition home or self-care (01) ==
PROVIDERS: Emergency Provider Emergency Medicine; PCP Family Medicine
DX: M62.831 Muscle spasm of calf (principal); Z79.899 Other long term (current) drug therapy
CPT/HCPCS: 99281; 99283

== ENCOUNTER → 2024-05-06 11:45 | Outpatient (CLI) | payer MEDICARE, OTHER, SELFPAY ==
[2024-01-04 18:25] VITALS: BMI 36.6
--- NOTE | 2024-05-06 11:46 | DI.MG.S_ITS ---
BILATERAL DIGITAL SCREENING MAMMOGRAM 3D/2D WITH CAD: 05/06/2024 CLINICAL: Routine screening. Comparison is made to exams dated: 03/26/2023 mammogram, 03/01/2022 mammogram, and 02/17/2021 mammogram - [facility]. There are scattered areas of fibroglandular density (category b / 25%-50% glandular tissue). Current study was also evaluated with a Computer Aided Detection (CAD) system. There are benign calcifications in both breasts. There also are benign vascular calcifications in both breasts. No significant masses, calcifications, or other findings are seen in either breast. There has been no significant interval change. IMPRESSION: BENIGN There is no mammographic evidence of malignancy. A 1 year screening mammogram is recommended. Based on the Tyrer Cuzick model (a risk assessment model) the patient's lifetime risk is 2.0% and her 10 year risk is 0.0%. According to the ACR, ACS, and NCCN guidelines, an annual breast MRI exam along with mammogram is recommended if the patient's lifetime risk is 20% or greater. This exam was interpreted at Station ID: [id number]. NOTE: For mammograms, a report in lay terms will be sent to the patient. Approximately 15% of breast malignancies will not be visualized mammographically. In the management of a palpable breast mass, a negative mammogram must not discourage biopsy of a clinically suspicious lesion. Electronically Signed By: Shonda delcid/socrates:05/06/2024 16:09:48 letter sent: Normal Exam ACR BI-RADS Category 2: Benign
== END ==
PROVIDERS: PCP Family Medicine; Referring Provider Family Medicine; Visit Provider Family Medicine
DX: Z12.31 Encounter for screening mammogram for malignant neoplasm of breast (principal)
CPT/HCPCS: 77063; 77067

== ENCOUNTER → 2024-07-01 12:36 | Outpatient (CLI) | payer MEDICARE, OTHER, SELFPAY ==
[2024-01-04 18:25] VITALS: BMI 36.6
[2024-07-01 14:06] LABS: Blood Urea Nitrogen 42 mg/dL (7-17); Calcium 9.1 mg/dL (8.4-10.2); Carbon Dioxide 27 mmol/L (22-32); Chloride 105 mmol/L (98-107); Estimated Glomerular Filt Rate 36 mL/min (>60); Glucose 96 mg/dL (80-110); HEMOLYSIS < 15 (0-50); Potassium 4.7 mmol/L (3.4-5.1); Sodium 138 mmol/L (137-145)
[2024-07-01 14:26] LABS: Free T3, Triiodothyronine Free 3.59 pg/mL (2.77-5.27); Free T4, Direct Thyroxine 0.98 ng/dL (0.78-2.19)
[2024-07-01 14:39] LABS: Thyroid Stimulating Hormone 4.64 uIU/mL (0.47-4.68)
[2024-07-02 07:09] LABS: Thyroid Peroxidase Antibodies 15 IU/mL (0-34)
== END ==
PROVIDERS: PCP Family Medicine; Referring Provider Family Medicine; Visit Provider Family Medicine
DX: I10 Essential (primary) hypertension (principal); R26.89 Other abnormalities of gait and mobility; H81.10 Benign paroxysmal vertigo, unspecified ear; N39.0 Urinary tract infection, site not specified; R73.01 Impaired fasting glucose; R79.89 Other specified abnormal findings of blood chemistry
CPT/HCPCS: 36415; 80048; 84439; 84443; 84481; 86376

== ENCOUNTER → 2024-07-09 11:59 | Outpatient (CLI) | payer MEDICARE, OTHER, SELFPAY ==
[2024-01-04 18:25] VITALS: BMI 36.6
--- NOTE | 2024-07-09 12:00 | DI.RAD.S_ITS ---
PROCEDURE: XR DEXA AXIAL SKELETON INDICATIONS: SCREENING FOR OSTEOPOROSIS COMPARISON: [facility], IVETH, XR DEXA AXIAL SKELETON, 07/16/2021, 10:55. FINDINGS: Lumbar Spine: L1, L4. Bone mineral density 0.987 g/cm2, T score -0.5. Left Forearm: Bone mineral density 0.731 g/cm2, T score 0.6. (T score greater or equal to -1.0 to: NORMAL) (T score from -1.1 to -2.4: OSTEOPENIA) (T score less than or equal to -2.5: OSTEOPOROSIS) IMPRESSION: Bone mineral density is within normal limits. Follow-up guidelines as follows: Osteoporosis: Consider a repeat DEXA and Vertebral Fracture Assessment (VFA) exam in 2 years or sooner if medically necessary, to reassess this patient's status. Osteopenia: Consider a repeat DEXA in 2-3 years to reassess this patient's status, or if there is a new clinical indication. Normal: Consider a repeat DEXA in 5 years or sooner, or if there is a new clinical indication. All treatment decisions require clinical judgment and consideration of individual patient factors, including patient preferences, comorbidities, previous drug use, risk factors not captured in the FRAX model (e.g., frailty, falls, vitamin D deficiency, increased bone turnover, interval significant decline in bone density ) and possible under- or over-estimation of fracture risk by FRAX. In addition, the NOF Guide recommends that FDA-approved medical therapies be considered in postmenopausal women and men age >= 50 years with a: * Hip or vertebral (clinical or morphometric) fracture * T-score of <=-2.5 at the spine or hip * Ten-year fracture probability by FRAX of >= 3% for hip fracture or >=20% for major osteoporotic fracture. Dictated by: Hector Herndon M.D. on 07/09/2024 at 22:10 Approved by: Hector Herndon M.D. on 07/09/2024 at 22:11
== END ==
LOC: RAD 12:00
PROVIDERS: PCP Family Medicine; Referring Provider Family Medicine; Visit Provider Family Medicine
DX: M85.89 Other specified disorders of bone density and structure, multiple sites (principal)
CPT/HCPCS: 77080; 77081

== ENCOUNTER 2024-12-26 18:21 | Emergency (ER) | payer MEDICARE, OTHER, SELFPAY ==
[2024-01-04 18:25] VITALS: BMI 36.6
[2024-12-26 18:47] VITALS: BP 168/73; PULSE 90; RESP 14; TEMP 36.5; O2SAT 99; BMI 36.6
--- NOTE | 2024-12-26 18:51 | DI.RAD.S_ITS ---
PROCEDURE: XR SHOULDER LT MIN 2V INDICATIONS: fall TECHNIQUE: 3 views of the shoulder were acquired. COMPARISON: [facility], CR, XR SHOULDER LT MIN 2V, 12/16/2021, 13:48. FINDINGS: Bones: Status post reverse shoulder arthroplasty. Prosthetic elements appear to be in appropriate position. No evidence of periprosthetic fracture. Severe degenerative changes of the acromioclavicular joint, as before. No suspicious bony lesions. Visualized ribs appear intact. Soft tissues: No suspicious soft tissue calcifications. IMPRESSION: Stable postoperative appearance of reverse shoulder arthroplasty. No evidence of acute osseous abnormality. Approved by: Gi Gonzalez M.D.,Ph.D. on 12/26/2024 at 19:52
--- NOTE | 2024-12-26 18:51 | DI.CT.S_ITS ---
PROCEDURE: CT CERVICAL SPINE WO CON INDICATIONS: fall TECHNIQUE: Noncontrast 3 mm thick sections acquired from the skull base to the T4 level. Sagittal and coronal reformats were then constructed. For radiation dose reduction, the following was used: automated exposure control, adjustment of mA and/or kV according to patient size. COMPARISON: [facility], CT, CT CERVICAL SPINE WO CON, 12/30/2023, 20:32. FINDINGS: Image quality: Diagnostic Bones: No fractures or dislocations. Visualized superior ribs are intact. Multilevel degenerative changes. Soft tissues: Prevertebral soft tissues are normal in thickness. No paravertebral hematomas. No apical pneumothoraces. IMPRESSION: No acute displaced fracture or traumatic subluxation. Approved by: Gi Gonzalez M.D.,Ph.D. on 12/26/2024 at 19:56
--- NOTE | 2024-12-26 18:51 | DI.CT.S_ITS ---
PROCEDURE: CT HEAD/BRAIN WO CON INDICATIONS: fall, hit head TECHNIQUE: Noncontrast 4.5 mm thick angled axial sections acquired from the foramen magnum to the vertex, with coronal and sagittal reformats. For radiation dose reduction, the following was used: automated exposure control, adjustment of mA and/or kV according to patient size. COMPARISON: [facility], CT, CT HEAD/BRAIN WO CON, 12/30/2023, 20:32. FINDINGS: Image quality: Diagnostic. CSF spaces: Basal cisterns are patent. No extra-axial fluid collections. The ventricles are symmetric in size and shape. Brain: No intracranial bleeds or mass effect. There is cerebral volume loss, with resultant ventricular and sulcal prominence. There are periventricular and deep white matter chronic small vessel ischemic changes. There is intracranial internal carotid artery atherosclerosis. Skull and face: Calvarium and visualized facial bones appear intact, without suspicious lesions. Sinuses: Partial opacification of the left maxillary sinus. Remainder of visualized sinuses and mastoids are clear. IMPRESSION: No acute intracranial pathology. Approved by: Gi Gonzalez M.D.,Ph.D. on 12/26/2024 at 19:54
[2024-12-26] MEDS: ACETAMINOPHEN 325 MG TABLET 975 MG PO (18:55)
[2024-12-26 20:30] VITALS: BP 149/84; PULSE 78; TEMP 35.9; O2SAT 97
[2024-12-27 01:46] VITALS: BP 210/98; PULSE 107; O2SAT 95
[2024-12-27 01:47] VITALS: BP 190/87; PULSE 95; O2SAT 97
--- NOTE | 2024-12-27 01:52 | ED.FALL ---
HPI - Fall General Chief Complaint: Fall Stated Complaint: fell hit shoulder and head Time Seen by Provider: 12/27/24 01:52 Source: patient Mode of arrival: Ambulatory History of Present Illness HPI Narrative: 79-year-old female tripped on hardwood floor with new shoes that are sticky, felt her foot stick onto the floor., lost her balance, fell backwards, struck the back of her head. Did not have loss of consciousness but swelling to the back of the head and increasing headache. Also had pain to the left shoulder, prior reverse shoulder arthroplasty, able to move her left arm. No other injuries recalled. She does not take blood thinner medications. MD complaint: fall Related Data Home Medications ?Medication ?Instructions ?Recorded ?Confirmed amitriptyline 10 mg tablet 10 mg PO QPM 02/26/18 01/04/24 atorvastatin 40 mg tablet (Lipitor) 40 mg PO QPM 02/26/18 01/04/24 conjugated estrogens 0.625 mg 0.3125 mg PO QAM 02/26/18 01/04/24 tablet (Premarin) escitalopram oxalate 20 mg tablet 20 mg PO QPM 02/26/18 01/04/24 (Lexapro) folic acid 1 mg tablet 1 mg PO DAILY 02/26/18 01/04/24 hydrochlorothiazide 25 mg tablet 25 mg PO QAM 02/26/18 01/04/24 calcium polycarbophil 625 mg 1 tab PO BID 08/10/18 01/04/24 tablet (Fiber-Tabs) cholecalciferol (vitamin D3) 50 4,000 unit PO BID 08/10/18 01/04/24 mcg (2,000 unit) capsule (Vitamin D3) cyanocobalamin (vitamin B-12) 1,000 mcg PO BID 08/10/18 01/04/24 1,000 mcg tablet (Vitamin B-12) mibkfmmg-yev-twbqk acid 0.4 1 tab PO DAILY 08/10/18 01/04/24 mg-lycopene 300 mcg-lutein 250 mcg tablet (Centrum Silver) solifenacin 10 mg tablet 10 mg PO QPM 08/10/18 01/04/24 celecoxib 200 mg capsule (Celebrex) 200 mg PO DAILY 11/10/19 01/04/24 Respirinics DreamStation 2 Auto #1 ea 06/28/21 01/04/24 CPAP clobetasol 0.05 % topical ointment 1 applic topical PRN PRN Rash 09/03/21 01/04/24 omeprazole 20 mg capsule,delayed 20 mg PO BID 10/09/22 01/04/24 release nystatin 100,000 unit/gram topical 1 applic topical BID 02/03/23 01/04/24 cream amlodipine 2.5 mg tablet 5 mg PO BEDTIME 03/17/23 01/04/24 Adult Low Dose Aspirin 81 mg PO DAILY 01/04/24 01/04/24 diclofenac sodium 1 % topical gel 4 g topical PRN PRN pain 01/04/24 01/04/24 (Voltaren Arthritis Pain) losartan 100 mg PO DAILY 01/04/24 01/04/24 sulfamethoxazole 800 1 tab PO BID 01/04/24 01/04/24 mg-trimethoprim 160 mg tablet tramadol 50 mg tablet 50 mg PO PRN PRN pain 01/04/24 01/04/24 Previous Rx's ?Medication ?Instructions ?Recorded cyclobenzaprine 10 mg tablet 10 mg PO TID PRN muscle spasm #7 01/15/24 tabs Allergies Allergy/AdvReac Type Severity Reaction Status Date / Time piroxicam (PIROXICAM) Allergy Severe RASH Verified 12/26/24 18:47 shellfish derived (SHELLFISH Allergy Severe scallops Verified 12/26/24 18:47 DERIVED) only ANAPHYLAXIS rofecoxib (ROFECOXIB) Allergy Intermediate RASH Verified 12/26/24 18:47 bacitracin (From NEOSPORIN Allergy Mild rash Verified 12/26/24 18:47 ([id number])) neomycin (From NEOSPORIN Allergy Mild rash Verified 12/26/24 18:47 ([id number])) polymyxin B (From NEOSPORIN Allergy Mild rash Verified 12/26/24 18:47 ([id number])) Patient History Medical History Colitis 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 with neurogenic 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 Gait instability 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 Lumbar radiculopathy Facet arthropathy, lumbar Insomnia, psychophysiological (~2006) Diverticulosis MGUS (monoclonal gammopathy of unknown significance) GI bleed 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 sides of body GERD (gastroesophageal reflux disease) Anxiety Depression Hyperlipidemia Hypertension Allergic rhinitis Chronic rhinosinusitis Excessive daytime sleepiness (~2006) Obstructive sleep apnea of adult (~2006) Snoring (~1984) Degenerative joint disease, ankle, foot, toe Degenerative joint disease (DJD) of hip Closed L1 vertebral fracture Flu Bilateral foot pain Obesity (BMI 30-39.9) Degenerative disc disease, cervical Degenerative disc disease, lumbar Chronic pain syndrome Contusion of left hip Rectal bleeding Surgical History Hx of repair of right rotator cuff History of hysterectomy History of surgery on left wrist History of hand surgery History of bladder suspension procedure History of colonoscopy Social History marital status: details: to Hermes, lives in [place] household members: spouse lives independently: Yes caregiver/support person: No housing: house Smoking Status: Never smoker alcohol intake: current Smoking Status: Never smoker alcohol intake frequency: holidays/special occasions only Exam Narrative Exam Narrative: GENERAL: Well-developed patient, in mild distress. HEAD: Tenderness and swelling to the right occipital with swelling non crepitant 3 x 2 cm, no laceration or abrasion changes. No active bleeding. EYES: Pupils equal round and reactive. Extraocular motions intact. No scleral icterus. No injection or drainage. ENT: Nose without bleeding, purulent drainage. Throat without erythema, tonsillar hypertrophy or exudate. Airway patent. NECK: Trachea midline. Non tender CARDIOVASCULAR: Regular rate and rhythm without murmurs, gallops, or rubs. RESPIRATORY: Clear to auscultation. Breath sounds equal bilaterally. No wheezes, rales, or rhonchi. GASTROINTESTINAL: Abdomen soft, non-tender, nondistended. EXTREMITIES: No edema or joint tenderness. Some mild tenderness to the left superior trapezius, without skin changes. Normal range of motion shoulder. No anterior biceps femoral or AC joint area tenderness, no gross deformity. BACK: Nontender without deformity or crepitance. No flank tenderness. NEURO: AOx3. Motor functions grossly nonfocal. SKIN: No rash or erythema of visible areas Initial Vital Signs Initial Vital Signs: Vital Signs Temperature 97.7 F 12/26/24 18:47 Pulse Rate 90 12/26/24 18:47 Respiratory Rate 14 12/26/24 18:47 Blood Pressure 168/73 H 12/26/24 18:47 Pulse Oximetry 99 12/26/24 18:47 Oxygen Delivery Method Room Air 12/26/24 18:47 Course Orders Ordered: Discontinued Medications Acetaminophen (Acetaminophen 325 Mg Tablet) 975 mg PO NOW ONE Stop: 12/26/24 18:52 Last Admin: 12/26/24 18:55 Dose: 975 mg Documented By: HARVINDER Vital Signs Vital signs: Vital Signs - 8 hr 12/26/24 18:47 12/26/24 20:30 12/27/24 01:46 Temperature 97.7 F 96.7 F L Pulse Rate 90 78 107 H Respiratory Rate 14 Blood Pressure 168/73 H 149/84 H 210/98 H Pulse Oximetry 99 97 95 Oxygen Delivery Method Room Air Room Air Room Air 12/27/24 01:47 Temperature Pulse Rate 95 H Respiratory Rate Blood Pressure 190/87 H Pulse Oximetry 97 Oxygen Delivery Method Room Air MDM - Fall Imaging Data CT scan - head: Radiologist's Impression: [address] [address] [address] Scan Report Signed Patient: Pat Jackson MR#: [id number] : 1945 Acct:[id number] Age/Sex: 79 / F Date of Service: 12/26/24 Loc: ED Accession Number: [id number] Procedure: CT head/brain wo con Ordering Provider: Kyrie Wolfe MD PROCEDURE: CT HEAD/BRAIN WO CON INDICATIONS: fall, hit head TECHNIQUE: Noncontrast 4.5 mm thick angled axial sections acquired from the foramen magnum to the vertex, with coronal and sagittal reformats. For radiation dose reduction, the following was used: automated exposure control, adjustment of mA and/or kV according to patient size. COMPARISON: [facility], CT, CT HEAD/BRAIN WO CON, 12/30/2023, 20:32. FINDINGS: Image quality: Diagnostic. CSF spaces: Basal cisterns are patent. No extra-axial fluid collections. The ventricles are symmetric in size and shape. Brain: No intracranial bleeds or mass effect. There is cerebral volume loss, with resultant ventricular and sulcal prominence. There are periventricular and deep white matter chronic small vessel ischemic changes. There is intracranial internal carotid artery atherosclerosis. Skull and face: Calvarium and visualized facial bones appear intact, without suspicious lesions. Sinuses: Partial opacification of the left maxillary sinus. Remainder of visualized sinuses and mastoids are clear. IMPRESSION: No acute intracranial pathology. Approved by: Gi Gonzalez M.D.,Ph.D. on 12/26/2024 at 19:54 CT - cervical spine: Radiologist's Impression: [address] [address] [address] Scan Report Signed Patient: Pat Jackson MR#: [id number] : 1945 Acct:[id number] Age/Sex: 79 / F Date of Service: 12/26/24 Loc: ED Accession Number: [id number] Procedure: CT cervical spine wo con Ordering Provider: Kyrie Wolfe MD PROCEDURE: CT CERVICAL SPINE WO CON INDICATIONS: fall TECHNIQUE: Noncontrast 3 mm thick sections acquired from the skull base to the T4 level. Sagittal and coronal reformats were then constructed. For radiation dose reduction, the following was used: automated exposure control, adjustment of mA and/or kV according to patient size. COMPARISON: [facility], CT, CT CERVICAL SPINE WO CON, 12/30/2023, 20:32. FINDINGS: Image quality: Diagnostic Bones: No fractures or dislocations. Visualized superior ribs are intact. Multilevel degenerative changes. Soft tissues: Prevertebral soft tissues are normal in thickness. No paravertebral hematomas. No apical pneumothoraces. IMPRESSION: No acute displaced fracture or traumatic subluxation. Approved by: Gi Gonzalez M.D.,Ph.D. on 12/26/2024 at 19:56 Extremity x-ray #1: Radiologist's Impression: ib, bacitracin, neomycin, polymyxin B [address] [address] XRay Report Signed Patient: Pat Jackson MR#: [id number] : 1945 Acct:[id number] Age/Sex: 79 / F Date of Service: 12/26/24 Loc: ED Accession Number: [id number] Procedure: XR shoulder LT 2+ views Ordering Provider: Kyrie Wolfe MD PROCEDURE: XR SHOULDER LT MIN 2V INDICATIONS: fall TECHNIQUE: 3 views of the shoulder were acquired. COMPARISON: [facility], CR, XR SHOULDER LT MIN 2V, 12/16/2021, 13:48. FINDINGS: Bones: Status post reverse shoulder arthroplasty. Prosthetic elements appear to be in appropriate position. No evidence of periprosthetic fracture. Severe degenerative changes of the acromioclavicular joint, as before. No suspicious bony lesions. Visualized ribs appear intact. Soft tissues: No suspicious soft tissue calcifications. IMPRESSION: Stable postoperative appearance of reverse shoulder arthroplasty. No evidence of acute osseous abnormality. Approved by: Gi Gonzalez M.D.,Ph.D. on 12/26/2024 at 19:52 [facility] Narrative Medical decision making narrative: Mechanical ground level fall elderly female, posterior head strike, no LOC, no blood thinner medications, occipital contusion palpable, neck pain predominantly from left superior trapezius strain clinically. From triage CT head noncontrast scan was done, CT cervical spine, left shoulder x-ray series. CT head noncontrast study, no acute changes. See radiology report. CT cervical spine noncontrast study, no acute changes. See radiology report. X-ray left shoulder shows postoperative reverse arthroplasty changes, no acute changes. See radiology report. Declines left shoulder sling when offered. Patient seems to feel comfortable with using [id number] Tylenol and or Motrin as needed, declines muscle relaxant for now. Reassured about results as described from her reports. Discharged home with family. Follow up with PCP advised if not improving in the next couple of days. Return precautions discussed. Discharge Plan Departure Patient Disposition: Home Clinical Impression: Fall from ground level, Strain of left trapezius muscle, Contusion of occipital region of scalp Activity Restrictions/Additional Instructions: Mechanical ground level fall, with occipital scalp contusion palpable by exam. Some tenderness of the left trapezius muscle. CT scan of the brain negative, CT scan cervical spine negative, x-ray left shoulder showed intact surgical postoperative changes. Likely muscle spasm of the superior left trapezius, consider muscle relaxant, declined for now. Take Tylenol and/or Motrin as needed for pain control. Recheck symptoms with your regular doctor next couple of days if any lingering symptoms, if not improving. Continue taking your chronic regular medications as prescribed. Return to this/nearest emergency department for any change worsening symptoms or any concerns prior. Prescriptions: No Action cyanocobalamin (vitamin B-12) [Vitamin B-12] 1,000 mcg Tablet 1,000 mcg PO BID Fiber-Tabs 625 mg Tablet 1 tab PO BID solifenacin 10 mg tablet 10 mg PO QPM Centrum Silver 0.4-300-250 mg-mcg-mcg Tablet 1 tab PO DAILY cholecalciferol (vitamin D3) [Vitamin D3] 2,000 unit Capsule 4,000 unit PO BID celecoxib [Celebrex] 200 mg Capsule 200 mg PO DAILY losartan 100 mg PO DAILY Adult Low Dose Aspirin 81 mg tablet 81 mg PO DAILY diclofenac sodium [Voltaren Arthritis Pain] 1 % gel 4 g topical PRN PRN (Reason: pain) Rx Instructions: apply to single knee, ankle, foot; for foot includes sole/toes/top of foot tramadol 50 mg tablet 50 mg PO PRN PRN (Reason: pain) Rx Instructions: BID PRN sulfamethoxazole-trimethoprim 800-160 mg tablet 1 tab PO BID Rx Instructions: patient stated she had two more days to complete per regimen cyclobenzaprine 10 mg tablet 10 mg PO TID PRN (Reason: muscle spasm) Qty: 7 0RF conjugated estrogens [Premarin] 0.625 mg tablet 0.3125 mg PO QAM hydrochlorothiazide 25 mg tablet 25 mg PO QAM escitalopram oxalate [Lexapro] 20 mg tablet 20 mg PO QPM folic acid 1 mg tablet 1 mg PO DAILY atorvastatin [Lipitor] 40 mg tablet 40 mg PO QPM amitriptyline 10 mg tablet 10 mg PO QPM omeprazole 20 mg capsule,delayed release(DR/EC) 20 mg PO BID amlodipine 2.5 mg tablet 5 mg PO BEDTIME clobetasol 0.05 % ointment 1 applic topical PRN PRN (Reason: Rash) nystatin 100,000 unit/gram cream 1 applic topical BID (DME) Respirinics DreamStation 2 Auto CPAP kit Qty: 1 Dose Instruction: As directed Patient Comments: Pressure: 7-14 cmH2O DME: [employer] Rx Instructions: As directed Referrals: Ana Paula Jean Baptiste MD [Primary Care Provider, Family Practice] Stand Alone Forms: Patient Portal/API
== END 2024-12-27 02:11 | disposition home or self-care (01) ==
PROVIDERS: Emergency Provider Emergency Medicine; PCP Family Medicine
DX: S46.812A Strain of other muscles, fascia and tendons at shoulder and upper arm level, left arm, initial encounter (principal); S00.03XA Contusion of scalp, initial encounter; W01.0XXA Fall on same level from slipping, tripping and stumbling without subsequent striking against object, initial encounter
CPT/HCPCS: 70450; 72125; 73030; 99283; 99284

== ENCOUNTER → 2025-03-14 16:22 | Outpatient (CLI) | payer MEDICARE, OTHER, SELFPAY ==
[2024-01-04 18:25] VITALS: BMI 36.6
--- NOTE | 2025-03-14 16:24 | DI.US.S_ITS ---
PROCEDURE: US RENAL COMPLETE INDICATIONS: Stage 3b chronic kidney disease TECHNIQUE: Real-time scanning was performed of the kidneys and bladder, with image documentation. COMPARISON: [facility], CT, CT IVP, 02/13/2024, 18:15. FINDINGS: Kidneys: Kidneys are normal in size. Right kidney measures 9.9 cm long; left kidney measures 10.1 cm long. Right renal cortical thickness is 1.4 cm; left renal cortical thickness is 1.8 cm. Renal cortical echotexture is normal. No hydronephrosis or nephrolithiasis. No suspicious solid mass lesions. Bladder: Pre-void bladder volume is 299 mL. Post-void residual is 86 mL. Pre- void images demonstrate no intraluminal masses or stones. On pre-void images, and neither ureteral jets are noted with color Doppler interrogation. (Of note, ureteral jets may not be detectable in up to 25% of cases due to insufficient differences in specific gravity between ureteral and bladder urine). Miscellaneous: No free pelvic fluid. 1.2 cm gallstone noted. IMPRESSION: No renal mass, stone or hydronephrosis. Normal bladder. Incidental cholelithiasis. 1 0 Dictated by: Radha Jeffrey M.D. on 03/15/2025 at 9:22 Approved by: Radha Jeffrey M.D. on 03/15/2025 at 9:25
== END ==
PROVIDERS: PCP Family Medicine; Referring Provider Family Medicine; Visit Provider Family Medicine
DX: N18.32 Chronic kidney disease, stage 3b (principal); K80.20 Calculus of gallbladder without cholecystitis without obstruction
CPT/HCPCS: 76770

== ENCOUNTER → 2025-03-18 08:19 | Outpatient (CLI) | payer MEDICARE, OTHER, SELFPAY ==
[2024-01-04 18:25] VITALS: BMI 36.6
--- NOTE | 2025-03-18 08:21 | DI.US.S_ITS ---
PROCEDURE: US ABDOMEN LIMITED INDICATIONS: Gallstones TECHNIQUE: Real-time scanning was performed of the abdominal and retroperitoneal organs, with image documentation. COMPARISON: None. FINDINGS: Liver: Mild hepatomegaly with mildly increased echogenicity of the liver, suggestive of mild T2 CIS. Gallbladder: Cholelithiasis. No wall thickening or pericholecystic fluid. Biliary ducts: Intrahepatic bile ducts are non-dilated. Extrahepatic bile duct caliber measures 5 mm. Normal is 6-7 mm or less in diameter, or 10 mm or less post-cholecystectomy. Pancreas: Visualized portions of the pancreas are sonographically normal. Miscellaneous: No free abdominal fluid. IMPRESSION: 1. Cholelithiasis without evidence of acute cholecystitis. 2. Mild hepatomegaly with mildly increased hepatic echotexture, suggestive of mild steatosis. Dictated by: Cristela Mathews M.D. on 03/19/2025 at 20:09 Approved by: Cristela Mathews M.D. on 03/19/2025 at 20:11
== END ==
LOC: US 08:21
PROVIDERS: PCP Family Medicine; Referring Provider Family Medicine; Visit Provider Family Medicine
DX: K80.20 Calculus of gallbladder without cholecystitis without obstruction (principal); R16.0 Hepatomegaly, not elsewhere classified
CPT/HCPCS: 76705